=== PATIENT | female | born 1965 | race Caucasian/White ===

== ENCOUNTER 2017-12-06 13:07 | Emergency (ER) | payer MEDICAID, SELFPAY ==
[2017-12-06 13:18] VITALS: BP 146/106; PULSE 85; RESP 18; TEMP 36.7; O2SAT 97
[2017-12-06 13:21] LABS: Bilirubin Negative (Negative); Blood Small (Negative); Clarity Clear; Glucose Negative (Negative); Ketones Negative (Negative); Leukocyte Esterase Small (Negative); Nitrite Negative (Negative); Urobilinogen 0.2 EU/dL (Up TO 0.2)
[2017-12-06 13:35] LABS: Bacteria Moderate HPF (Negative); C & S Indicated? Yes; Casts Negative LPF (Negative); Crystals Negative HPF (Negative); Epithelial Cells Negative HPF (Negative); Mucus Negative (Negative); RBC 20-50 (0-2); WBC >50 HPF (0-5)
--- NOTE | 2017-12-06 13:52 | DI.CT_ITS ---
SYMPTOMS/DIAGNOSIS: RT RENAL PAIN RENAL COLIC CT: Routine examination. Comparison CT scan of the chest is 11/04/16. There are a few hypodensities seen within the liver. They are too small for further characterization but likely reflect cysts. The cyst in the lateral aspect of the right lobe of the liver appears stable. The gallbladder is negative. No biliary ductal dilatation is seen. The unenhanced visualized portions of the pancreas, spleen and adrenal glands are unremarkable. No evidence of nephrolithiasis or obstructive uropathy. The urinary bladder is intact. The uterus may be surgically absent. The bowel shows no evidence of obstruction or inflammation. There is a moderate amount of stool throughout the colon suggesting constipation. No evidence of an acute appendicitis is present. No significant abdominal or pelvic adenopathy, ascites or pneumoperitoneum is seen. The abdominal aorta is of normal caliber. Degenerative changes are seen in the spine. IMPRESSION: 1. No evidence of an obstructive uropathy or nephrolithiasis. 2. Constipation.
--- NOTE | 2017-12-06 14:05 | W.ED.GENAD ---
Discharge Plan Disposition Patient Disposition: HOME Condition: Fair Discharge Details Chief Complaint: Urinary Clinical Impression: Pyelonephritis Primary Care Provider: Elias Cruz ED Provider: Sadaf Tang Home Meds and New Rx's Prescriptions: New sulfamethoxazole-trimethoprim [Bactrim DS] 800-160 mg tablet 1 tab PO DAILY Qty: 28 RF: 0 Continue ibuprofen 800 mg tablet 800 mg PO QID PRNRF: 0 simvastatin 40 mg tablet 40 mg PO QPM RF: 0 dicyclomine 10 mg capsule 10 mg PO QID PRNRF: 0 varenicline [Chantix] 1 mg tablet 1 mg PO BID Qty: 30 RF: 4 varenicline [Chantix Starting Month Box] 0.5 mg (11)- 1 mg (42) tablets,dose pack 1 dose pk PO DIRECTED Qty: 53 RF: 0 aspirin [Aspir-81] 81 MG tablet,delayed release (DR/EC) 81 mg PO DAILY Qty: 90 RF: 4 clonazepam 1 mg tablet 1 mg PO TID PRN (Reason: anxiety) Qty: 90 RF: 1 No Action hydrocodone-acetaminophen 5-325 mg tablet 1 tab PO DAILY PRN MDD 1 tab PRN (Reason: pain) 30 Days Qty: 30 RF: 0 nitrofurantoin monohyd/m-cryst 100 mg capsule 100 mg PO BID Qty: 14 RF: 0 Discharge Instructions Instructions: Urinary Tract Infection in Women (ED) Additional Instructions: Encourage hydration. Please take antibiotics as prescribed. Even if symptoms improve, please take the entire course. Please follow-up with primary care in 1 week for reevaluation. If you develop fever/chills, inability to stay hydrated, increased pain or other new/worsening symptoms please seek care urgently once again Referrals: Elias Cruz MD [Primary Care Provider] - Discharge Data Discharge Date/Time-TO BE ENTERED AT DEPARTURE: 12/06/17 15:28 Medical Decision Making Patient is a 52-year-old female presenting today with chief complaint of dysuria, right-sided flank pain and increased urgency that began a few hours prior to arrival. She reports that she had urinary tract infections in the past. None recently. Denies any fevers or chills. Denies any nausea or vomiting. No change in bowel habits. Denies any vaginal discharge or dyspareunia. On exam, patient has right-sided CVA tenderness. She appears nontoxic. Vital signs significant for hypertension with BP of 146/106, otherwise within normal limits. Patient is afebrile. Patient has history of anxiety, hyperlipidemia, GERD, chronic pain, bipolar, COPD, PTSD, chronic low back pain. Will obtain urinalysis, laboratory evaluation. Given the acuity of her discomfort, I am concerned this may may be a kidney stone. However, the patient does not appear to be in that much discomfort. She is resting comfortably. Only minimal pain is elicited with CVA tenderness. However, I would like to evaluate the right kidney further and will obtain a renal CT. Discussed this plan with the patient who is in agreement. CT reviewed by radiologist who contacted the department with results. Advised that there is no nephrolithiasis or obstruction noted. No hydronephrosis. Does note that the patient is mildly constipated Laboratory evaluation significant for small amount of leukocytosis in the urinalysis as well as small amount of blood. Patient does have moderate bacteria with no epithelial contamination. No leukocytosis. Kidney function is appropriate Discussed these findings with the patient. Advised that her history is concerning for pyelonephritis. Patient will be treated with oral Bactrim Encouraged hydration. We discussed pain control options. She has been dealing with chronic pain in her lower back for quite some time and seems well adept at this. Advise follow-up with primary care in 1 week. She is given strict return precautions. All of her questions and concerns were addressed and she is in agreement with this plan. HPI General Mode of arrival: ambulatory. Date/Time Provider Initiated Documentation: 12/06/17 13:20. Limitations to Documentation: no limitations. Information obtained by: patient. History of Present Illness 52 year old F presents to the emergency department with the chief complaint of dysurea, described as moderate, with intensity rated at 8. Quality is described as aching, and is localized to the back (right flank). Patient reports no radiation. Patient started experiencing this hour(s) (began at 0900) and it has been constant. No relieving factors improve symptom(s), Other factors that worsen symptoms (urinating) . Patient notes no other symptoms.; denies chest pain, cough, fever/chills, headaches, loss of appetite, nausea/vomiting, rash, shortness of breath and weakness. Patient did receive the following treatments prior to arrival, none Related Data Home Medications Medication Instructions Recorded Confirmed aspirin [Aspir-81] 81 mg PO DAILY #90 tab-cap 03/09/13 12/16/17 dicyclomine 10 mg capsule 10 mg PO QID PRN 11/05/17 12/16/17 ibuprofen 800 mg tablet 800 mg PO QID PRN 11/05/17 12/16/17 simvastatin 40 mg tablet 40 mg PO QPM 11/05/17 12/16/17 varenicline 0.5 mg (11)-1 mg (42) 1 dose pk PO DIRECTED #53 dose 11/05/17 12/16/17 tablets in a dose pack pk varenicline 1 mg tablet 1 mg PO BID #30 tab 11/05/17 12/16/17 clonazepam 1 mg tablet 1 mg PO TID PRN #90 tab NS 11/23/17 12/16/17 sulfamethoxazole-trimethoprim 1 tab PO DAILY #28 tab 12/06/17 12/16/17 [Bactrim DS] hydrocodone 5 mg-acetaminophen 325 1 tab PO DAILY PRN PRN 30 Days #30 12/17/17 mg tablet tab NS MDD 1 tab nitrofurantoin 100 mg PO BID #14 cap 12/17/17 monohydrate/macrocrystals 100 mg capsule Previous Rx's Medication Instructions Recorded varenicline 0.5 mg (11)-1 mg (42) 1 dose pk PO DIRECTED #53 dose 11/05/17 tablets in a dose pack pk varenicline 1 mg tablet 1 mg PO BID #30 tab 11/05/17 clonazepam 1 mg tablet 1 mg PO TID PRN #90 tab NS 11/23/17 sulfamethoxazole-trimethoprim 1 tab PO DAILY #28 tab 12/06/17 [Bactrim DS] hydrocodone 5 mg-acetaminophen 325 1 tab PO DAILY PRN PRN 30 Days #30 12/17/17 mg tablet tab NS MDD 1 tab nitrofurantoin 100 mg PO BID #14 cap 12/17/17 monohydrate/macrocrystals 100 mg capsule Allergies Allergy/AdvReac Type Severity Reaction Status Date / Time morphine Allergy Severe stops my Unverified 12/16/17 14:26 heart fentanyl Allergy Intermediate Hives Unverified 12/16/17 14:26 lamotrigine Allergy Intermediate Facial Unverified 12/16/17 14:26 blistering carbamazepine AdvReac Intermediate Drowsiness Unverified 12/16/17 14:26 and ataxia cyclobenzaprine HCl AdvReac Intermediate vomits Unverified 12/16/17 14:26 [From Flexeril] hydromorphone HCl AdvReac Intermediate vomits Unverified 12/16/17 14:26 [From Dilaudid] Penicillins AdvReac Intermediate vomits Unverified 12/16/17 14:26 methocarbamol AdvReac Nausea, Unverified 12/16/17 14:26 headache oxycodone [Oxycodone] AdvReac Nausea Unverified 12/16/17 14:26 prednisone AdvReac Nausea Unverified 12/16/17 14:26 General Stated Complaint: Urinary VENKAT: 3 Review of Systems Constitutional Reports as per HPI Cardiovascular Reports as per HPI Respiratory Reports as per HPI Gastrointestinal Reports as per HPI Genitourinary Reports as per HPI, Denies dyspareunia, Reports dysuria, Reports flank pain, Denies urinary incontinence, Reports urinary urgency and Denies vaginal discharge Musculoskeletal Reports as per HPI and Reports back pain Integumentary/Breasts Denies rash PFSH Family History Mother Essential hypertension Alzheimer disease Heart disease Hyperlipidemia Father Myocardial infarction Sister Hyperlipidemia Cerebrovascular accident Brother Essential hypertension Heart disease Hyperlipidemia Cerebrovascular accident Son Diabetes Grandmother Diabetes Social History Smoking/Tobacco Use Status: Current every day tobacco type: cigarettes Surgical History Abdominal hysterectomy Appendectomy Arthroscopy, Shoulder Bilateral salpingectomy with oophorectomy Rotator Cuff Repair Exam Const General: cooperative, healthy appearing, comfortable, no acute distress, well developed and well groomed Nutritional Appearance: average body habitus and well nourished Orientation: alert and awake [facility] Mouth: oral mucosae normal and moist mucous membranes Eyes General: appearance normal, both eyes and all related structures Resp Effort & Inspection: normal respiratory effort, able to speak in complete sentences and no respiratory distress Auscultation: clear to auscultation bilaterally, no rales, no rhonchi and no wheezes Cardio Rate: regular rate Rhythm: regular rhythm Heart Sounds: S1 normal and S2 normal GI Inspection: normal to inspection, no abdominal wall ecchymosis, no edema and non-distended Palpation: soft, no hepatosplenomegaly, not firm, no guarding, no masses, not rigid and nontender Auscultation: normal bowel sounds Back/Spine/Pelvis Back: CVA tenderness (right) Skin General skin exam: no rashes or lesions noted Lesions: no lesions Rashes: no rashes Trauma: no lacerations or abrasions Neuro General: alert and awake Cognition: normal cognition Speech: speech normal Gait: normal gait Extrem General: no pedal edema, no calf tenderness and normal gait Psych Appearance: grossly normal and well kempt Mental Status: mental status grossly normal Speech and Movement: speech and movement normal Mood: congruent mood Course Vital Signs Temperature 36.7 C 12/06/17 13:18 Pulse 85 12/06/17 13:18 Respiratory Rate 18 12/06/17 13:18 Blood Pressure 146/106 H 12/06/17 13:18 Pulse Oximetry 97 12/06/17 13:18 Temperature 36.7 C 12/06/17 13:18 Temperature Source Tympanic 12/06/17 13:18 Pulse 85 12/06/17 13:18 Respiratory Rate 18 12/06/17 13:18 Respiratory Effort Non-Labored 12/06/17 13:20 Blood Pressure 146/106 H 12/06/17 13:18 Blood Pressure Position Sitting 12/06/17 13:18 Pulse Oximetry 97 12/06/17 13:18 Oxygen Delivery Method Room Air 12/06/17 13:18 Oxygen Flow Rate 0 12/06/17 13:18 Pain Level 8 12/06/17 13:18 Lab/Test Results Lab/Test Results: 12/06/17 13:13 Urine - Reflex from Ua Urine Culture - Pending Laboratory Tests Range/Units 12/06/17 13:13 Urine Color (Yellow) Yellow Urine Clarity Clear Urine pH (5-8) 7.0 Ur Specific [place] (1.005-1.025) 1.010 Urine Protein (Negative) mg/dL Negative Urine Ketones (Negative) mg/dL Negative Urine Blood (Negative) Small H Urine Nitrite (Negative) Negative Urine Bilirubin (Negative) Negative Urine Urobilinogen (Up TO 0.2) EU/dL 0.2 Ur Leukocyte Esterase (Negative) Small H Urine RBC (0-2) 20-50 H Urine WBC (0-5) HPF >50 Ur Epithelial Cells (Negative) HPF Negative Urine Crystals (Negative) HPF Negative Urine Bacteria (Negative) HPF Moderate Urine Casts (Negative) LPF Negative Urine Mucus (Negative) Negative Ur Culture Indicated? Yes Urine Glucose (Negative) mg/dL Negative
[2017-12-06 14:36] LABS: Abs Immature Grans 0.02 k/cumm (0.0-0.09); Absolute Basophil Count 0.04 k/cumm (0.0-0.2); Absolute Eosinophil Count 0.09 k/cumm (0.0-0.7); Absolute Monocyte Count 0.48 k/cumm (0.11-0.7); Absolute Neutrophil Count 5.66 k/cumm (1.2-6.7); Basophils % 0.4; HCT 43.4 % (36.0-46.0); HGB 14.7 g/dL (12.0-15.5); Immature Grans % 0.2; Mean Corp. HGB Concentration 33.9 g/dL (32.0-36.0); Mean Corpuscular Hemoglobin 31.1 pg (27.0-33.0); Mean Corpuscular Volume 91.8 fL (80-95); Mean Platelet Volume 10.2 fL (8.0-11.0); Monocytes % 5.3; Neutrophils % 63.1; Platelet Count 265 x1000/uL (130-400); RBC 4.73 m/cumm (4.00-5.20); RBC Distribution Width 13.9 % (11.7-14.6); White Blood Cell Count 8.99 k/cumm (4.4-10.8)
[2017-12-06 14:54] LABS: ALT 21 U/L (12-78); AST 17 U/L (15-37); Albumin 4.1 g/dL (3.4-5.0); Alkaline Phosphatase 81 U/L (46-116); Anion Gap 6.4 mmol/L (3-11); BUN 11 mg/dL (7-18); Bilirubin, Total 0.3 mg/dL (0.2-1.0); CO2 27.6 mmol/L (21.0-32.0); Calcium 8.9 mg/dL (8.5-10.1); Chloride 105 mmol/L (98-107); Glucose 92 mg/dL (70-100); Sodium 139 mmol/L (136-145); Total Protein 7.8 g/dL (6.4-8.2)
--- NOTE | 2017-12-20 14:29 | ED.GENADUL_ITS ---
Discharge Plan Disposition Patient Disposition: HOME Condition: Fair Discharge Details Chief Complaint: Urinary Clinical Impression: Pyelonephritis Primary Care Provider: Elias Cruz ED Provider: Sadaf Tang Home Meds and New Rx's Prescriptions: New sulfamethoxazole-trimethoprim [Bactrim DS] 800-160 mg tablet 1 tab PO DAILY Qty: 28 RF: 0 Continue ibuprofen 800 mg tablet 800 mg PO QID PRNRF: 0 simvastatin 40 mg tablet 40 mg PO QPM RF: 0 dicyclomine 10 mg capsule 10 mg PO QID PRNRF: 0 varenicline [Chantix] 1 mg tablet 1 mg PO BID Qty: 30 RF: 4 varenicline [Chantix Starting Month Box] 0.5 mg (11)- 1 mg (42) tablets,dose pack 1 dose pk PO DIRECTED Qty: 53 RF: 0 aspirin [Aspir-81] 81 MG tablet,delayed release (DR/EC) 81 mg PO DAILY Qty: 90 RF: 4 clonazepam 1 mg tablet 1 mg PO TID PRN (Reason: anxiety) Qty: 90 RF: 1 No Action hydrocodone-acetaminophen 5-325 mg tablet 1 tab PO DAILY PRN MDD 1 tab PRN (Reason: pain) 30 Days Qty: 30 RF: 0 nitrofurantoin monohyd/m-cryst 100 mg capsule 100 mg PO BID Qty: 14 RF: 0 Discharge Instructions Instructions: Urinary Tract Infection in Women (ED) Additional Instructions: Encourage hydration. Please take antibiotics as prescribed. Even if symptoms improve, please take the entire course. Please follow-up with primary care in 1 week for reevaluation. If you develop fever/chills, inability to stay hydrated, increased pain or other new/worsening symptoms please seek care urgently once again Referrals: Elias Cruz MD [Primary Care Provider] - Discharge Data Discharge Date/Time-TO BE ENTERED AT DEPARTURE: 12/06/17 15:28 Medical Decision Making Patient is a 52-year-old female presenting today with chief complaint of dysuria , right-sided flank pain and increased urgency that began a few hours prior to arrival. She reports that she had urinary tract infections in the past. None recently. Denies any fevers or chills. Denies any nausea or vomiting. No change in bowel habits. Denies any vaginal discharge or dyspareunia. On exam, patient has right-sided CVA tenderness. She appears nontoxic. Vital signs significant for hypertension with BP of 146/106, otherwise within normal limits. Patient is afebrile. Patient has history of anxiety, hyperlipidemia, GERD, chronic pain, bipolar, COPD, PTSD, chronic low back pain. Will obtain urinalysis, laboratory evaluation. Given the acuity of her discomfort, I am concerned this may may be a kidney stone. However, the patient does not appear to be in that much discomfort. She is resting comfortably. Only minimal pain is elicited with CVA tenderness. However, I would like to evaluate the right kidney further and will obtain a renal CT. Discussed this plan with the patient who is in agreement. CT reviewed by radiologist who contacted the department with results. Advised that there is no nephrolithiasis or obstruction noted. No hydronephrosis. Does note that the patient is mildly constipated Laboratory evaluation significant for small amount of leukocytosis in the urinalysis as well as small amount of blood. Patient does have moderate bacteria with no epithelial contamination. No leukocytosis. Kidney function is appropriate Discussed these findings with the patient. Advised that her history is concerning for pyelonephritis. Patient will be treated with oral Bactrim Encouraged hydration. We discussed pain control options. She has been dealing with chronic pain in her lower back for quite some time and seems well adept at this. Advise follow-up with primary care in 1 week. She is given strict return precautions. All of her questions and concerns were addressed and she is in agreement with this plan. HPI General Mode of arrival: ambulatory . Date/Time Provider Initiated Documentation: 12/06/17 13:20 . Limitations to Documentation: no limitations . Information obtained by: patient . History of Present Illness 52 year old F presents to the emergency department with the chief complaint of dysurea, described as moderate, with intensity rated at 8. Quality is described as aching, and is localized to the back (right flank). Patient reports no radiation. Patient started experiencing this hour(s) (began at 0900 ) and it has been constant. No relieving factors improve symptom(s), Other factors that worsen symptoms (urinating) . Patient notes no other symptoms.; denies chest pain, cough, fever/chills, headaches, loss of appetite, nausea/vomiting, rash, shortness of breath and weakness. Patient did receive the following treatments prior to arrival, none Related Data Home Medications Medication Instructions Recorded Confirmed aspirin [Aspir-81] 81 mg PO DAILY #90 tab-cap 03/09/13 12/16/17 dicyclomine 10 mg capsule 10 mg PO QID PRN 11/05/17 12/16/17 ibuprofen 800 mg tablet 800 mg PO QID PRN 11/05/17 12/16/17 simvastatin 40 mg tablet 40 mg PO QPM 11/05/17 12/16/17 varenicline 0.5 mg (11)-1 mg (42) 1 dose pk PO DIRECTED #53 dose 11/05/17 tablets in a dose pack pk varenicline 1 mg tablet 1 mg PO BID #30 tab 11/05/17 12/16/17 clonazepam 1 mg tablet 1 mg PO TID PRN #90 tab NS 11/23/17 12/16/17 sulfamethoxazole-trimethoprim 1 tab PO DAILY #28 tab 12/06/17 12/16/17 [Bactrim DS] hydrocodone 5 mg-acetaminophen 325 1 tab PO DAILY PRN PRN 30 Days #30 12/17/17 mg tablet tab NS MDD 1 tab nitrofurantoin 100 mg PO BID #14 cap 12/17/17 monohydrate/macrocrystals 100 mg capsule Previous Rx's Medication Instructions Recorded varenicline 0.5 mg (11)-1 mg (42) 1 dose pk PO DIRECTED #53 dose 11/05/17 tablets in a dose pack pk varenicline 1 mg tablet 1 mg PO BID #30 tab 11/05/17 clonazepam 1 mg tablet 1 mg PO TID PRN #90 tab NS 11/23/17 sulfamethoxazole-trimethoprim 1 tab PO DAILY #28 tab 12/06/17 [Bactrim DS] hydrocodone 5 mg-acetaminophen 325 1 tab PO DAILY PRN PRN 30 Days #30 12/17/17 mg tablet tab NS MDD 1 tab nitrofurantoin 100 mg PO BID #14 cap 12/17/17 monohydrate/macrocrystals 100 mg capsule Allergies Allergy/AdvReac Type Severity Reaction Status Date / Time morphine Allergy Severe stops my Unverified 12/16/17 14:26 heart fentanyl Allergy Intermediate Hives Unverified 12/16/17 14:26 lamotrigine Allergy Intermediate Facial Unverified 12/16/17 14:26 blistering carbamazepine AdvReac Intermediate Drowsiness Unverified 12/16/17 14:26 and ataxia cyclobenzaprine HCl AdvReac Intermediate vomits Unverified 12/16/17 14:26 [From Flexeril] hydromorphone HCl AdvReac Intermediate vomits Unverified 12/16/17 14:26 [From Dilaudid] Penicillins AdvReac Intermediate vomits Unverified 12/16/17 14:26 methocarbamol AdvReac Nausea, Unverified 12/16/17 14:26 headache oxycodone [Oxycodone] AdvReac Nausea Unverified 12/16/17 14:26 prednisone AdvReac Nausea Unverified 12/16/17 14:26 General Stated Complaint: Urinary VENKAT: 3 Review of Systems Constitutional Reports as per HPI Cardiovascular Reports as per HPI Respiratory Reports as per HPI Gastrointestinal Reports as per HPI Genitourinary Reports as per HPI, Denies dyspareunia, Reports dysuria, Reports flank pain, Denies urinary incontinence, Reports urinary urgency and Denies vaginal discharge Musculoskeletal Reports as per HPI and Reports back pain Integumentary/Breasts Denies rash PFSH Family History Mother Essential hypertension Alzheimer disease Heart disease Hyperlipidemia Father Myocardial infarction Sister Hyperlipidemia Cerebrovascular accident Brother Essential hypertension Heart disease Hyperlipidemia Cerebrovascular accident Son Diabetes Grandmother Diabetes Social History Smoking/Tobacco Use Status: Current every day tobacco type: cigarettes Surgical History Abdominal hysterectomy Appendectomy Arthroscopy, Shoulder Bilateral salpingectomy with oophorectomy Rotator Cuff Repair Exam Const General: cooperative, healthy appearing, comfortable, no acute distress, well developed and well groomed Nutritional Appearance: average body habitus and well nourished Orientation: alert and awake [facility] Mouth: oral mucosae normal and moist mucous membranes Eyes General: appearance normal, both eyes and all related structures Resp Effort & Inspection: normal respiratory effort, able to speak in complete sentences and no respiratory distress Auscultation: clear to auscultation bilaterally, no rales, no rhonchi and no wheezes Cardio Rate: regular rate Rhythm: regular rhythm Heart Sounds: S1 normal and S2 normal GI Inspection: normal to inspection, no abdominal wall ecchymosis, no edema and non -distended Palpation: soft, no hepatosplenomegaly, not firm, no guarding, no masses, not rigid and nontender Auscultation: normal bowel sounds Back/Spine/Pelvis Back: CVA tenderness (right) Skin General skin exam: no rashes or lesions noted Lesions: no lesions Rashes: no rashes Trauma: no lacerations or abrasions Neuro General: alert and awake Cognition: normal cognition Speech: speech normal Gait: normal gait Extrem General: no pedal edema, no calf tenderness and normal gait Psych Appearance: grossly normal and well kempt Mental Status: mental status grossly normal Speech and Movement: speech and movement normal Mood: congruent mood Course Vital Signs Temperature 36.7 C 12/06/17 13:18 Pulse 85 12/06/17 13:18 Respiratory Rate 18 12/06/17 13:18 Blood Pressure 146/106 H 12/06/17 13:18 Pulse Oximetry 97 12/06/17 13:18 Temperature 36.7 C 12/06/17 13:18 Temperature Source Tympanic 12/06/17 13:18 Pulse 85 12/06/17 13:18 Respiratory Rate 18 12/06/17 13:18 Respiratory Effort Non-Labored 12/06/17 13:20 Blood Pressure 146/106 H 12/06/17 13:18 Blood Pressure Position Sitting 12/06/17 13:18 Pulse Oximetry 97 12/06/17 13:18 Oxygen Delivery Method Room Air 12/06/17 13:18 Oxygen Flow Rate 0 12/06/17 13:18 Pain Level 8 12/06/17 13:18 Lab/Test Results Lab/Test Results: 12/06/17 13:13 Urine - Reflex from Ua Urine Culture - Pending Laboratory Tests Range/Units 12/06/17 13:13 Urine Color (Yellow) Yellow Urine Clarity Clear Urine pH (5-8) 7.0 Ur Specific [place] (1.005-1.025) 1.010 Urine Protein (Negative) mg/dL Negative Urine Ketones (Negative) mg/dL Negative Urine Blood (Negative) Small H Urine Nitrite (Negative) Negative Urine Bilirubin (Negative) Negative Urine Urobilinogen (Up TO 0.2) EU/dL 0.2 Ur Leukocyte Esterase (Negative) Small H Urine RBC (0-2) 20-50 H Urine WBC (0-5) HPF >50 Ur Epithelial Cells (Negative) HPF Negative Urine Crystals (Negative) HPF Negative Urine Bacteria (Negative) HPF Moderate Urine Casts (Negative) LPF Negative Urine Mucus (Negative) Negative Ur Culture Indicated? Yes Urine Glucose (Negative) mg/dL Negative
== END 2017-12-06 15:28 | disposition home or self-care (01) ==
PROVIDERS: Emergency Provider Physician Assistant; PCP Family Medicine
DX: N10 Acute pyelonephritis (principal); K59.00 Constipation, unspecified
CPT/HCPCS: 36415; 80053; 87077; 99284; 74176; 81003; 81015; 85025; 87086; 87186

== ENCOUNTER 2017-12-16 18:14 | Outpatient (REF) | payer MEDICAID, SELFPAY | END 2017-12-16 18:34 | LOC: LBN 18:14 | PROVIDERS: PCP Family Medicine; Visit Provider Family Medicine | DX: Z87.440 Personal history of urinary (tract) infections (principal) | CPT/HCPCS: 87077; 87086; 87186 ==

== ENCOUNTER 2018-01-03 11:35 | Emergency (ER) | payer MEDICAID, SELFPAY ==
[2018-01-03] VITALS (37 sets, daily range): BP systolic 111–150; BP diastolic 77–104; PULSE 46–84; RESP 10–23; TEMP 36.6; O2SAT 91–100
--- NOTE | 2018-01-03 12:11 | W.ED.GENAD ---
Discharge Plan Disposition Patient Disposition: HOME Condition: Stable Discharge Details Chief Complaint: Chest Pain Clinical Impression: Chest pain Primary Care Provider: Elias Cruz ED Provider: Krystyna Dixon Home Meds and New Rx's Prescriptions: Continue ibuprofen 800 mg tablet 800 mg PO QID PRNRF: 0 simvastatin 40 mg tablet 40 mg PO QPM RF: 0 aspirin [Aspir-81] 81 MG tablet,delayed release (DR/EC) 81 mg PO DAILY Qty: 90 RF: 4 clonazepam 1 mg tablet 1 mg PO TID PRN (Reason: anxiety) Qty: 90 RF: 1 hydrocodone-acetaminophen 5-325 mg tablet 1 tab PO DAILY PRN MDD 1 tab PRN (Reason: pain) 30 Days Qty: 30 RF: 0 Discharge Instructions Instructions: Chest Pain (ED) Additional Instructions: Please return to the emergency department if you develop any new or worsening symptoms or if you become otherwise concerned. It is extremely important that you make an appointment to be seen by your primary care doctor this week in follow-up for this visit. Referrals: Elias Cruz MD [Primary Care Provider] - Discharge Data Discharge Date/Time-TO BE ENTERED AT DEPARTURE: 01/03/18 17:04 Medical Decision Making Cara Carpenter is a 52 y/o woman with history of GERD, hyperlipidemia, COPD, bipolar who presented to the emergency department with chest pain that began at 8am this morning while at rest, accompanied by mild SOB. On exam Pt appears well and non-toxic, comfortable. No resp distress, LCTAB. Normal cardiac exam. Chest NTTP. Concern for MSK vs GERD vs PE vs other, low risk for ACS. Exam/hx not c/w acute aortic etiology. Plan for EKG, CXR, screening labs, ASA, SLNG, IV, telemetry. EKG okay. CXR okay. Labs non-diagnostic. Pt reports pain resolved after ASA and SLNG x1. Now asymptomatic. Pt has remained asymptomatic. Second trop negative. Pt is low risk, plan for outpt f/u and outpt stress, which I ordered. Lengthy discussion with Pt re: RTED precautions and importance of outpt f/u and stress. Pt is amenable to the plan. Medical Records Medical records reviewed: Yes I reviewed the patient's medical records. Imaging Data Radiologic Study: Attestation: I personally reviewed and interpreted this imaging study as follows: Radiologist's impression: CHEST X-RAY, PA, LATERAL: Comparison 08/23/17. Heart size and pulmonary vasculature are stable and within normal limits. The lungs are hyperinflated consistent with underlying COPD. No infiltrates, effusions or pneumothoraces are identified. The bones are intact. IMPRESSION: No acute pulmonary process. Lab Data Lab results reviewed: Yes I reviewed the patient's lab results. ECG Data Attestation: I personally reviewed and interpreted this ECG (s) as follows: Interpretation: EKG shows normal sinus rhythm at 70 with normal axis, no STEMI, nondiagnostic EKG HPI General Mode of arrival: ambulatory. Date/Time Provider Initiated Documentation: 01/03/18 12:11. Limitations to Documentation: no limitations. Information obtained by: RN notes reviewed and old records reviewed. HPI Narrative: Cara Carpenter is a 52 y/o woman with history of GERD, hyperlipidemia, COPD, bipolar presenting to the emergency department with chest pain. Patient reports that at approximately 8 AM this morning while at rest she noticed pinching chest pain just under her left breast. Pain radiates somewhat into the left shoulder, although she has chronic left shoulder pain and cannot quite distinguish. There is no radiation into the back or into the left arm. Patient reports that she has been feeling somewhat weak all over over the past few days. She has had mild shortness of breath since onset of pain this morning. She notes mild tingling in the fingers of her left hand. She smokes 1 pack of cigarettes per day and has a chronic cough. There is no worsening of her cough. She denies any other pain, fever, nausea/vomiting/diarrhea, swelling. She spent the weekend in [place], but otherwise no recent travel. Has been eating and drinking normally. She denies having similar pain in the past. Related Data Home Medications Medication Instructions Recorded Confirmed aspirin [Aspir-81] 81 mg PO DAILY #90 tab-cap 03/09/13 01/03/18 ibuprofen 800 mg tablet 800 mg PO QID PRN 11/05/17 01/03/18 simvastatin 40 mg tablet 40 mg PO QPM 11/05/17 01/03/18 clonazepam 1 mg tablet 1 mg PO TID PRN #90 tab NS 11/23/17 01/03/18 hydrocodone 5 mg-acetaminophen 325 1 tab PO DAILY PRN PRN 30 Days #30 12/17/17 01/03/18 mg tablet tab NS MDD 1 tab Previous Rx's Medication Instructions Recorded clonazepam 1 mg tablet 1 mg PO TID PRN #90 tab NS 11/23/17 hydrocodone 5 mg-acetaminophen 325 1 tab PO DAILY PRN PRN 30 Days #30 12/17/17 mg tablet tab NS MDD 1 tab Allergies Allergy/AdvReac Type Severity Reaction Status Date / Time morphine Allergy Severe stops my Unverified 01/03/18 11:55 heart fentanyl Allergy Intermediate Hives Unverified 01/03/18 11:55 lamotrigine Allergy Intermediate Facial Unverified 01/03/18 11:55 blistering carbamazepine AdvReac Intermediate Drowsiness Unverified 01/03/18 11:55 and ataxia cyclobenzaprine HCl AdvReac Intermediate vomits Unverified 01/03/18 11:55 [From Flexeril] hydromorphone HCl AdvReac Intermediate vomits Unverified 01/03/18 11:55 [From Dilaudid] Penicillins AdvReac Intermediate vomits Unverified 01/03/18 11:55 methocarbamol AdvReac Nausea, Unverified 01/03/18 11:55 headache oxycodone [Oxycodone] AdvReac Nausea Unverified 01/03/18 11:55 prednisone AdvReac Nausea Unverified 01/03/18 11:55 General Stated Complaint: Chest Pain VENKAT: 2 Review of Systems Review of Systems Constitutional: denies fevers Eyes: denies eye pain ENT: denies facial pain, dental pain, sore throat Cardiovascular: reports chest pain, denies edema Respiratory: reports SOB, denies cough GI: denies abdominal pain, vomiting, diarrhea : denies flank pain MSK: denies back pain, neck pain, arthralgias, myalgias Skin: denies rash Neuro: denies headaches, lightheadedness, weakness PFSH Family History Mother Essential hypertension Alzheimer disease Heart disease Hyperlipidemia Father Myocardial infarction Sister Hyperlipidemia Cerebrovascular accident Brother Essential hypertension Heart disease Hyperlipidemia Cerebrovascular accident Son Diabetes Grandmother Diabetes Social History Smoking/Tobacco Use Status: Current every day tobacco type: cigarettes Surgical History Abdominal hysterectomy Appendectomy Arthroscopy, Shoulder Bilateral salpingectomy with oophorectomy Rotator Cuff Repair Exam Narrative Exam Narrative: Constitutional: well and [id number], pleasant, conversing normally HENT: head atraumatic, normocephalic normal inspection, mucous membranes moist Eyes: conjunctiva normal, sclera normal, pupils 3mm b/l Neck: no stridor, normal ROM, trachea midline Chest: normal inspection, NTTP Resp: normal work of breathing, LCTAB Cardio: normal rate, normal rhythm, no murmur appreciated GI: abdomen soft, non-tender, non-distended Back: normal inspection, no rash Skin: warm, dry, normal color, no rash Neuro: alert, not altered, grossly non-focal, normal tone Ext: no edema, no posterior calf TTP Psych: normal mood, normal affect, normal behavior Course Vital Signs Temperature 36.6 C 01/03/18 11:40 Pulse 78 01/03/18 11:40 Respiratory Rate 16 01/03/18 11:40 Blood Pressure 150/104 H 01/03/18 11:40 Pulse Oximetry 98 01/03/18 11:40 Temperature 36.6 C 01/03/18 11:40 Temperature Source Temporal Artery Scan 01/03/18 11:40 Pulse 78 01/03/18 11:40 Respiratory Rate 16 01/03/18 11:40 Respiratory Effort 01/03/18 12:01 Respiratory Depth Normal 01/03/18 12:01 Respiratory Pattern Normal 01/03/18 12:01 Blood Pressure 150/104 H 01/03/18 11:40 Blood Pressure Position Sitting 01/03/18 11:40 Pulse Oximetry 98 01/03/18 11:40 Pain Level 6 01/03/18 11:40
--- NOTE | 2018-01-03 12:14 | ED.GENADUL_ITS ---
Discharge Plan Disposition Patient Disposition: HOME Condition: Stable Discharge Details Chief Complaint: Chest Pain Clinical Impression: Chest pain Primary Care Provider: Elias Cruz ED Provider: Krystyna Dixon Home Meds and New Rx's Prescriptions: Continue ibuprofen 800 mg tablet 800 mg PO QID PRNRF: 0 simvastatin 40 mg tablet 40 mg PO QPM RF: 0 aspirin [Aspir-81] 81 MG tablet,delayed release (DR/EC) 81 mg PO DAILY Qty: 90 RF: 4 clonazepam 1 mg tablet 1 mg PO TID PRN (Reason: anxiety) Qty: 90 RF: 1 hydrocodone-acetaminophen 5-325 mg tablet 1 tab PO DAILY PRN MDD 1 tab PRN (Reason: pain) 30 Days Qty: 30 RF: 0 Discharge Instructions Instructions: Chest Pain (ED) Additional Instructions: Please return to the emergency department if you develop any new or worsening symptoms or if you become otherwise concerned. It is extremely important that you make an appointment to be seen by your primary care doctor this week in follow-up for this visit. Referrals: Elias Cruz MD [Primary Care Provider] - Discharge Data Discharge Date/Time-TO BE ENTERED AT DEPARTURE: 01/03/18 17:04 Medical Decision Making Cara Carpenter is a 52 y/o woman with history of GERD, hyperlipidemia, COPD, bipolar who presented to the emergency department with chest pain that began at 8am this morning while at rest, accompanied by mild SOB. On exam Pt appears well and non-toxic, comfortable. No resp distress, LCTAB. Normal cardiac exam. Chest NTTP. Concern for MSK vs GERD vs PE vs other, low risk for ACS. Exam/hx not c/w acute aortic etiology. Plan for EKG, CXR, screening labs, ASA, SLNG, IV , telemetry. EKG okay. CXR okay. Labs non-diagnostic. Pt reports pain resolved after ASA and SLNG x1. Now asymptomatic. Pt has remained asymptomatic. Second trop negative. Pt is low risk, plan for outpt f/u and outpt stress, which I ordered. Lengthy discussion with Pt re: RTED precautions and importance of outpt f/u and stress. Pt is amenable to the plan. Medical Records Medical records reviewed: Yes I reviewed the patient's medical records. Imaging Data Radiologic Study: Attestation: I personally reviewed and interpreted this imaging study as follows: Radiologist's impression: CHEST X-RAY, PA, LATERAL: Comparison 08/23/17. Heart size and pulmonary vasculature are stable and within normal limits. The lungs are hyperinflated consistent with underlying COPD. No infiltrates, effusions or pneumothoraces are identified. The bones are intact. IMPRESSION: No acute pulmonary process. Lab Data Lab results reviewed: Yes I reviewed the patient's lab results. ECG Data Attestation: I personally reviewed and interpreted this ECG (s) as follows: Interpretation: EKG shows normal sinus rhythm at 70 with normal axis, no STEMI, nondiagnostic EKG HPI General Mode of arrival: ambulatory . Date/Time Provider Initiated Documentation: 01/03/18 12:11 . Limitations to Documentation: no limitations . Information obtained by: RN notes reviewed and old records reviewed . HPI Narrative: Cara Carpenter is a 52 y/o woman with history of GERD, hyperlipidemia, COPD, bipolar presenting to the emergency department with chest pain. Patient reports that at approximately 8 AM this morning while at rest she noticed pinching chest pain just under her left breast. Pain radiates somewhat into the left shoulder, although she has chronic left shoulder pain and cannot quite distinguish. There is no radiation into the back or into the left arm. Patient reports that she has been feeling somewhat weak all over over the past few days. She has had mild shortness of breath since onset of pain this morning. She notes mild tingling in the fingers of her left hand. She smokes 1 pack of cigarettes per day and has a chronic cough. There is no worsening of her cough. She denies any other pain, fever, nausea/vomiting/ diarrhea, swelling. She spent the weekend in [place], but otherwise no recent travel. Has been eating and drinking normally. She denies having similar pain in the past. Related Data Home Medications Medication Instructions Recorded Confirmed aspirin [Aspir-81] 81 mg PO DAILY #90 tab-cap 03/09/13 01/03/18 ibuprofen 800 mg tablet 800 mg PO QID PRN 11/05/17 01/03/18 simvastatin 40 mg tablet 40 mg PO QPM 11/05/17 01/03/18 clonazepam 1 mg tablet 1 mg PO TID PRN #90 tab NS 11/23/17 01/03/18 hydrocodone 5 mg-acetaminophen 325 1 tab PO DAILY PRN PRN 30 Days #30 12/17/17 01/03/18 mg tablet tab NS MDD 1 tab Previous Rx's Medication Instructions Recorded clonazepam 1 mg tablet 1 mg PO TID PRN #90 tab NS 11/23/17 hydrocodone 5 mg-acetaminophen 325 1 tab PO DAILY PRN PRN 30 Days #30 12/17/17 mg tablet tab NS MDD 1 tab Allergies Allergy/AdvReac Type Severity Reaction Status Date / Time morphine Allergy Severe stops my Unverified 01/03/18 11:55 heart fentanyl Allergy Intermediate Hives Unverified 01/03/18 11:55 lamotrigine Allergy Intermediate Facial Unverified 01/03/18 11:55 blistering carbamazepine AdvReac Intermediate Drowsiness Unverified 01/03/18 11:55 and ataxia cyclobenzaprine HCl AdvReac Intermediate vomits Unverified 01/03/18 11:55 [From Flexeril] hydromorphone HCl AdvReac Intermediate vomits Unverified 01/03/18 11:55 [From Dilaudid] Penicillins AdvReac Intermediate vomits Unverified 01/03/18 11:55 methocarbamol AdvReac Nausea, Unverified 01/03/18 11:55 headache oxycodone [Oxycodone] AdvReac Nausea Unverified 01/03/18 11:55 prednisone AdvReac Nausea Unverified 01/03/18 11:55 General Stated Complaint: Chest Pain VENKAT: 2 Review of Systems Review of Systems Constitutional: denies fevers Eyes: denies eye pain ENT: denies facial pain, dental pain, sore throat Cardiovascular: reports chest pain, denies edema Respiratory: reports SOB, denies cough GI: denies abdominal pain, vomiting, diarrhea : denies flank pain MSK: denies back pain, neck pain, arthralgias, myalgias Skin: denies rash Neuro: denies headaches, lightheadedness, weakness PFSH Family History Mother Essential hypertension Alzheimer disease Heart disease Hyperlipidemia Father Myocardial infarction Sister Hyperlipidemia Cerebrovascular accident Brother Essential hypertension Heart disease Hyperlipidemia Cerebrovascular accident Son Diabetes Grandmother Diabetes Social History Smoking/Tobacco Use Status: Current every day tobacco type: cigarettes Surgical History Abdominal hysterectomy Appendectomy Arthroscopy, Shoulder Bilateral salpingectomy with oophorectomy Rotator Cuff Repair Exam Narrative Exam Narrative: Constitutional: well and [id number], pleasant, conversing normally HENT: head atraumatic, normocephalic normal inspection, mucous membranes moist Eyes: conjunctiva normal, sclera normal, pupils 3mm b/l Neck: no stridor, normal ROM, trachea midline Chest: normal inspection, NTTP Resp: normal work of breathing, LCTAB Cardio: normal rate, normal rhythm, no murmur appreciated GI: abdomen soft, non-tender, non-distended Back: normal inspection, no rash Skin: warm, dry, normal color, no rash Neuro: alert, not altered, grossly non-focal, normal tone Ext: no edema, no posterior calf TTP Psych: normal mood, normal affect, normal behavior Course Vital Signs Temperature 36.6 C 01/03/18 11:40 Pulse 78 01/03/18 11:40 Respiratory Rate 16 01/03/18 11:40 Blood Pressure 150/104 H 01/03/18 11:40 Pulse Oximetry 98 01/03/18 11:40 Temperature 36.6 C 01/03/18 11:40 Temperature Source Temporal Artery Scan 01/03/18 11:40 Pulse 78 01/03/18 11:40 Respiratory Rate 16 01/03/18 11:40 Respiratory Effort 01/03/18 12:01 Respiratory Depth Normal 01/03/18 12:01 Respiratory Pattern Normal 01/03/18 12:01 Blood Pressure 150/104 H 01/03/18 11:40 Blood Pressure Position Sitting 01/03/18 11:40 Pulse Oximetry 98 01/03/18 11:40 Pain Level 6 01/03/18 11:40
[2018-01-03] MEDS: Aspirin 81 MG CHEW 324 MG CH (12:22)
[2018-01-03] MEDS: Normal Saline 500 ML IV (12:24)
[2018-01-03 12:36] LABS: Abs Immature Grans 0.01 k/cumm (0.0-0.09); Absolute Basophil Count 0.06 k/cumm (0.0-0.2); Absolute Eosinophil Count 0.08 k/cumm (0.0-0.7); Absolute Lymphocyte Count 1.77 k/cumm (1.2-3.4); Absolute Monocyte Count 0.46 k/cumm (0.11-0.7); Absolute Neutrophil Count 2.91 k/cumm (1.2-6.7); Basophils % 1.1; Eosinophils % 1.5; HCT 45.3 % (36.0-46.0); HGB 14.9 g/dL (12.0-15.5); Immature Grans % 0.2; Lymphocytes % 33.5; Mean Corp. HGB Concentration 32.9 g/dL (32.0-36.0); Mean Corpuscular Hemoglobin 30.3 pg (27.0-33.0); Mean Corpuscular Volume 92.1 fL (80-95); Mean Platelet Volume 10.7 fL (8.0-11.0); Monocytes % 8.7; Platelet Count 249 x1000/uL (130-400); RBC 4.92 m/cumm (4.00-5.20); RBC Distribution Width 14.3 % (11.7-14.6); White Blood Cell Count 5.29 k/cumm (4.4-10.8)
[2018-01-03 12:41] LABS: ALT 22 U/L (12-78); AST 13 U/L (15-37); Albumin 4.1 g/dL (3.4-5.0); Alkaline Phosphatase 73 U/L (46-116); Anion Gap 9.2 mmol/L (3-11); BUN 15 mg/dL (7-18); Bilirubin, Total 0.2 mg/dL (0.2-1.0); CO2 27.8 mmol/L (21.0-32.0); CREATININE 0.72 mg/dL (0.55-1.02); Calcium 9.2 mg/dL (8.5-10.1); Chloride 105 mmol/L (98-107); Glucose 97 mg/dL (70-100); Lipase 117 U/L (73-393); Potassium 3.8 mmol/L (3.5-5.1); Sodium 142 mmol/L (136-145)
[2018-01-03 12:58] LABS: Troponin I < 0.02 ng/mL (0.00-0.06)
--- NOTE | 2018-01-03 12:58 | NUR.NOTE ---
Returned from xray, continues to deny CP after nitro. ambulatory to restroom, steady gait, in NAD.
[2018-01-03 13:00] LABS: D-Dimer 246 ng/mlFEU (<500)
--- NOTE | 2018-01-03 13:37 | DI.RAD_ITS ---
SYMPTOM/DIAGNOSIS: CHEST PAIN CHEST X-RAY, PA, LATERAL: Comparison 08/23/17. Heart size and pulmonary vasculature are stable and within normal limits. The lungs are hyperinflated consistent with underlying COPD. No infiltrates, effusions or pneumothoraces are identified. The bones are intact. IMPRESSION: No acute pulmonary process.
--- NOTE | 2018-01-03 14:58 | NUR.NOTE ---
Pt. resting comfortable, VSS on the monitor, call arciniega in reach will monitor.
--- NOTE | 2018-01-03 15:59 | NUR.NOTE ---
Dinner ordered for patient.
[2018-01-03 16:20] LABS: Troponin I < 0.02 ng/mL (0.00-0.06)
--- NOTE | 2018-01-03 16:34 | NUR.NOTE ---
pt. eating dinner.
--- NOTE | 2018-01-05 10:08 | NUR.NOTE ---
Nursing Note: Patient has appointment with PCP at [facility] on 01/14 as recommended per ER visit.
== END 2018-01-03 17:04 | disposition home or self-care (01) ==
PROVIDERS: Emergency Provider Student in an Organized Health Care Education/Training Program; PCP Family Medicine
DX: R07.9 Chest pain, unspecified (principal); R53.1 Weakness; R06.02 Shortness of breath; R20.2 Paresthesia of skin; J44.9 Chronic obstructive pulmonary disease, unspecified; F17.210 Nicotine dependence, cigarettes, uncomplicated
CPT/HCPCS: 36415; 80053; 83690; 93005; 96360; 99285; 71046; 84484; 85025; 85379; 93010

== ENCOUNTER 2018-01-07 00:14 | Outpatient (CLI) | payer MEDICAID, SELFPAY ==
--- NOTE | 2018-01-07 08:30 | ETT_ITS ---
*[facility]* *[facility]* [address] [place] [address] Stress Electrocardiography Dioni protocol Date of study: 01/07/2018 *PATIENT PRESENTATION* Height: 166.4cm (65.5in) Blood Pressure: Weight: 54.1kg (119lb) BSA: 1.58m^2 Ordering physician: Krystyna Dixon Impressions: Normal study after maximal exercise. Summary: 1. Stress ECG conclusions: Hou treadmill score: 9. This score predicts a low risk of cardiac events. 2. Stress: The target heart rate was achieved. Indication: R07.9. History: REASON FOR VISIT: CHEST PAIN. PT WAS SEEN IN THE ED ON Wednesday01/03/18 FOR LEFT SIDED CHEST PAIN ASSOCIATED WITH SHORTNESS OF BREATH. THIS CHEST PAIN RADIATED INTO HER NECK AND JAW. SHE STATES IT OCCURED WHILE DRIVING SHE THOUGHT IT WAS RELATED TO STRESS SO SHE TOOK HER PRN CLONAZAPAM AND THE CHEST PAIN DID NOT GO AWAY SO SHE WENT TO THE ER. IN THE ER SHE WAS GIVEN 1 NITRO AND 4 BABY ASPIRINS AND THIS RELIEVED THE CHEST PAIN. PMH: Asthma. Risk factors: Family history of coronary artery disease. Current tobacco use. Dyslipidemia. ALLERGIES: MORPHINE. FENTANYL. LAMOTRIGINE. CARBAMAZEPINE. CYCLOBENZAPRINE. HYDROMORPHONE. PENICILLINS. METHOCARBAMOL. OXYCODONE. PREDNISONE. MEDICATIONS: SIMVASTATIN 40 MG Q PM. IBUPROFEN 800 MG QID PRN. HYRDROCODONE 5 MG-ACETAMINOPHEN 325 MG DAILY PRN. CLONAZEPAM 1 MG TID PRN. ASPIRIN 81 MG DAILY. Protocol: Dioni protocol. Baseline ECG: SINUS RHYTHM. HR 68 BPM. Stress protocol: + +---+ + !Stage !HR !BP (mmHg) ! + +---+ + !Baseline supine !68 !142/68 (93) ! + +---+ + !Baseline standing !77 !122/62 (82) ! + +---+ + !Stage I; 1.7mph, 10degrees; 3 min !119!152/92 (112) ! + +---+ + !Stage II; 2.5mph, 12degrees; 3 min !141!200/102 (135)! + +---+ + !Stage III; 3.4mph, 14degrees; 3 min!150!212/110 (144)! + +---+ + !Peak stress !150! ! + +---+ + !Immediate post stress !---!172/102 (125)! + +---+ + !Recovery; 3 min !94 !144/82 (103) ! + +---+ + !Recovery; 6 min !87 !140/82 (101) ! + +---+ + * Stress results: Maximal heart rate during stress was 150bpm (90% of maximal predicted heart rate). The maximal predicted heart rate was 167bpm. The target heart rate was achieved. The rate-pressure product for the peak heart rate and blood pressure was 30624yb Hg/min. Stress ECG: TREADMILLL PORTION OF STRESS TEST ENDED IN 9 MINUTES BECAUSE OF FATIGUE. NORMAL HEART RATE RESPONSE TO EXERCISE ELEVATED BLOOD PRESSURE RESPONSE TO EXERCISE. NORMAL BLOOD PRESSURE AT BASELINE. MAX HR = 150 % OF TARGET = 89 NO ECTOPY APPROXIMATE METS ACHIEVED = 10.16 NO ANGINA NO SIGNIFICANT ST SEGMENT CHANGES ABOVE AVERAGE FUNCTIONAL CAPACITY FOR EXERCISE. Hou treadmill score: 9. This score predicts a low risk of cardiac events. Study data: Kimani Bojorquez MD supervised and was readily available during the procedure. This study was interpreted by [facility]. Study status: Routine. Consent: The risks, benefits, and alternatives to the procedure were explained to the patient and informed consent was obtained. Procedure: Initial setup. A baseline ECG was recorded. Surface ECG leads and manual cuff blood pressure measurements were monitored. Heart sounds: Normal. Lung sounds: Normal. Treadmill exercise testing was performed using the Dioni protocol. Study completion: The patient tolerated the procedure well and was discharged from the lab. Discharge: The patient left the laboratory in stable condition. Birthdate: Patient birthdate: 1965. Sex: Gender: female. Study date: Study date: 01/07/2018. Study time: 08:30 AM. Signature Documentation: The Stress ECG portion of this study was interpreted by Kimani Bojorquez MD. Electronically signed by Kimani Bojorquez 01/07/2018 09:55
== END 2018-01-07 00:34 ==
PROVIDERS: PCP Family Medicine; Visit Provider Student in an Organized Health Care Education/Training Program
DX: R07.9 Chest pain, unspecified (principal); R06.02 Shortness of breath; E78.5 Hyperlipidemia, unspecified; Z82.49 Family history of ischemic heart disease and other diseases of the circulatory system
CPT/HCPCS: 93017

== ENCOUNTER 2018-06-16 11:20 | Emergency (ER) | payer MEDICAID, SELFPAY ==
[2018-06-16 11:23] VITALS: BP 148/98; PULSE 86; RESP 19; TEMP 36.8; O2SAT 98
--- NOTE | 2018-06-16 11:28 | ED.GENADUL_ITS ---
Discharge Plan Disposition Patient Disposition: HOME Condition: Stable Discharge Details Chief Complaint: Orthopedic Clinical Impression: Finger tendinitis Primary Care Provider: Elias Cruz ED Provider: Albino Vences Home Meds and New Rx's Prescriptions: No Action simvastatin 40 mg tablet 40 mg PO QPM RF: 0 ibuprofen 800 mg tablet 800 mg PO TID PRN (Reason: pain) Qty: 90 RF: 3 hydrocodone-acetaminophen 5-325 mg tablet 1 tab PO Q6H MDD 4 tabs PRN (Reason: pain) Qty: 20 RF: 0 aspirin [Aspir-81] 81 MG tablet,delayed release (DR/EC) 81 mg PO DAILY Qty: 90 RF: 4 benzonatate 100 mg capsule 100 mg PO TID PRN (Reason: cough) Qty: 30 RF: 2 promethazine-codeine 6.25-10 mg/5 mL syrup 5 ml PO Q6H PRN (Reason: cough) Qty: 118 RF: 0 clonazepam 1 mg tablet 1 mg PO TID PRN (Reason: anxiety) Qty: 90 RF: 1 Discharge Instructions Instructions: Tendinitis (ED) Medical Decision Making Patient comes in with posterior right thumb pain for over a month and denies any trauma. Denies fevers or swelling, states she has had tendonitis in the past of this finger and needed a splint so came here for this. She has full rom of the thumb with intact sensation, doubt fx given lack of trauma and full rom. She does have tenderness along posterior right thumb that could be due to tendonitis. No warmth, redness or swelling so doubt septic joint or infection. Will place in splint and advised f/u with pcp and return precautions given Differential Diagnosis tendonitis, strain, sprain HPI General Mode of arrival: ambulatory . Date/Time Provider Initiated Documentation: 06/16/18 11:21 . Limitations to Documentation: no limitations . Information obtained by: patient . History of Present Illness 52 year old F presents to the emergency department with the chief complaint of right thumb pain, described as moderate, Quality is described as aching, Related Data Home Medications Medication Instructions Recorded Confirmed aspirin [Aspir-81] 81 mg PO DAILY #90 tab-cap 03/09/13 06/16/18 simvastatin 40 mg tablet 40 mg PO QPM 11/05/17 06/16/18 benzonatate 100 mg capsule 100 mg PO TID PRN #30 cap 12/19/18 04/18/19 promethazine 6.25 mg-codeine 10 5 ml PO Q6H PRN #118 ml 02/16/18 06/16/18 mg/5 mL syrup hydrocodone 5 mg-acetaminophen 325 1 tab PO Q6H PRN #20 tab MDD 4 tabs 04/05/18 06/16/18 mg tablet ibuprofen 800 mg tablet 800 mg PO TID PRN #90 tab 04/05/18 06/16/18 clonazepam 1 mg tablet 1 mg PO TID PRN #90 tab NS 05/27/18 06/16/18 Previous Rx's Medication Instructions Recorded benzonatate 100 mg capsule 100 mg PO TID PRN #30 cap 02/16/18 promethazine 6.25 mg-codeine 10 5 ml PO Q6H PRN #118 ml 02/16/18 mg/5 mL syrup hydrocodone 5 mg-acetaminophen 325 1 tab PO Q6H PRN #20 tab MDD 4 tabs 04/05/18 mg tablet ibuprofen 800 mg tablet 800 mg PO TID PRN #90 tab 04/05/18 clonazepam 1 mg tablet 1 mg PO TID PRN #90 tab NS 05/27/18 Allergies Allergy/AdvReac Type Severity Reaction Status Date / Time morphine Allergy Severe stops my Unverified 06/16/18 11:25 heart fentanyl Allergy Intermediate Hives Unverified 06/16/18 11:25 lamotrigine Allergy Intermediate Facial Unverified 06/16/18 11:25 blistering carbamazepine AdvReac Intermediate Drowsiness Unverified 06/16/18 11:25 and ataxia cyclobenzaprine HCl AdvReac Intermediate vomits Unverified 06/16/18 11:25 [From Flexeril] hydromorphone HCl AdvReac Intermediate vomits Unverified 06/16/18 11:25 [From Dilaudid] Penicillins AdvReac Intermediate vomits Unverified 06/16/18 11:25 methocarbamol AdvReac Nausea, Unverified 06/16/18 11:25 headache oxycodone [Oxycodone] AdvReac Nausea Unverified 06/16/18 11:25 prednisone AdvReac Nausea Unverified 06/16/18 11:25 General Stated Complaint: Orthopedic VENKAT: 3 Review of Systems Review of Systems All systems reviewed & are unremarkable except as noted in HPI and below Constitutional Denies chills, Denies fever(s) and Denies weakness Cardiovascular Denies chest pain and Denies dyspnea Respiratory Denies cough and Denies dyspnea Gastrointestinal Denies abdominal pain, Denies nausea and Denies vomiting Musculoskeletal Denies joint swelling Integumentary/Breasts Denies rash Neurologic Denies weakness Psychiatric Denies depression PFSH Surgical History Abdominal hysterectomy Appendectomy Arthroscopy, Shoulder Bilateral salpingectomy with oophorectomy Rotator Cuff Repair Family History Mother Essential hypertension Alzheimer disease Heart disease Hyperlipidemia Father Myocardial infarction Sister Hyperlipidemia Stroke Brother Essential hypertension Heart disease Hyperlipidemia Stroke Son Diabetes Grandmother Diabetes Social History Smoking/Tobacco Use Status: Current every day Tobacco Type: cigarettes Alcohol Intake: former Drug use: Daily Do you feel safe in your relationship?: Yes Exam Const General: no acute distress Orientation: alert HENMT Head: normal to inspection Ears: external ears normal General nose exam: external nose normal Mouth: moist mucous membranes Eyes General: appearance normal, both eyes and all related structures Neck Neck: normal visual inspection Resp Effort & Inspection: normal respiratory effort and able to speak in complete sentences Cardio Rate: regular rate Skin General skin exam: no rashes or lesions noted Neuro General: alert and oriented x3 Extrem General: normal to inspection Psych Mental Status: mental status grossly normal Course Vital Signs Temperature 36.8 C 06/16/18 11:23 Pulse 86 06/16/18 11:23 Respiratory Rate 06/16/18 11:23 Blood Pressure 148/98 H 06/16/18 11:23 Pulse Oximetry 98 06/16/18 11:23 Temperature 36.8 C 06/16/18 11:23 Pulse 86 06/16/18 11:23 Respiratory Rate 06/16/18 11:23 Blood Pressure 148/98 H 06/16/18 11:23 Pulse Oximetry 98 06/16/18 11:23
[2018-06-16 11:30] VITALS: BP 148/98; PULSE 86; RESP 19; TEMP 36.8; O2SAT 98
== END 2018-06-16 11:30 | disposition home or self-care (01) ==
PROVIDERS: Emergency Provider Emergency Medicine; PCP Family Medicine
DX: M65.28 Calcific tendinitis, other site (principal)
CPT/HCPCS: 99283; 99282; L3807

== ENCOUNTER 2018-10-27 11:48 | Emergency (ER) | payer MEDICAID, SELFPAY ==
[2018-10-27 12:03] VITALS: BP 148/98; PULSE 76; RESP 16; TEMP 36.7; O2SAT 98
--- NOTE | 2018-10-27 12:51 | ED.GENADUL_ITS ---
Discharge Plan Disposition Patient Disposition: HOME Condition: Good Discharge Details Chief Complaint: FacialProb Clinical Impression: Preseptal cellulitis of left eye Primary Care Provider: Elias Cruz ED Provider: Cam Montenegro Home Meds and New Rx's Prescriptions: New clindamycin HCl 300 mg capsule 300 mg PO QID 10 Days Qty: 40 RF: 0 No Action simvastatin 40 mg tablet 40 mg PO QPM RF: 0 ibuprofen 800 mg tablet 800 mg PO TID PRN (Reason: pain) Qty: 90 RF: 3 hydrocodone-acetaminophen 5-325 mg tablet 1 tab PO Q6H MDD 4 tabs PRN (Reason: pain) Qty: 20 RF: 0 aspirin [Aspir-81] 81 MG tablet,delayed release (DR/EC) 81 mg PO DAILY Qty: 90 RF: 4 benzonatate 100 mg capsule 100 mg PO TID PRN (Reason: cough) Qty: 30 RF: 2 clonazepam 1 mg tablet 1 mg PO TID PRN (Reason: anxiety) Qty: 30 RF: 0 Discharge Instructions Instructions: Orbital Cellulitis (ED) Additional Instructions: Swelling around your eye was seen on your CAT scan which is often seen with an infection of the soft tissue surrounding her eye. Fortunately did not have any fever, or redness of the skin however given the severity of having an infection of this region, we will air on side of caution and treat this as an actual true infection with a course of antibiotics. Is importantly return promptly if your symptoms worsen or do not quickly improve over the next 24 hours. In addition to this he may also take Tylenol alternating with ibuprofen as needed every 4-6 hours for pain. In addition of this he should follow-up with your primary care provider in 2 to 3 days, return to the emergency department if you are unable to do this. Medical Decision Making CT consistent with preseptal cellulitis. Will treat with clindamycin. Return precautions reviewed. HPI Cara presents for evaluation of left eye pain as well as swelling of soft tissue around her eye. She states it feels like her eyes being pushed out. She also has left TMJ pain which is chronic but seems to have worsened with current symptoms. No vision change. No headache, no fever no chills no lethargy. No recent injury. General Date/Time Provider Initiated Documentation: 10/27/18 12:48 . Related Data Home Medications Medication Instructions Recorded Confirmed aspirin [Aspir-81] 81 mg PO DAILY #90 tab-cap 03/09/13 10/27/18 simvastatin 40 mg tablet 40 mg PO QPM 11/05/17 10/27/18 benzonatate 100 mg capsule 100 mg PO TID PRN #30 cap 02/16/18 10/27/18 ibuprofen 800 mg tablet 800 mg PO TID PRN #90 tab 04/05/18 10/27/18 hydrocodone 5 mg-acetaminophen 325 1 tab PO Q6H PRN #20 tab MDD 4 tabs 09/09/18 10/27/18 mg tablet clonazepam 1 mg tablet 1 mg PO TID PRN #30 tab NS 10/18/18 10/27/18 clindamycin HCl 300 mg PO QID 10 Days #40 cap 10/27/18 Previous Rx's Medication Instructions Recorded benzonatate 100 mg capsule 100 mg PO TID PRN #30 cap 02/16/18 ibuprofen 800 mg tablet 800 mg PO TID PRN #90 tab 04/05/18 hydrocodone 5 mg-acetaminophen 325 1 tab PO Q6H PRN #20 tab MDD 4 tabs 09/09/18 mg tablet clonazepam 1 mg tablet 1 mg PO TID PRN #30 tab NS 10/18/18 clindamycin HCl 300 mg PO QID 10 Days #40 cap 10/27/18 Allergies Allergy/AdvReac Type Severity Reaction Status Date / Time morphine Allergy Severe stops my Unverified 10/27/18 12:06 heart fentanyl Allergy Intermediate Hives Unverified 10/27/18 12:06 lamotrigine Allergy Intermediate Facial Unverified 10/27/18 12:06 blistering carbamazepine AdvReac Intermediate Drowsiness Unverified 10/27/18 12:06 and ataxia cyclobenzaprine HCl AdvReac Intermediate vomits Unverified 10/27/18 12:06 [From Flexeril] hydromorphone HCl AdvReac Intermediate vomits Unverified 10/27/18 12:06 [From Dilaudid] Penicillins AdvReac Intermediate vomits Unverified 10/27/18 12:06 methocarbamol AdvReac Nausea, Unverified 10/27/18 12:06 headache oxycodone [Oxycodone] AdvReac Nausea Unverified 10/27/18 12:06 prednisone AdvReac Nausea Unverified 10/27/18 12:06 General Stated Complaint: FacialProb VENKAT: 3 Review of Systems Constitutional Denies chills, Denies fatigue, Denies fever(s) and Denies lethargy Eyes Denies loss of vision ENT Denies nasal congestion and Denies sore throat Cardiovascular Denies chest pain and Denies dyspnea Respiratory Denies cough and Denies dyspnea Gastrointestinal Denies abdominal pain, Denies nausea and Denies vomiting Musculoskeletal Denies back pain, Denies muscle weakness and Denies numbness Integumentary/Breasts Denies rash Neurologic Denies focal weakness, Denies loss of vision and Denies numbness Endocrine Denies fatigue Hematologic/Lymphatic Denies easy bruising PFSH Social History Smoking/Tobacco Use Status: Current every day Tobacco Type: cigarettes Alcohol Intake: former Drug use: Daily Do you feel safe in your relationship?: Yes Exam Const General: cooperative, healthy appearing and no acute distress HENMT Head: normal to inspection Ears: hearing grossly normal bilaterally Eyes EOM: EOM intact bilaterally Other: Left periorbital swelling, pain with extraocular movements of left eye. No conjunctival injection. No discharge. No warmth or erythema. Left intraocular pressure is 5, right intraocular pressure is 4. Visual acuity intact. See nursing note. Neck Neck: normal visual inspection Resp Effort & Inspection: normal respiratory effort Auscultation: clear to auscultation bilaterally Cardio Rate: regular rate Rhythm: regular rhythm Heart Sounds: no murmurs Skin General skin exam: no rashes or lesions noted Neuro General: alert, awake and oriented x3 Speech: speech normal Gait: normal gait Extrem General: normal to inspection Course Vital Signs Temperature 36.7 C 10/27/18 12:03 Pulse 76 10/27/18 12:03 Respiratory Rate 16 10/27/18 12:03 Blood Pressure 148/98 H 10/27/18 12:03 Pulse Oximetry 98 10/27/18 12:03 Temperature 36.7 C 10/27/18 12:03 Temperature Source Skin 10/27/18 12:03 Pulse 76 10/27/18 12:03 Respiratory Rate 16 10/27/18 12:03 Respiratory Effort Non-Labored 10/27/18 12:03 Blood Pressure 148/98 H 10/27/18 12:03 Blood Pressure Position Sitting 10/27/18 12:03 Pulse Oximetry 98 10/27/18 12:03 Oxygen Delivery Method Room Air 10/27/18 12:03 Oxygen Flow Rate 0 10/27/18 12:03 Pain Level 10 10/27/18 12:03
[2018-10-27 14:10] LABS: HCT 42.7 % (36.0-46.0); HGB 14.4 g/dL (12.0-15.5); Mean Corp. HGB Concentration 33.7 g/dL (32.0-36.0); Mean Platelet Volume 9.9 fL (8.0-11.0); Platelet Count 299 x1000/uL (130-400); RBC 4.64 m/cumm (4.00-5.20); RBC Distribution Width 13.8 % (11.7-14.6)
[2018-10-27 15:00] LABS: Anion Gap 9.8 mmol/L (3-11); BUN 15 mg/dL (7-18); CO2 26.2 mmol/L (21.0-32.0); CREATININE 0.74 mg/dL (0.55-1.02); Calcium 8.5 mg/dL (8.5-10.1); Chloride 107 mmol/L (98-107); Glucose 100 mg/dL (70-100); Sodium 143 mmol/L (136-145)
--- NOTE | 2018-10-27 15:36 | DI.CT_ITS ---
SYMPTOMS/DIAGNOSIS: LT EYE PAIN WITH MOVEMENT, PERIORBITAL SWELLING, CONCERN FOR CELLULITIS CT OF THE ORBITS: There is soft tissue swelling seen in the left periorbital region. No focal fluid collection is seen to suggest an abscess. The orbits and retro-orbital soft tissues show no acute abnormality. No enhancing lesion is identified. The visualized paranasal sinuses are clear. No fluid levels are seen. The bones appear intact and unremarkable. IMPRESSION: Left periorbital cellulitis. No evidence of abscess or retro-orbital abnormality. The findings were discussed with the emergency department on the date of the examination.
[2018-10-27] MEDS: Normal Saline Flush 10 ML SYR IVP (15:37)
[2018-10-27] MEDS: Omnipaque 350 MG/ML 100 ML BTL IJ (15:37)
[2018-10-27 16:52] VITALS: BP 160/98; PULSE 58; RESP 18; TEMP 36.8; O2SAT 100
== END 2018-10-27 16:50 | disposition home or self-care (01) ==
PROVIDERS: Emergency Provider Physician Assistant Medical; PCP Family Medicine
DX: H05.012 Cellulitis of left orbit (principal)
CPT/HCPCS: 36415; 80048; 85027; 99285; 70481; 99284; J3490

== ENCOUNTER 2018-10-29 12:05 | Emergency (ER) | payer MEDICAID, SELFPAY ==
[2018-10-29 12:08] VITALS: BP 150/101; PULSE 88; RESP 16; TEMP 36.6; O2SAT 98
--- NOTE | 2018-10-29 12:27 | ED.GENADUL_ITS ---
Discharge Plan Disposition Patient Disposition: HOME Condition: Improving Discharge Details Chief Complaint: EyeProblem Clinical Impression: Ocular pain, left eye Primary Care Provider: Elias Cruz ED Provider: Lavon Schmidt Home Meds and New Rx's Prescriptions: New diclofenac potassium 50 mg tablet 50 mg PO TID PRN (Reason: pain) Qty: 20 RF: 0 ondansetron 4 mg tablet,disintegrating 4 mg PO Q8H PRN (Reason: nausea and vomiting) Qty: 10 RF: 0 Continued ibuprofen 800 mg tablet 800 mg PO TID PRN (Reason: pain) Qty: 90 RF: 3 aspirin [Aspir-81] 81 MG tablet,delayed release (DR/EC) 81 mg PO DAILY Qty: 90 RF: 4 clindamycin HCl 300 mg capsule 300 mg PO QID 10 Days Qty: 40 RF: 0 No Action hydrocodone-acetaminophen 5-325 mg tablet 1 tab PO Q6H MDD 4 tabs PRN (Reason: pain) Qty: 20 RF: 0 simvastatin 40 mg tablet 40 mg PO QPM Qty: 90 RF: 4 clonazepam 1 mg tablet 1 mg PO TID PRN (Reason: anxiety) Qty: 30 RF: 0 Discharge Instructions Instructions: Eye Pain (ED) Additional Instructions: Return to the emergency department immediately for any new or significant worsening of symptoms. These may include fever chills, vision loss, persistent symptoms that are not improved with your prescribed medications. Otherwise keep your appointment with Dr. Cruz as scheduled for later next week and finish your antibiotic as prescribed. Referrals: Elias Cruz MD [Primary Care Provider] - (Keep your appointment as scheduled) Discharge Data Discharge Date/Time-TO BE ENTERED AT DEPARTURE: 10/29/18 15:27 Medical Decision Making Patient presenting the emergency department for chief complaint of continued left eye pain. Patient was seen in the emergency department 2 days ago and diagnosed with preseptal cellulitis and was placed upon clindamycin. Patient states that yesterday she thought the symptoms, but better but today they returned to what they were before. Patient denies any fever or chills, does state headache. Physical exam does not show any further swelling or redness to the left eye, EOMs are intact but patient does have painful lateral gaze to the left eye only with vertical testing only, no nystagmus, does have tenderness to the mandible, periorbital area, and the samaritan, exam is otherwise unremarkable. Differential diagnosis to include continued discomfort from preseptal cellulitis which is improving, temporal arteritis, migraine headache. Plan to check labs including ESR and CRP. Given no obvious external symptoms at this time and symptoms are not worse than previously I do not feel that emergent CT imaging is needed due to just having imaging 2 days ago. Pending results patient given ketorolac. CBC, CMP, ESR and CRP are all within normal range and show no worrisome abnormalities. Patient was reassessed and states almost full resolution of her symptoms. Given this I do not feel that any further imaging or work-up is needed. Given normal CBC, ESR and CRP I think low likelihood of temporal arteritis and potentially more discomfort from what seems to be resolving cellulitis. Patient was placed on diclofenac for further pain control along with informing her to continue on her antibiotic regimen and follow-up with primary care. Very close return precautions were discussed with patient which she stated understanding of these. After discussion of diagnosis and plan of care patient has no further needs, questions, or concerns and states clear understanding to return to the emergency department for any worsening symptoms. Medical Records Medical records reviewed: Yes I reviewed the patient's medical records. HPI General Mode of arrival: ambulatory . Date/Time Provider Initiated Documentation: 10/29/18 12:07 . Limitations to Documentation: no limitations . Information obtained by: patient and RN notes reviewed . History of Present Illness 52 year old F presents to the emergency department with the chief complaint of Left eye pain, described as moderate and similar to prior episodes, with intensity rated at 8. Quality is described as sharp, and is localized to the eyes and left. Patient reports radiation to (Into jaw). Patient started experiencing this day(s) (2) and it has been constant. No relieving factors improve symptom(s), Patient notes nausea/vomiting. Patient did receive the following treatments prior to arrival, none Related Data Home Medications Medication Instructions Recorded Confirmed aspirin [Aspir-81] 81 mg PO DAILY #90 tab-cap 03/09/13 11/03/18 ibuprofen 800 mg tablet 800 mg PO TID PRN #90 tab 04/05/18 11/03/18 clindamycin HCl 300 mg PO QID 10 Days #40 cap 10/27/18 11/03/18 diclofenac potassium 50 mg PO TID PRN #20 tab 10/29/18 11/03/18 ondansetron 4 mg PO Q8H PRN #10 tab 10/29/18 11/03/18 clonazepam 1 mg tablet 1 mg PO TID PRN #30 tab NS 11/03/18 11/03/18 hydrocodone 5 mg-acetaminophen 325 1 tab PO Q6H PRN #20 tab MDD 4 tabs 11/03/18 11/03/18 mg tablet simvastatin 40 mg tablet 40 mg PO QPM #90 tab 11/03/18 11/03/18 Previous Rx's Medication Instructions Recorded ibuprofen 800 mg tablet 800 mg PO TID PRN #90 tab 04/05/18 clindamycin HCl 300 mg PO QID 10 Days #40 cap 10/27/18 diclofenac potassium 50 mg PO TID PRN #20 tab 10/29/18 ondansetron 4 mg PO Q8H PRN #10 tab 10/29/18 clonazepam 1 mg tablet 1 mg PO TID PRN #30 tab NS 11/03/18 hydrocodone 5 mg-acetaminophen 325 1 tab PO Q6H PRN #20 tab MDD 4 tabs 11/03/18 mg tablet simvastatin 40 mg tablet 40 mg PO QPM #90 tab 11/03/18 Allergies Allergy/AdvReac Type Severity Reaction Status Date / Time morphine Allergy Severe stops my Unverified 11/03/18 15:08 heart fentanyl Allergy Intermediate Hives Unverified 11/03/18 15:08 lamotrigine Allergy Intermediate Facial Unverified 11/03/18 15:08 blistering carbamazepine AdvReac Intermediate Drowsiness Unverified 11/03/18 15:08 and ataxia cyclobenzaprine HCl AdvReac Intermediate vomits Unverified 11/03/18 15:08 [From Flexeril] hydromorphone HCl AdvReac Intermediate vomits Unverified 11/03/18 15:08 [From Dilaudid] Penicillins AdvReac Intermediate vomits Unverified 11/03/18 15:08 methocarbamol AdvReac Nausea, Unverified 11/03/18 15:08 headache oxycodone [Oxycodone] AdvReac Nausea Unverified 11/03/18 15:08 prednisone AdvReac Nausea Unverified 11/03/18 15:08 General Stated Complaint: EyeProblem VENKAT: 3 Review of Systems Constitutional Denies chills, Denies fever(s) and Reports headache(s) Eyes Reports as per HPI, Reports blurry vision, Denies eye discharge, Reports irritation, Denies loss of peripheral vision, Denies loss of vision, Denies ot her visual disturbances, Reports eye pain and Reports photophobia ENT Reports headache(s), Reports mouth pain and Denies nasal congestion Cardiovascular Denies chest pain Respiratory Denies chest congestion Gastrointestinal Reports nausea Musculoskeletal Denies numbness and Denies tingling Neurologic Reports headache(s), Denies loss of vision, Denies numbness, Denies other visual disturbances and Denies tingling PFSH Surgical History Abdominal hysterectomy Appendectomy Arthroscopy, Shoulder LR-LEFT 06/03/15 Bilateral salpingectomy with oophorectomy Rotator Cuff Repair [facility]-LEFT 06/03/15 Family History Mother Essential hypertension Alzheimer disease Heart disease Hyperlipidemia Father Myocardial infarction Sister Hyperlipidemia Stroke Brother Essential hypertension Heart disease Hyperlipidemia Stroke Son Diabetes Grandmother Diabetes Social History Smoking/Tobacco Use Status: Current every day Tobacco Type: cigarettes Alcohol Intake: former Drug use: Daily Substance use type: marijuana Do you feel safe in your relationship?: Yes Exam Const General: cooperative Nutritional Appearance: average body habitus Orientation: alert, awake and oriented x3 HENMT Head: normal to inspection Ears: hearing grossly normal bilaterally and TM's normal bilaterally Face and sinus: tenderness on the left mandible (And samaritan) Mouth: oral mucosae normal and moist mucous membranes Throat: posterior oropharynx normal Eyes Visual Valdovinos: normal visual valdovinos by confrontation Alignment and Position: alignment normal and position normal Periorbital: periorbital findings normal Eyelids: eyelids normal Sclera: sclerae normal Cornea: corneas normal Pupils: PERRL, normal by confrontation and accommodation normal EOM: EOM intact bilaterally (With pain to left eye only on lateral vertical gaze) and No nystagmus Direct ophthalmoscopy: photophobia (left eye) Neck Neck: normal visual inspection, full ROM, no lymphadenopathy and no meningeal signs Resp Effort & Inspection: normal respiratory effort and able to speak in complete sentences Auscultation: clear to auscultation bilaterally Cardio Rate: regular rate Rhythm: regular rhythm Heart Sounds: S1 normal and S2 normal Neuro General: alert, awake, oriented x3, gait normal, tone normal, moves all extremities, CN's II-XI intact bilaterally and not confused Cranial Nerves: no nystagmus Cognition: normal cognition Speech: speech normal Motor: muscle tone normal throughout, strength 5/5 throughout, no pronator drift, no movement abnormalities noted and no fasciculations Sensory Exam: no sensory deficits noted Course Vital Signs Temperature 36.6 C 10/29/18 12:08 Pulse 88 10/29/18 12:08 Respiratory Rate 16 10/29/18 12:08 Blood Pressure 150/101 H 10/29/18 12:08 Pulse Oximetry 98 10/29/18 12:08 Temperature 36.6 C 10/29/18 12:08 Temperature Source Skin 10/29/18 12:08 Pulse 88 10/29/18 12:08 Respiratory Rate 16 10/29/18 12:08 Respiratory Effort Non-Labored 10/29/18 12:10 Blood Pressure 150/101 H 10/29/18 12:08 Blood Pressure Position Sitting 10/29/18 12:08 Pulse Oximetry 98 10/29/18 12:08 Oxygen Delivery Method Room Air 10/29/18 12:08 Oxygen Flow Rate 0 10/29/18 12:08
[2018-10-29 12:43] LABS: Abs Immature Grans 0.01 k/cumm (0.0-0.09); Absolute Basophil Count 0.04 k/cumm (0.0-0.2); Absolute Eosinophil Count 0.13 k/cumm (0.0-0.7); Absolute Lymphocyte Count 1.94 k/cumm (1.2-3.4); Absolute Monocyte Count 0.44 k/cumm (0.11-0.7); Absolute Neutrophil Count 3.39 k/cumm (1.2-6.7); Basophils % 0.7; Eosinophils % 2.2; HGB 14.9 g/dL (12.0-15.5); Immature Grans % 0.2; Lymphocytes % 32.6; Mean Corp. HGB Concentration 33.9 g/dL (32.0-36.0); Mean Corpuscular Hemoglobin 30.7 pg (27.0-33.0); Mean Corpuscular Volume 90.7 fL (80-95); Mean Platelet Volume 10.3 fL (8.0-11.0); Monocytes % 7.4; Neutrophils % 56.9; Platelet Count 279 x1000/uL (130-400); RBC 4.85 m/cumm (4.00-5.20); RBC Distribution Width 13.8 % (11.7-14.6); White Blood Cell Count 5.95 k/cumm (4.4-10.8)
[2018-10-29 12:57] LABS: ALT 24 U/L (14-59); AST 15 U/L (15-37); Albumin 4.2 g/dL (3.4-5.0); Alkaline Phosphatase 72 U/L (46-116); Anion Gap 10.7 mmol/L (3-11); BUN 13 mg/dL (7-18); Bilirubin, Total 0.3 mg/dL (0.2-1.0); C-Reactive Protein 0.09 mg/dL (0.0-0.3); CO2 25.3 mmol/L (21.0-32.0); CREATININE 0.73 mg/dL (0.55-1.02); Calcium 9.2 mg/dL (8.5-10.1); Chloride 107 mmol/L (98-107); Glucose 99 mg/dL (70-100); Potassium 4.2 mmol/L (3.5-5.1); Sodium 143 mmol/L (136-145); Total Protein 8.2 g/dL (6.4-8.2)
[2018-10-29 13:32] LABS: ESR 16 mm/hr (0-30)
[2018-10-29] MEDS: Ketorolac 15 MG/ML VIAL IVP (14:05)
[2018-10-29 14:08] VITALS: RESP 12
--- NOTE | 2018-10-29 14:52 | NUR.NOTE ---
Nursing Note: pt tolerated PO intake. reports moderate improvement after Ketorlac.
[2018-10-29 15:23] VITALS: BP 144/85; PULSE 85; RESP 16; TEMP 36.7; O2SAT 99
== END 2018-10-29 15:27 | disposition home or self-care (01) ==
PROVIDERS: Emergency Provider Nurse Practitioner Family; PCP Family Medicine
DX: H57.12 Ocular pain, left eye (principal); L03.213 Periorbital cellulitis; R51 Headache
CPT/HCPCS: 36415; 80053; 85652; 96374; 99284; 85025; 86140; J1885

== ENCOUNTER 2018-12-01 03:59 | Observation (INO) | payer MEDICAID, SELFPAY ==
[2018-12-01] VITALS (15 sets, daily range): BP systolic 123–170; BP diastolic 75–104; PULSE 51–74; RESP 16–26; TEMP 36–36.7; O2SAT 97–100
--- NOTE | 2018-12-01 03:30 | ED.GENADUL_ITS ---
Discharge Plan Disposition Patient Disposition: [facility] INPATIENT Condition: Good Discharge Details Chief Complaint: Chest Pain Clinical Impression: Chest pain Primary Care Provider: Elias Cruz ED Provider: Suman Bahena [facility] Meds and New Rx's Prescriptions: No Action hydrocodone-acetaminophen 5-325 mg tablet 1 tab PO Q6H MDD 4 tabs PRN (Reason: pain) Qty: 20 RF: 0 ibuprofen 800 mg tablet 800 mg PO TID PRN (Reason: pain) Qty: 90 RF: 3 simvastatin 40 mg tablet 40 mg PO QPM Qty: 90 RF: 4 aspirin [Aspir-81] 81 MG tablet,delayed release (DR/EC) 81 mg PO DAILY Qty: 90 RF: 4 clonazepam 1 mg tablet 1 mg PO TID PRN (Reason: anxiety) Qty: 90 RF: 1 diclofenac potassium 50 mg tablet 50 mg PO TID PRN (Reason: pain) Qty: 20 RF: 0 ondansetron 4 mg tablet,disintegrating 4 mg PO Q8H PRN (Reason: nausea and vomiting) Qty: 10 RF: 0 Medical Decision Making 53-year-old female presenting with complaint of chest pain and shortness of breath with associated diaphoresis, lightheadedness, nausea/vomiting. Received aspirin, Zofran, nitroglycerin in the field and arrives here essentially asymptomatic. Reporting that she has not had pain like this previously though she has had work-ups for chest pain and has chronic pain. EKG is unchanged from previous and normal. Presentation not consistent with dissection. Also not consistent with PE and her revised [place] score of 0 makes her low risk. Laboratory studies chest x-ray ordered. Patient's laboratory studies are unremarkable. Troponin negative. Chest x-ray with nothing acute. Patient scores a 4 on the HEART pathway with one point for history, one point for age and two-point for risk factors. I suspect this is likely related to anxiety given her previous history along with negative stress testing in the past. However, because of her HEART score will admit for cardiology consult and/or repeat stress testing. Case discussed with hospitalist who accepts her to telemetry for observation. Medical Records Medical records reviewed: Yes I reviewed the patient's medical records. Lab Data Lab results reviewed: Yes I reviewed the patient's lab results. ECG Data Attestation: I personally reviewed and interpreted this ECG (s) as follows: Prior ECG tracings: available for review Interpretation: Sinus rhythm at 60. Normal axis and intervals. Normal ST unchanged from previous. HPI General Mode of arrival: EMS . Date/Time Provider Initiated Documentation: 12/01/18 04:11 . Limitations to Documentation: no limitations . Information obtained by: patient, EMS, RN notes reviewed and old records reviewed . HPI Narrative: Patient presents to ED by ambulance with complaint of chest pain and shortness of breath. Patient reports waking up at 1 AM with a sensation of shortness of breath and being choked. She subsequently developed left-sided chest pain that began radiating into the left neck and left arm. She developed lightheadedness and diaphoresis. By the time EMS arrived she had vomited once, was having pain in the chest/neck/jaw/arm as well as continued shortness of breath. She was given aspirin, Zofran, nitroglycerin prehospital. She arrives here with no chest pain or shortness of breath. Patient has chronic pain including left back and chest pain as well as left TMJ. She states the pain that woke her up tonight is different from the pain that she has previously had. Patient has had evaluations for chest pain before. Last stress test was in December 2017 and was read as normal. She does smoke, has hyperlipidemia, has a strong family history. She has no leg pain or swelling. No previous history of DVT or PE. She has not been ill with fever or cough. Related Data Home Medications Medication Instructions Recorded Confirmed aspirin [Aspir-81] 81 mg PO DAILY #90 tab-cap 03/09/13 12/01/18 ibuprofen 800 mg tablet 800 mg PO TID PRN #90 tab 04/05/18 12/01/18 diclofenac potassium 50 mg PO TID PRN #20 tab 10/29/18 12/01/18 ondansetron 4 mg PO Q8H PRN #10 tab 10/29/18 12/01/18 simvastatin 40 mg tablet 40 mg PO QPM #90 tab 11/03/18 12/01/18 clonazepam 1 mg tablet 1 mg PO TID PRN #90 tab NS 11/14/18 12/01/18 hydrocodone 5 mg-acetaminophen 325 1 tab PO Q6H PRN #20 tab MDD 4 tabs 11/24/18 12/01/18 mg tablet Previous Rx's Medication Instructions Recorded ibuprofen 800 mg tablet 800 mg PO TID PRN #90 tab 04/05/18 diclofenac potassium 50 mg PO TID PRN #20 tab 10/29/18 ondansetron 4 mg PO Q8H PRN #10 tab 10/29/18 simvastatin 40 mg tablet 40 mg PO QPM #90 tab 11/03/18 clonazepam 1 mg tablet 1 mg PO TID PRN #90 tab NS 11/14/18 hydrocodone 5 mg-acetaminophen 325 1 tab PO Q6H PRN #20 tab MDD 4 tabs 11/24/18 mg tablet Allergies Allergy/AdvReac Type Severity Reaction Status Date / Time morphine Allergy Severe stops my Unverified 12/01/18 03:36 heart fentanyl Allergy Intermediate Hives Unverified 12/01/18 03:36 lamotrigine Allergy Intermediate Facial Unverified 12/01/18 03:36 blistering carbamazepine AdvReac Intermediate Drowsiness Unverified 12/01/18 03:36 and ataxia cyclobenzaprine HCl AdvReac Intermediate vomits Unverified 12/01/18 03:36 [From Flexeril] hydromorphone HCl AdvReac Intermediate vomits Unverified 12/01/18 03:36 [From Dilaudid] Penicillins AdvReac Intermediate vomits Unverified 12/01/18 03:36 methocarbamol AdvReac Nausea, Unverified 12/01/18 03:36 headache oxycodone [Oxycodone] AdvReac Nausea Unverified 12/01/18 03:36 prednisone AdvReac Nausea Unverified 12/01/18 03:36 General VENKAT: 3 Review of Systems Review of Systems Narrative: 12/12 Review of Systems completed and is negative except as stated above in HPI (Systems reviewed: Const, Eyes, ENT, Resp, CV, GI, , MSK, Skin, Neuro) PFSH Medical History Bipolar affective disorder (Chronic) Chronic anxiety (Chronic) Chronic pain syndrome (Chronic) 06/03/16 CONTROLLED SUBSTANCE AGREEMENT COPD, mild (Chronic) pULMONARY FUNCTION TESTS 12/11 SHOWING MILD OBSTRUCTIVE DISEASE AND SEVERE DIFFUSIONAL DEFECT GERD (gastroesophageal reflux disease) (Chronic 08/21/14) Hyperlipidemia (Chronic) Surgical History Abdominal hysterectomy Appendectomy Arthroscopy, Shoulder [facility]-LEFT 06/03/15 Bilateral salpingectomy with oophorectomy Rotator Cuff Repair [facility]-LEFT 06/03/15 Social History Smoking/Tobacco Use Status: Current every day Tobacco Type: cigarettes Drug use: Daily Substance use type: marijuana Do you feel safe at home: Yes Do you feel safe in your relationship?: Yes Exam Narrative Exam Narrative: Vitals: Afebrile. Initial BP elevated but came down on own. Normal heart rate and RA saturation. Const: WDWN female in NAD. HEENT: NC/AT. Normal facial exam. Eyes: Normal conjunctiva and sclera. Neck: Supple. Trachea midline. Lungs: Normal respiratory effort. Lungs are clear. Cor: RRR without murmur/gallop. Good radial pulses. GI: Soft. NT/ND. No guarding or rebound. Neuro: A+O x 3. CN grossly in tact. Normal strength, speech, mentation, s ensation. Ext: No C/C/E. No calf tenderness. Skin: Warm and dry without rash.
[2018-12-01 04:03] LABS: Abs Immature Grans 0.03 k/cumm (0.0-0.09); Absolute Basophil Count 0.04 k/cumm (0.0-0.2); Absolute Eosinophil Count 0.19 k/cumm (0.0-0.7); Absolute Lymphocyte Count 3.31 k/cumm (1.2-3.4); Absolute Monocyte Count 0.74 k/cumm (0.11-0.7); Absolute Neutrophil Count 5.94 k/cumm (1.2-6.7); Basophils % 0.4; Eosinophils % 1.9; HCT 41.5 % (36.0-46.0); HGB 14.1 g/dL (12.0-15.5); Immature Grans % 0.3; Lymphocytes % 32.3; Mean Corpuscular Hemoglobin 30.9 pg (27.0-33.0); Mean Platelet Volume 10.2 fL (8.0-11.0); Monocytes % 7.2; Neutrophils % 57.9; Platelet Count 286 x1000/uL (130-400); RBC 4.56 m/cumm (4.00-5.20); RBC Distribution Width 14.2 % (11.7-14.6); White Blood Cell Count 10.25 k/cumm (4.4-10.8)
--- NOTE | 2018-12-01 04:10 | DI.RAD_ITS ---
EXAM: XR CHEST 2V PA LATERAL INDICATION: chest pain. COMPARISON: XR CHEST 2V PA LATERAL from 01/03/2018 TECHNIQUE: 2D digital imaging was performed. FINDINGS: The heart is not enlarged. Lungs are clear with question mild changes of COPD. No pleural effusion seen. IMPRESSION: No evidence of acute process
[2018-12-01 04:19] LABS: ALT 37 U/L (14-59); AST 20 U/L (15-37); Albumin 4.1 g/dL (3.4-5.0); Alkaline Phosphatase 77 U/L (46-116); Anion Gap 10.3 mmol/L (3-11); BUN 19 mg/dL (7-18); Bilirubin, Total 0.3 mg/dL (0.2-1.0); CO2 27.7 mmol/L (21.0-32.0); CREATININE 0.71 mg/dL (0.55-1.02); Calcium 8.9 mg/dL (8.5-10.1); Chloride 106 mmol/L (98-107); Glucose 100 mg/dL (70-100); Magnesium 2.3 mg/dL (1.8-2.4); Potassium 3.8 mmol/L (3.5-5.1); Sodium 144 mmol/L (136-145); Total Protein 8.1 g/dL (6.4-8.2)
[2018-12-01 04:22] LABS: Troponin I < 0.05 ng/mL (0.00-0.06)
--- NOTE | 2018-12-01 04:23 | DI.VRAD_ITS ---
PROCEDURE INFORMATION: Exam: XR Chest, 2 Views Exam date and time: 12/01/2018 4:14 AM Clinical history: 53 years old, female; Chest pain; Type not specified TECHNIQUE: Imaging protocol: XR of the chest Views: 2 views. COMPARISON: CR XR CHEST 2V PA LATERAL 01/03/2018 12:49 PM FINDINGS: Lungs: Unremarkable. No consolidation. Pleural space: Unremarkable. No evidence of pneumothorax. Heart/Mediastinum: Unremarkable. Heart size within normal limits for technique. Bones/joints: Unremarkable. IMPRESSION: No acute findings. Dictated and Authenticated by: Prem Garcia MD. Ordering:CHARLES Will MD
--- NOTE | 2018-12-01 05:13 | NUR.NOTE ---
Pt states she is having acute onset of nausea, dizziness, stating she feels like she did at home when she called EMS. Dr Bahena notified. awaiting orders. Nursing Note:
[2018-12-01] MEDS: Normal Saline 100 ML 200 ML (05:25)
--- NOTE | 2018-12-01 05:51 | NUR.NOTE ---
0540-nitro sl admin for lt sided chest pain 6/10-sharp/pressure. 0546-pt states nausea is resolved and chest pain is 2/10 with pt stating she is comfortable and refuses further nitro at this time. no distress noted. Nursing Note:
--- NOTE | 2018-12-01 06:46 | W.PM.HP.N ---
Date of service: 12/01/18 Time of Service: 06:46 Assessment and Plan Assessment and plan (1) Chest pain at rest: Status: Acute Assessment and plan: Her CP is atypical in that she is able to perform normal ADL's including light housework, yard work without dyspnea nor CP. However, the sudden onset of chest tightness w/ nausea and diaphoresis along w/ her multiple risk factors (smoker, FH, HLD and age) and relief by use of NTG is somewhat worrisome. We will continue to cycle her troponin levels and if repeat levels are negative, then I will have her get treadmill stress MPI study this afternoon. History of Present Illness History of Present Illness Chief Complaint: chest pain Narrative: 53 yr old female smoker w/ mild COPD (not on oxygen nor using bronchodilators), who has chronic anxiety disorder and chronic pain syndrome from left shoulder surgery, GERD, HLD who presents w/ non-exertional chest pain. She awoke from sleep around 1 a.m. w/ left sided chest pressure that radiated into her upper left arm and left side of her neck. She described it as a squeezing senation, different from her left shoulder pains which are a burning and throbbing nature. Her CP was accompanied by nausea and dyspnea and diaphoresis and severe headache with vomiting. She called EMS who gave her ASA and one NTG SL which alleviated her CP. Normally she is rather physically active, doing her own housework, light yard work and grocery shopping. She does not get CP with any of these activities. She has had prior workups of CP in the past including 3 prior GXT beginning in 08/10/2012, again on 03/13/2016 and the last stress test on 01/07/2018. Each time she achieved around 90% of her maximal predicted HR and achieved 10 METS. Her last stress GXT she had a Hou treadmill score of 9 and exhibited no exertional chest pains and no ischemic EKG changes. She has multiple risks for CAD including her continued smoking (she was former 3 ppd smoker and began smoking at age 4 yrs, but has cut down to 17 cigarettes/day since July 2018. She has multiple family members w/ NE, CAD and CVA. She has HLD but not HTN nor DM. Workup in the ER included routine labs (CBC, CMP, troponin) all of which were normal. EKG demonstrated NSR w/ subtle ST-T abnormalities in V2, V3 which are new compared to prior EKG from Jan 03, 2018 which was normal. CXR showed no acute abnormalities. While in the ER she had a recurrent episode of left sided chest pressure w/ nausea but no vomiting, along with dizziness. EKG was repeated and showed no change from her first EKG. Her CP was relieved w/ single NTG. She is admitted now for workup of her chest pains. Review of Systems Review of Systems ROS Unobtainable: All systems reviewed & are unremarkable except as noted in HPI and below PFSH Medical History Bipolar affective disorder (Chronic) Chronic anxiety (Chronic) Chronic pain syndrome (Chronic) 06/03/16 CONTROLLED SUBSTANCE AGREEMENT COPD, mild (Chronic) pULMONARY FUNCTION TESTS 12/11 SHOWING MILD OBSTRUCTIVE DISEASE AND SEVERE DIFFUSIONAL DEFECT GERD (gastroesophageal reflux disease) (Chronic 08/21/14) Hyperlipidemia (Chronic) Surgical History Abdominal hysterectomy Appendectomy Arthroscopy, Shoulder [facility]-LEFT 06/03/15 Bilateral salpingectomy with oophorectomy Rotator Cuff Repair [facility]-LEFT 06/03/15 Family History Mother Essential hypertension Alzheimer disease Heart disease Hyperlipidemia Father Myocardial infarction Sister Hyperlipidemia Stroke Brother Essential hypertension Heart disease Hyperlipidemia Stroke Son , from complications of type 1 DM Diabetes Grandmother Diabetes Social History (Updated 12/01/18 @ 08:17 by Husam Mireles) Smoking/Tobacco Use Status: Current every day Tobacco Type: cigarettes Years smoked: 49 Drug use: Daily Substance use type: marijuana Do you feel safe at home: Yes Do you feel safe in your relationship?: Yes History History 8 Para 6 Hx # Term Pregnancies Multiple births Hx # Pregnancies Ectopic pregnancies AB induced Hx Number of Living Children 1 AB spontaneous Meds Home Medications and Allergies Home Medications Medication Instructions Recorded Confirmed Type aspirin [Aspir-81] 81 mg PO DAILY #90 tab-cap 03/09/13 12/01/18 History ibuprofen 800 mg tablet 800 mg PO TID PRN #90 tab 04/05/18 12/01/18 Rx diclofenac potassium 50 mg PO TID PRN #20 tab 08/31/19 10/03/19 Rx ondansetron 4 mg PO Q8H PRN #10 tab 10/29/18 12/01/18 Rx simvastatin 40 mg tablet 40 mg PO QPM #90 tab 11/03/18 12/01/18 Rx clonazepam 1 mg tablet 1 mg PO TID PRN #90 tab NS 11/14/18 12/01/18 Rx hydrocodone 5 mg-acetaminophen 325 1 tab PO Q6H PRN #20 tab MDD 4 tabs 11/24/18 12/01/18 Rx mg tablet Allergies Allergy/AdvReac Type Severity Reaction Status Date / Time morphine Allergy Severe stops my Unverified 12/01/18 03:36 heart fentanyl Allergy Intermediate Hives Unverified 12/01/18 03:36 lamotrigine Allergy Intermediate Facial Unverified 12/01/18 03:36 blistering carbamazepine AdvReac Intermediate Drowsiness Unverified 12/01/18 03:36 and ataxia cyclobenzaprine HCl AdvReac Intermediate vomits Unverified 12/01/18 03:36 [From Flexeril] hydromorphone HCl AdvReac Intermediate vomits Unverified 12/01/18 03:36 [From Dilaudid] Penicillins AdvReac Intermediate vomits Unverified 12/01/18 03:36 methocarbamol AdvReac Nausea, Unverified 12/01/18 03:36 headache oxycodone [Oxycodone] AdvReac Nausea Unverified 12/01/18 03:36 prednisone AdvReac Nausea Unverified 12/01/18 03:36 Exam Const General: cooperative, no acute distress and well groomed Nutritional Appearance: average body habitus and well nourished Orientation: alert, awake and oriented x3 [facility] Head: normal to inspection, no palpable skull fracture, normocephalic and atraumatic Ears: external ears normal and TM's normal bilaterally General nose exam: external nose normal, nares normal and no nasal discharge Face and sinus: normal facial exam, sinuses nontender and face symmetric Mouth: oral mucosae normal, lip normal, tongue normal, oropharynx normal and moist mucous membranes Throat: posterior oropharynx normal and uvula midline Eyes General: appearance normal, both eyes and all related structures Visual Valdovinos: normal visual valdovinos by confrontation Alignment and Position: alignment normal Periorbital: periorbital findings normal Eyelids: eyelids normal Conjunctivae: conjunctivae normal Sclera: sclerae normal Cornea: corneas normal Pupils: PERRL, normal by confrontation and accommodation normal EOM: EOM intact bilaterally Direct ophthalmoscopy: normal light reflex, no photophobia, no papilledema, fundi normal bilaterally and anterior chamber normal Neck Neck: normal visual inspection, full ROM, no lymphadenopathy, trachea midline and supple Thyroid: thyroid normal Carotids: normal carotid upstroke Lymphatic: no lymphadenopathy noted Chest Chest: normal inspection of the chest and normal palpation of entire chest wall Resp Effort & Inspection: normal respiratory effort and able to speak in complete sentences Auscultation: clear to auscultation bilaterally Percussion: percussion normal Cardio Jugular venous pressure: no JVD Palpation: normal PMI Rate: regular rate Rhythm: regular rhythm Heart Sounds: S1 normal, S2 normal and normal, physiologic split S2 Pulses: normal peripheral pulses GI Inspection: normal to inspection Palpation: soft, no hepatosplenomegaly and nontender Percussion: normal to percussion Auscultation: normal bowel sounds Skin General skin exam: no rashes or lesions noted, elasticity normal and turgor normal Lesions: no lesions Rashes: no rashes Neuro General: alert, awake, oriented x3, moves all extremities and no focal motor deficits Cognition: normal cognition Speech: speech normal Motor: muscle tone normal throughout, strength 5/5 throughout, no pronator drift, no movement abnormalities noted and no fasciculations Sensory Exam: no sensory deficits noted Extrem General: normal to inspection, full ROM, normal capillary refill, no joint enlargement, no clubbing, cyanosis or edema and no calf tenderness bilaterally Psych Appearance: grossly normal and well kempt Mental Status: mental status grossly normal Speech and Movement: speech and movement normal Mood: congruent mood Affect: normal affect Attitude: cooperative Thought Process: normal Thought Content: normal Insight: insight good Judgment: judgment good Results Imaging Chest x-ray: image reviewed EKG: image reviewed Labs Result diagrams: 12/01/18 03:40 12/01/18 03:40 Labs: Laboratory Results - last 24 hr 12/01/18 12/01/18 03:40 03:40 WBC 10.25 RBC 4.56 Hgb 14.1 Hct 41.5 MCV 91.0 MCH 30.9 MCHC 34.0 RDW 14.2 Plt Count 286 MPV 10.2 Immature Gran % 0.3 Neutrophils % 57.9 Lymphocytes % 32.3 Monocytes % 7.2 Eosinophils % 1.9 Basophils % 0.4 Absolute Neutrophils 5.94 Absolute Lymphocytes 3.31 Absolute Monocytes 0.74 H Absolute Eosinophils 0.19 Absolute Basophils 0.04 Sodium 144 Potassium 3.8 Chloride 106 Carbon Dioxide 27.7 Anion Gap 10.3 BUN 19 H Creatinine 0.71 Estimated GFR/1.73 m2 >= 60.00 Glucose 100 Calcium 8.9 Magnesium 2.3 Total Bilirubin 0.3 AST 20 ALT 37 Alkaline Phosphatase 77 Troponin I < 0.05 Total Protein 8.1 Albumin 4.1 Last Vital Signs Temp 36.5 C 12/01/18 06:31 Pulse 60 12/01/18 06:33 Resp 18 12/01/18 06:31 BP 160/98 H 12/01/18 06:31 Pulse Ox 97 12/01/18 06:31
[2018-12-01] MEDS: Enoxaparin 40 MG/0.4 ML SYR SC (06:47)
[2018-12-01 07:49] LABS: NT-proBNP 79 pg/mL
[2018-12-01 07:50] LABS: Troponin I < 0.05 ng/mL (0.00-0.06)
[2018-12-01 09:48] LABS: Hemoglobin A1C 5.8 % (4.5-6.2)
[2018-12-01] MEDS: Aspirin E.C. 81 MG TABEC PO (09:48)
[2018-12-01] MEDS: Potassium Chloride 20 MEQ TABCR PO (09:48)
[2018-12-01] MEDS: HYDROcodone 5/Acetaminophen 325 TAB PO (09:48)
[2018-12-01 09:52] LABS: Calculated LDL 215 mg/dL; Cholesterol 306 mg/dL (50-200); HDL Cholesterol 48 mg/dL (40-60); Triglyceride 216 mg/dL (30-150)
[2018-12-01 11:48] LABS: Troponin I < 0.05 ng/mL (0.00-0.06)
--- NOTE | 2018-12-01 13:00 | DI.NM_ITS ---
APPROVED REPORT Exam: Exercise Treadmill Patient Location: In-Patient Room/Bed: Stress Nurse: Eli Mock RN Rhythm: NSR Indications: Pt reports she awoke from a sound sleep yesterday at 0100 with severe squeezing chest pa in that radiated into her job it was associated with dyspnea and lightheadedness then she vomited. Pt reports she called an ambulance at this time. Pt was admitted to the hospital. She states she reciev ed a nitro and this gave her relief. She states she now has a manageable constant pressure in her c hest she rates as a 2 out of 10. Pt has smoked cigarettes since she was 4 years old she smokes 1/2 to 3/4 a pack a day. Medical History Medical History: Smoker:Unknown Prior Cath:Unknown Prior PCI:Unknown History of [place]:Unknown Heart Fail ure:Unknown Prior CABG:Unknown Prior Heart Valve Surgery:Unknown Diabetic:Unknown Angina:Unknown Fami ly History of CV Disease:Unknown History Notes: Medications: Simvastatin. Clonazepam. Aspirin. Allergies: Morphine. PCN. Dilaudid. Prednisone. Flexeril. Cardiac Risk Factors: Smoking, FHX of CAD Pretest Chest Pain Characteristics: Atypical angina Exercise History: Physically active Stress Test Details Test: Exercise stress testing was performed using a Dioni protocol. Nuclear Acquisition: Stress Tc-99m/Stress Tc-99m 1 day Rest Isotope: Tc-99m Sestamibi. Date: 12/01/2018 Injection Time: 1330 Stress Isotope: Tc-99m Sestamibi. Date: 12/01/2018 Injection Time: 1505 HR Resting HR: 47 bpm Max Heart Rate (APMHR): 166 bpm Max HR Achieved: 154 bpm Target HR (85% APMHR): 141 bpm % of APMHR: 92 Recovery HR: 75 bpm HR response to stress: Normal HR response to stress BP Resting BP: 156/94 mmHg Max BP: 174/92 mmHg Recovery BP: 140/100 mmHg BP response to stress: Normal blood pressure response to stress. ECG Resting ECG: Sinus Rhythm Stress ECG: Sinus Tachycardia Arrhythmia: None Recovery ECG: Sinus Rhythm Recovery Arrhythmia: None Clinical Reason for Termination: Dyspnea Exercise duration: 10 min Highest Stage Achieved: Stage 4: 4.2 mph at 16% grade. Exercise capacity: 11.82 METs Overall Exercise Capacity for Age: Excellent Scale: Active Stress ECG Conclusion 1. Patient demonstrated good exercise capacity. 2. EKG shows no inducible ischemia. 3. Imaging portion of stress test shows no inducible ischemia. 4. This represents a normal stress test.
--- NOTE | 2018-12-01 15:02 | INITIAL_ITS ---
- If Service Date Differs Date of service: 12/01/18 Time of Service: 15:02 Care Management Initial Assess REASON FOR HOSPITALIZATION:: Chest Pain PAST MEDICAL HISTORY/PAST SURGICAL HISTORY:: Medical History. Bipolar affective disorder (Chronic). Chronic anxiety (Chronic). Chronic pain syndrome (Chronic). 06/03/16 CONTROLLED SUBSTANCE AGREEMENT. COPD, mild (Chronic). pULMONARY FUNCTION TESTS 12/11 SHOWING MILD OBSTRUCTIVE DISEASE AND SEVERE. DIFFUSIONAL DEFECT. GERD (gastroesophageal reflux disease) (Chronic 08/21/14). Hyperlipidemia (Chronic). Surgical History. Abdominal hysterectomy. Appendectomy. Arthroscopy, Shoulder. LR-LEFT 06/03/15. Bilateral salpingectomy with oophorectomy. Rotator Cuff Repair. [facility]-LEFT 06/03/15 PREVIOUS FUNCTIONAL STATUS/SOCIAL/FAMILY SUPPORTS:: Cara lives in [place], [place] with her boyfriend. She is very close with her son, Zaire and grandson Amos, who live in [place]. Her other son, Deejay, last year from complications due to diabetes. 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 She is independent with ADL's at baseline, although she has some social limitations from her bipolar disorder and chronic anxiety. She is a strong advocate for herself and others. CURRENT FUNCTIONAL STATUS:: Cara was lying in bed with CM met with her. She was pleasant and engaged in conversation. She reported that she has a procedure at 1pm today and depending on the results she may go home today. She is NPO currently, and she states that she can't wait to eat once the procedure is done. She reports that she feels much better today than when she arrived with a lot of chest pain. She explained that her pain was 'not normal pain', but instead a 'squeezing' pain that she is not used to. CM agreed that it was a good choice to be seen right away. Cara also discussed her chronic anxiety, panic attacks and bipolar disorder with CM. CM asked if she had a therapist in the community. Cara stated that she used to see Yoly Castillo at [facility], but she hasn't in a while. She expressed that she would like to connect with her again. CM will provide information and assist Cara in receiving adult outpatient therapy with Yoly Castillo, if possible. CM will continue to follow. ADVANCE DIRECTIVES:: None on file. [employer] asked for a blank copy, which CM will provide. Has patient been provided with information about the portal?: Yes Did the patient sign up for the portal?: No (Not interested) CODE STATUS:: Full Code INSURANCE COVERAGE / FINANCIAL ISSUES:: [employer] CURRENT HOME/COMMUNITY SERVICES/EQUIPMENT:: Cara doesn't have any current services or equipment. She has expressed interest in adult outpatient therapy, which CM will assist with. PRIMARY CARE PHYSICIAN:: Elias Cruz POTENTIAL DISCHARGE NEEDS:: Cara has requested assistance with setting up adult outpatient therapy through [facility]. CM to provide Cara with the phone number to [facility] and assist her in making a phone call to see if she is still an active client at [facility], or if she needs to complete a new intake. PATIENT/FAMILY EDUCATION NEEDS:: Review of community based supports, discharge plan, discussion of self care needs including Ask Me Three ANTICIPATED BARRIERS TO DISCHARGE:: None identified at this time TRANSPORTATION:: Cara's boyfriend will transport her home via private vehicle PLAN:: Anticipate Cara will return home when medically cleared. CM to assist Cara in setting up new adult outpatient therapy at [facility]. Her boyfriend will tr ansport her home via private vehicle when ready. Follow up appointments, as recommended by provider. CM will continue to follow.
--- NOTE | 2018-12-01 15:07 | CHAPLAIN ---
Cara was resting in bed when I visited, waiting to go for a test which would determine if she stayed overnight or not, she said. She expects her boyfriend may visit later. She talked about he son roosevelt Merlos and another son in [facility]. Her son Deejay, a year ago in September. He was diabetic, diagnosed at 16 and when he was 27, she said. Deejay had been a patient here. Shortly before he , Deejay decided not to receive any more treatment or medical care, which Cara said was a difficult decision for Cara, she said, but she abided by his wishes. Cara said she decided to have a second children so Deejay wouldn't be alone, but then he left his brother. God needed him early, Cara said.
--- NOTE | 2018-12-01 16:59 | W.PM.DS.N ---
Date of service: 12/01/18 Time of Service: 17:00 DS: Diagnosis Discharge Diagnosis (1) Chest pain at rest: Status: Acute Discharge Plan Disposition Patient Disposition: HOME Condition: Stable Discharge Details Chief Complaint: Chest Pain Clinical Impression: Chest pain Reason For Visit: CHEST PAIN Admit Date/Time: 12/01/18 04:43 Admit Provider: Husam Mireles Attending Provider: Husam Mireles Primary Care Provider: Elias Cruz ED Provider: Suman [facility] Course Hospital Course: Chief Complaint: Chest Pain HPI: 53 year old woman with a prior history of tobacco use, COPD, and family history of CAD, admitted secondary to chest pain. For details on patient's history please see H&P from Dr. Husam Mireles from earlier today. Mrs. Carpenter underwent a nuclear stress test today, interpreted as negative for ischemia, and had negative troponins following admission. She has had multiple prior negative ETT as well, notably in 2013, 2017, and 2018. Of note however, she has a family history of premature CAD, and her LDL was markedly elevated at 216. Patient was advised to quit smoking, and initiated on a high potency statin with simvastatin discontinued, with recommendation for outpatient follow-up. May require additional therapy such as addition of a fibrate or Repatha in the future. Home Meds and New Rx's Prescriptions: New rosuvastatin [Crestor] 20 mg Tablet 40 mg PO QPM Qty: 30 RF: 0 Continued hydrocodone-acetaminophen 5-325 mg tablet 1 tab PO Q6H MDD 4 tabs PRN (Reason: pain) Qty: 20 RF: 0 ibuprofen 800 mg tablet 800 mg PO TID PRN (Reason: pain) Qty: 90 RF: 3 aspirin [Aspir-81] 81 MG tablet,delayed release (DR/EC) 81 mg PO DAILY Qty: 90 RF: 4 clonazepam 1 mg tablet 1 mg PO TID PRN (Reason: anxiety) Qty: 90 RF: 1 diclofenac potassium 50 mg tablet 50 mg PO TID PRN (Reason: pain) Qty: 20 RF: 0 ondansetron 4 mg tablet,disintegrating 4 mg PO Q8H PRN (Reason: nausea and vomiting) Qty: 10 RF: 0 Discontinued simvastatin 40 mg tablet 40 mg PO QPM Qty: 90 RF: 4 Discharge Instructions Activity:: Activity as Tolerated Equipment/Supplies:: No Equipment Needed Diet:: Low fat Discharge Orders Discharge Orders: Discharge Order (Routine); Ordered 12/01/18 Ordered By: Austin Sharpe DS: Summary Status at Discharge Functional status at discharge: independent ambulation Overall status at discharge: patient is back to baseline Mental Status: mental status grossly normal Speech and Movement: speech and movement normal Mood: congruent mood Affect: normal affect Exam Psych Mental Status: mental status grossly normal Speech and Movement: speech and movement normal Mood: congruent mood Affect: normal affect DS: Data Vitals/I&O Vitals and I&O: Vital Signs Temperature 36.0 C L 12/01/18 16:32 Temperature Source Tympanic 12/01/18 16:32 Pulse 58 L 12/01/18 16:32 Pulse Rhythm Regular 12/01/18 06:31 Respiratory Rate 18 12/01/18 16:32 Respiratory Effort Non-Labored 12/01/18 06:31 Respiratory Depth Normal 12/01/18 06:31 Respiratory Pattern Normal 12/01/18 06:31 Blood Pressure 126/85 12/01/18 16:32 Blood Pressure Position Supine 12/01/18 03:25 Pulse Oximetry 97 12/01/18 16:32 Oxygen Delivery Method Room Air 12/01/18 16:32 Oxygen Flow Rate 0 12/01/18 16:32 Pain Level 6 12/01/18 16:32 Comment 12/01/18 07:25 Intake & Output 11/30/18 12/01/18 12/01/18 23:59 11:59 23:59 Intake Total 112.5 / 112.5 Output Total 700 / 700 Balance -587.5 / -587.5 Weight 53.33 kg Intake: IV 112.5 / 112.5 Output: Urine 700 / 700 Other: Urine Color Yellow Urine Appearance Clear Urine Odor Normal Voiding Methods Toilet Data Completed and Pending Completed studies during hospitalization [Text1]: Exam(s) a NM:NM MPI rest & stress grp APPROVED REPORT Exam: Exercise Treadmill Patient Location: In-Patient Room/Bed: Stress Nurse: Eli Mock RN Rhythm: NSR Indications: Pt reports she awoke from a sound sleep yesterday at 0100 with severe squeezing chest pain that radiated into her job it was associated with dyspnea and lightheadedness then she vomited. Pt reports she called an ambulance at this time. Pt was admitted to the hospital. She states she recieved a nitro and this gave her relief. She states she now has a manageable constant pressure in her chest she rates as a 2 out of 10. Pt has smoked cigarettes since she was 4 years old she smokes 1/2 to 3/4 a pack a day. Medical History Medical History: Smoker:Unknown Prior Cath:Unknown Prior PCI:Unknown History of [place]:Unknown Heart Failure:Unknown Prior CABG:Unknown Prior Heart Valve Surgery:Unknown Diabetic:Unknown Angina:Unknown Family History of CV Disease:Unknown History Notes: Medications: Simvastatin. Clonazepam. Aspirin. Allergies: Morphine. PCN. Dilaudid. Prednisone. Flexeril. Cardiac Risk Factors: Smoking, FHX of CAD Pretest Chest Pain Characteristics: Atypical angina Exercise History: Physically active Stress Test Details Test: Exercise stress testing was performed using a Dioni protocol. Nuclear Acquisition: Stress Tc-99m/Stress Tc-99m 1 day Rest Isotope: Tc-99m Sestamibi. Date: 12/01/2018 Injection Time: 1330 Stress Isotope: Tc-99m Sestamibi. Date: 12/01/2018 Injection Time: 1505 HR Resting HR: 47 bpm Max Heart Rate (APMHR): 166 bpm Max HR Achieved: 154 bpm Target HR (85% APMHR): 141 bpm % of APMHR: 92 Recovery HR: 75 bpm HR response to stress: Normal HR response to stress BP Resting BP: 156/94 mmHg Max BP: 174/92 mmHg Recovery BP: 140/100 mmHg BP response to stress: Normal blood pressure response to stress. ECG Resting ECG: Sinus Rhythm Stress ECG: Sinus Tachycardia Arrhythmia: None Recovery ECG: Sinus Rhythm Recovery Arrhythmia: None Clinical Reason for Termination: Dyspnea Exercise duration: 10 min Highest Stage Achieved: Stage 4: 4.2 mph at 16% grade. Exercise capacity: 11.82 METs Overall Exercise Capacity for Age: Excellent Scale: Active Stress ECG Conclusion 1. Patient demonstrated good exercise capacity. 2. EKG shows no inducible ischemia. 3. Imaging portion of stress test shows no inducible ischemia. 4. This represents a normal stress test. --------- Exam(s) a RAD:XR chest 2V PA & lateral EXAM: XR CHEST 2V PA LATERAL INDICATION: chest pain. COMPARISON: XR CHEST 2V PA LATERAL from 01/03/2018 TECHNIQUE: 2D digital imaging was performed. FINDINGS: The heart is not enlarged. Lungs are clear with question mild changes of COPD. No pleural effusion seen. IMPRESSION: No evidence of acute process Labs on day of discharge: Labs from last 24 hours 12/01/18 12/01/18 12/01/18 11:15 07:05 03:40 WBC RBC Hgb Hct MCV MCH MCHC RDW Plt Count MPV Immature Gran % Neutrophils % Lymphocytes % Monocytes % Eosinophils % Basophils % Absolute Neutrophils Absolute Lymphocytes Absolute Monocytes Absolute Eosinophils Absolute Basophils Sodium Potassium Chloride Carbon Dioxide Anion Gap BUN Creatinine Estimated GFR/1.73 m2 Glucose Hemoglobin A1c 5.8 Calcium Magnesium Total Bilirubin AST ALT Alkaline Phosphatase Troponin I < 0.05 < 0.05 NT-Pro-B Natriuret Pep 79 Total Protein Albumin Triglycerides Total Cholesterol LDL Cholesterol, Calc HDL Cholesterol 12/01/18 12/01/18 12/01/18 03:40 03:40 03:40 WBC 10.25 RBC 4.56 Hgb 14.1 Hct 41.5 MCV 91.0 MCH 30.9 MCHC 34.0 RDW 14.2 Plt Count 286 MPV 10.2 Immature Gran % 0.3 Neutrophils % 57.9 Lymphocytes % 32.3 Monocytes % 7.2 Eosinophils % 1.9 Basophils % 0.4 Absolute Neutrophils 5.94 Absolute Lymphocytes 3.31 Absolute Monocytes 0.74 H Absolute Eosinophils 0.19 Absolute Basophils 0.04 Sodium Potassium Chloride Carbon Dioxide Anion Gap BUN Creatinine Estimated GFR/1.73 m2 Glucose Hemoglobin A1c Calcium Magnesium Total Bilirubin AST ALT Alkaline Phosphatase Troponin I Cancelled NT-Pro-B Natriuret Pep Total Protein Albumin Triglycerides 216 H Total Cholesterol 306 H LDL Cholesterol, Calc 215 HDL Cholesterol 48 12/01/18 03:40 WBC RBC Hgb Hct MCV MCH MCHC RDW Plt Count MPV Immature Gran % Neutrophils % Lymphocytes % Monocytes % Eosinophils % Basophils % Absolute Neutrophils Absolute Lymphocytes Absolute Monocytes Absolute Eosinophils Absolute Basophils Sodium 144 Potassium 3.8 Chloride 106 Carbon Dioxide 27.7 Anion Gap 10.3 BUN 19 H Creatinine 0.71 Estimated GFR/1.73 m2 >= 60.00 Glucose 100 Hemoglobin A1c Calcium 8.9 Magnesium 2.3 Total Bilirubin 0.3 AST 20 ALT 37 Alkaline Phosphatase 77 Troponin I < 0.05 NT-Pro-B Natriuret Pep Total Protein 8.1 Albumin 4.1 Triglycerides Total Cholesterol LDL Cholesterol, Calc HDL Cholesterol PFSH Medical History Bipolar affective disorder (Chronic) Chronic anxiety (Chronic) Chronic pain syndrome (Chronic) 06/03/16 CONTROLLED SUBSTANCE AGREEMENT COPD, mild (Chronic) pULMONARY FUNCTION TESTS 12/11 SHOWING MILD OBSTRUCTIVE DISEASE AND SEVERE DIFFUSIONAL DEFECT GERD (gastroesophageal reflux disease) (Chronic 08/21/14) History of hysterectomy (Inactive) Hyperlipidemia (Chronic) Incomplete rotator cuff tear or rupture of left shoulder, not specified as traumatic (Inactive 02/25/15) Surgical History Abdominal hysterectomy Appendectomy Arthroscopy, Shoulder [facility]-LEFT 06/03/15 Bilateral salpingectomy with oophorectomy Rotator Cuff Repair [facility]-LEFT 06/03/15 Status post appendectomy (Inactive) Status post arthroscopy of shoulder (Inactive 06/03/15) Family History Mother Essential hypertension Alzheimer disease Heart disease Hyperlipidemia Father Myocardial infarction Sister Hyperlipidemia Stroke Brother Essential hypertension Heart disease Hyperlipidemia Stroke Son , from complications of type 1 DM Diabetes Grandmother Diabetes Social History Smoking/Tobacco Use Status: Current every day Tobacco Type: cigarettes Years smoked: 49 Drug use: Daily Substance use type: marijuana Do you feel safe at home: Yes Do you feel safe in your relationship?: Yes History History 8 Para 6 Hx # Term Pregnancies Multiple births Hx # Pregnancies Ectopic pregnancies AB induced Hx Number of Living Children 1 AB spontaneous
== END 2018-12-01 18:32 | disposition home or self-care (01) ==
LOC: ER 05:02 → MS 05:59
PROVIDERS: Admitting Provider Internal Medicine; Emergency Provider Emergency Medicine; PCP Family Medicine; Visit Provider Internal Medicine
DX: R07.9 Chest pain, unspecified (principal); J44.0 Chronic obstructive pulmonary disease with (acute) lower respiratory infection; Z87.891 Personal history of nicotine dependence; Z82.49 Family history of ischemic heart disease and other diseases of the circulatory system; E78.5 Hyperlipidemia, unspecified; Z23 Encounter for immunization
CPT/HCPCS: 36415; 78452; 80053; 80061; 96365; 99217; 99220; 99285; J1650; 71046; 83036; 83735; 83880; 84484; 85025; 93017; 99236; 99284; G0378

== ENCOUNTER 2019-03-07 09:11 | Outpatient (CLI) | payer MEDICAID, SELFPAY ==
[2019-03-07 09:40] LABS: Bilirubin Negative (Negative); Blood Small (Negative); Clarity Cloudy (Clear); Glucose Negative (Negative); Ketones Negative (Negative); Leukocyte Esterase Moderate (Negative); Nitrite Negative (Negative); Specific Gravity 1.025 (1.005-1.025); Urobilinogen 0.2 EU/dL (Up TO 0.2)
[2019-03-07 09:49] LABS: C & S Indicated? Yes; WBC >50 HPF (0-5)
== END 2019-03-07 09:31 ==
PROVIDERS: PCP Family Medicine; Visit Provider Family Medicine
DX: R30.0 Dysuria (principal)
CPT/HCPCS: 81003; 81015; 87086; 87186

== ENCOUNTER 2019-03-17 16:03 | Outpatient (CLI) | payer MEDICAID, SELFPAY ==
--- NOTE | 2019-03-17 15:39 | DI.RAD_ITS ---
EXAM: XR KNEE LT 3V AP,LAT,DIPIKA INDICATION: Sudden onset pain left knee M25.562. COMPARISON: No exams were available for comparison TECHNIQUE: 2D digital imaging was performed. FINDINGS: The femoral tibial joint spaces are well maintained. There is mild spurring at the quadriceps insert ion on the patella. No joint effusion is seen. There is no evidence of fracture. IMPRESSION: No acute abnormality.
== END 2019-03-17 16:23 ==
PROVIDERS: PCP Family Medicine; Visit Provider Family Medicine
DX: M25.562 Pain in left knee (principal)
CPT/HCPCS: 73562

== ENCOUNTER 2019-05-03 13:15 | Emergency (ER) | payer MEDICAID, SELFPAY ==
[2019-05-03 13:26] VITALS: BP 175/131; PULSE 79; RESP 18; TEMP 36.6; O2SAT 96
[2019-05-03 13:39] VITALS: BP 156/98; PULSE 75; RESP 16; TEMP 36.5; O2SAT 96
--- NOTE | 2019-05-03 13:44 | ED.GENADUL_ITS ---
Discharge Plan Disposition Patient Disposition: HOME Condition: Stable Discharge Details Chief Complaint: Nk/Back Pain Clinical Impression: Acute neck pain Primary Care Provider: Elias Cruz ED Provider: Brandon Posadas Home Meds and New Rx's Prescriptions: New lidocaine [Lidoderm] 1 PATCH patch 1 patch Topical Q24H Qty: 4 RF: 0 No Action ibuprofen 800 mg tablet 800 mg PO TID PRN (Reason: pain) Qty: 90 RF: 3 clonazepam 1 mg tablet 1 mg PO TID PRN (Reason: anxiety) Qty: 90 RF: 1 hydrocodone-acetaminophen 5-325 mg tablet 1 tab PO Q6H MDD 4 tabs PRN (Reason: pain) Qty: 20 RF: 0 aspirin [Aspir-81] 81 MG tablet,delayed release (DR/EC) 81 mg PO DAILY Qty: 90 RF: 4 rosuvastatin 40 mg tablet 40 mg PO QPM Qty: 90 RF: 4 phenazopyridine [Pyridium] 200 mg tablet 200 mg PO TID PRN (Reason: pain) Qty: 14 RF: 0 sulfamethoxazole-trimethoprim 800-160 mg tablet 1 tab PO BID Qty: 10 RF: 0 diclofenac potassium 50 mg tablet 50 mg PO TID PRN (Reason: pain) Qty: 20 RF: 0 ondansetron 4 mg tablet,disintegrating 4 mg PO Q8H PRN (Reason: nausea and vomiting) Qty: 10 RF: 0 Discharge Instructions Instructions: Neck Pain (ED) Additional Instructions: It is not my recommendation that you leave at this time. I would recommend that you come back back as soon as you are able to for further evaluation. There is a notably high chance that this might just be from a muscle spasm. Please take 600 mg of ibuprofen every 6 hours, and use Lidoderm patches every 12 hours as directed. If you notice any worsening of your symptoms, or any new symptoms such as vomiting, diarrhea, fever, chills, shortness of breath, chest pain, numbness, weakness, or fainting , please return immediately to the emergency department for reevaluation. Please follow up with your primary care provider as soon as possible for reassessment and reevaluation. As always, it was a pleasure participating in your medical care today. Referrals: Elias Cruz MD [Primary Care Provider] - Medical Decision Making 53-year-old female with a past medical history of PTSD, high cholesterol, COPD, GERD, chronic pain syndrome, bipolar, chronic anxiety, who presents today for evaluation of neck pain. Patient states that last night she had some achiness in her neck, no associated headache fever chills, no associated chest pain or shortness of breath. Patient states that her symptoms are very benign when she woke up this morning, no real pain or stiffness, however when she was out driving she turned to the right and felt some mild stiffness turned to the left and then felt that her neck became notably stiff, and significantly suddenly achy. She continues to have no associated numbness tingling or weakness. No radiation to her jaw. No radiation down her shoulders, or anterior neck. She denies chest pain, chest heaviness, chest tightness, shortness of breath, pleuritic chest pain, tearing or ripping sensation. She denies any visual changes. She denies any trauma. She does have a distant third degree relative who did have aneurysms but no first or second-degree relatives with aneurysms. No history of dissection. No other complaints at this time. No other modifying factors. Of note she did take ibuprofen early this morning. Physical exam demonstrates no focal abnormalities aside from notable muscle spasm of the trapezius and splenius capitis. Primarily on the right side. No fever, no neurologic deficits, radial arteries pulses +2 bilaterally. Symptoms certainly do not seem to demonstrate evidence of atypical vascular abnormality. Symptoms appear inconsistent with ACS. She shows no evidence of carotid or vertebral artery bruits on my exam. However with her notable atypical symptoms, as well as the severity of the pain I do feel that further work-up is indicated at this time. Differential although notably less likely does include vertebral artery carotid or aortic dissection, however at this time this seems fairly in consistent. However with the concern I do feel that further work-up is indicated including labs and imaging. However the patient has made it very clear that she does not intend to have these done today. She states she needs to get home right away to care for her puppy. I made it very clear that I do feel that although unlikely that there could certainly be something very life- threatening. Patient is of a appropriate age to make decisions. The patient is of sound mind, appears clinically sober, and has capacity to make decisions by my clinical exam. We have provided options for treatment and discussed the risks and benefits of these options and refusing these options, including and disability specific to the patient's pathology. Patient is able to discuss the risks and benefits and alternatives of treatment and refusing treatment. We have tried to involve the patient's family or support group that was present here or by contacting them on the phone. The patient chooses to leave before evaluation and treatment is complete AGAINST MEDICAL ADVICE. I did offer Lidoderm patch and Toradol shot, she did refuse the Toradol shot. Will give oral ibuprofen. I also offered Valium versus Flexeril, however she states that she does not want either of these. After an extensive discussion multiple times about my recommendations for further testing, she is made very clear that she will be going home, against my advice. She states that if her symptoms continue, she will return later tonight for further evaluation and the testing that we discussed. I did recommend using a heating pad on the neck, and continuing ibuprofen in the HPI General Date/Time Provider Initiated Documentation: 05/03/19 13:21 . HPI Narrative: 53-year-old female with a past medical history of PTSD, high cholesterol, COPD, GERD, chronic pain syndrome, bipolar, chronic anxiety, who presents today for evaluation of neck pain. Patient states that last night she had some achiness in her neck, no associated headache fever chills, no associated chest pain or shortness of breath. Patient states that her symptoms are very benign when she woke up this morning, no real pain or stiffness, however when she was out driving she turned to the right and felt some mild stiffness turned to the left and then felt that her neck became notably stiff, and significantly suddenly achy. She continues to have no associated numbness tingling or weakness. No radiation to her jaw. No radiation down her shoulders, or anterior neck. She denies chest pain, chest heaviness, chest tightness, shortness of breath, pleuritic chest pain, tearing or ripping sensation. She denies any visual changes. She denies any trauma. She does have a distant third degree relative who did have aneurysms but no first or second-degree relatives with aneurysms. No history of dissection. No other complaints at this time. No other modifying factors. Of note she did take ibuprofen early this morning. Related Data Home Medications Medication Instructions Recorded Confirmed aspirin [Aspir-81] 81 mg PO DAILY #90 tab-cap 03/09/13 03/17/19 ibuprofen 800 mg tablet 800 mg PO TID PRN #90 tab 04/05/18 03/17/19 diclofenac potassium 50 mg PO TID PRN #20 tab 10/29/18 03/17/19 ondansetron 4 mg PO Q8H PRN #10 tab 10/29/18 03/17/19 rosuvastatin 40 mg tablet 40 mg PO QPM #90 tab 12/19/18 03/17/19 phenazopyridine 200 mg tablet 200 mg PO TID PRN #14 tab 03/07/19 03/17/19 sulfamethoxazole 800 1 tab PO BID #10 tab 03/07/19 03/17/19 mg-trimethoprim 160 mg tablet clonazepam 1 mg tablet 1 mg PO TID PRN #90 tab NS 03/17/19 03/17/19 hydrocodone 5 mg-acetaminophen 325 1 tab PO Q6H PRN #20 tab MDD 4 tabs 03/17/19 03/17/19 mg tablet lidocaine [Lidoderm] 1 patch TOPICAL Q24H #4 patch 05/03/19 Previous Rx's Medication Instructions Recorded ibuprofen 800 mg tablet 800 mg PO TID PRN #90 tab 04/05/18 diclofenac potassium 50 mg PO TID PRN #20 tab 10/29/18 ondansetron 4 mg PO Q8H PRN #10 tab 10/29/18 rosuvastatin 40 mg tablet 40 mg PO QPM #90 tab 12/19/18 phenazopyridine 200 mg tablet 200 mg PO TID PRN #14 tab 03/07/19 sulfamethoxazole 800 1 tab PO BID #10 tab 03/07/19 mg-trimethoprim 160 mg tablet clonazepam 1 mg tablet 1 mg PO TID PRN #90 tab NS 03/17/19 hydrocodone 5 mg-acetaminophen 325 1 tab PO Q6H PRN #20 tab MDD 4 tabs 03/17/19 mg tablet lidocaine [Lidoderm] 1 patch TOPICAL Q24H #4 patch 05/03/19 Allergies Allergy/AdvReac Type Severity Reaction Status Date / Time morphine Allergy Severe stops my Unverified 05/03/19 13:30 heart fentanyl Allergy Intermediate Hives Unverified 05/03/19 13:30 lamotrigine Allergy Intermediate Facial Unverified 05/03/19 13:30 blistering carbamazepine AdvReac Intermediate Drowsiness Unverified 05/03/19 13:30 and ataxia cyclobenzaprine HCl AdvReac Intermediate vomits Unverified 05/03/19 13:30 [From Flexeril] hydromorphone HCl AdvReac Intermediate vomits Unverified 05/03/19 13:30 [From Dilaudid] Penicillins AdvReac Intermediate vomits Unverified 05/03/19 13:30 methocarbamol AdvReac Nausea, Unverified 05/03/19 13:30 headache oxycodone [Oxycodone] AdvReac Nausea Unverified 05/03/19 13:30 prednisone AdvReac Nausea Unverified 05/03/19 13:30 General Stated Complaint: Nk/Back Pain VENKAT: 3 Review of Systems All systems reviewed & are unremarkable except as noted in HPI and below PFSH Medical History (Updated 05/03/19 @ 14:03 by Brandon Posadas DO) Bipolar affective disorder (Chronic) Chest pain at rest (Inactive) Chronic anxiety (Chronic) Chronic pain syndrome (Chronic) 06/03/16 CONTROLLED SUBSTANCE AGREEMENT COPD, mild (Chronic) pULMONARY FUNCTION TESTS 12/11 SHOWING MILD OBSTRUCTIVE DISEASE AND SEVERE DIFFUSIONAL DEFECT GERD (gastroesophageal reflux disease) (Chronic 08/21/14) Hyperlipidemia (Chronic) Incomplete rotator cuff tear or rupture of left shoulder, not specified as traumatic (Inactive 02/25/15) Surgical History Abdominal hysterectomy Appendectomy Arthroscopy, Shoulder [facility] 06/03/15 Bilateral salpingectomy with oophorectomy History of hysterectomy (Inactive) Rotator Cuff Repair [facility] 06/03/15 Status post appendectomy (Inactive) Status post arthroscopy of shoulder (Inactive 06/03/15) Social History Smoking/Tobacco Use Status: Current every day Tobacco Type: cigarettes Years smoked: 49 Drug use: Daily Substance use type: marijuana Do you feel safe at home: Yes Do you feel safe in your relationship?: Yes History History 8 Para 6 Hx # Term Pregnancies Multiple births Hx # Pregnancies Ectopic pregnancies AB induced Hx Number of Living Children 1 AB spontaneous Exam Narrative Exam Narrative: 1.Const: Well-nourished, Well-developed, appearing stated age 2.Eyes: PERRL, no conjunctival injection, and symmetrical lids. 3.ENT: Atraumatic external nose and ears. Moist MM. Neck: Symmetric, trachea midline, No thyromegaly. 4.CVS: +S1/S2, No murmurs or gallops. Peripheral pulses 2+ and equal in all extremities. Brisk capillary refill in all extremities. 5.RESP: Unlabored respiratory effort. Clear to auscultation bilaterally. No wheezes rales or rhonchi 6.GI: Soft, Nontender/Nondistended, No hepatosplenomegaly. No guarding or rebound. 7.MSK: Normocephalic/Atraumatic, Extremities w/o deformity. No cyanosis or clubbing, Normal movement of all extremities Examination of the neck demonstrates notable right-sided paraspinal muscle spasm, including of the trapezius and splenius capitis on the right. No significant tenderness over the sternocleidomastoid. Pain with palpation. Range of motion limited secondary to the pain. No nuchal rigidity. Patient does have worsening of pain with flexion of the legs, but she demonstrates no flexion of the neck during the Kernig's and Brudzinski's testing. Normal strength of the upper extremities bilaterally, radial pulses +2 bilaterally. 8.Skin: Warm, Dry. No rashes or lesions. 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 Sensation grossly intact, no focal neurologic deficits. All 6 cardinal planes of vision are fully intact. No evidence of rotatory or vertical nystagmus. The patient demonstrated a normal [id number], good dexterity. There was no evidence of dysdiadochokinesia. Patient was able to ambulate without difficulty. There was no wide-based gait. Romberg testing was normal. Scsx-yv-awmt testing was normal. Sensation was intact bilaterally as well as muscle strength bilaterally for all extremities. Patient was able to verbalize butter cup with no slurring, or miss pronunciation. 10.Psych: (AAO) x3. Appropriate mood and affect Course Vital Signs Vital signs: Vital Signs Temperature 36.6 C 05/03/19 13:26 Pulse 79 05/03/19 13:26 Respiratory Rate 18 05/03/19 13:26 Blood Pressure 175/131 H 05/03/19 13:26 Pulse Oximetry 96 03/04/20 13:26 Temperature 36.5 C 05/03/19 13:39 Temperature Source Temporal Artery Scan 05/03/19 13:39 Pulse 75 05/03/19 13:39 Respiratory Rate 16 05/03/19 13:39 Respiratory Effort Non-Labored 05/03/19 13:30 Blood Pressure 156/98 H 05/03/19 13:39 Blood Pressure Position Sitting 05/03/19 13:26 Pulse Oximetry 96 05/03/19 13:39 Oxygen Delivery Method Room Air 05/03/19 13:39 Oxygen Flow Rate 0 05/03/19 13:39 Pain Level 10 05/03/19 13:26
[2019-05-03] MEDS: Lidocaine 5% Patch 1 PATCH (14:00)
[2019-05-03] MEDS: Ibuprofen 800 MG TAB (14:00)
--- NOTE | 2019-05-03 14:35 | NUR.NOTE ---
orders are not clearing pharmacy. unable to document in apr that 800 mg of ibuprofen and a 5% lidocaine patch was administered to patient. meds given at 1400.
== END 2019-05-03 14:20 | disposition home or self-care (01) ==
PROVIDERS: Emergency Provider Student in an Organized Health Care Education/Training Program; PCP Family Medicine
DX: M54.2 Cervicalgia (principal); M62.838 Other muscle spasm; J44.9 Chronic obstructive pulmonary disease, unspecified; F17.210 Nicotine dependence, cigarettes, uncomplicated
CPT/HCPCS: 93005; 99283; 93010

== ENCOUNTER 2019-05-03 21:03 | Emergency (ER) | payer MEDICAID, SELFPAY ==
[2019-05-03 21:15] VITALS: BP 160/104; PULSE 78; RESP 16; TEMP 36.5
--- NOTE | 2019-05-03 21:20 | ED.GENADUL_ITS ---
Discharge Plan Disposition Patient Disposition: HOME Condition: Good Discharge Details Chief Complaint: Recheck Clinical Impression: Muscle spasms of neck Primary Care Provider: Elias Cruz ED Provider: Suman Bahena Home Meds and New Rx's Prescriptions: Continued ibuprofen 800 mg tablet 800 mg PO TID PRN (Reason: pain) Qty: 90 RF: 3 clonazepam 1 mg tablet 1 mg PO TID PRN (Reason: anxiety) Qty: 90 RF: 1 hydrocodone-acetaminophen 5-325 mg tablet 1 tab PO Q6H MDD 4 tabs PRN (Reason: pain) Qty: 20 RF: 0 aspirin [Aspir-81] 81 MG tablet,delayed release (DR/EC) 81 mg PO DAILY Qty: 90 RF: 4 rosuvastatin 40 mg tablet 40 mg PO QPM Qty: 90 RF: 4 phenazopyridine [Pyridium] 200 mg tablet 200 mg PO TID PRN (Reason: pain) Qty: 14 RF: 0 sulfamethoxazole-trimethoprim 800-160 mg tablet 1 tab PO BID Qty: 10 RF: 0 lidocaine [Lidoderm] 1 PATCH patch 1 patch Topical Q24H Qty: 4 RF: 0 diclofenac potassium 50 mg tablet 50 mg PO TID PRN (Reason: pain) Qty: 20 RF: 0 ondansetron 4 mg tablet,disintegrating 4 mg PO Q8H PRN (Reason: nausea and vomiting) Qty: 10 RF: 0 Discharge Instructions Additional Instructions: I have reviewed the notes from Dr. Posadas from your visit this afternoon. I am aware of what he was concerned about. I have evaluated you and feel that this is most likely acute muscle spasm of the neck specifically the right trapezius muscle. I am not concerned for dissection at this point. I recommend removing the Lidoderm patch this evening when you get home. Would like you to take a hot shower and let water hit that area for 5 to 10 minutes. Please take your hydrocodone tonight and use a heating pad on and off. Keep your appointment to see Dr. Cruz tomorrow. You should return to the emergency department if you develop dizziness, vision change, difficulty ambulating, severe headache, numbness or weakness on one side compared to the other, chest pain or shortness of breath. Referrals: Elias Cruz MD [Primary Care Provider] - Discharge Data Discharge Date/Time-TO BE ENTERED AT DEPARTURE: 05/03/19 21:45 Medical Decision Making Patient presents to ED for further evaluation of neck pain. She was seen earlier this afternoon by Dr. Posadas who had concerns for possible dissection. Patient has now had symptoms for over 24 hours. She has her neck in flexed position and can turn her torso but not her head. She is tender along the right trapezius and this is very likely muscle spasm of the right trapezius. She has no neurological signs or symptoms. She has no chest pain or shortness of breath. She has no neurologic findings. At this point I am not concerned for vertebral artery dissection. I would not pursue imaging at this point. Patient has follow-up with her primary care tomorrow. She also has hydrocodone to use at home but was afraid to take it because of the discussion she had this afternoon. I have offered her reassurance and recommendations as to what to wa [facility] for and come back for. She is discharged home. Medical Records Medical records reviewed: Yes I reviewed the patient's medical records. HPI General Mode of arrival: ambulatory . Date/Time Provider Initiated Documentation: 05/03/19 21:16 . Limitations to Documentation: no limitations . Information obtained by: patient, RN notes reviewed and old records reviewed . HPI Narrative: Patient returns to ED after leaving AGAINST MEDICAL ADVICE this afternoon for reevaluation of neck pain. Patient tells me that yesterday afternoon while driving she turned her head and felt a twinge. When she turned the other way she realized that she was not able to and had significant pain in the right side posterior neck. It was almost at the base of the skull down the right side of her neck. Since then her neck has become stiff and when she woke up this morning she has been unable to turn her head right or left or nod up and down because of pain and discomfort again mostly on the right side. There is now some pain on the left as well. The pain seems to be going down into her back and shoulder. She has not experienced headache, dizziness, gait disturbance, visual disturbance, numbness, weakness, shortness of breath, chest pain. She is sitting straight with her neck held in fixed position able to turn her torso but not her head. Related Data Home Medications Medication Instructions Recorded Confirmed aspirin [Aspir-81] 81 mg PO DAILY #90 tab-cap 03/09/13 03/17/19 ibuprofen 800 mg tablet 800 mg PO TID PRN #90 tab 04/05/18 03/17/19 diclofenac potassium 50 mg PO TID PRN #20 tab 10/29/18 03/17/19 ondansetron 4 mg PO Q8H PRN #10 tab 10/29/18 03/17/19 rosuvastatin 40 mg tablet 40 mg PO QPM #90 tab 12/19/18 03/17/19 phenazopyridine 200 mg tablet 200 mg PO TID PRN #14 tab 03/07/19 03/17/19 sulfamethoxazole 800 1 tab PO BID #10 tab 03/07/19 03/17/19 mg-trimethoprim 160 mg tablet clonazepam 1 mg tablet 1 mg PO TID PRN #90 tab NS 03/17/19 03/17/19 hydrocodone 5 mg-acetaminophen 325 1 tab PO Q6H PRN #20 tab MDD 4 tabs 03/17/19 03/17/19 mg tablet lidocaine [Lidoderm] 1 patch TOPICAL Q24H #4 patch 05/03/19 Previous Rx's Medication Instructions Recorded ibuprofen 800 mg tablet 800 mg PO TID PRN #90 tab 04/05/18 diclofenac potassium 50 mg PO TID PRN #20 tab 10/29/18 ondansetron 4 mg PO Q8H PRN #10 tab 10/29/18 rosuvastatin 40 mg tablet 40 mg PO QPM #90 tab 12/19/18 phenazopyridine 200 mg tablet 200 mg PO TID PRN #14 tab 03/07/19 sulfamethoxazole 800 1 tab PO BID #10 tab 03/07/19 mg-trimethoprim 160 mg tablet clonazepam 1 mg tablet 1 mg PO TID PRN #90 tab NS 03/17/19 hydrocodone 5 mg-acetaminophen 325 1 tab PO Q6H PRN #20 tab MDD 4 tabs 03/17/19 mg tablet lidocaine [Lidoderm] 1 patch TOPICAL Q24H #4 patch 05/03/19 Allergies Allergy/AdvReac Type Severity Reaction Status Date / Time morphine Allergy Severe stops my Unverified 05/03/19 13:30 heart fentanyl Allergy Intermediate Hives Unverified 05/03/19 13:30 lamotrigine Allergy Intermediate Facial Unverified 05/03/19 13:30 blistering carbamazepine AdvReac Intermediate Drowsiness Unverified 05/03/19 13:30 and ataxia cyclobenzaprine HCl AdvReac Intermediate vomits Unverified 05/03/19 13:30 [From Flexeril] hydromorphone HCl AdvReac Intermediate vomits Unverified 05/03/19 13:30 [From Dilaudid] Penicillins AdvReac Intermediate vomits Unverified 05/03/19 13:30 methocarbamol AdvReac Nausea, Unverified 05/03/19 13:30 headache oxycodone [Oxycodone] AdvReac Nausea Unverified 05/03/19 13:30 prednisone AdvReac Nausea Unverified 05/03/19 13:30 General Stated Complaint: Recheck VENKAT: 5 Review of Systems Narrative: As documented in HPI otherwise negative as below. Const: no fever, chills, weakness Resp: no cough, SOB, pleuritic pain CV: no CP, diaphoresis, edema, syncope GI: no abdominal pain, nausea, vomiting, diarrhea Neuro: no headache, numbness, focal weakness, confusion [facility] Medical History Bipolar affective disorder (Chronic) Chronic anxiety (Chronic) Chronic pain syndrome (Chronic) 06/03/16 CONTROLLED SUBSTANCE AGREEMENT COPD, mild (Chronic) pULMONARY FUNCTION TESTS 12/11 SHOWING MILD OBSTRUCTIVE DISEASE AND SEVERE DIFFUSIONAL DEFECT GERD (gastroesophageal reflux disease) (Chronic 08/21/14) Hyperlipidemia (Chronic) Incomplete rotator cuff tear or rupture of left shoulder, not specified as traumatic (Inactive 02/25/15) Surgical History History of hysterectomy (Inactive) Rotator Cuff Repair [facility]-LEFT 06/03/15 Status post appendectomy (Inactive) Status post arthroscopy of shoulder (Inactive 06/03/15) Social History Smoking/Tobacco Use Status: Current every day Tobacco Type: cigarettes Years smoked: 49 Drug use: Daily Substance use type: marijuana Do you feel safe at home: Yes Do you feel safe in your relationship?: Yes History History 8 Para 6 Hx # Term Pregnancies Multiple births Hx # Pregnancies Ectopic pregnancies AB induced Hx Number of Living Children 1 AB spontaneous Exam Narrative Exam Narrative: Vitals: Afebrile. Elevated blood pressure but anxious and worried. Normal heart rate and room air pulse oximetry. Const: WDWN male in NAD. HEENT: NC/AT. Normal facial exam. Eyes: Normal conjunctiva and sclera. Neck: Neck held in fixed position. Significant tenderness at the insertion of the trapezius base of the skull on right and moving down paraspinally. No midline tenderness. Lungs: Normal respiratory effort. Cor: Good radial pulses bilaterally. Back: No mid line spine tenderness. Some tenderness in the right mid-scapular area. Neuro: A+O x 3. Normal speech, mentation, gait. Cranial nerves II - XII grossly intact. No gross motor or sensory deficit. Ext: Difficulty bringing arms up overhead because of pain in the posterior neck. No issue moving upper extremities distally. She has great strength, sensation, pulses. Course Vital Signs Vital signs: Vital Signs Temperature 97.7 F 05/03/19 21:15 Pulse 78 05/03/19 21:15 Respiratory Rate 16 05/03/19 21:15 Blood Pressure 160/104 H 05/03/19 21:15 Temperature 97.7 F 05/03/19 21:15 Temperature Source Oral 05/03/19 21:15 Pulse 78 05/03/19 21:15 Respiratory Rate 16 05/03/19 21:15 Respiratory Effort 05/03/19 21:18 Blood Pressure 160/104 H 05/03/19 21:15 Oxygen Delivery Method Room Air 05/03/19 21:15 Oxygen Flow Rate 0 05/03/19 21:15 Pain Level 6 05/03/19 21:15
== END 2019-05-03 21:45 | disposition home or self-care (01) ==
LOC: ER 21:49
PROVIDERS: Emergency Provider Emergency Medicine; PCP Family Medicine
DX: M62.838 Other muscle spasm (principal); J44.9 Chronic obstructive pulmonary disease, unspecified; F17.210 Nicotine dependence, cigarettes, uncomplicated
CPT/HCPCS: 99281

== ENCOUNTER 2019-05-10 07:13 | Emergency (ER) | payer MEDICAID, SELFPAY ==
[2019-05-10] VITALS (48 sets, daily range): BP systolic 117–148; BP diastolic 74–101; PULSE 51–81; RESP 8–21; TEMP 36.2–36.7; O2SAT 95–100
--- NOTE | 2019-05-10 07:29 | ED.GENADUL_ITS ---
Discharge Plan Disposition Patient Disposition: STILL A PATIENT Condition: Stable Discharge Details Chief Complaint: Chest Pain Clinical Impression: Chest pain Primary Care Provider: Elias Cruz ED Provider: Albino Vences Home Meds and New Rx's Prescriptions: No Action ibuprofen 800 mg tablet 800 mg PO TID PRN (Reason: pain) Qty: 90 RF: 3 clonazepam 1 mg tablet 1 mg PO TID PRN (Reason: anxiety) Qty: 90 RF: 1 baclofen 10 mg tablet 10 mg PO TID Qty: 30 RF: 1 hydrocodone-acetaminophen 5-325 mg tablet 1 tab PO Q6H MDD 4 tabs PRN (Reason: pain) Qty: 20 RF: 0 aspirin [Aspir-81] 81 MG tablet,delayed release (DR/EC) 81 mg PO DAILY Qty: 90 RF: 4 rosuvastatin 40 mg tablet 40 mg PO QPM Qty: 90 RF: 4 phenazopyridine [Pyridium] 200 mg tablet 200 mg PO TID PRN (Reason: pain) Qty: 14 RF: 0 lidocaine [Lidoderm] 1 PATCH patch 1 patch Topical Q24H Qty: 4 RF: 0 diclofenac potassium 50 mg tablet 50 mg PO TID PRN (Reason: pain) Qty: 20 RF: 0 ondansetron 4 mg tablet,disintegrating 4 mg PO Q8H PRN (Reason: nausea and vomiting) Qty: 10 RF: 0 Medical Decision Making 53 yo female with hx of bipolar, copd, chronic pain syndrome, hld, smoker, panic disorder, who comes in with chest pain. She states she was thining of her son who and started to feel anxious and developed left sided chest pain. Denies n/v, diaphoresis, or radiation of pain. She took a klonopin and now feels better and has no pain now. Has no leg edema, no jvd, clear lung sounds. Suspect anxiety/panic attack but given her age and risk factors and heart score of 3 will obtain troponin. WElls score low but given age can't use PERC to exclude PE. Will obtain d dimer. NO tearing back pain and normal vascular exam so doubt dissection pt signed out to Dr. Cartagena pending labs and xray Differential Diagnosis Differential Diagnosis: anxiety, nstemi, PE Medical Records Medical records reviewed: Yes I reviewed the patient's medical records. ECG Data Attestation: I personally reviewed and interpreted this ECG (s) as follows: Prior ECG tracings: not available for review Interpretation: sinus rhythm, rate of 60, pr 200, qtc 420, no acute st t wave ischemic findings HPI General Mode of arrival: ambulatory . Date/Time Provider Initiated Documentation: 05/10/19 07:22 . Limitations to Documentation: no limitations . Information obtained by: patient . History of Present Illness 53 year old F presents to the emergency department with the chief complaint of chest pain, described as moderate, Patient reports no radiation. Patient started experiencing this hour(s) (1) and it has been now resolved. No relieving factors improve symptom(s), No exacerbating factors reported . Patient did receive the following treatments prior to arrival, none Related Data Home Medications Medication Instructions Recorded Confirmed aspirin [Aspir-81] 81 mg PO DAILY #90 tab-cap 03/09/13 05/10/19 ibuprofen 800 mg tablet 800 mg PO TID PRN #90 tab 04/05/18 05/10/19 diclofenac potassium 50 mg PO TID PRN #20 tab 10/29/18 05/04/19 ondansetron 4 mg PO Q8H PRN #10 tab 10/29/18 05/10/19 rosuvastatin 40 mg tablet 40 mg PO QPM #90 tab 12/19/18 05/10/19 phenazopyridine 200 mg tablet 200 mg PO TID PRN #14 tab 03/07/19 05/10/19 clonazepam 1 mg tablet 1 mg PO TID PRN #90 tab NS 03/17/19 05/10/19 lidocaine [Lidoderm] 1 patch TOPICAL Q24H #4 patch 05/03/19 05/10/19 baclofen 10 mg tablet 10 mg PO TID #30 tab 05/04/19 05/10/19 hydrocodone 5 mg-acetaminophen 325 1 tab PO Q6H PRN #20 tab MDD 4 tabs 05/04/19 05/10/19 mg tablet Previous Rx's Medication Instructions Recorded ibuprofen 800 mg tablet 800 mg PO TID PRN #90 tab 04/05/18 diclofenac potassium 50 mg PO TID PRN #20 tab 10/29/18 ondansetron 4 mg PO Q8H PRN #10 tab 10/29/18 rosuvastatin 40 mg tablet 40 mg PO QPM #90 tab 12/19/18 phenazopyridine 200 mg tablet 200 mg PO TID PRN #14 tab 03/07/19 clonazepam 1 mg tablet 1 mg PO TID PRN #90 tab NS 03/17/19 lidocaine [Lidoderm] 1 patch TOPICAL Q24H #4 patch 05/03/19 baclofen 10 mg tablet 10 mg PO TID #30 tab 05/04/19 hydrocodone 5 mg-acetaminophen 325 1 tab PO Q6H PRN #20 tab MDD 4 tabs 05/04/19 mg tablet Allergies Allergy/AdvReac Type Severity Reaction Status Date / Time morphine Allergy Severe stops my Unverified 05/10/19 07:22 heart fentanyl Allergy Intermediate Hives Unverified 05/10/19 07:22 lamotrigine Allergy Intermediate Facial Unverified 05/10/19 07:22 blistering carbamazepine AdvReac Intermediate Drowsiness Unverified 05/10/19 07:22 and ataxia cyclobenzaprine HCl AdvReac Intermediate vomits Unverified 05/10/19 07:22 [From Flexeril] hydromorphone HCl AdvReac Intermediate vomits Unverified 05/10/19 07:22 [From Dilaudid] Penicillins AdvReac Intermediate vomits Unverified 05/10/19 07:22 methocarbamol AdvReac Nausea, Unverified 05/10/19 07:22 headache oxycodone [Oxycodone] AdvReac Nausea Unverified 05/10/19 07:22 prednisone AdvReac Nausea Unverified 05/10/19 07:22 General Stated Complaint: Chest Pain VENKAT: 2 PFSH Medical History (Updated 05/10/19 @ 07:33 by Albino Vences MD) Bipolar affective disorder (Chronic) Chronic anxiety (Chronic) Chronic pain syndrome (Chronic) COPD, mild (Chronic) pULMONARY FUNCTION TESTS 12/11 SHOWING MILD OBSTRUCTIVE DISEASE AND SEVERE DIFFUSIONAL DEFECT GERD (gastroesophageal reflux disease) (Chronic 08/21/14) Hyperlipidemia (Chronic) Incomplete rotator cuff tear or rupture of left shoulder, not specified as traumatic (Inactive 02/25/15) Surgical History History of hysterectomy (Inactive) Rotator Cuff Repair [facility]-LEFT 06/03/15 Status post appendectomy (Inactive) Status post arthroscopy of shoulder (Inactive 06/03/15) Social History Smoking/Tobacco Use Status: Current every day Tobacco Type: cigarettes Years smoked: 49 Drug use: Daily Substance use type: marijuana Do you feel safe at home: Yes Do you feel safe in your relationship?: Yes History History 8 Para 6 Hx # Term Pregnancies Multiple births Hx # Pregnancies Ectopic pregnancies AB induced Hx Number of Living Children 1 AB spontaneous Exam Const General: no acute distress Orientation: alert HENMT Head: normal to inspection Ears: external ears normal General nose exam: external nose normal Mouth: moist mucous membranes Eyes General: appearance normal, both eyes and all related structures Neck Neck: normal visual inspection Resp Effort & Inspection: normal respiratory effort and able to speak in complete sentences Cardio Rate: regular rate Skin General skin exam: no rashes or lesions noted Neuro General: alert and oriented x3 Extrem General: normal to inspection Psych Mental Status: mental status grossly normal Course Vital Signs Vital signs: Vital Signs Temperature 36.2 C L 05/10/19 07:12 Pulse 72 05/10/19 07:12 Respiratory Rate 15 05/10/19 07:12 Blood Pressure 134/88 05/10/19 07:12 Temperature 36.2 C L 05/10/19 07:12 Temperature Source Skin 05/10/19 07:12 Pulse 72 05/10/19 07:12 Respiratory Rate 15 05/10/19 07:12 Respiratory Effort Non-Labored 05/10/19 07:12 Blood Pressure 134/88 05/10/19 07:12 Blood Pressure Position Supine 05/10/19 07:12 Pain Level 0 05/10/19 07:12
[2019-05-10 07:56] LABS: Abs Immature Grans 0.02 k/cumm (0.0-0.09); Absolute Basophil Count 0.05 k/cumm (0.0-0.2); Absolute Eosinophil Count 0.13 k/cumm (0.0-0.7); Absolute Lymphocyte Count 1.99 k/cumm (1.2-3.4); Absolute Monocyte Count 0.52 k/cumm (0.11-0.7); Basophils % 0.8; HCT 40.7 % (36.0-46.0); HGB 13.8 g/dL (12.0-15.5); Immature Grans % 0.3 %; Lymphocytes % 30.6; Mean Corp. HGB Concentration 33.9 g/dL (32.0-36.0); Mean Corpuscular Hemoglobin 30.9 pg (27.0-33.0); Mean Corpuscular Volume 91.1 fL (80-95); Mean Platelet Volume 9.9 fL (8.0-11.0); Neutrophils % 58.3; Platelet Count 256 x1000/uL (130-400); RBC 4.47 m/cumm (4.00-5.20); RBC Distribution Width 13.7 % (11.7-14.6); White Blood Cell Count 6.51 k/cumm (4.4-10.8)
--- NOTE | 2019-05-10 08:00 | ED.GENADUL_ITS ---
Discharge Plan Disposition Patient Disposition: HOME Condition: Stable Discharge Details Chief Complaint: Chest Pain Clinical Impression: Chest pain Primary Care Provider: Elias Cruz ED Provider: Catarino Cartagena Home Meds and New Rx's Prescriptions: Continued ibuprofen 800 mg tablet 800 mg PO TID PRN (Reason: pain) Qty: 90 RF: 3 clonazepam 1 mg tablet 1 mg PO TID PRN (Reason: anxiety) Qty: 90 RF: 1 baclofen 10 mg tablet 10 mg PO TID Qty: 30 RF: 1 hydrocodone-acetaminophen 5-325 mg tablet 1 tab PO Q6H MDD 4 tabs PRN (Reason: pain) Qty: 20 RF: 0 aspirin [Aspir-81] 81 MG tablet,delayed release (DR/EC) 81 mg PO DAILY Qty: 90 RF: 4 rosuvastatin 40 mg tablet 40 mg PO QPM Qty: 90 RF: 4 phenazopyridine [Pyridium] 200 mg tablet 200 mg PO TID PRN (Reason: pain) Qty: 14 RF: 0 lidocaine [Lidoderm] 1 PATCH patch 1 patch Topical Q24H Qty: 4 RF: 0 diclofenac potassium 50 mg tablet 50 mg PO TID PRN (Reason: pain) Qty: 20 RF: 0 ondansetron 4 mg tablet,disintegrating 4 mg PO Q8H PRN (Reason: nausea and vomiting) Qty: 10 RF: 0 Discharge Instructions Instructions: Chest Pain (ED) Additional Instructions: Home to rest today. Continue your regular medications. Return to the ER for any acute concern. Medical Decision Making Received signout from Dr. Vences. Please see his note regarding details of the history, presentation, exam, plan of care. Patient without chest pain following triage. She remained pain-free throughout her stay in the ER. D-dimer and troponin x2 was negative without recurrence of discomfort. She states she feels she had an anxiety attack. Consistent with same. She stable, improved and appropriate discharged home. Lab Data Lab results reviewed: Yes I reviewed the patient's lab results. Labs: Laboratory Results - last 24 hr 05/10/19 05/10/19 05/10/19 07:45 07:45 07:45 WBC 6.51 RBC 4.47 Hgb 13.8 Hct 40.7 MCV 91.1 MCH 30.9 MCHC 33.9 RDW 13.7 Plt Count 256 MPV 9.9 Immature Gran % 0.3 Neutrophils % 58.3 Lymphocytes % 30.6 Monocytes % 8.0 Eosinophils % 2.0 Basophils % 0.8 Absolute Neutrophils 3.80 Absolute Lymphocytes 1.99 Absolute Monocytes 0.52 Absolute Eosinophils 0.13 Absolute Basophils 0.05 PT 9.8 INR 1.0 APTT 27.6 D-Dimer 210 Sodium 143 Potassium 3.9 Chloride 109 H Carbon Dioxide 24.8 Anion Gap 9.2 BUN 17 Creatinine 0.79 Estimated GFR/1.73 m2 >= 60.00 Glucose 101 Calcium 8.0 L Magnesium 2.2 Total Bilirubin 0.2 AST 18 ALT 23 Alkaline Phosphatase 61 Troponin I < 0.05 NT-Pro-B Natriuret Pep 26 Total Protein 7.0 Albumin 3.6 HPI General Mode of arrival: ambulatory . Date/Time Provider Initiated Documentation: 05/10/19 07:22 . Limitations to Documentation: no limitations . Information obtained by: patient . History of Present Illness No relieving factors improve symptom(s), No exacerbating factors reported . Patient did receive the following treatments prior to arrival, none Related Data Home Medications Medication Instructions Recorded Confirmed aspirin [Aspir-81] 81 mg PO DAILY #90 tab-cap 03/09/13 05/10/19 ibuprofen 800 mg tablet 800 mg PO TID PRN #90 tab 04/05/18 05/10/19 diclofenac potassium 50 mg PO TID PRN #20 tab 10/29/18 05/04/19 ondansetron 4 mg PO Q8H PRN #10 tab 10/29/18 05/10/19 rosuvastatin 40 mg tablet 40 mg PO QPM #90 tab 12/19/18 05/10/19 phenazopyridine 200 mg tablet 200 mg PO TID PRN #14 tab 03/07/19 05/10/19 clonazepam 1 mg tablet 1 mg PO TID PRN #90 tab NS 03/17/19 05/10/19 lidocaine [Lidoderm] 1 patch TOPICAL Q24H #4 patch 05/03/19 05/10/19 baclofen 10 mg tablet 10 mg PO TID #30 tab 05/04/19 05/10/19 hydrocodone 5 mg-acetaminophen 325 1 tab PO Q6H PRN #20 tab MDD 4 tabs 05/04/19 05/10/19 mg tablet Previous Rx's Medication Instructions Recorded ibuprofen 800 mg tablet 800 mg PO TID PRN #90 tab 04/05/18 diclofenac potassium 50 mg PO TID PRN #20 tab 10/29/18 ondansetron 4 mg PO Q8H PRN #10 tab 10/29/18 rosuvastatin 40 mg tablet 40 mg PO QPM #90 tab 12/19/18 phenazopyridine 200 mg tablet 200 mg PO TID PRN #14 tab 03/07/19 clonazepam 1 mg tablet 1 mg PO TID PRN #90 tab NS 03/17/19 lidocaine [Lidoderm] 1 patch TOPICAL Q24H #4 patch 05/03/19 baclofen 10 mg tablet 10 mg PO TID #30 tab 05/04/19 hydrocodone 5 mg-acetaminophen 325 1 tab PO Q6H PRN #20 tab MDD 4 tabs 05/04/19 mg tablet Allergies Allergy/AdvReac Type Severity Reaction Status Date / Time morphine Allergy Severe stops my Unverified 05/10/19 07:22 heart fentanyl Allergy Intermediate Hives Unverified 05/10/19 07:22 lamotrigine Allergy Intermediate Facial Unverified 05/10/19 07:22 blistering carbamazepine AdvReac Intermediate Drowsiness Unverified 05/10/19 07:22 and ataxia cyclobenzaprine HCl AdvReac Intermediate vomits Unverified 05/10/19 07:22 [From Flexeril] hydromorphone HCl AdvReac Intermediate vomits Unverified 05/10/19 07:22 [From Dilaudid] Penicillins AdvReac Intermediate vomits Unverified 05/10/19 07:22 methocarbamol AdvReac Nausea, Unverified 05/10/19 07:22 headache oxycodone [Oxycodone] AdvReac Nausea Unverified 05/10/19 07:22 prednisone AdvReac Nausea Unverified 05/10/19 07:22 General Stated Complaint: Chest Pain VENKAT: 2 PFSH Medical History (Updated 05/10/19 @ 07:33 by Albino Vences MD) Bipolar affective disorder (Chronic) Chronic anxiety (Chronic) Chronic pain syndrome (Chronic) COPD, mild (Chronic) pULMONARY FUNCTION TESTS 12/11 SHOWING MILD OBSTRUCTIVE DISEASE AND SEVERE DIFFUSIONAL DEFECT GERD (gastroesophageal reflux disease) (Chronic 08/21/14) Hyperlipidemia (Chronic) Incomplete rotator cuff tear or rupture of left shoulder, not specified as traumatic (Inactive 02/25/15) Surgical History History of hysterectomy (Inactive) Rotator Cuff Repair [facility]-LEFT 06/03/15 Status post appendectomy (Inactive) Status post arthroscopy of shoulder (Inactive 06/03/15) Social History Smoking/Tobacco Use Status: Current every day Tobacco Type: cigarettes Years smoked: 49 Drug use: Daily Substance use type: marijuana Do you feel safe at home: Yes Do you feel safe in your relationship?: Yes History History 8 Para 6 Hx # Term Pregnancies Multiple births Hx # Pregnancies Ectopic pregnancies AB induced Hx Number of Living Children 1 AB spontaneous Course Vital Signs Vital signs: Vital Signs Temperature 36.2 C L 05/10/19 07:12 Pulse 72 05/10/19 07:12 Respiratory Rate 15 05/10/19 07:12 Blood Pressure 134/88 05/10/19 07:12 Pulse Oximetry 98 05/10/19 07:12 Temperature 36.2 C L 05/10/19 07:12 Temperature Source Skin 05/10/19 07:12 Pulse 64 05/10/19 07:30 Pulse 61 05/10/19 07:31 Respiratory Rate 14 05/10/19 07:31 Respiratory Effort Non-Labored 05/10/19 07:12 Blood Pressure 146/92 H 05/10/19 07:30 Blood Pressure Mean 106 05/10/19 07:30 Blood Pressure Position Supine 05/10/19 07:12 Pulse Oximetry 98 05/10/19 07:31 Oxygen Delivery Method Room Air 05/10/19 07:12 Oxygen Flow Rate 0 05/10/19 07:12 Pain Level 0 05/10/19 07:12 Lab/Test Results Lab/Test Results: Laboratory Tests Range/Units 05/10/19 07:45 WBC (4.4-10.8) k/cumm 6.51 RBC (4.00-5.20) m/cumm 4.47 Hgb (12.0-15.5) g/dL 13.8 Hct (36.0-46.0) % 40.7 MCV (80-95) fL 91.1 MCH (27.0-33.0) pg 30.9 MCHC (32.0-36.0) g/dL 33.9 RDW (11.7-14.6) % 13.7 Plt Count (130-400) x1000/uL 256 MPV (8.0-11.0) fL 9.9 Immature Gran % % 0.3 Neutrophils % 58.3 Lymphocytes % 30.6 Monocytes % 8.0 Eosinophils % 2.0 Basophils % 0.8 Absolute Neutrophils (1.2-6.7) k/cumm 3.80 Absolute Lymphocytes (1.2-3.4) k/cumm 1.99 Absolute Monocytes (0.11-0.7) k/cumm 0.52 Absolute Eosinophils (0.0-0.7) k/cumm 0.13 Absolute Basophils (0.0-0.2) k/cumm 0.05
--- NOTE | 2019-05-10 08:00 | DI.RAD_ITS ---
EXAM: XR CHEST 2V PA LATERAL CLINICAL HISTORY: chest pain TECHNIQUE: 2D digital imaging was performed. COMPARISON: No exams were available for comparison FINDINGS: MEDIASTINUM: Normal. HEART: Normal. PULMONARY VASCULATURE: Normal. LUNGS: Clear. There are mild emphysematous and fibrotic changes. PLEURAL SPACE: No pleural effusion or pneumothorax. BONE:Normal. OTHER FINDINGS:Normal. IMPRESSION: No acute pulmonary findings. DATA REPOSITORY: RADIATION DOSE DELIVERED:
[2019-05-10 08:17] LABS: ALT 23 U/L (14-59); AST 18 U/L (15-37); Albumin 3.6 g/dL (3.4-5.0); Alkaline Phosphatase 61 U/L (46-116); Anion Gap 9.2 mmol/L (3-11); BUN 17 mg/dL (7-18); Bilirubin, Total 0.2 mg/dL (0.2-1.0); CO2 24.8 mmol/L (21.0-32.0); CREATININE 0.79 mg/dL (0.55-1.02); Chloride 109 mmol/L (98-107); Glucose 101 mg/dL (74-106); Magnesium 2.2 mg/dL (1.8-2.4); NT-proBNP 26 pg/mL (<300); Potassium 3.9 mmol/L (3.5-5.1); Sodium 143 mmol/L (136-145)
[2019-05-10 08:18] LABS: Troponin I < 0.05 ng/Ml (<0.06)
[2019-05-10 08:25] LABS: PTT Activated 27.6 sec (21.0-31.4); Prothrombin Time 9.8 sec (9.3-11.0)
[2019-05-10 08:55] LABS: D-Dimer 210 ng/mlFEU (<500)
[2019-05-10 11:13] LABS: Troponin I < 0.05 ng/Ml (<0.06)
== END 2019-05-10 11:55 | disposition home or self-care (01) ==
PROVIDERS: Emergency Medicine; Emergency Provider Emergency Medicine; PCP Family Medicine
DX: R07.9 Chest pain, unspecified (principal); F31.9 Bipolar disorder, unspecified; J44.9 Chronic obstructive pulmonary disease, unspecified; F17.210 Nicotine dependence, cigarettes, uncomplicated
CPT/HCPCS: 36415; 80053; 93005; 99285; 71046; 83735; 83880; 84484; 85025; 85379; 85610; 85730; 93010; 99284

== ENCOUNTER 2019-06-30 10:24 | Emergency (ER) | payer MEDICAID, SELFPAY ==
[2019-06-30] VITALS (25 sets, daily range): BP systolic 107–132; BP diastolic 75–99; PULSE 60–97; RESP 10–20; TEMP 36.5; O2SAT 94–99
--- NOTE | 2019-06-30 10:20 | ED.GENADUL_ITS ---
Discharge Plan Disposition Patient Disposition: HOME Condition: Good Discharge Details Chief Complaint: Chest Pain Clinical Impression: Chest pain Primary Care Provider: Elias Cruz ED Provider: Sadaf Tang Home Meds and New Rx's Prescriptions: Continued ibuprofen 800 mg tablet 800 mg PO TID PRN (Reason: pain) Qty: 90 RF: 3 hydrocodone-acetaminophen 5-325 mg tablet 1 tab PO Q6H MDD 4 tabs PRN (Reason: pain) Qty: 20 RF: 0 aspirin [Aspir-81] 81 MG tablet,delayed release (DR/EC) 81 mg PO DAILY Qty: 90 RF: 4 rosuvastatin 40 mg tablet 40 mg PO QPM Qty: 90 RF: 4 clonazepam 1 mg tablet 1 mg PO TID PRN (Reason: anxiety) Qty: 90 RF: 1 baclofen 10 mg tablet 10 mg PO TID PRNRF: 0 Discharge Instructions Instructions: Chest Pain (ED) Additional Instructions: Your labs are reassuring today as are your imaging and your EKG. Your symptoms are most consistent with muscle strain. I would like for you to rest this. Please encourage water intake. You may use Tylenol and/or ibuprofen as needed for discomfort. You may try topical options to help with discomfort such as heat, ice or Lidoderm patches. Please call your primary care to schedule follow-up appointment next week. If you develop increased pain, fever/chills, difficulty breathing or other new/worsening symptoms to seek care urgently once again. Referrals: Elias Cruz MD [Primary Care Provider] - Discharge Data Discharge Date/Time-TO BE ENTERED AT DEPARTURE: 06/30/19 13:45 Medical Decision Making Patient is a 53-year-old female, well-known to the department, presenting today with chief complaint of chest pain. She is brought in via EMS. She states that chest pain began 2 days ago. States that the pain has been constant. It does find that it gets worse with movement. States that she did try taking her clonazepam with no improvement of her symptoms prior to calling EMS. Did not try any treatments prior to today. States that she had pain radiating into the left arm with hand tingling. States that she was feeling short of breath. Did not notice that the shortness of breath became worse with exertion. Pain does not radiate into the back. She has had chest pain and been here for this multiple times historically which is likely anxiety. However, the patient states that this is different than her previous discomfort. She states that previously the pain was more of a pressure. And today the pain is squeezing. EMS administered 4 mg of sublingual nitroglycerin and aspirin. Patient is currently asymptomatic. EKG was reviewed by Dr. Snyder. Patient's normal sinus rhythm with a rate of 73. Compared to previous with no acute changes. No acute ischemic abnormalities. On exam, patient is resting comfortably. She is speaking in full sentences and does not appear to be in any respiratory distress. Her lungs are clear bilaterally. Normal cardiac exam. No lower extremity swelling, no calf tenderness. She is exquisitely tender with palpation over the left side of the chest and has pain with strength testing of the left arm. She does state that the pain came on after feeding coyotes. On questioning if this may be musculoskeletal. She denies any recent trauma. However, given the patient's risk factors I do feel that evaluation for ACS is appropriate. She did improve with nitroglycerin. As she has been endorsing shortness of breath, plan for d- dimer to screen for potential PE although I do find this less likely as she has no history of this and states she has been active daily. Pain near the left upper quadrant although no peritoneal findings on exam. Will evaluate with lipase for potential pancreatitis. She denies ETOH. No pulsatile mass, radiation of pain or tearing, do not see evidence of dissection, pulses equal in all extremities. Patient currently pain free. Received ASA prior to arrival. CXR reviewed by radiologist: FINDINGS: The heart is not enlarged. The lungs are clear and well expanded. No pleural effusion seen. Mediastinal contours appear intact. IMPRESSION: Normal chest Labs reviewed. No acute abnormality noted. Lipase is normal level. Initial troponin is less than 0.05. Electrolyte abnormality. Lipase is within normal limits. D-dimer is 231. No leukocytosis. Repeat troponin is pending. Patient is eating and resting comfortably in the room. She continues to be pain-free. Repeat EKG was obtained and reviewed again by Dr. Snyder. Patient's normal sinus rhythm with a rate of 65 with no acute ischemic changes noted. Unchanged from previous. Repeat EKG remains less than 0.05. I discussed these findings with the patient. She is palpating the area of discomfort over the left pectoral muscle. She states that this is the area of discomfort is now reporting that she did do have some heavy lifting prior to the onset of her pain. The pain is maximal with palpation over this area as well as with heavy lifting and moving the left arm, I feel that her chest pain is most likely associated with muscle strain. I encouraged water intake. We did discuss pain management. We also discussed when she should seek care urgently once again if she develops any new or worsening symptoms. I have asked that she follow-up with her primary care next week for reevaluation. She all of her questions or concerns were addressed and she is in agreement this plan. HPI General Mode of arrival: EMS . Date/Time Provider Initiated Documentation: 06/30/19 11:18 . Limitations to Documentation: no limitations . Information obtained by: patient and RN notes reviewed . History of Present Illness 53 year old F presents to the emergency department with the chief complaint of chest pain, described as mild (denies any pain at this time), Quality is described as other (pain had been squeezing although currently resolved), and is localized to the chest. Patient extremity (LUE). Patient started experiencing this day(s) (2) and it has been now resolved. Immobilization improves symptom(s), Movement worsens symptoms . Patient notes chest pain and shortness of breath; denies cough, fever/chills, loss of appetite, malaise, nausea/vomiting, rash and weakness. Patient did receive the following treatments prior to arrival, other (Clonazepam while at home, nitro and aspirin with EMS) Related Data Home Medications Medication Instructions Recorded Confirmed aspirin [Aspir-81] 81 mg PO DAILY #90 tab-cap 03/09/13 06/30/19 ibuprofen 800 mg tablet 800 mg PO TID PRN #90 tab 04/05/18 06/30/19 rosuvastatin 40 mg tablet 40 mg PO QPM #90 tab 12/19/18 06/30/19 hydrocodone 5 mg-acetaminophen 325 1 tab PO Q6H PRN #20 tab MDD 4 tabs 05/04/19 06/30/19 mg tablet clonazepam 1 mg tablet 1 mg PO TID PRN #90 tab NS 05/11/19 06/30/19 baclofen 10 mg PO TID PRN 06/30/19 06/30/19 Previous Rx's Medication Instructions Recorded ibuprofen 800 mg tablet 800 mg PO TID PRN #90 tab 02/05/19 rosuvastatin 40 mg tablet 40 mg PO QPM #90 tab 12/19/18 hydrocodone 5 mg-acetaminophen 325 1 tab PO Q6H PRN #20 tab MDD 4 tabs 05/04/19 mg tablet clonazepam 1 mg tablet 1 mg PO TID PRN #90 tab NS 05/11/19 Allergies Allergy/AdvReac Type Severity Reaction Status Date / Time morphine Allergy Severe stops my Unverified 06/30/19 10:29 heart fentanyl Allergy Intermediate Hives Unverified 06/30/19 10:29 lamotrigine Allergy Intermediate Facial Unverified 06/30/19 10:29 blistering carbamazepine AdvReac Intermediate Drowsiness Unverified 06/30/19 10:29 and ataxia cyclobenzaprine HCl AdvReac Intermediate vomits Unverified 06/30/19 10:29 [From Flexeril] hydromorphone HCl AdvReac Intermediate vomits Unverified 06/30/19 10:29 [From Dilaudid] Penicillins AdvReac Intermediate vomits Unverified 06/30/19 10:29 methocarbamol AdvReac Nausea, Unverified 06/30/19 10:29 headache oxycodone [Oxycodone] AdvReac Nausea Unverified 06/30/19 10:29 prednisone AdvReac Nausea Unverified 06/30/19 10:29 General VENKAT: 2 Review of Systems Constitutional Constitutional: Reports as per HPI, Denies chills, Denies fever(s), Denies headache(s), Denies lethargy and Denies poor appetite Eyes Eyes: Denies change in vision ENT Ears, Nose, Mouth, and Throat: Denies dizziness and Denies headache(s) Cardiovascular Cardiovascular: Reports as per HPI, Reports chest pain, Reports chest pain at rest, Reports chest pain with activity (of her upper extremities), Denies leg edema, Denies lightheadedness, Reports radiating jaw, neck or arm pain, Reports dyspnea, Denies dyspnea on exertion and Denies orthopnea Respiratory Respiratory: Reports as per HPI, Denies chest congestion, Denies cough, Denies pain on inspiration, Denies pain with cough, Reports dyspnea, Denies dyspnea on exertion and Denies wheezing Gastrointestinal Gastrointestinal: Reports as per HPI, Denies abdominal pain, Denies diarrhea, Denies nausea and Denies vomiting Musculoskeletal Musculoskeletal: Reports as per HPI and Denies back pain Integumentary/Breasts Skin/Breast: Reports as per HPI and Denies rash Neurologic Neurologic: Reports as per HPI, Denies dizziness and Denies headache(s) Allergic/Immunologic Allergic/Immunologic: Denies wheezing [facility] Medical History (Updated 06/30/19 @ 13:34 by SARAH Marcelo) Bipolar affective disorder (Chronic) Chronic anxiety (Chronic) Chronic pain syndrome (Chronic) COPD, mild (Chronic) pULMONARY FUNCTION TESTS 12/11 SHOWING MILD OBSTRUCTIVE DISEASE AND SEVERE DIFFUSIONAL DEFECT GERD (gastroesophageal reflux disease) (Chronic 08/21/14) Hyperlipidemia (Chronic) Incomplete rotator cuff tear or rupture of left shoulder, not specified as traumatic (Inactive 02/25/15) Surgical History History of hysterectomy (Inactive) Rotator Cuff Repair [facility]-LEFT 06/03/15 Status post appendectomy (Inactive) Status post arthroscopy of shoulder (Inactive 06/03/15) Social History Smoking/Tobacco Use Status: Current every day Tobacco Type: cigarettes Years smoked: 49 Drug use: Daily Substance use type: marijuana Do you feel safe at home: Yes Do you feel safe in your relationship?: Yes History History 8 Para 6 Hx # Term Pregnancies Multiple births Hx # Pregnancies Ectopic pregnancies AB induced Hx Number of Living Children 1 AB spontaneous Exam Const General: cooperative, healthy appearing, comfortable, no acute distress and well developed Nutritional Appearance: well nourished and thin Orientation: alert, awake and oriented x3 HENMT Head: normal to inspection Ears: hearing grossly normal bilaterally Mouth: moist mucous membranes Chest Chest: normal inspection of the chest, normal palpation of entire chest wall, no crepitus, no masses, tenderness pectoral muscle on the left diffusely and No rash Breast inspection: normal inspection of the breasts and normal inspection of the axillae Resp Effort & Inspection: normal respiratory effort, able to speak in complete sentences and no respiratory distress Auscultation: clear to auscultation bilaterally, no rales, no rhonchi and no wheezes Cardio Rate: regular rate Rhythm: regular rhythm Heart Sounds: S1 normal and S2 normal GI Inspection: normal to inspection, no edema and non-distended Palpation: soft, no hepatosplenomegaly, not firm, no guarding, no masses, no pulsatile masses, not rigid and tender in the LUQ (mild, no guarding); with no rebound tenderness Auscultation: normal bowel sounds Back/Spine/Pelvis Back: no CVA tenderness Thoracic/Lumbar Spine: thoracic and lumbar spine normal to inspection Skin General skin exam: no rashes or lesions noted Trauma: no lacerations or abrasions Neuro General: patient alert, patient awake and patient oriented x3 Cognition: normal cognition Speech: speech normal Gait: normal gait Extrem General: normal to inspection (2+ distal pulses in all extremities), capillary refill normal, no pedal edema, no calf tenderness and normal gait Psych Appearance: grossly normal and well kempt Mental Status: mental status grossly normal Speech and Movement: speech and movement normal
[2019-06-30 10:41] LABS: Abs Immature Grans 0.03 k/cumm (0.0-0.09); Absolute Basophil Count 0.05 k/cumm (0.0-0.2); Absolute Eosinophil Count 0.13 k/cumm (0.0-0.7); Absolute Lymphocyte Count 2.79 k/cumm (1.2-3.4); Absolute Monocyte Count 0.57 k/cumm (0.11-0.7); Basophils % 0.5; Eosinophils % 1.4; HCT 42.1 % (36.0-46.0); HGB 14.3 g/dL (12.0-15.5); Immature Grans % 0.3 %; Lymphocytes % 29.8; Mean Corpuscular Volume 91.1 fL (80-95); Monocytes % 6.1; Neutrophils % 61.9; Platelet Count 308 x1000/uL (130-400); RBC 4.62 m/cumm (4.00-5.20); RBC Distribution Width 14.3 % (11.7-14.6); White Blood Cell Count 9.37 k/cumm (4.4-10.8)
[2019-06-30 10:53] LABS: ALT 28 U/L (14-59); AST 16 U/L (15-37); Albumin 3.8 g/dL (3.4-5.0); Alkaline Phosphatase 69 U/L (46-116); Anion Gap 9.5 mmol/L (3-11); BUN 16 mg/dL (7-18); Bilirubin, Total 0.4 mg/dL (0.2-1.0); CO2 24.5 mmol/L (21.0-32.0); CREATININE 0.83 mg/dL (0.55-1.02); Calcium 8.9 mg/dL (8.5-10.1); Chloride 106 mmol/L (98-107); Glucose 105 mg/dL (74-106); Magnesium 2.3 mg/dL (1.8-2.4); Potassium 3.9 mmol/L (3.5-5.1); Sodium 140 mmol/L (136-145); Total Protein 7.7 g/dL (6.4-8.2); Troponin I < 0.05 ng/Ml (<0.06)
[2019-06-30 10:54] LABS: PTT Activated 28.8 sec (21.0-31.4); Prothrombin Time 10.2 sec (9.3-11.0)
--- NOTE | 2019-06-30 10:59 | DI.RAD_ITS ---
EXAM: XR CHEST 2V PA LATERAL CLINICAL HISTORY: CP TECHNIQUE: 2D digital imaging was performed. COMPARISON: XR CHEST 2V PA LATERAL from 05/10/2019 FINDINGS: The heart is not enlarged. The lungs are clear and well expanded. No pleural effusion seen. Mediastin al contours appear intact. IMPRESSION: Normal chest
[2019-06-30 11:25] LABS: D-Dimer 231 ng/mlFEU (<500)
[2019-06-30 11:33] LABS: Lipase 113 U/L (73-393)
[2019-06-30 13:21] LABS: Troponin I < 0.05 ng/Ml (<0.06)
== END 2019-06-30 13:45 | disposition home or self-care (01) ==
PROVIDERS: Emergency Provider Physician Assistant; PCP Family Medicine
DX: R07.9 Chest pain, unspecified (principal); J44.9 Chronic obstructive pulmonary disease, unspecified; F17.210 Nicotine dependence, cigarettes, uncomplicated
CPT/HCPCS: 36415; 80053; 83690; 93005; 99285; 71046; 83735; 84484; 85025; 85379; 85610; 85730; 93010

== ENCOUNTER 2019-12-21 20:15 | Emergency (ER) | payer MEDICAID, SELFPAY ==
[2019-12-21 20:21] VITALS: BP 184/103; PULSE 86; RESP 16; TEMP 36.2; O2SAT 98
--- NOTE | 2019-12-21 20:34 | ED.GENADUL_ITS ---
Discharge Plan Disposition Patient Disposition: HOME Condition: Stable Discharge Details Clinical Impression: Lumbar back pain Primary Care Provider: Lorri Curry ED Provider: Albino Vences Home Meds and New Rx's Prescriptions: New diazepam [Valium] 5 mg tablet 5 mg PO TID PRN (Reason: muscle spasm) Qty: 20 RF: 0 No Action aspirin [Aspir-81] 81 MG tablet,delayed release (DR/EC) 81 mg PO DAILY Qty: 90 RF: 4 rosuvastatin 40 mg tablet 40 mg PO QPM Qty: 90 RF: 4 ibuprofen 800 mg tablet 800 mg PO TID PRN (Reason: pain) Qty: 90 RF: 3 clonazepam 1 mg tablet 1 mg PO TID PRN (Reason: anxiety) Qty: 90 RF: 1 Discharge Instructions Instructions: Low Back Strain (ED) Additional Instructions: Follow up with your primary care provider within 1-2 weeks if pain continues if you develop severe worsening pain, fevers, difficulty urinating return to the emergency department Medical Decision Making 54 yo female comes in with complaints of over a week of low back pain. 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 She denies fevers, ivdu, abdominal pain, weakness, difficulty urinating. She has normal gait, normal sensation, normal reflexes, normal peripheral pulses, and full rom of the hips. No erythema or warmth of the back, no abdominal tenderness and no saddle anesthesia. Has pain throughout lumbar region without visible or palpable deformity. Exam and hx consistent with musculoskeletal back pain and possible disc herniation. No findings on history or exam to suggest SEA or cauda equina and do not feel emergent MRI indicated. No findings to suggest fracture or osteo and do not feel ct or xray indicated. Will have her take nsaids, has multiple medication allergies. Will try valium as well. ADvised to f/u with pcp and return precautions given Differential Diagnosis Differential Diagnosis: muscle spasm, back strain, disc hernaition HPI General Mode of arrival: ambulatory . Date/Time Provider Initiated Documentation: 12/21/19 20:16 . Limitations to Documentation: no limitations . Information obtained by: patient . History of Present Illness 54 year old F presents to the emergency department with the chief complaint of low back pain, described as moderate, and it has been constant. No relieving factors improve symptom(s), Other factors that worsen symptoms (sitting) . Patient did receive the following treatments prior to arrival, none Related Data Home Medications Medication Instructions Recorded Confirmed aspirin [Aspir-81] 81 mg PO DAILY #90 tab-cap 03/09/13 12/21/19 rosuvastatin 40 mg tablet 40 mg PO QPM #90 tab 12/19/18 12/21/19 ibuprofen 800 mg tablet 800 mg PO TID PRN #90 tab 07/31/19 12/21/19 clonazepam 1 mg tablet 1 mg PO TID PRN #90 tab NS 11/09/19 12/21/19 diazepam [Valium] 5 mg PO TID PRN #20 tab 12/21/19 Previous Rx's Medication Instructions Recorded rosuvastatin 40 mg tablet 40 mg PO QPM #90 tab 12/19/18 ibuprofen 800 mg tablet 800 mg PO TID PRN #90 tab 07/31/19 clonazepam 1 mg tablet 1 mg PO TID PRN #90 tab NS 11/09/19 diazepam [Valium] 5 mg PO TID PRN #20 tab 12/21/19 Allergies Allergy/AdvReac Type Severity Reaction Status Date / Time morphine Allergy Severe stops my Verified 12/21/19 20:23 heart fentanyl Allergy Intermediate Hives Verified 12/21/19 20:24 lamotrigine Allergy Intermediate Facial Verified 12/21/19 20:23 blistering meloxicam AdvReac Severe Nausea and Verified 12/21/19 20:23 vomiting carbamazepine AdvReac Intermediate Drowsiness Verified 12/21/19 20:23 and ataxia cyclobenzaprine HCl AdvReac Intermediate vomits Verified 12/21/19 20:23 [From Flexeril] hydromorphone HCl AdvReac Intermediate vomits Verified 12/21/19 20:23 [From Dilaudid] Penicillins AdvReac Intermediate vomits Verified 12/21/19 20:23 melatonin AdvReac Headaches Verified 12/21/19 20:23 methocarbamol AdvReac Nausea, Verified 12/21/19 20:23 headache oxycodone [Oxycodone] AdvReac Nausea Verified 12/21/19 20:23 prednisone AdvReac Nausea Verified 12/21/19 20:23 General Stated Complaint: Orthopedic VENKAT: 4 Review of Systems All systems reviewed & are unremarkable except as noted in HPI and below Constitutional Constitutional: Denies chills, Denies fever(s) and Denies weakness Cardiovascular Cardiovascular: Denies chest pain and Denies dyspnea Respiratory Respiratory: Denies cough and Denies dyspnea Gastrointestinal Gastrointestinal: Denies abdominal pain, Denies nausea and Denies vomiting Musculoskeletal Musculoskeletal: Denies joint swelling Neurologic Neurologic: Denies weakness Psychiatric Psychiatric: Denies depression [facility] Medical History (Updated 12/21/19 @ 20:35 by Albino Vences MD) Bipolar affective disorder Chronic anxiety Chronic pain syndrome COPD, mild pULMONARY FUNCTION TESTS 12/11 SHOWING MILD OBSTRUCTIVE DISEASE AND SEVERE DIFFUSIONAL DEFECT GERD (gastroesophageal reflux disease) (08/21/14) Hyperlipidemia Incomplete rotator cuff tear or rupture of left shoulder, not specified as traumatic (02/25/15) Surgical History History of hysterectomy Rotator Cuff Repair [facility]-LEFT 06/03/15 Status post appendectomy Status post arthroscopy of shoulder (06/03/15) Family History Mother Essential hypertension Alzheimer disease Heart disease Hyperlipidemia Father Myocardial infarction Sister Hyperlipidemia Stroke Brother Essential hypertension Heart disease Hyperlipidemia Stroke Son , from complications of type 1 DM Diabetes Grandmother Diabetes Social History Smoking/Tobacco Use Status: Current every day Tobacco Type: cigarettes Years smoked: 49 Drug use: Daily Substance use type: marijuana Do you feel safe at home: Yes Do you feel safe in your relationship?: Yes History History 8 Para 6 Hx # Term Pregnancies Multiple births Hx # Pregnancies Ectopic pregnancies AB induced Hx Number of Living Children 1 AB spontaneous Exam Const General: no acute distress Orientation: alert HENMT Head: normal to inspection Ears: external ears normal General nose exam: external nose normal Mouth: moist mucous membranes Eyes General: appearance normal, both eyes and all related structures Neck Neck: normal visual inspection Resp Effort & Inspection: normal respiratory effort and able to speak in complete sentences Cardio Rate: regular rate Back/Spine/Pelvis Back: no CVA tenderness Skin General skin exam: no rashes or lesions noted Neuro General: patient alert and patient oriented x3 Extrem General: normal to inspection Psych Mental Status: mental status grossly normal Course Vital Signs Vital signs: Vital Signs Temperature 36.2 C L 12/21/19 20:21 Pulse 86 12/21/19 20:21 Respiratory Rate 16 12/21/19 20:21 Blood Pressure 184/103 H 12/21/19 20:21 Pulse Oximetry 98 12/21/19 20:21 Temperature 36.2 C L 12/21/19 20:21 Temperature Source Skin 12/21/19 20:21 Pulse 86 12/21/19 20:21 Respiratory Rate 16 12/21/19 20:21 Respiratory Effort Non-Labored 12/21/19 20:27 Blood Pressure 184/103 H 12/21/19 20:21 Blood Pressure Position Sitting 12/21/19 20:21 Pulse Oximetry 98 12/21/19 20:21 Oxygen Delivery Method Room Air 12/21/19 20:21 Oxygen Flow Rate 0 12/21/19 20:21 Pain Level 10 12/21/19 20:27
[2019-12-21] MEDS: diazePAM 5 MG TAB PO (20:42)
== END 2019-12-21 20:45 | disposition home or self-care (01) ==
LOC: ER 20:40
PROVIDERS: Emergency Provider Emergency Medicine; PCP Nurse Practitioner Family
DX: M54.5 Low back pain (principal); J44.9 Chronic obstructive pulmonary disease, unspecified; F17.210 Nicotine dependence, cigarettes, uncomplicated
CPT/HCPCS: 99283

== ENCOUNTER 2020-02-29 16:38 | Outpatient (REF) | payer MEDICAID, SELFPAY ==
[2020-02-29 16:25] LABS: Abs Immature Grans 0.03 10^3/uL (0.0-0.06); Absolute Basophil Count 0.06 10^3/uL (0.0-0.2); Absolute Eosinophil Count 0.23 10^3/uL (0.0-0.7); Absolute Lymphocyte Count 2.74 10^3/uL (1.2-3.4); Absolute Monocyte Count 0.54 10^3/uL (0.1-0.8); Absolute Neutrophil Count 4.54 10^3/uL (1.2-6.7); Basophils % 0.7; Eosinophils % 2.8; HCT 43.9 % (36.0-46.0); HGB 14.6 g/dL (11.2-15.7); Immature Grans % 0.4; Lymphocytes % 33.7; MCH 30.6 pg (27.0-33.0); MCHC 33.3 % (32.0-36.0); MPV 10.6 fL (8.0-11.0); Monocytes % 6.6; Neutrophils % 55.8; Nucleated RBC 0 %; Platelet Count 321 10^3/uL (130-400); RBC 4.77 10^6/uL (3.93-5.22); RDW 13.6 % (11.7-14.6); RDW-SD 46.5 fL; WBC 8.14 10^3/uL (4.4-10.8)
[2020-02-29 17:31] LABS: ALT 33 U/L (14-59); AST 20 U/L (15-37); Albumin 4.1 g/dL (3.4-5.0); Alkaline Phosphatase 78 U/L (46-116); Anion Gap 8.7 mmol/L (3-11); BUN 14 mg/dL (7-18); Bilirubin, Total 0.2 mg/dL (0.2-1.0); CO2 26.3 mmol/L (21.0-32.0); CREATININE 0.78 mg/dL (0.55-1.02); Calculated LDL 229 mg/dL (<100); Chloride 107 mmol/L (98-107); Cholesterol 321 mg/dL (<200); Glucose 103 mg/dL (74-106); HDL Cholesterol 47 mg/dL (40-60); Potassium 4.1 mmol/L (3.5-5.1); Sodium 142 mmol/L (136-145); Total Protein 7.6 g/dL (6.4-8.2); Triglyceride 229 mg/dL (<150)
[2020-02-29 18:00] LABS: Hemoglobin A1C 5.8 % (<5.7)
== END 2020-02-29 16:58 ==
LOC: LBN 16:38
PROVIDERS: PCP Nurse Practitioner Family; Visit Provider Nurse Practitioner Family
DX: R10.11 Right upper quadrant pain (principal); E78.5 Hyperlipidemia, unspecified
CPT/HCPCS: 80053; 80061; 83036; 85025

== ENCOUNTER 2020-03-14 01:52 | Outpatient (CLI) | payer MEDICAID, SELFPAY ==
--- NOTE | 2020-03-14 07:00 | DI.US_ITS ---
EXAM: US ABDOMEN INDICATION: RUQ pain x 3 wks,r10.11 COMPARISON: US ABDOMEN ULTRASOUND (P) from 12/10/2014 TECHNIQUE: Ultrasound abdomen performed using standard protocol FINDINGS: Abdominal ultrasound was performed according to the usual protocol. The liver is normal in size and shape. No focal hepatic lesion seen. There is no evidence of cholelithiasis or biliary dilatation. No gallbladder wall thickening or peric holecystic fluid collection. Pancreas appears intact as visualized. Spleen is unremarkable in appearance with no focal lesion. Kidneys are normal in size and shape. No renal mass, hydronephrosis, or nephrolithiasis. Abdominal aorta and IVC are of normal diameter. IMPRESSION: Negative abdominal ultrasound .
== END 2020-03-14 02:12 ==
PROVIDERS: PCP Nurse Practitioner Family; Visit Provider Nurse Practitioner Family
DX: R10.11 Right upper quadrant pain (principal)
CPT/HCPCS: 76700

== ENCOUNTER 2020-03-14 16:49 | Outpatient (REF) | payer MEDICAID, SELFPAY ==
[2020-03-14 21:58] LABS: Calculated LDL 90 mg/dL (<100); Cholesterol 169 mg/dL (<200); HDL Cholesterol 44 mg/dL (40-60); Triglyceride 179 mg/dL (<150)
== END 2020-03-14 17:09 ==
LOC: LBN 16:49
PROVIDERS: PCP Nurse Practitioner Family; Visit Provider Nurse Practitioner Family
DX: E78.5 Hyperlipidemia, unspecified (principal)
CPT/HCPCS: 80061

== ENCOUNTER 2020-03-26 02:40 | Outpatient (CLI) | payer MEDICAID, SELFPAY ==
--- NOTE | 2020-03-26 08:00 | DI.CT_ITS ---
EXAM: CT ABDOMEN W CLINICAL HISTORY: Egpiastric and RUQ abdominal pain,R10.13 TECHNIQUE: Imaging Protocol: Axial computed tomography images with coronal and sagittal reformatted images were created and reviewed CONTRAST MATERIAL: Intravenous: Omnipaque 350 Contrast volume:100 cc Oral: yes COMPARISON: CT CT renal colic wo from 12/06/[address] renal colic wo from 12/06/2017 US US ABDOMEN from 03/14/2020 US US ABDOMEN from 03/14/2020 FINDINGS: ABDOMEN: Lung Bases: Emphysematous changes. Mild scarring. Bowel: No abnormal distension or wall thickening. Liver: Normal density. No measurable mass. Gallbladder and biliary tract: No radiodense calculus or dilation. Pancreas: Normal density, no abnormal calcifications or inflammatory process. Spleen: Normal. Kidneys: Normal size, contour and axis. No radiodense stones. There is symmetric bilateral renal enh ancement. There is no perinephric collection. There is prominence of both renal pelves and proximal ureters. No stones are visible in the area included on the exam. No masses seen. Adrenal glands: No masses seen. Abdominal Aorta: Abdominal portion non-dilated. Atherosclerotic changes of the abdominal aorta and pr oximal iliac arteries. Lymph nodes: Within normal limits. IMPRESSION: Normal appearing gallbladder. Prominence of the renal collecting systems which appears symmetric mile aterally. Findings appear more prominent when compared with the previous exam. Findings could be se condary to a distended urinary bladder which is not included on the exam. RADIATION DOSE DELIVERED: 335.67mGy.cm Total DLP 335.67mGy.cm Total DLP DATA REPOSITORY: All CT scans at this facility are submitted to the National Radiology Data Registry (NRDR) Dose Index Registry (DIR) with the [employer] ([employer]). RADIATION OPTIMIZATION: All CT scans at this facility use at least one of these dose optimization te chniques: automated exposure control; mA and/or kV adjustment per patient size (includes targeted exa ms where dose is matched to clinical indication); or iterative reconstruction.
[2020-03-26] MEDS: Normal Saline - Diluent 50 ML VIAL IV (13:49)
[2020-03-26] MEDS: Omnipaque 350 MG/ML 100 ML BTL IJ (13:49)
[2020-03-26] MEDS: Normal Saline Flush 10 ML SYR IVP (13:50)
[2020-03-26] MEDS: Breeza Beverage 473 ML BTL PO (13:51)
[2020-03-26] MEDS: Omnipaque 350 MG/ML 50 ML BTL PO (13:51)
== END 2020-03-26 03:00 ==
PROVIDERS: PCP Nurse Practitioner Family; Visit Provider Nurse Practitioner Family
DX: R10.13 Epigastric pain (principal); R10.11 Right upper quadrant pain
CPT/HCPCS: 74160; J3490; Q9967

== ENCOUNTER 2020-04-26 06:12 | Observation (INO) | payer MEDICAID, SELFPAY ==
[2020-04-26] VITALS (50 sets, daily range): BP systolic 106–158; BP diastolic 74–104; PULSE 52–84; RESP 10–23; TEMP 36.3–36.5; O2SAT 93–99
--- NOTE | 2020-04-26 06:00 | RT.EKG_ITS ---
APPROVED REPORT Exam: Resting ECG Patient Location: E HR:62 bpm ECG Measurements Heart Rate 62 AXIS ND 188 P 56 QRSd 91 QRS 49 QT 419 T 38 QTc 427 Conclusion Sinus rhythm...normal P axis, V-rate 60- 99 Normal [place] Normal Electrocardiogram
--- NOTE | 2020-04-26 06:13 | ED.GENADUL_ITS ---
Discharge Plan Disposition Patient Disposition: [facility] INPATIENT Condition: Fair Discharge Details Clinical Impression: Chest pain Primary Care Provider: Lorri Curry ED Provider: Suman Bahena [place] Meds and New Rx's Prescriptions: No Action omeprazole 20 mg capsule,delayed release(DR/EC) 20 mg PO BID Qty: 90 RF: 4 cannabidiol 100 mg/mL solution PO BID PRNRF: 0 aspirin [Aspir-81] 81 MG tablet,delayed release (DR/EC) 81 mg PO DAILY Qty: 90 RF: 4 clonazepam 1 mg tablet 1 mg PO TID Qty: 90 RF: 0 ibuprofen 800 mg tablet 800 mg PO TID PRN (Reason: pain) Qty: 90 RF: 3 famotidine 20 mg tablet 20 mg PO DAILY RF: 0 rosuvastatin 40 mg tablet 40 mg PO QHS RF: 0 Medical Decision Making Patient's EKG on arrival is normal. Her story is quite concerning though. Still having some pressure in her left chest so nitroglycerin sublingual given. Laboratory studies and chest X-ray ordered. 07:20 - Patient's pressure completely resolved with 1 nitro here. She is now asymptomatic. Chest x-ray and laboratory studies unremarkable. D-dimer negative. First troponin negative. Presentation and risk factors very worrisome cardiac disease. Will discuss case with hospitalist for admission. Medical Records Medical records reviewed: Yes I reviewed the patient's medical records. Lab Data Lab results reviewed: Yes I reviewed the patient's lab results. ECG Data Attestation: I personally reviewed and interpreted this ECG (s) as follows: Prior ECG tracings: not available for review Interpretation: see EKG HPI General Mode of arrival: EMS . Date/Time Provider Initiated Documentation: 04/26/20 06:27 . Limitations to Documentation: no limitations . Information obtained by: patient, EMS, RN notes reviewed and old records reviewed . HPI Narrative: Patient presents to ED with complaint of chest pain/pressure that woke her up around 4 AM. Initially she thought it was her anxiety, but it felt different and got worse with radiation of pressure to her neck and left arm. She became short of breath, lightheaded, diaphoretic, nauseated. There was no radiation to the back. She did take one of her Klonopin. She went outside but continued to feel worse. EMS was called. On arrival she was given aspirin and nitroglycerin. Patient felt much better after this though still having some pressure on arrival here. However, she no longer has lightheadedness, diaphoresis, nausea, shortness of breath. She has never had this previously. She does smoke a significant amount. She has history of hyperlipidemia and prediabetes. She denies fever, cough, leg pain, leg swelling. Related Data Home Medications Medication Instructions Recorded Confirmed aspirin [Aspir-81] 81 mg PO DAILY #90 tab-cap 03/09/13 04/26/20 omeprazole 20 mg capsule,delayed 20 mg PO BID #90 cap 03/14/20 04/26/20 release clonazepam 1 mg tablet 1 mg PO TID #90 tab NS 04/01/20 04/26/20 cannabidiol 100 mg/mL oral solution PO BID PRN ml 04/11/20 04/15/20 ibuprofen 800 mg tablet 800 mg PO TID PRN #90 tab 04/19/20 04/26/20 famotidine 20 mg PO DAILY 04/26/20 04/26/20 rosuvastatin 40 mg PO QHS 04/26/20 04/26/20 Previous Rx's Medication Instructions Recorded omeprazole 20 mg capsule,delayed 20 mg PO BID #90 cap 03/14/20 release clonazepam 1 mg tablet 1 mg PO TID #90 tab NS 04/01/20 ibuprofen 800 mg tablet 800 mg PO TID PRN #90 tab 04/19/20 Allergies Allergy/AdvReac Type Severity Reaction Status Date / Time morphine Allergy Severe stops my Verified 04/26/20 06:35 heart fentanyl Allergy Intermediate Hives Verified 04/11/20 14:57 lamotrigine Allergy Intermediate Facial Verified 04/26/20 06:35 blistering meloxicam AdvReac Severe Nausea and Verified 04/26/20 06:35 vomiting carbamazepine AdvReac Intermediate Drowsiness Verified 04/26/20 06:35 and ataxia cyclobenzaprine HCl AdvReac Intermediate vomits Verified 04/26/20 06:35 [From Flexeril] hydromorphone HCl AdvReac Intermediate vomits Verified 04/26/20 06:35 [From Dilaudid] Penicillins AdvReac Intermediate vomits Verified 04/26/20 06:35 melatonin AdvReac Headaches Verified 04/26/20 06:35 methocarbamol AdvReac Nausea, Verified 04/26/20 06:35 headache oxycodone [Oxycodone] AdvReac Nausea Verified 04/26/20 06:35 prednisone AdvReac Nausea Verified 04/26/20 06:35 General VENKAT: 4 Review of Systems Narrative: 12/12 Review of Systems completed and is negative except as stated above in HPI (Systems reviewed: Const, Eyes, ENT, Resp, CV, GI, , MSK, Skin, Neuro) PFSH Medical History Bipolar affective disorder COPD (chronic obstructive pulmonary disease) Generalized anxiety disorder with panic attacks GERD (gastroesophageal reflux disease) Hyperlipidemia Prediabetes Surgical History S/P appendectomy S/P left rotator cuff repair (06/03/15) S/P PRO-BSO (total abdominal hysterectomy and bilateral salpingo-oophorectomy) Family History Mother , at 71 from dementia Alzheimer disease Heart disease Hyperlipidemia Hypertension Father Myocardial infarction Heart disease Alcohol abuse Alcoholic liver disease Sister Crohn disease Sister Hyperlipidemia Sister Type 2 diabetes mellitus Sister No problems noted. Brother , 60s Myocardial infarction Type 2 diabetes mellitus Heart disease Brother Myocardial infarction Heart disease Alcohol abuse Brother No problems noted. Brother Alcohol abuse Dementia Parkinson disease Brother Alzheimer disease Crohn disease Brother Heart disease Lymphoma Hyperlipidemia Son , at 28 from Type 1 diabetes Type 1 diabetes mellitus Son No problems noted. Maternal Grandfather No problems noted. Maternal Grandmother Alzheimer disease Paternal Grandfather No problems noted. Paternal Grandmother Type 2 diabetes mellitus Social History Smoking/Tobacco Use Status: Current every day Tobacco Type: cigarettes Years smoked: 49 Smoking risk assessment performed?: Yes Drug use: Daily Substance use type: marijuana Do you feel safe at home: Yes Do you feel safe in your relationship?: Yes Female Reproductive History Menstrual Menopause type: surgical History History 9 Para 2 Hx # Term Pregnancies 2 Multiple births Hx # Pregnancies Ectopic pregnancies AB induced Hx Number of Living Children 1 AB spontaneous 7 Exam Narrative Exam Narrative: Const: WDWN female in NAD. HEENT: NC/AT. Normal facial exam. Eyes: Normal conjunctiva and sclera. Neck: Supple. Trachea midline. Lungs: Normal respiratory effort. Lungs are clear. Cor: RRR without murmur/gallop. Good radial pulses. GI: Soft. NT/ND. No guarding or rebound. Neuro: A+O x 3. Normal speech, mentation, gait. Cranial nerves II - XII grossly intact. No gross motor or sensory deficit. Ext: No C/C/E. No calf tenderness. Skin: Warm and dry without rash.
[2020-04-26 06:37] LABS: Abs Immature Grans 0.02 10^3/uL (0.0-0.06); Absolute Basophil Count 0.08 10^3/uL (0.0-0.2); Absolute Eosinophil Count 0.31 10^3/uL (0.0-0.7); Absolute Lymphocyte Count 3.31 10^3/uL (1.2-3.4); Absolute Monocyte Count 0.61 10^3/uL (0.1-0.8); Absolute Neutrophil Count 4.03 10^3/uL (1.2-6.7); Eosinophils % 3.7; HCT 43.1 % (36.0-46.0); HGB 14.3 g/dL (11.2-15.7); Immature Grans % 0.2; Lymphocytes % 39.6; MCH 30.2 pg (27.0-33.0); MCHC 33.2 % (32.0-36.0); MCV 90.9 fL (80-95); Monocytes % 7.3; Neutrophils % 48.2; Nucleated RBC 0 %; Platelet Count 276 10^3/uL (130-400); RBC 4.74 10^6/uL (3.93-5.22); RDW 13.2 % (11.7-14.6); RDW-SD 44.6 fL; WBC 8.36 10^3/uL (4.4-10.8)
[2020-04-26] MEDS: nitroGLYcerin 0.4 MG TAB SL (06:39)
--- NOTE | 2020-04-26 06:51 | DI.RAD_ITS ---
EXAM: XR PORTABLE CHEST AP CLINICAL HISTORY: CP TECHNIQUE: 2D digital imaging was performed. COMPARISON: No exams were available for comparison FINDINGS: LUNGS: Hyperinflated but clear. No pleural abnormality seen. HEART: Normal. MEDIASTINUM: Normal. BONES: Unremarkable. IMPRESSION: No acute pulmonary findings. DATA REPOSITORY: RADIATION DOSE DELIVERED:
[2020-04-26 06:57] LABS: ALT 54 U/L (14-59); AST 25 U/L (15-37); Albumin 4.1 g/dL (3.4-5.0); Alkaline Phosphatase 79 U/L (46-116); Anion Gap 7.7 mmol/L (3-11); BUN 17 mg/dL (7-18); Bilirubin, Total 0.4 mg/dL (0.2-1.0); CO2 28.3 mmol/L (21.0-32.0); CREATININE 0.7 mg/dL (0.55-1.02); Calcium 8.9 mg/dL (8.5-10.1); Chloride 105 mmol/L (98-107); Glucose 110 mg/dL (74-106); Magnesium 2.3 mg/dL (1.8-2.4); Potassium 3.8 mmol/L (3.5-5.1); Sodium 141 mmol/L (136-145); Total Protein 8.1 g/dL (6.4-8.2); Troponin I < 0.05 ng/mL (<0.06)
[2020-04-26 07:14] LABS: D-Dimer 303 ng/mlFEU (<500)
--- NOTE | 2020-04-26 07:30 | DI.VRAD_ITS ---
PROCEDURE INFORMATION: Exam: XR Chest Exam date and time: 04/26/2020 6:52 AM Age: 54 years old Clinical indication: Chest pain; Type not specified TECHNIQUE: Imaging protocol: XR of the chest Views: 1 view. COMPARISON: CR XR CHEST 2V PA LATERAL 06/30/2019 10:51 AM FINDINGS: Tubes, catheters and devices: Monitoring leads project over the chest. Lungs: Lungs are hyperinflated suggesting obstructive physiology. No consolidative pneumonia. No pulmonary edema. Pleural spaces: No pleural effusion. No pneumothorax. Heart/Mediastinum: Cardiac size normal. Vasculature: Aortic atherosclerotic calcification. No aneurysm. Bones/joints: Mild degenerative changes noted throughout the spine. IMPRESSION: Hyperinflation. No acute process. Stable appearance. Dictated and Authenticated by: Fabien Thornton MD. Ordering:CHARLES Will MD
[2020-04-26 08:54] LABS: COVID-19 PCR Negative (Negative); Influenza A PCR Negative (Negative); Influenza B PCR Negative (Negative); RSV PCR Negative (Negative)
--- NOTE | 2020-04-26 09:15 | RT.EKG_ITS ---
APPROVED REPORT Exam: Resting ECG Patient Location: I HR:58 bpm ECG Measurements Heart Rate 58 AXIS MA 173 P 57 QRSd 93 QRS 0 QT 456 T [id number] QTc 449 Conclusion Sinus bradycardia...rate< 60 Indeterminate axis...QRS axis indeterminate Normal Electrocardiogram
--- NOTE | 2020-04-26 09:32 | W.PM.HP.N ---
Date of service: 04/26/20 Time of Service: 09:38 Assessment and Plan Assessment and plan (1) Chest pain: Status: Acute Assessment and plan: CP concerning for angina. Risk factors of HLD, prediabetes, tobacco abuse. Troponin negative x 1; repeat pending. EKG normal. Pressure in L chest currently; GI cocktail ordered; if not helpful, nitroglycerin ordered. No availability of NM stress testing today. If trop remains negative will d/c and schedule outpt NM stress test. Qualifiers: Chest pain type: unspecified Qualified Code(s): R07.9 - Chest pain, unspecified (2) Hyperlipidemia: Status: Chronic Assessment and plan: Cont Crestor 40mg QHS (3) COPD (chronic obstructive pulmonary disease): Status: Chronic Assessment and plan: No acute exacerbation. No medications on home med list. (4) Prediabetes: Status: Acute Assessment and plan: A1c of 5.8 on 02/29/20 (5) Generalized anxiety disorder with panic attacks: Status: Acute Assessment and plan: Cont clonazepam. History of Present Illness History of Present Illness Chief Complaint: Chest Pain Narrative: This is a 54 yo female with a history of HLD, COPD, tobacco abuse, Bipolar disorder, PTSD, GERD, prediabetes. She presented to the ED with c/o chest pain described as pressure. The pain woke her from sleep at 4 AM. She states she became short of breath, lightheaded, diaphoretic and nauseated. She took a Klonopin, thinking it was anxiety. EMS call and she was given an ASA and nitroglycerin. Her pain/pressure improved but it was still present upon arrival. Her other symptoms resolved. She states she previoiusly smoke 3 packs of cigarettes daily but has cut back to 10 daily. Her plan is to stop smoking when she cuts back to 5/day. In the ED her EKG was normal. Troponin negative x 1. CBC and lytes were normal. She states she does have GERD and is on an H2 rip and a PPI. She has an upper endoscopy scheduled in the near future; concerns of ulcers per pt. She states her GI pain has improved greatly with the mentioned medications. She described her previous GI sxs as stabbing in the epigastric region. Review of Systems All systems reviewed & are unremarkable except as noted in HPI and below [facility] Medical History Bipolar affective disorder COPD (chronic obstructive pulmonary disease) Generalized anxiety disorder with panic attacks GERD (gastroesophageal reflux disease) Hyperlipidemia Prediabetes Surgical History S/P appendectomy S/P left rotator cuff repair (06/03/15) S/P PRO-BSO (total abdominal hysterectomy and bilateral salpingo-oophorectomy) Family History Mother , at 71 from dementia Alzheimer disease Heart disease Hyperlipidemia Hypertension Father Myocardial infarction Heart disease Alcohol abuse Alcoholic liver disease Sister Crohn disease Sister Hyperlipidemia Sister Type 2 diabetes mellitus Sister No problems noted. Brother , 60s Myocardial infarction Type 2 diabetes mellitus Heart disease Brother Myocardial infarction Heart disease Alcohol abuse Brother No problems noted. Brother Alcohol abuse Dementia Parkinson disease Brother Alzheimer disease Crohn disease Brother Heart disease Lymphoma Hyperlipidemia Son , at 28 from Type 1 diabetes Type 1 diabetes mellitus Son No problems noted. Maternal Grandfather No problems noted. Maternal Grandmother Alzheimer disease Paternal Grandfather No problems noted. Paternal Grandmother Type 2 diabetes mellitus Social History Smoking/Tobacco Use Status: Current every day Tobacco Type: cigarettes Years smoked: 49 Smoking risk assessment performed?: Yes Drug use: Daily Substance use type: marijuana Do you feel safe at home: Yes Do you feel safe in your relationship?: Yes Female Reproductive History Menstrual Menopause type: surgical History History 9 Para 2 Hx # Term Pregnancies 2 Multiple births Hx # Pregnancies Ectopic pregnancies AB induced Hx Number of Living Children 1 AB spontaneous 7 Meds Home Medications and Allergies Allergies Allergy/AdvReac Type Severity Reaction Status Date / Time morphine Allergy Severe stops my Verified 04/26/20 06:35 heart fentanyl Allergy Intermediate Hives Verified 04/11/20 14:57 lamotrigine Allergy Intermediate Facial Verified 04/26/20 06:35 blistering meloxicam AdvReac Severe Nausea and Verified 04/26/20 06:35 vomiting carbamazepine AdvReac Intermediate Drowsiness Verified 04/26/20 06:35 and ataxia cyclobenzaprine HCl AdvReac Intermediate vomits Verified 04/26/20 06:35 [From Flexeril] hydromorphone HCl AdvReac Intermediate vomits Verified 04/26/20 06:35 [From Dilaudid] Penicillins AdvReac Intermediate vomits Verified 04/26/20 06:35 melatonin AdvReac Headaches Verified 04/26/20 06:35 methocarbamol AdvReac Nausea, Verified 04/26/20 06:35 headache oxycodone [Oxycodone] AdvReac Nausea Verified 04/26/20 06:35 prednisone AdvReac Nausea Verified 04/26/20 06:35 Home Medications Medication Instructions Recorded Confirmed Type aspirin [Aspir-81] 81 mg PO DAILY #90 tab-cap 03/09/13 04/26/20 History omeprazole 20 mg capsule,delayed 20 mg PO BID #90 cap 03/14/20 04/26/20 Rx release clonazepam 1 mg tablet 1 mg PO TID #90 tab NS 04/01/20 04/26/20 Rx cannabidiol 100 mg/mL oral solution PO BID PRN ml 04/11/20 04/15/20 History ibuprofen 800 mg tablet 800 mg PO TID PRN #90 tab 04/19/20 04/26/20 Rx famotidine 20 mg PO DAILY 04/26/20 04/26/20 History rosuvastatin 40 mg PO QHS 04/26/20 04/26/20 History Exam Const General: cooperative and other (currently experiencing pressure in the L lower chest/upper abd) Orientation: alert Chest Chest: normal inspection of the chest and no tenderness Resp Effort & Inspection: normal respiratory effort Auscultation: clear to auscultation bilaterally and diminished lung sounds Cardio Rate: regular rate Rhythm: regular rhythm Heart Sounds: S1 normal and S2 normal GI Palpation: soft and nontender Auscultation: normal bowel sounds Skin General skin exam: no rashes or lesions noted Extrem General: no pedal edema and no calf tenderness Psych Mental Status: mental status grossly normal Affect: normal affect Results Labs Result diagrams: 04/26/20 06:08 04/26/20 06:08 Labs: Laboratory Results - last 24 hr 04/26/20 04/26/20 04/26/20 06:08 06:08 06:08 WBC 8.36 RBC 4.74 Hgb 14.3 Hct 43.1 MCV 90.9 MCH 30.2 MCHC 33.2 RDW 13.2 Plt Count 276 MPV 10.0 Immature Gran % 0.2 Neutrophils % 48.2 Lymphocytes % 39.6 Monocytes % 7.3 Eosinophils % 3.7 Basophils % 1.0 Nucleated RBC % 0 Absolute Neutrophils 4.03 Absolute Lymphocytes 3.31 Absolute Monocytes 0.61 Absolute Eosinophils 0.31 Absolute Basophils 0.08 D-Dimer 303 Sodium 141 Potassium 3.8 Chloride 105 Carbon Dioxide 28.3 Anion Gap 7.7 BUN 17 Creatinine 0.7 Estimated GFR/1.73 m2 >= 60.00 Glucose 110 H Calcium 8.9 Magnesium 2.3 Total Bilirubin 0.4 AST 25 ALT 54 Alkaline Phosphatase 79 Troponin I < 0.05 Total Protein 8.1 Albumin 4.1 COVID-19 Source 04/26/20 08:08 WBC RBC Hgb Hct MCV MCH MCHC RDW Plt Count MPV Immature Gran % Neutrophils % Lymphocytes % Monocytes % Eosinophils % Basophils % Nucleated RBC % Absolute Neutrophils Absolute Lymphocytes Absolute Monocytes Absolute Eosinophils Absolute Basophils D-Dimer Sodium Potassium Chloride Carbon Dioxide Anion Gap BUN Creatinine Estimated GFR/1.73 m2 Glucose Calcium Magnesium Total Bilirubin AST ALT Alkaline Phosphatase Troponin I Total Protein Albumin COVID-19 Source Nasopharyx Last Vital Signs Temp 36.5 C 04/26/20 06:13 Pulse 61 04/26/20 08:39 Resp 13 04/26/20 08:36 BP 123/92 H 04/26/20 08:39 Pulse Ox 97 04/26/20 08:39 COVID-19 Screening Have you, or household traveled for leisure in last 14 days?: No Had IN PERSON contact w/suspected or confirmed C-19 person: No
[2020-04-26] MEDS: Famotidine 20 MG TAB PO (09:38)
[2020-04-26] MEDS: Normal Saline Flush 10 ML SYR IVP (09:38)
[2020-04-26] MEDS: clonazePAM 1 MG TAB PO (09:38)
[2020-04-26 11:22] LABS: Troponin I < 0.05 ng/mL (<0.06)
--- NOTE | 2020-04-26 11:49 | W.PM.DS.N ---
Date of service: 04/26/20 Time of Service: 11:49 DS: Diagnosis Discharge Diagnosis (1) Chest pain: Status: Acute (2) Hyperlipidemia: Status: Chronic (3) COPD (chronic obstructive pulmonary disease): Status: Chronic (4) Prediabetes: Status: Acute (5) Generalized anxiety disorder with panic attacks: Status: Acute Discharge Plan Disposition Patient Disposition: HOME Condition: Good Discharge Details Reason For Visit: CHEST PAIN Admit Date/Time: 04/26/20 07:41 Admit Provider: Norberto Kendall Attending Provider: Norberto Kendall [facility] Hospital Course: This is a 54 yo female with a history of HLD, COPD, tobacco abuse, Bipolar disorder, PTSD, GERD, prediabetes. She presented to the ED with c/o chest pain described as pressure. The pain woke her from sleep at 4 AM. She states she became short of breath, lightheaded, diaphoretic and nauseated. She took a Klonopin, thinking it was anxiety. EMS call and she was given an ASA and nitroglycerin. Her pain/pressure improved but it was still present upon arrival. Her other symptoms resolved. She states she previoiusly smoke 3 packs of cigarettes daily but has cut back to 10 daily. Her plan is to stop smoking when she cuts back to 5/day. In the ED her EKG was normal. Troponin negative x 1. CBC and lytes were normal. She stated she does have GERD and is on an H2 rip and a PPI. She has an upper endoscopy scheduled in the near future; concerns of ulcers per pt. She states her GI pain has improved greatly with the mentioned medications. She described her previous GI sxs as stabbing in the epigastric region. Her second troponin was negative and a repeat EKG was normal. She felt comfortable discharging to home. An outpt NM cardiac stress test to be scheduled. F/U with PCP in 1-2 weeks. Home Meds and New Rx's Prescriptions: Continued omeprazole 20 mg capsule,delayed release(DR/EC) 20 mg PO BID Qty: 90 RF: 4 cannabidiol 100 mg/mL solution PO BID PRNRF: 0 aspirin [Aspir-81] 81 MG tablet,delayed release (DR/EC) 81 mg PO DAILY Qty: 90 RF: 4 clonazepam 1 mg tablet 1 mg PO TID Qty: 90 RF: 0 ibuprofen 800 mg tablet 800 mg PO TID PRN (Reason: pain) Qty: 90 RF: 3 famotidine 20 mg tablet 20 mg PO DAILY RF: 0 rosuvastatin 40 mg tablet 40 mg PO QHS RF: 0 Discharge Instructions Instructions: Chest Pain (DC) Stand Alone Forms: Nursing Discharge Form Referrals: Lorri Curry NP [Primary Care Provider] - 05/02/20 2:40 pm Alirio Gilmore MD [ CONSULTING PHYSICIAN] - 05/07/20 10:00 am Activity:: Activity as Tolerated Equipment/Supplies:: No Equipment Needed Diet:: Heart Healthy Discharge Orders Discharge Orders: Discharge Order (Routine); Ordered 04/26/20 Ordered By: Norberto Kendall Other Ambulatory Orders: NM MPI rest & stress grp (Routine) Location: None Selected Ordered By: Norberto Kendall DS: Summary Time Spent with Patient providing and/or coordinating discharge services: Greater than 30 minutes Status at Discharge Functional status at discharge: independent ambulation Overall status at discharge: patient is back to baseline Mental Status: mental status grossly normal Speech and Movement: speech and movement normal Mood: anxious mood Affect: anxious affect Exam Const General: cooperative Nutritional Appearance: thin Orientation: alert and oriented x3 Resp Effort & Inspection: normal respiratory effort Auscultation: clear to auscultation bilaterally Cardio Rate: regular rate Rhythm: regular rhythm Heart Sounds: S1 normal and S2 normal GI Palpation: soft and nontender Neuro General: patient alert, patient oriented x3 and no focal motor deficits Extrem General: no pedal edema and no calf tenderness Psych Mental Status: mental status grossly normal Speech and Movement: speech and movement normal Mood: anxious mood Affect: anxious affect DS: Data Vitals/I&O Vitals and I&O: Vital Signs Temperature 36.3 C L 04/26/20 08:55 Temperature Source Tympanic 04/26/20 08:55 Pulse 65 04/26/20 09:36 Pulse Rhythm Regular 04/26/20 08:55 Pulse 63 04/26/20 08:36 Respiratory Rate 12 04/26/20 08:55 Respiratory Effort Non-Labored 04/26/20 08:55 Respiratory Depth Normal 04/26/20 08:55 Respiratory Pattern Normal 04/26/20 08:55 Blood Pressure 158/94 H 04/26/20 08:55 Blood Pressure Mean 100 04/26/20 08:39 Blood Pressure Position Sitting 04/26/20 06:13 Pulse Oximetry 99 04/26/20 08:55 Oxygen Delivery Method Room Air 04/26/20 08:55 Oxygen Flow Rate 0 04/26/20 08:55 Pain Level 3 04/26/20 10:01 Comment 04/26/20 08:55 Intake & Output 04/25/20 04/25/20 04/26/20 11:59 23:59 11:59 Weight 56.302 kg Other: Urine Appearance Clear Data Completed and Pending Labs on day of discharge: Labs from last 24 hours 04/26/20 04/26/20 04/26/20 10:50 08:08 06:08 WBC RBC Hgb Hct MCV MCH MCHC RDW Plt Count MPV Immature Gran % Neutrophils % Lymphocytes % Monocytes % Eosinophils % Basophils % Nucleated RBC % Absolute Neutrophils Absolute Lymphocytes Absolute Monocytes Absolute Eosinophils Absolute Basophils D-Dimer 303 Sodium Potassium Chloride Carbon Dioxide Anion Gap BUN Creatinine Estimated GFR/1.73 m2 Glucose Calcium Magnesium Total Bilirubin AST ALT Alkaline Phosphatase Troponin I < 0.05 Total Protein Albumin COVID-19 Source Nasopharyx SARS-CoV-2 (PCR) Negative Influenza Type A (PCR) Negative Influenza Type B (PCR) Negative RSV (PCR) Negative 04/26/20 04/26/20 06:08 06:08 WBC 8.36 RBC 4.74 Hgb 14.3 Hct 43.1 MCV 90.9 MCH 30.2 MCHC 33.2 RDW 13.2 Plt Count 276 MPV 10.0 Immature Gran % 0.2 Neutrophils % 48.2 Lymphocytes % 39.6 Monocytes % 7.3 Eosinophils % 3.7 Basophils % 1.0 Nucleated RBC % 0 Absolute Neutrophils 4.03 Absolute Lymphocytes 3.31 Absolute Monocytes 0.61 Absolute Eosinophils 0.31 Absolute Basophils 0.08 D-Dimer Sodium 141 Potassium 3.8 Chloride 105 Carbon Dioxide 28.3 Anion Gap 7.7 BUN 17 Creatinine 0.7 Estimated GFR/1.73 m2 >= 60.00 Glucose 110 H Calcium 8.9 Magnesium 2.3 Total Bilirubin 0.4 AST 25 ALT 54 Alkaline Phosphatase 79 Troponin I < 0.05 Total Protein 8.1 Albumin 4.1 COVID-19 Source SARS-CoV-2 (PCR) Influenza Type A (PCR) Influenza Type B (PCR) RSV (PCR) [facility] Medical History Bipolar affective disorder COPD (chronic obstructive pulmonary disease) Generalized anxiety disorder with panic attacks GERD (gastroesophageal reflux disease) Hyperlipidemia Prediabetes Surgical History S/P appendectomy S/P left rotator cuff repair (06/03/15) S/P PRO-BSO (total abdominal hysterectomy and bilateral salpingo-oophorectomy) Family History Mother , at 71 from dementia Alzheimer disease Heart disease Hyperlipidemia Hypertension Father Myocardial infarction Heart disease Alcohol abuse Alcoholic liver disease Sister Crohn disease Sister Hyperlipidemia Sister Type 2 diabetes mellitus Sister No problems noted. Brother , 60s Myocardial infarction Type 2 diabetes mellitus Heart disease Brother Myocardial infarction Heart disease Alcohol abuse Brother No problems noted. Brother Alcohol abuse Dementia Parkinson disease Brother Alzheimer disease Crohn disease Brother Heart disease Lymphoma Hyperlipidemia Son , at 28 from Type 1 diabetes Type 1 diabetes mellitus Son No problems noted. Maternal Grandfather No problems noted. Maternal Grandmother Alzheimer disease Paternal Grandfather No problems noted. Paternal Grandmother Type 2 diabetes mellitus Social History Smoking/Tobacco Use Status: Current every day Tobacco Type: cigarettes Years smoked: 49 Smoking risk assessment performed?: Yes Drug use: Daily Substance use type: marijuana Do you feel safe at home: Yes Do you feel safe in your relationship?: Yes Female Reproductive History Menstrual Menopause type: surgical History History 9 Para 2 Hx # Term Pregnancies 2 Multiple births Hx # Pregnancies Ectopic pregnancies AB induced Hx Number of Living Children 1 AB spontaneous 7
== END 2020-04-26 16:23 | disposition home or self-care (01) ==
LOC: ER 08:40 → MS 08:54
PROVIDERS: Admitting Provider Family Medicine; Emergency Provider Emergency Medicine; PCP Nurse Practitioner Family; Visit Provider Family Medicine
DX: R07.9 Chest pain, unspecified (principal); E78.5 Hyperlipidemia, unspecified; J44.9 Chronic obstructive pulmonary disease, unspecified; R73.03 Prediabetes; F41.0 Panic disorder [episodic paroxysmal anxiety]; F17.210 Nicotine dependence, cigarettes, uncomplicated; F43.10 Post-traumatic stress disorder, unspecified; K21.9 Gastro-esophageal reflux disease without esophagitis; F31.9 Bipolar disorder, unspecified
CPT/HCPCS: 36415; 80053; 93005; 99219; 99239; 99285; 71045; 83735; 84484; 85025; 85379; 93010; G0378

== ENCOUNTER 2020-05-21 08:58 | Emergency (ER) | payer MEDICAID, SELFPAY ==
[2020-05-21] VITALS (17 sets, daily range): BP systolic 114–163; BP diastolic 76–108; PULSE 49–94; RESP 11–18; TEMP 36.6; O2SAT 93–98
--- NOTE | 2020-05-21 08:45 | RT.EKG_ITS ---
APPROVED REPORT Exam: Resting ECG Patient Location: E HR:64 bpm ECG Measurements Heart Rate 64 AXIS [place] 197 P 82 QRSd 90 QRS 67 QT 407 T 55 QTc 419 Conclusion Sinus rhythm...normal P axis, V-rate 60- 99 Normal [place] There are no significant changes compared to prior EKG performed on 04/26/2020 at 09:40.
--- NOTE | 2020-05-21 08:59 | ED.GENADUL_ITS ---
Discharge Plan Disposition Patient Disposition: HOME Condition: Stable Discharge Details Clinical Impression: Chest pain Primary Care Provider: Lorri Curry ED Provider: Lisa Alanis Home Meds and New Rx's Prescriptions: Continued aspirin [Aspir-81] 81 MG tablet,delayed release (DR/EC) 81 mg PO DAILY Qty: 90 RF: 4 ibuprofen 800 mg tablet 800 mg PO TID PRN (Reason: pain) Qty: 90 RF: 3 clonazepam 1 mg tablet 1 mg PO TID Qty: 90 RF: 0 omeprazole 40 mg capsule,delayed release(DR/EC) 40 mg PO DAILY Qty: 90 RF: 4 famotidine 20 mg tablet 20 mg PO DAILY PRNRF: 0 rosuvastatin 40 mg tablet 40 mg PO QHS RF: 0 Discharge Instructions Instructions: Chest Pain (ED) Additional Instructions: Continue taking your normal medications including aspirin daily. The stress test today determined that you are at low risk for a future cardiac event. Follow up with primary care provider in 3-5 days. Return to ED sooner if any worsening or concerns. Increase oral fluids. Keep your scheduled appointment for the endoscopy on the as previously scheduled. Referrals: Lorri Curry, EDI [Primary Care Provider] - Medical Decision Making <Lisa Alanis - Last Filed: 05/21/20 15:06> 54-year-old female presents to the ED via EMS with chief complaint of left sided chest pressure and as she reports feels like someone stabbing through my left nipple which began at 5am this morning. States increased shortness of breath, dizziness, positive nausea no vomiting. She took her clonazepam this morning with little to no relief she did take an 81 mg aspirin prior to arrival. Blood pressure initially upon arrival is 123/108. She has had recent changes to her cholesterol medication and feels this may be related. She does have a past medical history of hyperlipidemia, GERD, generalized anxiety disorder, bipolar affective disorder, COPD, prediabetes. She was recently seen and admitted few weeks ago for similar type symptoms. EKG was reviewed by Dr. Nguyễn Bahena MD ER attending, please see his official report old EKG is available for review no acute changes noted in the previous EKG. Initial heart score without the troponin is a 4. 09 29: Patient states after 2 sublingual nitro that her chest pressure is approximately 2 out of 10 the stabbing pain is now gone. Blood pressure is 117/85, Patient was admitted for similar complaints on April 26 and as of today has not yet had a stress test completed since that time. She states that it is scheduled for 28 May and she has an endoscopy scheduled for 27 May. This time I am going to recommend admission for chest pain relieved by nitro pending the troponins versus transfer. 0932: Initial troponin is within normal limits, patient being transported to diagnostic imaging for chest x-ray. 0948: Patient is chest pain free after 3 SL NTG 0.4mg. 0956: Pending serial Troponin at 1157, Nuc med contacted to inquire if Stress test is available today. Otherwise will order a treadmill stress test if available. 1025: Treadmill stress test ordered. Scheduled for approximately 1300. 12:00: Patient reevaluated she is sleeping, breathing eupneic, no complaints at this time vital signs are stable. 1338: Patient has had no further episodes of chest pain while in department status post the sublingual nitro x3. She is currently getting a treadmill stress test at this time. Discussed home care and follow-up with patient who verbalizes understanding. Instructed to follow-up with PCP in 3 to 5 days. Instructed to continue taking aspirin daily. This text was generated using [email or web address] dictation system, please disregard any oddities of phrase or misspellings. Patient remained hemodynamically stable throughout stay. <Suman Bahena MD - Last Filed: 05/21/20 10:34> Patient discussed with me at length with JOSE Alanis. I have assessed patient independently. Patient had been seen by me in April for chest pain. Admitted but discharged without stress testing as no tracer available. Subsequently, followed up with PCP and outpatient stress test is scheduled for May 28. She had recurrent chest pain today. Did not respond to anxiolytics but did not respond to nitroglycerin. Currently pain-free. EKG without ischemic changes. First troponin negative. I spoke with cardiology, Dr. Gilmore, today. Agrees that patient requires more than just troponins given recurrent chest pain and no recent stress testing. Unable to obtain nuclear stress test today or tomorrow. We are able to obtain regular stress test this afternoon. Plan will be to get second troponin here and if negative stress test from the ED. Medical Records Medical records reviewed: Yes I reviewed the patient's medical records. Lab Data Lab results reviewed: Yes I reviewed the patient's lab results. ECG Data Attestation: I personally reviewed and interpreted this ECG (s) as follows: Interpretation: see EKG HPI <Lisa Alanis - Last Filed: 05/21/20 15:06> General Mode of arrival: EMS . Date/Time Provider Initiated Documentation: 05/21/20 09:15 . Limitations to Documentation: no limitations . Information obtained by: patient, EMS and old records reviewed . HPI Narrative: 54-year-old female presents to the ED via EMS with chief complaint of left sided chest pressure and as she reports feels like someone stabbing through my left nipple which began at 5am this morning. States increased shortness of breath, dizziness, positive nausea no vomiting. She took her clonazepam this morning with little to no relief she did take an 81 mg aspirin prior to arrival. Blood pressure initially upon arrival is 123/108. She has had recent changes to her cholesterol medication and feels this may be related. She does have a past medical history of hyperlipidemia, GERD, generalized anxiety disorder, bipolar affective disorder, COPD, prediabetes. She was recently seen and admitted few weeks ago for similar type symptoms. Related Data Home Medications Medication Instructions Recorded Confirmed aspirin [Aspir-81] 81 mg PO DAILY #90 tab-cap 03/09/13 05/21/20 ibuprofen 800 mg tablet 800 mg PO TID PRN #90 tab 04/19/20 05/21/20 famotidine 20 mg PO DAILY PRN 04/26/20 05/21/20 rosuvastatin 40 mg PO QHS 04/26/20 05/21/20 clonazepam 1 mg tablet 1 mg PO TID #90 tab NS 04/29/20 05/21/20 omeprazole 40 mg capsule,delayed 40 mg PO DAILY #90 cap 05/15/20 05/21/20 release Previous Rx's Medication Instructions Recorded ibuprofen 800 mg tablet 800 mg PO TID PRN #90 tab 04/19/20 clonazepam 1 mg tablet 1 mg PO TID #90 tab NS 04/29/20 omeprazole 40 mg capsule,delayed 40 mg PO DAILY #90 cap 05/15/20 release Allergies Allergy/AdvReac Type Severity Reaction Status Date / Time morphine Allergy Severe stops my Verified 05/02/20 14:54 heart fentanyl Allergy Intermediate Hives Verified 05/02/20 14:54 lamotrigine Allergy Intermediate Facial Verified 05/02/20 14:54 blistering meloxicam AdvReac Severe Nausea and Verified 05/02/20 14:54 vomiting carbamazepine AdvReac Intermediate Drowsiness Verified 05/02/20 14:54 and ataxia cyclobenzaprine HCl AdvReac Intermediate vomits Verified 05/02/20 14:54 [From Flexeril] hydromorphone HCl AdvReac Intermediate vomits Verified 05/02/20 14:54 [From Dilaudid] Penicillins AdvReac Intermediate vomits Verified 05/02/20 14:54 melatonin AdvReac Headaches Verified 05/02/20 14:54 methocarbamol AdvReac Nausea, Verified 05/02/20 14:54 headache oxycodone [Oxycodone] AdvReac Nausea Verified 05/02/20 14:54 prednisone AdvReac Nausea Verified 05/02/20 14:54 General VENKAT: 2 Review of Systems <Lisa Alanis - Last Filed: 05/21/20 15:06> Narrative: Constitutional: Negative for weight loss, alert and oriented, well groomed, thin body habitus, appears comfortable. HEENT: Denies trauma, headaches, blurry vision, nasal discharge, sore throat, trouble swallowing. Chest: Denies palpitations, irregular rhythm, positive chest pressure stabbing chest pain, history of hypertension. Respiratory: Denies cough, hemoptysis. Reports shortness of breath GI: Denies abdominal pain, diarrhea, constipation. Positive nausea no vomiting. : Denies dysuria, hematuria, flank pain, rectal bleeding. Neuro: Denies blurry vision, , syncope, headache or facial numbness. Positive for generalized weakness Hematologic: Denies easy bruising, intolerance to heat or cold, hair loss. PFSH <Lisa Alanis - Last Filed: 05/21/20 15:06> Medical History Bipolar affective disorder COPD (chronic obstructive pulmonary disease) Generalized anxiety disorder with panic attacks GERD (gastroesophageal reflux disease) Hyperlipidemia Prediabetes Surgical History S/P appendectomy S/P left rotator cuff repair (06/03/15) S/P PRO-BSO (total abdominal hysterectomy and bilateral salpingo-oophorectomy) Family History Mother , at 71 from dementia Alzheimer disease Heart disease Hyperlipidemia Hypertension Father Myocardial infarction Heart disease Alcohol abuse Alcoholic liver disease Sister Crohn disease Sister Hyperlipidemia Sister Type 2 diabetes mellitus Sister No problems noted. Brother , 60s Myocardial infarction Type 2 diabetes mellitus Heart disease Brother Myocardial infarction Heart disease Alcohol abuse Brother No problems noted. Brother Alcohol abuse Dementia Parkinson disease Brother Alzheimer disease Crohn disease Brother Heart disease Lymphoma Hyperlipidemia Son , at 28 from Type 1 diabetes Type 1 diabetes mellitus Son No problems noted. Maternal Grandfather No problems noted. Maternal Grandmother Alzheimer disease Paternal Grandfather No problems noted. Paternal Grandmother Type 2 diabetes mellitus Social History Smoking/Tobacco Use Status: Current every day Tobacco Type: cigarettes Years smoked: 49 Smoking risk assessment performed?: Yes Alcohol Intake: current Alcohol Intake frequency: a few times a week Drug use: Daily Substance use type: marijuana Do you feel safe at home: Yes Do you feel safe in your relationship?: Yes Female Reproductive History Menstrual Menopause type: surgical History History 9 Para 2 Hx # Term Pregnancies 2 Multiple births Hx # Pregnancies Ectopic pregnancies AB induced Hx Number of Living Children 1 AB spontaneous 7 Exam <Lisa Alanis - Last Filed: 05/21/20 15:06> Narrative Exam Narrative: Constitutional: Alert and oriented x3. Appears stated age. Normal body habitus. Head: Normocephalic, no trauma. Eyes: Pupils PERRLA, Red reflex noted, EOM's intact. Eyelids symmetrical without lesions, discharge, or swelling. ENT: Bilateral TM's WNL, External ear normal to inspection, no mastoid TTP, swelling, or erythema, Nasal turbinates WNL, no nasal discharge. Normal dentition, Posterior pharynx WNL, no exudate. Chest: RRR, Normal S1, S2, distal pulses intact. Hypertensive upon initial examination 163/108 Resp: Lungs clear to auscultation bilaterally, no wheezes, rales, or rhonchi. Musculoskeletal: Normal gait, 5/5 strength to all four extremities. Skin: No suspicious rashes or lesions. Capillary refill less than 2 sec. Neurologic: Cranial nerves II-XII intact. Alert and oriented x 3. DTR's intact. Hematologic/Lymphatic: No ecchymosis, no lymphadenopathy.
--- NOTE | 2020-05-21 09:00 | DI.RAD_ITS ---
EXAM: XR CHEST 2V PA LATERAL CLINICAL HISTORY: Chest pain TECHNIQUE: 2D digital imaging was performed. COMPARISON: CR XR CHEST 2V PA LATERAL from 06/30/2019 FINDINGS: MEDIASTINUM: Normal. HEART: Normal. PULMONARY VASCULATURE: Normal. LUNGS: Clear. The lungs are hyperinflated with flattened diaphragms suggesting underlying COPD. PLEURAL SPACE: No pleural effusion or pneumothorax. BONE:Within normal limits for the patient's age. OTHER FINDINGS:Normal. IMPRESSION: No acute pulmonary findings. DATA REPOSITORY: RADIATION DOSE DELIVERED:
[2020-05-21] MEDS: Aspirin 81 MG CHEW 243 MG CH (09:09)
[2020-05-21] MEDS: nitroGLYcerin 0.4 MG TAB SL ×2 (09:10→09:20)
[2020-05-21] MEDS: Normal Saline 1,000 ML 125 ML IV (09:10)
[2020-05-21 09:28] LABS: ALT 49 U/L (14-59); AST 24 U/L (15-37); Albumin 3.8 g/dL (3.4-5.0); Alkaline Phosphatase 79 U/L (46-116); Anion Gap 10.1 mmol/L (3-11); BUN 17 mg/dL (7-18); Bilirubin, Total 0.3 mg/dL (0.2-1.0); CO2 27.9 mmol/L (21.0-32.0); CREATININE 0.7 mg/dL (0.55-1.02); Calcium 8.9 mg/dL (8.5-10.1); Chloride 106 mmol/L (98-107); Glucose 105 mg/dL (74-106); Magnesium 2.4 mg/dL (1.8-2.4); Potassium 4.1 mmol/L (3.5-5.1); Sodium 144 mmol/L (136-145); Total Protein 7.6 g/dL (6.4-8.2); Troponin I < 0.05 ng/mL (<0.06)
[2020-05-21 09:33] LABS: Abs Immature Grans 0.03 10^3/uL (0.0-0.06); Absolute Basophil Count 0.09 10^3/uL (0.0-0.2); Absolute Eosinophil Count 0.27 10^3/uL (0.0-0.7); Absolute Monocyte Count 0.58 10^3/uL (0.1-0.8); Eosinophils % 2.9; HCT 41.5 % (36.0-46.0); HGB 13.7 g/dL (11.2-15.7); Immature Grans % 0.3; Lymphocytes % 21.3; MCH 30.1 pg (27.0-33.0); MCV 91.2 fL (80-95); MPV 9.9 fL (8.0-11.0); Monocytes % 6.2; Neutrophils % 68.3; Nucleated RBC 0 %; Platelet Count 260 10^3/uL (130-400); RBC 4.55 10^6/uL (3.93-5.22); RDW 13.3 % (11.7-14.6); RDW-SD 45.3 fL; WBC 9.37 10^3/uL (4.4-10.8)
--- NOTE | 2020-05-21 10:15 | ETT_ITS ---
APPROVED REPORT Exam: Exercise Treadmill Patient Location: ER Room/Bed: Stress Nurse: Nancy Xiao RN Ordering Provider:GREGORY RIVERO, Contact Number: [phone] BMI: 20.96 Baseline Rhythm: Sinus Rhythm Indications: Chest pain Medical History Medical History: Hyperlipidemia, COPD, tobacco use, prediabetes, anxiety, insomnia, bipolar, PTSD, ge rd, TMJ, osteopenia, mentally disabled, chronic low back pain Cardiac Medications: Rosuvastatin, omeprazole, ibuprofen, famotidine, clonazepam, aspirin Allergies: morphine, fentanyl, lamotrigine, meloxicam, carbamazepine, cyclobenzaprine, hydromorphone, penicillin, melatonin, methocarbamol, oxycodone, prednisone Cardiac Risk Factors: prediabetes, smoker (current), hyperlipidemia, COPD, family hx Previous Cardiac Procedures: None Pretest Chest Pain Characteristics: None Exercise History: Sedentary Physical Disabilities: None Lung Sounds: Clear to auscultation Heart Sounds: Regular Stress Test Details Test: Exercise stress testing was performed using a Dioni protocol. Rest Stress HR Resting HR Supine: 71 bpm Max Heart Rate (APMHR): 165 bpm Resting HR Standin bpm Target HR (85% APMHR): 140 bpm Max HR Achieved: 146 bpm % of APMHR: 88 Recovery HR: 82 bpm HR response to stress: Normal HR response to stress BP Resting BP Supine: 162/98 mmHg Resting BP Standin/98 mmHg Max BP: 196/100 mmHg Recovery BP: 140/92 mmHg BP response to stress: Normal blood pressure response to stress. ECG Resting ECG: Sinus Rhythm Ectopy: None Stress ECG: Sinus Tachycardia ST Change: No significant ST segment changes noted Arrhythmia: PAC, PVC Recovery ECG: Sinus Rhythm Recovery ST Change: No significant ST segment changes noted Recovery Arrhythmia: Frequent PACs Clinical Reason for Termination: Dyspnea, Fatigue Stress Symptoms: Dyspnea, General Fatigue Exercise duration: 9 min46 sec Highest Stage Reached: Stage 4: 4.2 mph at 16% grade. Exercise capacity: 11.43 METs Hou Treadmill Score: 9 Rate Pressure Product: 76451 Stress ECG Conclusion 1. The patient exercised for 10 minutes (11 METS). Exercise was stopped due to fatigue. 2. The patient's blood pressure and heart rate augmented appropriately. 3. There no symptoms suggestive of ischemia. 4. There was no evidence of ischemia on ECG portion exam. Hou Treadmill Score is 9 which is Low risk. Stress Test Summary STAGE Time (mins) Speed (mph) Grade (%) HR BP SYMPTOMS METS Supine 71 162/98 Standing 72 142/98 1 3 1.7 10 104 160/94 4.6 2 6 2.5 12 120 164/98 mild SOB, O2 91% 7 3 9 3.4 14 140 186/102 moderate SOB, O2 90% 10.2 1 min recovery 120 196/100 3 min recovery 92 194/96 symptoms resolved, O2 97% 6 min recovery 82 140/92
--- NOTE | 2020-05-21 10:43 | NUR.NOTE ---
Pt updated on plan for repeat trop/EKG at 1200, stress test at 1300. provided with ice chips, warm blankets. intermittently sleeping. Pain free at this time. Call arciniega in reach.
--- NOTE | 2020-05-21 11:45 | RT.EKG_ITS ---
APPROVED REPORT Exam: Resting ECG Patient Location: E HR:59 bpm ECG Measurements Heart Rate 59 AXIS AR 211 P 57 QRSd 91 QRS 61 QT 444 T 56 QTc 439 Conclusion Sinus bradycardia...rate< 60 Prolonged AR interval...AR >210, V-rate 50- 90 Normal [place] There are no significant changes compared to prior EKG performed on 05/21/2020 at 09:03.
[2020-05-21 12:21] LABS: Troponin I < 0.05 ng/mL (<0.06)
--- NOTE | 2020-05-21 14:11 | NUR.NOTE ---
Returns from stress test. Remains pain free. states had no pain during test, did feel SOB.
--- NOTE | 2020-05-21 18:33 | NUR.NOTE ---
Referral faxed to PCP Shad Melchoru for 1-2 wk f/u for dizzy/syncope.Nursing Note:
== END 2020-05-21 14:56 | disposition home or self-care (01) ==
PROVIDERS: Emergency Provider Registered Nurse Emergency; PCP Nurse Practitioner Family
DX: R07.89 Other chest pain (principal); R06.02 Shortness of breath
CPT/HCPCS: 36415; 80053; 93005; 96360; 96361; 99285; 71046; 83735; 84484; 85025; 93010; 93017

== ENCOUNTER 2020-05-28 01:44 | Outpatient (CLI) | payer MEDICAID, SELFPAY ==
--- NOTE | 2020-05-28 06:45 | DI.NM_ITS ---
APPROVED REPORT Exam: Exercise Treadmill Patient Location: Out-Patient Room/Bed: Stress Nurse: Nancy Xiao RN Ordering Provider:GÉNESISMIGUEL RANDOLPHSUSAN, Contact Number: [phone] BMI: 20.79 Baseline Rhythm: Sinus Rhythm Indications: Left sided chest pain Medical History Medical History: Hyperlipidemia, prediabetes, COPD, bipolar, anxiety, PTSD, gerd, osteopenia, smoker (current) Cardiac Medications: Rosuvastatin, omeprazole, nicotine patch, famotidine, aspirin Allergies: Morphine, fentanyl, lamotrigine, meloxicam, carbamazepine, cyclobenzaprine, hydromorhpne, penicillin, melatonin, methocarbamol, oxycodone, prednisone Cardiac Risk Factors: Hyperlipidemia, prediabetes, smoker (current), COPD, family hx Previous Cardiac Procedures: None Pretest Chest Pain Characteristics: tightness like a band bilateral substernal 4/10 Exercise History: None Physical Disabilities: None Lung Sounds: Clear to auscultation Heart Sounds: Regular Stress Test Details Test: Exercise stress testing was performed using a Dioni protocol. Nuclear Acquisition: Rest Tc-99m/Stress Tc-99m 1 day Rest Isotope: Tc-99m Sestamibi. Dose: 9.0 Date: 05/28/2020 Injection Time: 0910 Stress Isotope: Tc-99m Sestamibi. Dose: 31.8 Date: 05/28/2020 Injection Time: 1105 HR Resting HR Supine: 60 bpm Max Heart Rate (APMHR): 165.168203 bpm Resting HR Standin/96 bpm Target HR (85% APMHR): 140.806612 bpm Max HR Achieved: 152 bpm % of APMHR: 92.12 Recovery HR: 85 bpm HR response to stress: Normal HR response to stress BP Resting BP Supine: 170/96 mmHg Resting BP Standin/104 mmHg Max BP: 188/104 mmHg Recovery BP: 152/98 mmHg BP response to stress: Normal blood pressure response to stress. ECG Resting ECG: Sinus Rhythm Ectopy: None Stress ECG: Sinus Tachycardia ST Change: No significant ST segment changes noted Arrhythmia: Occasional APC's Recovery ECG: Sinus Rhythm Recovery ST Change: No significant ST segment changes noted Recovery Arrhythmia: Occasional APC's Clinical Reason for Termination: Fatigue Stress Symptoms: General Fatigue, Dyspnea Exercise duration: 8 min58 sec Highest Stage Reached: Stage 3: 3.4 mph at 14% grade. Exercise capacity: 10.16 METs Rate Pressure Product: 38622 Stress ECG Conclusion 1. The patient exercised for 9 minutes (10 METS). Exercise was stopped due to fatigue. 2. Patient no symptoms suggestive of ischemia. Heart rate and blood pressure augmented appropriately . 3. There was no evidence of ischemia on the ECG portion of the exam. Hou Treadmill Score is which is Low risk. Stress Test Summary STAGE Time (mins) Speed (mph) Grade (%) HR BP SYMPTOMS METS Supine 60 170/96 tightness like a band bilateral substernal 4/10 Standing 81 152/104 1 3 1.7 10 115 172/102 4.6 2 6 2.5 12 136 184/102 7 3 9 3.4 14 152 188/104 moderate SOB, SPO2 91% 10.2 1 min recovery 128 109/104 tightness resolved 3 min recovery 90 178/96 SOB resolved, SPO2 96% 6 min recovery 85 152/98 MPI Conclusion The ejection fraction was 61% with stress. There were no wall motion abnormalities. There is no evidence of ischemia on the imaging portion of the exam. This represents a normal SPECT stress test. Radiologist Interpretation Radiologist agrees with Ordnance Mechanic's Interpretation. Radiologist Interpretation by: Elly Wiggins MD Interpretation Date/Time: 05/28/2020 15:14:45
== END 2020-05-28 02:04 ==
PROVIDERS: PCP Nurse Practitioner Family; Visit Provider Nurse Practitioner Family
DX: R07.9 Chest pain, unspecified (principal); E78.5 Hyperlipidemia, unspecified; R73.03 Prediabetes; F17.210 Nicotine dependence, cigarettes, uncomplicated; J44.9 Chronic obstructive pulmonary disease, unspecified; Z82.49 Family history of ischemic heart disease and other diseases of the circulatory system
CPT/HCPCS: 78452; 93017

== ENCOUNTER 2020-06-10 02:37 | Outpatient (CLI) | payer MEDICAID, SELFPAY ==
--- NOTE | 2020-06-10 08:30 | DI.MAMMO_ITS ---
EXAM: MG MAMMO SCREENING CLINICAL HISTORY: screening,Z12.39. TECHNIQUE: Bilateral full field digital CC and MLO mammographic images were obtained with 3D tomosyn thesis and utilizing computer aided detection (CAD). COMPARISON: None FINDINGS: In the left breast on 3D MLO imaging there is a noncalcified asymmetric density-possible nodule measu ring 6 x 5 millimeters located approximately 5 cm in from the nipple. Appears to be slightly lateral of center. In the right breast on 3D imaging there is suggestion of noncalcified 6 x 6 millimeter nodule located 5 cm in from the nipple. All spot-compression views and ultrasound recommended. Possibly also 2nd nodule dislocation. There are no malignant-appearing microcalcification groups in either breast. There is no significant architectural distortion nor skin thickening-retraction. IMPRESSION: Bilateral nodules. Bilateral spot compression view and bilateral breast ultrasound recommended. BI-RADS Category 0 - Assessment Incomplete: Need additional imaging evaluation Breast Density - Category B - Scattered areas of fibroglandular density Breast density Category C or D implies that the patient has dense breast tissue. Dense breast tissue can make it harder to find cancer on a mammogram. Dense breast tissue is also associated with an incr eased risk of breast cancer. This information about the result of the mammogram report was provided to the patient to raise their awareness. Use this report when you speak with the patient about their risks for breast cancer, which includes their family history. At that time, you may recommend additional screening tests (Ultrasoun d or MRI) as these tests may add significant information. A negative radiographic report should not delay biopsy if a dominant or clinically suspicious mass is present. Up to ten percent of cancers are not identified on mammography. A negative report may reinforce clinical impression. Adenosis and dense breasts may obscure an underlying neoplasm. False positive reports average 6 to 10%. Patient will receive a letter notifying them of these results.
== END 2020-06-10 02:57 ==
PROVIDERS: PCP Nurse Practitioner Family; Visit Provider Nurse Practitioner Family
DX: Z12.31 Encounter for screening mammogram for malignant neoplasm of breast (principal); R92.8 Other abnormal and inconclusive findings on diagnostic imaging of breast
CPT/HCPCS: 77063; 77067

== ENCOUNTER 2020-06-12 02:23 | Outpatient (CLI) | payer MEDICAID, SELFPAY ==
--- NOTE | 2020-06-12 | DI.US_ITS ---
EXAM: US BREAST RT COMPLETE CLINICAL HISTORY: F/U MAMMO, LT ASYMMETRIC DENSITY, ? NODULE. TECHNIQUE: Complete ultrasound of the right breast was performed incluing all 4 quadrants, the retro areolar region, and the ipsilateral axilla. COMPARISON: Prior recent mammogram at this institution was reviewed FINDINGS: There is no evidence of solid or significant cystic lesions in all 4 quadrants. The retroareolar reg ion was also negative. Ipsilateral right axilla is negative for significant adenopathy. IMPRESSION: Negative right breast ultrasound. There are no ultrasound findings to correspond to the nodular dens ities seen on the mammogram. I discussed findings with the patient today and she informs me that she has actually had prior mammog jules at outside institutions. We will send for these. Addendum will follow after these are received and compared. If you have not received an addendum in 2 weeks time and please contact me in the Rad iology Department at [facility]. Appropriate follow-up otherwise is repeat mammogram in 6 months with earlier imaging if a self detect ed breast changes noted.. BI-RADS Category 0 - Assessment Incomplete: Need additional imaging evaluation. Specifically compari son to prior outside mammograms (see above) Breast Density - Category B - Scattered areas of fibroglandular density Breast density Category C or D implies that the patient has dense breast tissue. Dense breast tissue can make it harder to find cancer on a mammogram. Dense breast tissue is also associated with an incr eased risk of breast cancer. This information about the result of the mammogram report was provided to the patient to raise their awareness. Use this report when you speak with the patient about their risks for breast cancer, which includes their family history. At that time, you may recommend additional screening tests (Ultrasoun d or MRI) as these tests may add significant information. A negative radiographic report should not delay biopsy if a dominant or clinically suspicious mass is present. Up to ten percent of cancers are not identified on mammography. A negative report may reinforce clinical impression. Adenosis and dense breasts may obscure an underlying neoplasm. False positive reports average 6 to 10%. Patient will receive a letter notifying them of these results.
--- NOTE | 2020-06-12 | DI.US_ITS ---
EXAM: US BREAST LT COMPLETE CLINICAL HISTORY: F/U MAMMO, ? TWO NODULES. TECHNIQUE: Complete ultrasound of the left breast was performed incluing all 4 quadrants, the retroa reolar region, and the ipsilateral axilla. COMPARISON: Prior recent mammogram was reviewed FINDINGS: There is no evidence of solid or significant cystic lesions in all 4 quadrants of the left breast. A lso no focal findings in the retroareolar region. This implies that the nodular density seen on the recent mammogram is most probably benign intramamma ry lymph node Left axilla is negative for significant adenopathy. IMPRESSION: Negative left breast ultrasound. This implies that the small nodular density described in the left b reast on the recent mammogram is probably benign lymph node. However, when I spoke to the patient today she actually claims to have had prior mammograms elsewhere . I feel would be important to acquire these mammograms for comparison purposes. An addendum will f ollow if we receive these mammograms. If you have not received an addendum in 2 weeks time then please contact me in the radiology departme nt at [facility]. In the meantime I recommend repeat bilateral 3D mammography in 6 months, with earlier imaging if a se lf detected breast changes noted. \ BI-RADS Category 0 - Assessment Incomplete: Need additional imaging evaluation. Specifically compari son to prior outside mammograms. Breast Density - Category B - Scattered areas of fibroglandular density Breast density Category C or D implies that the patient has dense breast tissue. Dense breast tissue can make it harder to find cancer on a mammogram. Dense breast tissue is also associated with an incr eased risk of breast cancer. This information about the result of the mammogram report was provided to the patient to raise their awareness. Use this report when you speak with the patient about their risks for breast cancer, which includes their family history. At that time, you may recommend additional screening tests (Ultrasoun d or MRI) as these tests may add significant information. A negative radiographic report should not delay biopsy if a dominant or clinically suspicious mass is present. Up to ten percent of cancers are not identified on mammography. A negative report may reinforce clinical impression. Adenosis and dense breasts may obscure an underlying neoplasm. False positive reports average 6 to 10%. Patient will receive a letter notifying them of these results.
--- NOTE | 2020-06-12 14:20 | DI.MAMMO_ITS ---
EXAM: MG MAMMO SCREEN CALL BACK BI CLINICAL HISTORY: F/U MAMMO, LT BREAST ASYMMETRIC DENSITY, ? NODULE, ? 2 NODULES RT BREAST. TECHNIQUE: Bilateral spot compression 3D views were performed. We also performed bilateral complete breast ultrasound. COMPARISON: A recent mammogram performed at this institution was reviewed.. FINDINGS: These additional views do not dissipate the nodular densities described in both breasts. We therefore proceeded with bilateral complete breast ultrasound exam. Ultrasound performed today reveals no significant solid nor cystic lesions in either breast. IMPRESSION: As above. My discussion today with the patient reveals that she has actually had prior mammograms at outside institutions. We will send for these. An addendum will follow up once they are compared. If you have not received an addendum in 2 weeks on the please contact me in the Radiology Department at [facility]. In the meantime appropriate follow-up will be repeat bilateral mammogram in 6 months, with earlier im aging if a self detected breast changes noted. BI-RADS Category 0 - Assessment Incomplete: Need additional imaging evaluation, specifically comparis on to outside mammograms which are being sent for. See above discussion. Breast Density - Category B - Scattered areas of fibroglandular density Breast density Category C or D implies that the patient has dense breast tissue. Dense breast tissue can make it harder to find cancer on a mammogram. Dense breast tissue is also associated with an incr eased risk of breast cancer. This information about the result of the mammogram report was provided to the patient to raise their awareness. Use this report when you speak with the patient about their risks for breast cancer, which includes their family history. At that time, you may recommend additional screening tests (Ultrasoun d or MRI) as these tests may add significant information. A negative radiographic report should not delay biopsy if a dominant or clinically suspicious mass is present. Up to ten percent of cancers are not identified on mammography. A negative report may reinforce clinical impression. Adenosis and dense breasts may obscure an underlying neoplasm. False positive reports average 6 to 10%. Patient will receive a letter notifying them of these results.
== END 2020-06-12 02:43 ==
PROVIDERS: PCP Nurse Practitioner Family; Visit Provider Nurse Practitioner Family
DX: Z12.31 Encounter for screening mammogram for malignant neoplasm of breast (principal); R92.8 Other abnormal and inconclusive findings on diagnostic imaging of breast; N60.81 Other benign mammary dysplasias of right breast; N60.82 Other benign mammary dysplasias of left breast
CPT/HCPCS: 76642; 77063; 77067

== ENCOUNTER 2020-08-20 02:10 | Outpatient (CLI) | payer MEDICAID, SELFPAY ==
--- NOTE | 2020-08-20 15:16 | DI.CTLCSR_ITS ---
Exam(s) CT CHEST LUNG CANCER SCREEN EXAM: CT CHEST LUNG CANCER SCREEN CLINICAL HISTORY: Screening for lung cancer,CURRENT SMOKER, F17.210 TECHNIQUE: CT examination of the chest was performed utilizing low-dose lung cancer screening protoc ol. COMPARISON: CT CHEST FOR PULMONARY EMBOLUS from 11/04/[address] ABDOMEN W from 03/26/[address] ABDOMEN W from 03/26/2020 FINDINGS: Images obtained through the upper abdomen show unremarkable appearance of visualized portions of the liver, spleen, pancreas, adrenals, kidneys. There is no mediastinal or hilar adenopathy. Mediastinal vascular structures appear intact by noncon trast criteria. Tracheobronchial tree appears intact. No pleural effusion or pleural-based mass. There are severe pulmonary emphysematous changes. No focal pulmonary consolidation. Stable 6 millim eter mean diameter right lung base nodule seen, no change from October 2016. IMPRESSION: Negative LDCT of the chest.Lung RADS Cat 2 - Benign Appearance / Behavior: Nodules with a very low li kelihood of becoming a clinically active cancer due to size or lack of growth Continue annual screening with LDCTin 12 months. RADIATION DOSE DELIVERED: 86.63mGy.cm Total DLP 86.63mGy.cm Total DLP RADIATION OPTIMIZATION: All CT scans at this facility use at least one of these dose optimization te chniques: automated exposure control; mA and/or kV adjustment per patient size (includes targeted exa ms where dose is matched to clinical indication); or iterative reconstruction.
== END 2020-08-20 02:30 ==
PROVIDERS: PCP Nurse Practitioner Family; Visit Provider Nurse Practitioner Family
DX: Z12.2 Encounter for screening for malignant neoplasm of respiratory organs (principal); R91.8 Other nonspecific abnormal finding of lung field; F17.210 Nicotine dependence, cigarettes, uncomplicated
CPT/HCPCS: 71271

== ENCOUNTER 2021-02-18 14:03 | Outpatient (REF) | payer MEDICAID, SELFPAY ==
[2021-02-18 19:34] LABS: Bilirubin Negative (Negative); Blood Trace-intact (Negative); Clarity Sl Cloudy (Clear); Glucose Negative (Negative); Ketones Negative (Negative); Leukocyte Esterase Large (Negative); Nitrite Negative (Negative); Urobilinogen 0.2 EU/dL (Up TO 0.2)
[2021-02-18 19:44] LABS: Epithelial Cells Few HPF (Negative); Other Cells Mod Transitional (Negative); WBC >50 HPF (0-5)
[2021-02-18 19:45] LABS: Bacteria Rare HPF (Negative); C & S Indicated? Yes; Crystals Negative HPF (Negative); Mucus Negative (Negative)
== END 2021-02-18 14:04 | disposition home or self-care (01) ==
LOC: LBN 14:03
PROVIDERS: PCP Nurse Practitioner Family; Visit Provider Nurse Practitioner Family
DX: R39.89 Other symptoms and signs involving the genitourinary system (principal); N39.0 Urinary tract infection, site not specified
CPT/HCPCS: 81003; 81015; 87086

== ENCOUNTER 2021-02-19 08:29 | Emergency (ER) | payer MEDICAID, SELFPAY ==
[2021-02-19 09:06] VITALS: BP 146/110; PULSE 68; RESP 18; TEMP 36.8; O2SAT 98
[2021-02-19] MEDS: Normal Saline 500 ML 1000 ML IV (09:20)
[2021-02-19] MEDS: Prochlorperazine 10 MG/2 ML VIAL IVP (09:20)
[2021-02-19] MEDS: Ketorolac 15 MG/ML VIAL IVP (09:20)
--- NOTE | 2021-02-19 10:15 | W.ED.GENAD ---
Discharge Plan Disposition Patient Disposition: HOME Condition: Stable Discharge Details Clinical Impression: Headache, Cervicalgia Primary Care Provider: Lorri Curry ED Provider: Jazmine Moya Home Meds and New Rx's Prescriptions: New prochlorperazine maleate [Compazine] 10 mg tablet 10 mg PO Q6H PRNQty: 10 RF: 0 diclofenac sodium [Voltaren Arthritis Pain] 1 % gel 4 g topical QID Qty: 100 RF: 0 Continued nitrofurantoin monohyd/m-cryst [Macrobid] 100 mg capsule 100 mg PO Q12H 5 Days Qty: 10 RF: 0 phenazopyridine [Pyridium] 100 mg tablet 100 mg PO TID PRN (Reason: pain) Qty: 6 RF: 0 amitriptyline 25 mg tablet 25 mg PO QHS Qty: 90 RF: 4 nicotine 14 mg/24 hr patch 24 hour 1 patch transdermal DAILY Qty: 14 RF: 0 nicotine 21 mg/24 hr patch 24 hour 1 patch transdermal DAILY Qty: 42 RF: 0 nicotine 7 mg/24 hr patch 24 hour 1 patch transdermal DAILY 14 Days Qty: 14 RF: 6 albuterol sulfate 90 mcg/actuation HFA aerosol inhaler 2 inh inhalation Q6H PRN (Reason: shortness of breath or wheezing) Qty: 18 RF: 4 aspirin [Aspir-81] 81 MG tablet,delayed release (DR/EC) 81 mg PO DAILY Qty: 90 RF: 4 ibuprofen 800 mg tablet 800 mg PO TID PRN (Reason: pain) Qty: 90 RF: 3 omeprazole 40 mg capsule,delayed release(DR/EC) 40 mg PO DAILY Qty: 90 RF: 4 clonazepam 1 mg tablet 1 mg PO TID Qty: 90 RF: 0 rosuvastatin 40 mg tablet 40 mg PO QHS RF: 0 Discharge Instructions Instructions: General Headache (ED), Neck Pain (ED) Additional Instructions: Please continue taking ibuprofen 600 mg every 8 hours with food for your pain You may take Compazine as needed for headache Please follow-up with your primary care physician in 1 to 2 days for reassessment Please return earlier should you have strength or sensation change, persistent or worsening headache, strength or sensation change, or with any new or worsening complaints Refrain from repetitive motion greater than 5 pounds Use diclofenac gel to the affected area of your neck for pain control You may use warm or heat or compresses, what ever feels better several hours after applying Referrals: Lorri Curry NP [Primary Care Provider] - Discharge Data Discharge Date/Time-TO BE ENTERED AT DEPARTURE: 02/19/21 10:52 Medical Decision Making Patient initially quite uncomfortable, after migraine cocktail with significant improvement in symptoms, patient request discharge home, nonfocal neurological exam, I did consider vertebral or carotid dissection or more ominous pathology, however given her clinical presentation and physical exam findings, my suspicion for this more ominous pathology is low She has persistent right lateral neck pain, consistent with a SCM strain is some trapezius involvement She is back on diclofenac gel and Compazine for headache Her headache is almost completely resolved, declines risk for carbon monoxide exposure, alert and oriented with nonfocal neurological exam Recheck with primary care physician recommended in the outpatient setting Return discussed and patient expressed understanding, I did consider imaging, however given her benign presentation, this is deferred at this time Patient discharged with mild hypertension, instructed to have PCP recheck this week Given the threshold to return should she have new or worsening complaints, discharged home alert, oriented, nonfocal neurologic exam in stable condition with stable vitals Medical Records Medical records reviewed: Yes I reviewed the patient's medical records. Lab Data Lab results reviewed: Yes I reviewed the patient's lab results. HPI General Mode of arrival: EMS. Date/Time Provider Initiated Documentation: 02/19/21 08:42. Limitations to Documentation: no limitations. Information obtained by: patient. HPI Narrative: This 55-year-old female presents with report of injuring her right neck while hanging laundry 2 days prior to arrival. She is been using ibuprofen at home but coughed after smoking a marijuana joint and this caused onset of worsening pain and subsequent headache. Patient has a history of migraine she reports. She denies any dizziness. She denies right worst headache of life. She denies any vision change. She has been intermittently nauseous with 1 episode of vomiting. She denies any fever or chills. She denies any change in headache presentation. She denies any difficulty walking, speech, strength or sensation change. She denies any known risk of carbon monoxide exposure. She attempted to take ibuprofen prior to arrival but vomited it secondary to mild Related Data Home Medications Medication Instructions Recorded Confirmed aspirin [Aspir-81] 81 mg PO DAILY #90 tab-cap 03/09/13 02/19/21 ibuprofen 800 mg tablet 800 mg PO TID PRN #90 tab 04/19/20 02/19/21 rosuvastatin 40 mg PO QHS 04/26/20 02/19/21 omeprazole 40 mg capsule,delayed 40 mg PO DAILY #90 cap 05/15/20 02/19/21 release albuterol sulfate 90 mcg/actuation 2 inh INHALATION Q6H PRN #18 g 01/30/21 02/19/21 aerosol inhaler amitriptyline 25 mg tablet 25 mg PO QHS #90 tab 01/30/21 02/19/21 nicotine 14 mg/24 hr daily 1 patch TRANSDERMAL DAILY #14 ea 01/30/21 02/19/21 transdermal patch nicotine 21 mg/24 hr daily 1 patch TRANSDERMAL DAILY #42 ea 01/30/21 02/19/21 transdermal patch nicotine 7 mg/24 hr daily 1 patch TRANSDERMAL DAILY 14 Days 01/30/21 02/19/21 transdermal patch #14 ea clonazepam 1 mg tablet 1 mg PO TID #90 tab 02/12/21 02/19/21 nitrofurantoin 100 mg PO Q12H 5 Days #10 cap 02/18/21 02/19/21 monohydrate/macrocrystals 100 mg capsule phenazopyridine 100 mg tablet 100 mg PO TID PRN #6 tab 02/18/21 02/19/21 diclofenac sodium [Voltaren 4 g TOPICAL QID #100 g 02/19/21 Arthritis Pain] prochlorperazine maleate 10 mg PO Q6H PRN #10 tab 02/19/21 [Compazine] Previous Rx's Medication Instructions Recorded ibuprofen 800 mg tablet 800 mg PO TID PRN #90 tab 04/19/20 omeprazole 40 mg capsule,delayed 40 mg PO DAILY #90 cap 05/15/20 release albuterol sulfate 90 mcg/actuation 2 inh INHALATION Q6H PRN #18 g 01/30/21 aerosol inhaler amitriptyline 25 mg tablet 25 mg PO QHS #90 tab 01/30/21 nicotine 14 mg/24 hr daily 1 patch TRANSDERMAL DAILY #14 ea 01/30/21 transdermal patch nicotine 21 mg/24 hr daily 1 patch TRANSDERMAL DAILY #42 ea 01/30/21 transdermal patch nicotine 7 mg/24 hr daily 1 patch TRANSDERMAL DAILY 14 Days 01/30/21 transdermal patch #14 ea clonazepam 1 mg tablet 1 mg PO TID #90 tab 02/12/21 nitrofurantoin 100 mg PO Q12H 5 Days #10 cap 02/18/21 monohydrate/macrocrystals 100 mg capsule phenazopyridine 100 mg tablet 100 mg PO TID PRN #6 tab 02/18/21 diclofenac sodium [Voltaren 4 g TOPICAL QID #100 g 02/19/21 Arthritis Pain] prochlorperazine maleate 10 mg PO Q6H PRN #10 tab 02/19/21 [Compazine] Allergies Allergy/AdvReac Type Severity Reaction Status Date / Time morphine Allergy Severe stops my Verified 02/19/21 10:27 heart fentanyl Allergy Intermediate Hives Verified 02/19/21 10:27 lamotrigine Allergy Intermediate Facial Verified 02/19/21 10:27 blistering meloxicam AdvReac Severe Nausea and Verified 02/19/21 10:27 vomiting carbamazepine AdvReac Intermediate Drowsiness Verified 02/19/21 10:27 and ataxia cyclobenzaprine HCl AdvReac Intermediate vomits Verified 02/19/21 10:27 [From Flexeril] hydromorphone HCl AdvReac Intermediate vomits Verified 02/19/21 10:27 [From Dilaudid] Penicillins AdvReac Intermediate vomits Verified 02/19/21 10:27 acetaminophen [From Tylenol] AdvReac stomach Verified 02/19/21 10:27 cramps melatonin AdvReac Headaches Verified 02/19/21 10:27 methocarbamol AdvReac Nausea, Verified 02/19/21 10:27 headache oxycodone [Oxycodone] AdvReac Nausea Verified 02/19/21 10:27 prednisone AdvReac Nausea Verified 02/19/21 10:27 General Stated Complaint: Headache VENKAT: 3 Review of Systems All systems reviewed & are unremarkable except as noted in HPI and below PFSH All Active Problems Headache (Acute) Cervicalgia (Acute) Hyperlipidemia (Chronic) Prediabetes (Chronic) COPD (chronic obstructive pulmonary disease) (Chronic) LDCT annually, negative July 2020 Bipolar affective disorder (Chronic) Followed by [facility] Psych Generalized anxiety disorder with panic attacks (Chronic) Post traumatic stress disorder (PTSD) (Chronic) Insomnia (Chronic) GERD (gastroesophageal reflux disease) (Chronic) Cigarette smoker (Chronic) LDCT annually, negative July 2020 Chronic low back pain (Chronic) Surgical History S/P appendectomy S/P left rotator cuff repair (06/03/15) S/P PRO-BSO (total abdominal hysterectomy and bilateral salpingo-oophorectomy) Family History Mother , at 71 from dementia Alzheimer disease Heart disease Hyperlipidemia Hypertension Father Myocardial infarction Heart disease Alcohol abuse Alcoholic liver disease Sister Crohn disease Sister Hyperlipidemia Sister Type 2 diabetes mellitus Sister No problems noted. Brother , 60s Myocardial infarction Type 2 diabetes mellitus Heart disease Brother Myocardial infarction Heart disease Alcohol abuse Brother No problems noted. Brother Alcohol abuse Dementia Parkinson disease Brother Alzheimer disease Crohn disease Brother Heart disease Lymphoma Hyperlipidemia Son , at 28 from Type 1 diabetes Type 1 diabetes mellitus Son No problems noted. Maternal Grandfather No problems noted. Maternal Grandmother Alzheimer disease Paternal Grandfather No problems noted. Paternal Grandmother Type 2 diabetes mellitus Social History Smoking/Tobacco Use Status: Current every day Tobacco Type: cigarettes Years smoked: 49 Tobacco: How many years used: 50 Quit status: considering quitting Second Hand Exposure: Yes Smoking risk assessment performed?: Yes Alcohol Intake: current Alcohol Intake frequency: a few times a week Alcohol type: wine Drug use: Daily Substance use type: marijuana Housing: house Pets and animals: Yes Pets and animals: bird(s) Sexually active: Yes Do you think of yourself as: straight/heterosexual Current gender identity: female How often do you talk on the phone with friends or family?: three or more times per week Do you belong to any clubs or organized social groups?: no Panel score (0-1 are the most socially isolated patients): 1 Seatbelt use: always Helmet use: Yes Helmet use: always Drive intox or ride w/intox line haul driver: No Do you feel safe at home: Yes Do you feel safe in your relationship?: Yes Female Reproductive History Menstrual Menopause type: surgical History History 9 Para 2 Hx # Term Pregnancies 2 Multiple births Hx # Pregnancies Ectopic pregnancies AB induced Hx Number of Living Children 1 AB spontaneous 7 Exam Const General: cooperative, comfortable and no acute distress HENWY Head: normal to inspection and normocephalic Mouth: oral mucosae normal Eyes General: appearance normal, both eyes and all related structures Pupils: PERRL EOM: EOM intact bilaterally Neck Neck images: 1. Tenderness with palpation, no rashes, no carotid bruits Limited range of motion secondary to pain, lateral, no meningismus 2. Skin General skin exam: no rashes or lesions noted Neuro General: patient alert, patient oriented x3 and no focal motor deficits Cranial Nerves: CN's II-XI intact bilaterally and tongue midline Cognition: normal cognition Speech: speech normal Gait: normal gait Motor: strength 5/5 throughout Sensory Exam: no sensory deficits noted Other: Ambulatory with steady gait Extrem Other: Distal pulses intact, strength and sensation intact distally Course Vital Signs Vital signs: Vital Signs Temperature 36.8 C 02/19/21 09:06 Pulse 68 02/19/21 09:06 Respiratory Rate 18 02/19/21 09:06 Blood Pressure 146/110 H 02/19/21 09:06 Pulse Oximetry 98 02/19/21 09:06 Temperature 36.8 C 02/19/21 09:06 Temperature Source Temporal Artery Scan 02/19/21 09:06 Pulse 68 02/19/21 09:06 Respiratory Rate 18 02/19/21 09:06 Respiratory Effort Non-Labored 02/19/21 10:03 Blood Pressure 146/110 H 02/19/21 09:06 Blood Pressure Position Sitting 02/19/21 09:06 Pulse Oximetry 98 02/19/21 09:06 Oxygen Delivery Method Room Air 02/19/21 09:06 Oxygen Flow Rate 0 02/19/21 09:06 Pain Level 10 02/19/21 09:06 PAWSS Have you Been Recently Intoxicated or Drunk Within the Last 30 days?: No Have you Ever Experienced Previous Episodes of Alcohol Withdrawal?: No Have you ever Experienced Withdrawal Seizures?: No Have you ever Experienced Delirium Tremens(DT)s?: No Have you ever undergone Alcohol Rehabilitation Treatment (i.e, inpt ot outpatient treatment programs)?: No Have you ever Experienced Blackouts?: No Have you ever Combined Alcohol with other Downers within the last 90 days?: No Have you ever Combined Alcohol with any other Substance of Abuse during the last 90 days?: No Positive Blood Alcohol level on Presentation? [PCS.BAL]: No Evidence of Increased Autonomic Activity (i.e. HR>120, tremor, sweating, agitation, nausea)?: No Result: 0
[2021-02-19 10:51] VITALS: BP 147/99; PULSE 69; RESP 16; O2SAT 97
== END 2021-02-19 10:52 | disposition home or self-care (01) ==
PROVIDERS: Emergency Provider Physician Assistant; PCP Nurse Practitioner Family
DX: R51.9 Headache, unspecified (principal); M54.2 Cervicalgia
CPT/HCPCS: 96361; 96374; 96375; 96376; 99284; 99283; J0780; J1885; J3360

== ENCOUNTER 2021-04-11 21:37 | Emergency (ER) | payer MEDICAID, SELFPAY ==
[2021-04-11 22:00] VITALS: BP 136/98; PULSE 89; RESP 18; O2SAT 97
[2021-04-11 22:30] VITALS: BP 112/66; PULSE 81; RESP 18; O2SAT 97
--- NOTE | 2021-04-11 22:30 | DI.CT_ITS ---
Exam(s) CT ABDOMEN PELVIS W EXAM: CT ABDOMEN PELVIS W CLINICAL HISTORY: LUQ abd pain TECHNIQUE: Imaging Protocol: Axial computed tomography images with coronal and sagittal reformatted images were created and reviewed CONTRAST MATERIAL: Intravenous: Omnipaque 350 Contrast volume:83 mL Oral: No COMPARISON: CT CHEST FOR PULMONARY EMBOLUS from 11/04/[address] ABDOMEN W from 03/26/2020 FINDINGS: ABDOMEN: Lung Bases: Is images changes are seen in the lung bases. There is a stable 5 mm nodule in the right lower lobe. This is unchanged dating back to the oldest examination from 11/04/2016. Liver: Normal density. No measurable mass. There are few tiny hypodensities seen in the liver. They are too small for further characterization but likely reflect small cysts. Portal, Superior Mesenteric, and Splenic Veins: Unremarkable. Gallbladder and Biliary Tract: Gallbladder is contracted but grossly unremarkable. No biliary ductal dilatation. Pancreas: Normal density, no abnormal calcifications or inflammatory process. Spleen: Normal. Adrenals: No masses seen. Kidneys: Normal size, contour and axis. No radiodense stones or obstructive uropathy. No masses seen. Abdominal Aorta: Abdominal portion non-dilated. Atherosclerosis. Bowel: No obstruction or bowel wall thickening. No evidence of appendicitis. Peritoneal Cavity: No ascites, collection or mesenteric inflammatory response. No free air. Lymph Nodes: Within normal limits. Bones: Within normal limits for the patient's age. Soft Tissues: Unremarkable. PELVIS: Bladder: Symmetric distention, no gross wall thickening. Reproductive Organs: Status post hysterectomy. Lymph Nodes: Within normal limits. Bones: Within normal limits for the patient's age. IMPRESSION: No acute abdominal or pelvic process. RADIATION DOSE DELIVERED: 558.44mGy.cm Total DLP DATA REPOSITORY: All CT scans at this facility are submitted to the National Radiology Data Registry (NRDR) Dose Index Registry (DIR) with the [employer] (A[employer]). RADIATION OPTIMIZATION: All CT scans at this facility use at least one of these dose optimization te chniques: automated exposure control; mA and/or kV adjustment per patient size (includes targeted exa ms where dose is matched to clinical indication); or iterative reconstruction.
[2021-04-11 22:50] LABS: Lactate 1.2 mmol/L (0.6-1.4)
[2021-04-11 22:56] LABS: Abs Immature Grans 0.03 10^3/uL (0.0-0.06); Absolute Basophil Count 0.09 10^3/uL (0.0-0.2); Absolute Eosinophil Count 0.22 10^3/uL (0.0-0.7); Absolute Lymphocyte Count 3.55 10^3/uL (1.2-3.4); Absolute Monocyte Count 0.77 10^3/uL (0.1-0.8); Absolute Neutrophil Count 5.42 10^3/uL (1.2-6.7); Basophils % 0.9; Eosinophils % 2.2; HCT 41.8 % (36.0-46.0); HGB 13.8 g/dL (11.2-15.7); Immature Grans % 0.3; Lymphocytes % 35.2; MCH 29.9 pg (27.0-33.0); MCV 90.7 fL (80-95); MPV 10.1 fL (8.0-11.0); Monocytes % 7.6; Neutrophils % 53.8; Nucleated RBC 0 %; Platelet Count 299 10^3/uL (130-400); RBC 4.61 10^6/uL (3.93-5.22); RDW 13.9 % (11.7-14.6); RDW-SD 46.5 fL; WBC 10.08 10^3/uL (4.4-10.8)
[2021-04-11 23:11] LABS: ALT 40 U/L (14-59); AST 23 U/L (15-37); Albumin 4.1 g/dL (3.4-5.0); Alkaline Phosphatase 84 U/L (46-116); Anion Gap 8.8 mmol/L (3-11); BUN 13 mg/dL (7-18); Bilirubin, Total 0.2 mg/dL (0.2-1.0); CO2 26.2 mmol/L (21.0-32.0); CREATININE 0.7 mg/dL (0.55-1.02); Calcium 8.9 mg/dL (8.5-10.1); Chloride 104 mmol/L (98-107); Glucose 119 mg/dL (74-106); Lipase 94 U/L (73-393); Potassium 3.7 mmol/L (3.5-5.1); Sodium 139 mmol/L (136-145); Total Protein 7.9 g/dL (6.4-8.2)
--- NOTE | 2021-04-11 23:19 | W.ED.GENAD ---
Discharge Plan Disposition Patient Disposition: HOME Condition: Stable Discharge Details Clinical Impression: Abdominal pain Primary Care Provider: Lorri Curry ED Provider: Albino Vences Home Meds and New Rx's Prescriptions: Continued amitriptyline 25 mg tablet 25 mg PO QHS Qty: 90 4RF nicotine 7 mg/24 hr patch 24 hour 1 patch transdermal DAILY 14 Days Qty: 14 6RF Rx Instructions: Apply 1 patch daily for 2 wks after 14mg patch albuterol sulfate 90 mcg/actuation HFA aerosol inhaler 2 inh inhalation Q6H PRN (Reason: shortness of breath or wheezing) Qty: 18 4RF aspirin [Aspir-81] 81 MG tablet,delayed release (DR/EC) 81 mg PO DAILY Qty: 90 4RF No Action omeprazole 40 mg capsule,delayed release(DR/EC) 40 mg PO DAILY Qty: 90 4RF Rx Instructions: 1 capsule once a day rosuvastatin 40 mg tablet 40 mg PO QHS Qty: 90 4RF nicotine 21 mg/24 hr patch 24 hour 1 patch transdermal DAILY Qty: 42 0RF Rx Instructions: Apply 1 patch daily for 6 weeks ibuprofen 800 mg tablet 800 mg PO TID PRN (Reason: pain) Qty: 90 3RF clonazepam 1 mg tablet 1 mg PO TID Qty: 84 0RF Discharge Instructions Additional Instructions: Try to avoid ibuprofen you can take tums or mylanta as needed, follow dosing instructions on packaging you should be contacted with an appointment for a general surgery consult for possible endoscopy if you feel more ill, have persistent vomit or severe worsening pain return to the emergency department Discharge Data Discharge Date/Time-TO BE ENTERED AT DEPARTURE: 04/12/21 00:49 Medical Decision Making <Winston Dixon MD - Last Filed: 05/06/21 16:25> 55-year-old female presents with left upper quadrant abdominal pain, that started 2 days ago and has waxed and waned, worse today. Patient is tender left upper quadrant with some guarding. Concern for acute intra-abdominal surgical process. Plan to obtain CT of the abdomen pelvis. Labs reviewed and no leukocytosis noted. LFTs and lipase normal. Lactate normal. Patient was given Pepcid 20 mg IV. Care signed out to Dr. Vences with plan to follow-up on CT imaging and to reassess the patient for disposition. <Albino Vences MD - Last Filed: 04/12/21 00:20> 55-year-old female presents with left upper quadrant abdominal pain, that started 2 days ago and has waxed and waned, worse today. Patient is tender left upper quadrant with some guarding. Concern for acute intra-abdominal surgical process. Plan to obtain CT of the abdomen pelvis. Labs reviewed and no leukocytosis noted. LFTs and lipase normal. Lactate normal. Patient was given Pepcid 20 mg IV. Care signed out to Dr. Vences with plan to follow-up on CT imaging and to reassess the patient for disposition. Pt signed out to me pending CT which was negative for acute pathology and labs are benign. She is stable, endoreses mild discomfort now in luq, no guarding or rebound. She states she was supposed to have an endoscopy months ago but was delayed due to a covid exposure and she never rescheduled. Will place on f/u list to see general surgery sonya for possible endoscopy as an outpatient. She is stable for d/c, return precautions given Imaging Data Radiologic Study: Attestation: I personally reviewed and interpreted this imaging study as follows: Imaging: CT Scan Radiologist's impression: no acute findings Lab Data Lab results reviewed: Yes I reviewed the patient's lab results. HPI <Winston Dixon MD - Last Filed: 05/06/21 16:25> General Date/Time Provider Initiated Documentation: 04/11/21 22:00. HPI Narrative: 55-year-old female with history of GERD, presents with chief complaint of abdominal pain. Pain is localized to left upper quadrant. Pain started 2 days ago and has persisted. Worse tonight after eating. Pain is described as a pressure sensation sharp. Denies associated fever or vomiting. No bright red blood per rectum or melena. Normal bowel movements. Related Data Home Medications Medication Instructions Recorded Confirmed aspirin 81 mg tablet,delayed 81 mg PO DAILY #90 tab-cap 03/09/13 05/05/21 release (Aspir-) ibuprofen 800 mg tablet 800 mg PO TID PRN #90 tab 04/19/20 05/05/21 albuterol sulfate 90 mcg/actuation 2 inh INHALATION Q6H PRN #18 g 01/30/21 05/05/21 aerosol inhaler amitriptyline 25 mg tablet 25 mg PO QHS #90 tab 01/30/21 05/05/21 nicotine 7 mg/24 hr daily 1 patch TRANSDERMAL DAILY 14 Days 01/30/21 05/05/21 transdermal patch #14 ea clonazepam 1 mg tablet 1 mg PO TID #84 tab 04/14/21 05/05/21 nicotine 21 mg/24 hr daily 1 patch TRANSDERMAL DAILY #42 ea 04/21/21 05/05/21 transdermal patch omeprazole 40 mg capsule,delayed 40 mg PO DAILY #90 cap 04/21/21 05/05/21 release rosuvastatin 40 mg tablet 40 mg PO QHS #90 tab 04/21/21 05/05/21 Previous Rx's Medication Instructions Recorded ibuprofen 800 mg tablet 800 mg PO TID PRN #90 tab 04/19/20 albuterol sulfate 90 mcg/actuation 2 inh INHALATION Q6H PRN #18 g 01/30/21 aerosol inhaler amitriptyline 25 mg tablet 25 mg PO QHS #90 tab 01/30/21 nicotine 7 mg/24 hr daily 1 patch TRANSDERMAL DAILY 14 Days 01/30/21 transdermal patch #14 ea clonazepam 1 mg tablet 1 mg PO TID #84 tab 04/14/21 nicotine 21 mg/24 hr daily 1 patch TRANSDERMAL DAILY #42 ea 04/21/21 transdermal patch omeprazole 40 mg capsule,delayed 40 mg PO DAILY #90 cap 04/21/21 release rosuvastatin 40 mg tablet 40 mg PO QHS #90 tab 04/21/21 Allergies Allergy/AdvReac Type Severity Reaction Status Date / Time morphine Allergy Severe stops my Verified 04/21/21 14:51 heart fentanyl Allergy Intermediate Hives Verified 04/21/21 14:51 lamotrigine Allergy Intermediate Facial Verified 04/21/21 14:51 blistering meloxicam AdvReac Severe Nausea and Verified 04/21/21 14:51 vomiting carbamazepine AdvReac Intermediate Drowsiness Verified 04/21/21 14:51 and ataxia cyclobenzaprine HCl AdvReac Intermediate vomits Verified 04/21/21 14:51 [From Flexeril] hydromorphone HCl AdvReac Intermediate vomits Verified 04/21/21 14:51 [From Dilaudid] Penicillins AdvReac Intermediate vomits Verified 04/21/21 14:51 thiopental AdvReac Intermediate Verified 05/05/21 14:58 acetaminophen [From Tylenol] AdvReac stomach Verified 04/21/21 14:51 cramps melatonin AdvReac Headaches Verified 04/21/21 14:51 methocarbamol AdvReac Nausea, Verified 04/21/21 14:51 headache oxycodone [Oxycodone] AdvReac Nausea Verified 04/21/21 14:51 prednisone AdvReac Nausea Verified 04/21/21 14:51 General Stated Complaint: Abd Prob VENKAT: 3 Review of Systems <Winston Dixon MD - Last Filed: 05/06/21 16:25> All systems reviewed & are unremarkable except as noted in HPI and below Constitutional Constitutional: Denies fever(s) Gastrointestinal Gastrointestinal: Reports as per HPI PFSH <Winston Dixon MD - Last Filed: 05/06/21 16:25> All Active Problems Abdominal pain (Acute) Hyperlipidemia (Chronic) Prediabetes (Chronic) COPD (chronic obstructive pulmonary disease) (Chronic) LDCT annually, negative July 2020 Bipolar affective disorder (Chronic) Followed by [facility] Generalized anxiety disorder with panic attacks (Chronic) Post traumatic stress disorder (PTSD) (Chronic) Insomnia (Chronic) GERD (gastroesophageal reflux disease) (Chronic) Cigarette smoker (Chronic) LDCT annually, negative July 2020 Chronic low back pain (Chronic) Surgical History S/P appendectomy S/P left rotator cuff repair (06/03/15) S/P PRO-BSO (total abdominal hysterectomy and bilateral salpingo-oophorectomy) Family History Mother , at 71 from dementia Alzheimer disease Heart disease Hyperlipidemia Hypertension Father Myocardial infarction Heart disease Alcohol abuse Alcoholic liver disease Sister Crohn disease Sister Hyperlipidemia Sister Type 2 diabetes mellitus Sister No problems noted. Brother , 60s Myocardial infarction Type 2 diabetes mellitus Heart disease Brother Myocardial infarction Heart disease Alcohol abuse Brother No problems noted. Brother Alcohol abuse Dementia Parkinson disease Brother Alzheimer disease Crohn disease Brother Heart disease Lymphoma Hyperlipidemia Son , at 28 from Type 1 diabetes Type 1 diabetes mellitus Son No problems noted. Maternal Grandfather No problems noted. Maternal Grandmother Alzheimer disease Paternal Grandfather No problems noted. Paternal Grandmother Type 2 diabetes mellitus Social History Smoking/Tobacco Use Status: Current every day Tobacco Type: cigarettes Years smoked: 49 Tobacco: How many years used: 50 Quit status: considering quitting Second Hand Exposure: Yes Smoking risk assessment performed?: Yes Alcohol Intake: current Alcohol Intake frequency: a few times a week Alcohol type: wine Drug use: Daily Substance use type: marijuana Housing: house Pets and animals: Yes Pets and animals: bird(s) Sexually active: Yes Do you think of yourself as: straight/heterosexual Current gender identity: female How often do you talk on the phone with friends or family?: three or more times per week Do you belong to any clubs or organized social groups?: no Panel score (0-1 are the most socially isolated patients): 1 Seatbelt use: always Helmet use: Yes Helmet use: always 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 Do you feel safe at home: Yes Do you feel safe in your relationship?: Yes Female Reproductive History Menstrual Menopause type: surgical History History 9 Para 2 Hx # Term Pregnancies 2 Multiple births Hx # Pregnancies Ectopic pregnancies AB induced Hx Number of Living Children 1 AB spontaneous 7 Exam <Winston Dixon MD - Last Filed: 05/06/21 16:25> Const General: cooperative and no acute distress HENMT Mouth: moist mucous membranes Eyes Conjunctivae: normal conjunctivae Sclera: normal sclerae Resp Auscultation: clear to auscultation bilaterally, no rales, no rhonchi and no wheezes Cardio Rate: regular rate and not tachycardic Rhythm: regular rhythm GI Palpation: soft, not firm, no guarding, no masses, not rigid and tender in the LUQ; Negative for with no rebound tenderness Auscultation: normal bowel sounds Neuro General: patient alert, patient awake and tone normal Psych Appearance: grossly normal Mental Status: mental status grossly normal Course <Winston Dixon MD - Last Filed: 05/06/21 16:25> Vital Signs Vital signs: Vital Signs Pulse 89 04/11/21 22:00 Respiratory Rate 18 04/11/21 22:00 Blood Pressure 136/98 H 04/11/21 22:00 Pulse Oximetry 97 04/11/21 22:00 Pulse 89 04/11/21 22:00 Respiratory Rate 18 04/11/21 22:00 Blood Pressure 136/98 H 04/11/21 22:00 Blood Pressure Position Sitting 04/11/21 22:00 Pulse Oximetry 97 04/11/21 22:00 Oxygen Delivery Method Room Air 04/11/21 22:00 Oxygen Flow Rate 0 04/11/21 22:00 Pain Level 8 04/11/21 22:00 Lab/Test Results Lab/Test Results: Laboratory Tests Range/Units 04/11/21 04/11/21 04/11/21 22:25 22:25 22:25 WBC (4.4-10.8) 10^3/uL 10.08 RBC (3.93-5.22) 10^6/uL 4.61 Hgb (11.2-15.7) g/dL 13.8 Hct (36.0-46.0) % 41.8 MCV (80-95) fL 90.7 MCH (27.0-33.0) pg 29.9 MCHC (32.0-36.0) % 33.0 RDW (11.7-14.6) % 13.9 Plt Count (130-400) 10^3/uL 299 MPV (8.0-11.0) fL 10.1 Immature Gran % 0.3 Neutrophils % 53.8 Lymphocytes % 35.2 Monocytes % 7.6 Eosinophils % 2.2 Basophils % 0.9 Nucleated RBC % % 0 Absolute Neutrophils (1.2-6.7) 10^3/uL 5.42 Absolute Lymphocytes (1.2-3.4) 10^3/uL 3.55 H Absolute Monocytes (0.1-0.8) 10^3/uL 0.77 Absolute Eosinophils (0.0-0.7) 10^3/uL 0.22 Absolute Basophils (0.0-0.2) 10^3/uL 0.09 VBG Lactate (0.6-1.4) mmol/L 1.2 Sodium (136-145) mmol/L 139 Potassium (3.5-5.1) mmol/L 3.7 Chloride (98-107) mmol/L 104 Carbon Dioxide (21.0-32.0) mmol/L 26.2 Anion Gap (3-11) mmol/L 8.8 BUN (7-18) mg/dL 13 Creatinine (0.55-1.02) mg/dL 0.7 Estimated GFR/1.73 m2 (mL/min/1.73m2) >= 60.00 Glucose (74-106) mg/dL 119 H Calcium (8.5-10.1) mg/dL 8.9 Total Bilirubin (0.2-1.0) mg/dL 0.2 AST (15-37) U/L 23 ALT (14-59) U/L 40 Alkaline Phosphatase (46-116) U/L 84 Total Protein (6.4-8.2) g/dL 7.9 Albumin (3.4-5.0) g/dL 4.1 Lipase (73-393) U/L 94 POC- Test(urine) Negative Sign Out <Winston Dixon MD - Last Filed: 05/06/21 16:25> Sign Out Data: Sign Out Comment: followup labs and ct abd/pelv, reassess for dispo Last updated by Winston Dixon MD at 04/11/21 23:20
[2021-04-11] MEDS: FAMOTIDINE 20 MG/50 ML BAG 200 MG IVPB (23:20)
[2021-04-11] MEDS: Normal Saline Flush 10 ML SYR IVP (23:39)
[2021-04-11] MEDS: Omnipaque 350 MG/ML 100 ML BTL IJ (23:39)
[2021-04-11 23:45] VITALS: BP 118/89; PULSE 83; RESP 18; O2SAT 97
--- NOTE | 2021-04-12 00:03 | DI.VRAD_ITS ---
PROCEDURE INFORMATION: Exam: CT Abdomen And Pelvis With Contrast Exam date and time: 04/11/2021 22:44 Age: 55 years old Clinical indication: Other: Luq pain TECHNIQUE: Imaging protocol: Computed tomography of the abdomen and pelvis with contrast. Radiation optimization: All CT scans at this facility use at least one of these dose optimization techniques: automated exposure control; mA and/or kV adjustment per patient size (includes targeted exams where dose is matched to clinical indication); or iterative reconstruction. Contrast material: OMNIPAQUE 350; Contrast volume: 83 ml; Contrast route: INTRAVENOUS (IV); COMPARISON: CT ABDOMEN W 03/26/2020 13:34 FINDINGS: Lungs: Emphysema in the lung bases appears most likely mild. Liver: No mass. Gallbladder and bile ducts: No calcified stones. No ductal dilation. Pancreas: No ductal dilation. No masses. Spleen: No splenomegaly or focal lesions. Adrenal glands: No mass. Kidneys and ureters: No renal masses or hydronephrosis bilaterally. Stomach and bowel: No obstruction. No mucosal thickening. Appendix: No evidence of appendicitis. Intraperitoneal space: No free air. No significant fluid collection. Vasculature: Atherosclerosis. Stable configuration of the abdominal aorta. Lymph nodes: No significantly enlarged lymph nodes. Urinary bladder: Unremarkable as visualized. Reproductive: Hysterectomy. Bones/joints: No acute fracture. Soft tissues: No suspicious lesions. IMPRESSION: 1. No acute findings. 2. Incidental findings as described. Dictated and Authenticated by: Laura Candelario MD. Ordering:ABDIRAHMAN Montero MD
[2021-04-12 00:15] VITALS: BP 100/76; PULSE 85; RESP 6; O2SAT 96
[2021-04-12] MEDS: Mylanta Suspension 30 ML CUP PO (00:20)
[2021-04-12 00:45] VITALS: BP 108/75; PULSE 71; RESP 16; O2SAT 97
--- NOTE | 2021-04-12 03:20 | NUR.NOTE ---
Referral [facility] to [facility] f/u with in a week for upper abdominal pain, possible needs upper endoscopy.Nursing Note:
== END 2021-04-12 00:49 | disposition home or self-care (01) ==
PROVIDERS: Student in an Organized Health Care Education/Training Program; Emergency Provider Emergency Medicine; PCP Nurse Practitioner Family
DX: R10.12 Left upper quadrant pain (principal)
CPT/HCPCS: 36415; 80053; 81025; 83690; 96374; 99285; 74177; 83605; 85025; 99283; J3490

== ENCOUNTER 2021-05-07 02:14 | Outpatient (CLI) | payer MEDICAID, SELFPAY ==
[2021-05-07 09:35] LABS: Source Nasal/Nares
[2021-05-07 14:08] LABS: COVID-19 PCR Negative (Negative)
== END 2021-05-07 02:15 | disposition home or self-care (01) ==
LOC: LBO 02:14
PROVIDERS: PCP Nurse Practitioner Family; Visit Provider Surgery
DX: Z20.822 Contact with and (suspected) exposure to COVID-19 (principal)
CPT/HCPCS: 87635

== ENCOUNTER 2021-05-09 10:57 | Day surgery (SDC) | payer MEDICAID, SELFPAY ==
--- NOTE | 2021-05-08 20:37 | W.PM.ENDDOP ---
Date of service: 05/09/21 Endoscopy Report DATE OF PROCEDURE: 05/09/21 PRE-OP DIAGNOSIS: luq/epigsatric pain/hx of gerd POST-OP DIAGNOSIS: other (Hiatal hernia and esophagitis/duodenitis/mild gastritis) SURGEON: Avril Ambrocio ANESTHESIA TYPE: General:No Airway PATHOLOGY: other COMPLICATIONS: None DISPOSITION: same day PROCEDURE DESCRIPTION: After informed consent was obtained the patient was take to the procedure room and placed in a supine position. Monitors were applied and a time out was done. The patients name, date of , procedure type, allergies to medications and metal in their body was reviewed. A bite block was placed and the patient was sedated. Once sedated and comfortable the gastroscope was advanced through the oropharynx which was grossly normal into the esophagus. The proximal and mid-esophagus were nl. In the distal esophagus there was: Esophageal varices, diverticula or stricture apparent. The scope was advanced into the stomach and through the pylorus into the 3rd portion of the duodenum. The duodenum was noted to be nl. Biopsies were done all specimen is retrieved and no bleeding is noted.The scope was retracted back into the stomach and biopsies were done to rule out H. pylori. There were no ulcers.there is some mild gastritis in a punctate fashion, at the antrum. The scope was retroflexed. The cardia and fundus were noted to be normal. There small 2cm sliding hernia a hiatal hernia noted and some mild gastritis. The scope was retracted back into the esophagus and biopsies were done of the GE junction to rule out Flowers's. The Z line was slightly irregular. The scope was removed and the patient was woken up and taken back to [facility] in stable condition. Follow up: 2 wks start protonix
--- NOTE | 2021-05-08 20:40 | W.PM.DSUDISC ---
Discharge Plan Disposition Condition: Good Discharge Details Reason For Visit: stomach scope Attending Provider: Avril Ambrocio Primary Care Provider: Lorri Curry Home Meds and New Rx's Prescriptions: New pantoprazole [Protonix] 40 mg tablet,delayed release (DR/EC) 40 mg PO DAILY Qty: 30 12RF celecoxib [Celebrex] 100 mg capsule 100 mg PO BID PRN (Reason: pain) Qty: 60 0RF Continued amitriptyline 25 mg tablet 25 mg PO QHS Qty: 90 4RF nicotine 7 mg/24 hr patch 24 hour 1 patch transdermal DAILY 14 Days Qty: 14 6RF Rx Instructions: Apply 1 patch daily for 2 wks after 14mg patch albuterol sulfate 90 mcg/actuation HFA aerosol inhaler 2 inh inhalation Q6H PRN (Reason: shortness of breath or wheezing) Qty: 18 4RF rosuvastatin 40 mg tablet 40 mg PO QHS Qty: 90 4RF nicotine 21 mg/24 hr patch 24 hour 1 patch transdermal DAILY Qty: 42 0RF Rx Instructions: Apply 1 patch daily for 6 weeks clonazepam 1 mg tablet 1 mg PO TID Qty: 84 2RF Discontinued ibuprofen 800 mg tablet 800 mg PO TID PRN (Reason: pain) Qty: 90 3RF omeprazole 40 mg capsule,delayed release(DR/EC) 40 mg PO HS 0RF Rx Instructions: 1 capsule once a day Discharge Instructions Additional Instructions: Post EGD Instruction ? ?You had anesthesia for your EGD/stomach scope today.? For your safety, please do the following for the next twenty-four (24) hours: Do Not operate a motor vehicle (car, truck, motorcycle, etc.) Do Not drink alcoholic beverages or use any recreational drugs for the first 24 hours or while taking pain medications. The medications in your body may have a reaction that can be dangerous. Do Not make any important decisions or sign any important papers ? You have just had a gastroscopy (EGD) or upper GI tract examination. It is important for your smooth recovery that you carefully follow the recommendations below. Do not hesitate to call if any questions should arise about your anesthesia, condition, or care. -Symptoms you may experience during the next 24 hours: ?1. Mild abdominal pain or excessive gas or a bloated feeling which improves with rest, liquids, eating? slightly, and walking as tolerated. 2. Drowsiness and/or forgetfulness because of the medications you were given. ?3. Throat numbness for about 1 hour. 4. A sore throat which you can treat with throat lozenges or by gargling with salt water 4-5 times a day. 5. Redness at the site of your IV which you can treat with warm compresses. ? SPECIAL INSTRUCTIONS: 1. You may resume your previous diet in one hour. We recommend a light meal to start, then progress as tolerated. 2. Restart regular medications in one hour. 3. No aspirin or non-steroidal containing medication for three days. 4. No lifting over 20 pounds or strenuous activity for the first 24 hours after your procedure. After 24 hours there are no restrictions on your activity, but you may feel fatigued for a few days. ? Findings: hiatal hernia doudenitis esophagitis/reflux ? Treatment:stop ibuprofen. avoid caffeine/alcohol -Medications:stop omeprazole. changed to protonix/pantoprozole. -Continue to follow lifestyle modifications: No alcohol, tobacco products, Aspirin or NSAID's (ibuprofen, Motrin, Naprosyn, aleve, etc).? Try to limit/avoid:? soda pop/any carbonated beverages, caffeine (including tea & chocolate), and acidic foods, (tomatoes, citrus, onions, peppermints) spicy or fried/fatty foods. Do not lie down for 30 minutes after eating, and do not eat 2 hours prior to bedtime. Avoid wearing tight fitting clothing/ belts. Follow up: -My office will send a letter with the results of your biopsy?s in 2-3wks time. ?Call the office at [phone] (Office) or [phone] (Hospital), or go to the ER right away if you notice any of the followin. Vomiting blood and /or ?coffee ground? material. ?2. Worsening of abdominal pain or cramping. ?3. Trouble with breathing, cough, and/or fever (temperature above 101.5 F). 4. Increasing pain with swallowing. ?5. Chest pain. 6. Any new symptoms. 7. Worsening of the redness at the IV site ? Activity:: see above Activity:: see above
[2021-05-09 11:16] VITALS: BP 145/80; PULSE 60; RESP 20; TEMP 36.2; O2SAT 96
--- NOTE | 2021-05-09 11:32 | ANES.PREOP_ITS ---
General Info Date of Service Date Performed: 05/09/21 Height: 5 ft 5 in Weight: 57.3 kg Body Mass Index (BMI): 20.9 Surgical Procedure: Operation Date: 05/09/21 11:50 Proposed Procedure Side Surgeon p Gastroscopy Avril Ambrocio, DO Meds Allergies and Home Medications Allergies Allergy/AdvReac Type Severity Reaction Status Date / Time morphine Allergy Severe stops my Verified 05/09/21 11:07 heart fentanyl Allergy Intermediate Hives Verified 05/09/21 11:07 lamotrigine Allergy Intermediate Facial Verified 05/09/21 11:07 blistering meloxicam AdvReac Severe Nausea and Verified 05/09/21 11:07 vomiting carbamazepine AdvReac Intermediate Drowsiness Verified 05/09/21 11:07 and ataxia cyclobenzaprine HCl AdvReac Intermediate vomits Verified 05/09/21 11:07 [From Flexeril] hydromorphone HCl AdvReac Intermediate vomits Verified 05/09/21 11:07 [From Dilaudid] Penicillins AdvReac Intermediate vomits Verified 05/09/21 11:07 thiopental AdvReac Intermediate Verified 05/09/21 11:07 acetaminophen [From Tylenol] AdvReac stomach Verified 05/09/21 11:07 cramps melatonin AdvReac Headaches Verified 05/09/21 11:07 methocarbamol AdvReac Nausea, Verified 05/09/21 11:07 headache oxycodone [Oxycodone] AdvReac Nausea Verified 05/09/21 11:07 prednisone AdvReac Nausea Verified 05/09/21 11:07 Home Medication Medication Instructions Recorded ibuprofen 800 mg tablet 800 mg PO TID PRN #90 tab 04/19/20 albuterol sulfate 90 mcg/actuation 2 inh INHALATION Q6H PRN #18 g 01/30/21 aerosol inhaler amitriptyline 25 mg tablet 25 mg PO QHS #90 tab 01/30/21 nicotine 7 mg/24 hr daily 1 patch TRANSDERMAL DAILY 14 Days 01/30/21 transdermal patch #14 ea nicotine 21 mg/24 hr daily 1 patch TRANSDERMAL DAILY #42 ea 04/21/21 transdermal patch rosuvastatin 40 mg tablet 40 mg PO QHS #90 tab 04/21/21 clonazepam 1 mg tablet 1 mg PO TID #84 tab 05/08/21 omeprazole 40 mg capsule,delayed 40 mg PO HS 05/08/21 release Current Visit Medications: Current Medications Generic Name Dose Route Start Last Admin Trade Name Freq PRN Reason Stop Dose Admin Hyoscyamine Sulfate 0.125 mg 05/08/21 20:36 Hyoscyamine 0.125 Mg Sl/Oral/Chew SL DIRECTED PRN Ringer's Solution 1,000 mls @ 80 mls/hr 05/09/21 06:00 IV 05/29/21 23:59 INFUSION [facility] IV Miscellaneous Supplies 1 each 05/09/21 06:00 Iv Access IV 05/29/21 23:59 DIRECTED ANGELA Ondansetron HCl 4 mg 05/08/21 20:36 Ondansetron 4 Mg/2 Ml Vial IVP Q4H PRN PRN Nausea / Vomiting Sodium Chloride 0 ml 05/09/21 06:00 Normal Saline Flush 10 Ml Syr IV 05/29/21 23:59 PRN PRN Sodium Chloride 0 ml 05/09/21 06:00 Normal Saline 10 Ml Vial IJ 05/29/21 23:59 DIRECTED PRN Sterile Water 0 ml 05/09/21 06:00 Water,Injection,Sterile 10 Ml Vial IJ 05/29/21 23:59 DIRECTED PRN PFSH Active Problems Active Problems: Problem Status Onset Code Abdominal pain R10.9 Hyperlipidemia E78.5 Prediabetes R73.03 COPD (chronic obstructive pulmonary disease) J44.9 Bipolar affective disorder F31.9 Generalized anxiety disorder with panic attacks F41.1, F41.0 Post traumatic stress disorder (PTSD) F43.10 Insomnia G47.00 GERD (gastroesophageal reflux disease) K21.9 Cigarette smoker F17.210 Chronic low back pain M54.5, G89.29 Medical History Medical History Comments:: Pt last used cannabis on 05/08/21 in the PM. Surgical History Surgical History S/P appendectomy S/P left rotator cuff repair (06/03/15) S/P PRO-BSO (total abdominal hysterectomy and bilateral salpingo-oophorectomy) Tobacco Smoking/Tobacco Use Status: Current every day Tobacco Type: cigarettes Years smoked: 49 Second hand exposure: Yes Alcohol Alcohol Intake: current Alcohol intake frequency: a few times a week Alcohol type: wine Substance Use Substance use: Daily Substance use type: marijuana Prental History History 9 Para 2 Hx # Term Pregnancies 2 Multiple births Hx # Pregnancies Ectopic pregnancies AB induced Hx Number of Living Children 1 AB spontaneous 7 Vital Signs and Lab Results Vital Signs Most Recent Vital Signs in EMR: Most Recent Vital Signs Temp Pulse Resp BP Pulse Ox 36.2 C L 60 20 145/80 H 96 05/09/21 11:16 05/09/21 11:16 05/09/21 11:16 05/09/21 11:16 05/09/21 11:16 Lab Results Blood Type / Crossmatch: No Data to Display Complete Blood Count: White Blood Count 10.08 10^3/uL (4.4-10.8) 04/11/21 22:25 04/11/21 Red Blood Count 4.61 10^6/uL (3.93-5.22) 04/11/21 22:25 04/11/21 Hemoglobin 13.8 g/dL (11.2-15.7) 04/11/21 22:25 04/11/21 Hematocrit 41.8 % (36.0-46.0) 04/11/21 22:25 04/11/21 Platelet Count 299 10^3/uL (130-400) 04/11/21 22:25 04/11/21 Venous Blood Lactate 1.2 mmol/L (0.6-1.4) 04/11/21 22:25 04/11/21 Complete Metabolic Panel: Sodium Level 139 mmol/L (136-145) 04/11/21 22:25 04/11/21 Potassium Level 3.7 mmol/L (3.5-5.1) 04/11/21 22:25 04/11/21 Chloride Level 104 mmol/L (98-107) 04/11/21 22:25 04/11/21 Carbon Dioxide Level 26.2 mmol/L (21.0-32.0) 04/11/21 22:25 04/11/21 Blood Urea Nitrogen 13 mg/dL (7-18) 04/11/21 22:25 04/11/21 Creatinine 0.7 mg/dL (0.55-1.02) 04/11/21 22:25 04/11/21 Estimated GFR/1.73 m2 >= 60.00 (mL/min/1.73m2) 04/11/21 22:25 04/11/21 Calcium Level 8.9 mg/dL (8.5-10.1) 04/11/21 22:25 04/11/21 Albumin 4.1 g/dL (3.4-5.0) 04/11/21 22:25 04/11/21 Glucose Level 119 mg/dL (74-106) H 04/11/21 22:25 04/11/21 Liver Function Panel: Alanine Aminotransferase (ALT/SGPT) 40 U/L (14-59) 04/11/21 22:25 04/11/21 Aspartate Amino Transf (AST/SGOT) 23 U/L (15-37) 04/11/21 22:25 04/11/21 Coagulation Panel: No Data to Display Cardiac Panel: No Data to Display Arterial Blood Gas: No Data to Display Venous Blood Gas: No Data to Display Pancreas Panel: Lipase 94 U/L (73-393) 04/11/21 22:25 04/11/21 Thyroid Panel: No Data to Display Infectious Disease: Coronavirus (COVID-19)(PCR) Negative (Negative) 05/07/21 08:53 05/07/21 Coronavirus 2019 Source Nasal/Nares 05/07/21 08:53 05/07/21 Blood Cultures: No Data to Display Toxicology Panel: No Data to Display Imaging and Studies Imaging and Studies Study information below may be from another EMR and interpreted by another provider. Please see original notes in EMR for more complete details. EKG Summary: DATE/TIME OF SERVICE: 05/21/20 1204 : 1965PERFORMING LOCATION: ER APPROVED REPORT Exam: Resting ECG Patient Location: E HR:59 bpm ECG Measurements Heart Rate 59 AXIS ME 211 P 57 QRSd 91 QRS 61 QT 444 T56 QTc 439 Conclusion Sinus bradycardia...rate< 60 Prolonged ME interval...ME >210, V-rate 50- 90 Normal [place] There are no significant changes compared to prior EKG performed on 05/21/2020 at 09:03. Stress Test Summary: Date of Exam: 05/28/20Sex: F Admission Date: 05/28/20 : 1965 Age: 54 Exam: Exercise Treadmill BMI: 20.79 Baseline Rhythm: Sinus Rhythm Indications: Left sided chest pain Stress ECG Conclusion 1. The patient exercised for 9 minutes (10 METS). Exercise was stopped due to fatigue. 2. Patient no symptoms suggestive of ischemia. Heart rate and blood pressure augmented appropriately. 3. There was no evidence of ischemia on the ECG portion of the exam. Hou Treadmill Score is which is Low risk. MPI Conclusion The ejection fraction was 61% with stress. There were no wall motion abnormalities. There is no evidence of ischemia on the imaging portion of the exam. This represents a normal SPECT stress test. Pulmonary Function Summary: Date: 12/01/2012 Provider: Elias Cruz Tech: MIKE MR# [id number] V#: [id number] : 1965 Height: 65.50 in Weight: 112.00 lbs Age: 47 Sex Female Diagnosis: Worsening KLEIN. Smoking x 43 yrs 0.5 ppd (was up to 4 ppd and started chain smoking at age 4) Pulmonary Medications: None Post Test Comments: EFFORT: Good patient effort and cooperation. Pt. last smoked a cigarette 3 hours before testing. BRONCHODILATOR: Albuterol inhaler, 2 puffs, via spacer BREATH SOUNDS: Clear and equal with fair aeration bilaterally and did not change following the bronchodilator. Patient noticed no effect after the bronchodilator. INTERPRETATION SPIROMETRY: Spirometry shows mild obstructive airways disease with no significant bronchodilator response. LUNG VOLUMES: Lung volumes show no evidence of restriction. DIFFUSION CAPACITY: Severely reduced even when corrected to alveolar volume with good patient effort. AIRWAY RESISTANCE: Normal. IMPRESSION: Mild obstructive airways disease associated with severe diffusion defect. Anesthesia Assessment and Plan Anesthesia History Personal History: No History of Anesthesia Complications Family History: No Family History of Anesthesia Complications Exercise Tolerance Exercise Tolerance: Metabolic Equivalents>4 Pertinent Negatives Pertinent Negatives: No Symptoms of GERD Cardiac & Pulmonary Exam Cardiac Exam: Normal S1/S2 Heart Sounds Pulmonary Exam: Clear Bilateral Breath Sounds Implantable Cardiac Device Does patient have a Pacemaker or an ICD?: No Airway Exam Known Difficult Airway: No Mallampati Class: 1 Mouth Opening: Normal (> 3cm) Thyromental Distance: Greater than 3 cm Neck Range of Motion: Full ROM Neck Circumference: Normal Teeth Condition: Edentulous ASA Classification ASA Score: ASA 2 Emergency Case?: No NPO Status NPO Status: NPO Clears >2 hours, Solids >8 hours Anesthesia Plan Resuscitation Status: Full Code Anesthesia Technique: General Anesthesia Airway Planned: Natural Airway Monitors Used: Standard Monitors
[2021-05-09] MEDS: Lactated Ringers 1,000 ML 80 ML IV (11:34)
[2021-05-09 11:51] VITALS: BMI 20.9
--- NOTE | 2021-05-09 12:03 | BOWEL_PTH ---
PATIENT: Cara Carpenter LOC: [facility] U#:[id number] AGE/SX: 55/F ROOM: RE05/09/[address]: Avril Ambrocio : 1965 BED: DIS: 05/09/2021 SPEC #: [id number] RECD: 05/09/21 13:02 STATUS: DUNCAN Erica #: [id number] DEEDEE: 05/09/21 12:[address]: Avril Ambrocio DEPT: Surgical Specimen RECD BY: Jazmine Tim ENTERED: 05/09/21 13:03 SP TYPE: Bowel OTHR DR: Lorri Curry, LOCKST[employer]UP [employer]TER Tissues: 1 - BIOPSY BOWEL 2 - BIOPSY BOWEL 3 - STOMACH BIOPSY 4 - STOMACH BIOPSY 5 - ESOPHAGUS BIOPSY 6 - HERNIA SAC,OTHER 7 - ESOPHAGUS BIOPSY Procedures: GROSS AND MICRO LEVEL 4 Comments: [id number]
[2021-05-09 12:18] VITALS: BP 124/90; PULSE 82; RESP 18; TEMP 36.3; O2SAT 97
[2021-05-09 12:50] VITALS: BP 156/98; PULSE 70; RESP 20; TEMP 36.2; O2SAT 99
[2021-05-09] MEDS: Hyoscyamine 0.125 MG SL/ORAL/CHEW SL (12:58)
--- NOTE | 2021-05-09 13:16 | W.ANESPOSTOP ---
Postoperative Evaluation Date, Time and Location Date Performed: 05/09/21 Time Performed: 13:16 Patient Location: Day Surgery Unit Vital Signs Most Recent Imported Vital Signs: Most Recent Vital Signs Temp Pulse Resp BP Pulse Ox 36.3 C L 82 18 124/90 97 05/09/21 12:18 05/09/21 12:18 05/09/21 12:18 05/09/21 12:18 05/09/21 12:18 Pain Score Most Recent Pain Score: Most Recent Pain Score Pain Level 6 05/09/21 13:01 Assessment Mental Status: Awake (Alert & Oriented to Patient Baseline) Airway and Respiratory Function: Patent airway with normal (patient baseline) respiratory exam Cardiovascular Function: Hemodynamically Stable Hydration Status: Adequately Hydrated Nausea & Vomiting: No Nausea or Vomiting Pain: Pain is tolerable per patient Peripheral Nerve Block: Patient did not receive a nerve block
[2021-05-09] MEDS: Simethicone 80 MG CHEW PO (13:43)
[2021-05-09 14:55] VITALS: BP 138/99
== END 2021-05-09 14:49 | disposition home or self-care (01) ==
PROVIDERS: PCP Nurse Practitioner Family; Visit Provider Surgery
PROC: 0DJ68ZZ Inspection of Stomach, Via Natural or Artificial Opening Endoscopic (ICD-10-PCS; CPT 43235; principal; 2021-05-09 11:45)
DX: K21.9 Gastro-esophageal reflux disease without esophagitis (principal); K44.9 Diaphragmatic hernia without obstruction or gangrene; K20.90 Esophagitis, unspecified without bleeding; K29.70 Gastritis, unspecified, without bleeding; K29.80 Duodenitis without bleeding; J44.9 Chronic obstructive pulmonary disease, unspecified; F17.210 Nicotine dependence, cigarettes, uncomplicated; R73.03 Prediabetes; K22.89 Other specified disease of esophagus
CPT/HCPCS: 43239; 88305; 88302; J3490

== ENCOUNTER 2021-07-17 13:58 | Emergency (ER) | payer MEDICAID, SELFPAY ==
--- NOTE | 2021-07-17 13:59 | W.ED.GENAD ---
Discharge Plan Disposition Patient Disposition: HOME Condition: Stable Discharge Details Clinical Impression: Strain of thoracic back region, Chest wall muscle strain, Cervical muscle strain Primary Care Provider: Lorri Curry ED Provider: Amy Snyder Home Meds and New Rx's Prescriptions: Continued amitriptyline 25 mg tablet 25 mg PO QHS Qty: 90 4RF albuterol sulfate 90 mcg/actuation HFA aerosol inhaler 2 inh inhalation Q6H PRN (Reason: shortness of breath or wheezing) Qty: 18 4RF rosuvastatin 40 mg tablet 40 mg PO QHS Qty: 90 4RF nicotine 21 mg/24 hr patch 24 hour 1 patch transdermal DAILY Qty: 42 0RF Rx Instructions: Apply 1 patch daily for 6 weeks clonazepam 1 mg tablet 1 mg PO TID Qty: 84 2RF pantoprazole [Protonix] 40 mg tablet,delayed release (DR/EC) 40 mg PO DAILY Qty: 30 12RF Discharge Instructions Instructions: Cervical Strain (ED), Thoracic Back Strain (ED) Additional Instructions: Your presentation appears most likely consistent with a muscle strain of your neck, back and chest wall. Alternate ice and heat to the affected area(s) several times daily for 20 minutes at a time. Take 600mg of ibuprofen every 6 hours as needed and directed for pain. Take the Vicodin as needed and directed for pain not relieved with ibuprofen. Follow-up with your primary care doctor in 1 week. Return to the emergency department with any worsening or new concerning symptoms. Discharge Data Discharge Date/Time-TO BE ENTERED AT DEPARTURE: 07/17/21 15:02 Discharge Physician: Amy Snyder Medical Decision Making 55-year-old female with a history of GERD, COPD, hyperlipidemia, chronic tobacco smoker, bipolar disorder PTSD presents with left-sided upper back pain that she noted upon awakening yesterday morning now with radiation to her left lateral chest and extending to her left lateral neck. No fever, cough, anterior chest pain, shortness of breath, nausea, vomiting or dizziness. Her vitals are within normal limits. She appears uncomfortable and her pain is reproducible with movement of her head and left upper extremity. She has significant reproducible tenderness to palpation of her left lateral thoracic paraspinal region, left anterior and lateral inferior chest wall extending to the left lateral anterior superior chest wall and left lateral neck. She is otherwise neurovascularly intact without focal deficits. Patient presentation appears consistent with thoracic muscle strain and spasm with extension to the chest wall and left cervical paraspinal region. History and presentation does not appear consistent with ACS, PE, dissection, pneumonia. Considering her age and history, an EKG was obtained which noted a rate of 69, sinus, no STEMI and nondiagnostic. Review of patient's history notes that she has multiple medication allergies. She cannot take methocarbamol, prednisone or oxycodone. There is an interaction with Skelaxin with her amitriptyline. She states she has tolerated Vicodin in the past even though she has Tylenol on her allergy list she denies any adverse reaction with this. She is advised to alternate ice and heat and take 600 mg of ibuprofen every 6 hours for the next 2 days. She was given a 4 tab bottle of Vicodin to go for breakthrough pain. Advised to follow up with the primary care doctor for re-evaluation. Usual and customary return precautions given prior to discharge. Medical Records Medical records reviewed: Yes I reviewed the patient's medical records. HPI General Mode of arrival: ambulatory. Date/Time Provider Initiated Documentation: 07/17/21 13:59. Limitations to Documentation: no limitations. Information obtained by: patient. HPI Narrative: Patient is a 55-year-old female who presents the ED with complaint left-sided upper back pain with radiation to her left lateral chest and around to her left lateral neck since yesterday. Patient states she awoke with left upper back pain yesterday. She states since then the pain has progressed around the left side of her chest and up to the left side of her neck. She states pain is worse with movement of her arm and head. She denies any fever, cough, anterior chest pain, shortness of breath, nausea, vomiting or dizziness. Related Data Home Medications Medication Instructions Recorded Confirmed albuterol sulfate 90 mcg/actuation 2 inh inhalation Q6H PRN shortness 01/30/21 07/17/21 aerosol inhaler of breath or wheezing #18 grams amitriptyline 25 mg tablet 25 mg PO QHS #90 tabs 01/30/21 07/17/21 nicotine 21 mg/24 hr daily 1 patch transdermal DAILY #42 ea 04/21/21 07/17/21 transdermal patch rosuvastatin 40 mg tablet 40 mg PO QHS #90 tabs 04/21/21 07/17/21 clonazepam 1 mg tablet 1 mg PO TID #84 tabs 05/08/21 07/17/21 pantoprazole 40 mg tablet,delayed 40 mg PO DAILY #30 tabs 05/09/21 07/17/21 release (Protonix) Previous Rx's Medication Instructions Recorded albuterol sulfate 90 mcg/actuation 2 inh inhalation Q6H PRN shortness 01/30/21 aerosol inhaler of breath or wheezing #18 grams amitriptyline 25 mg tablet 25 mg PO QHS #90 tabs 01/30/21 nicotine 21 mg/24 hr daily 1 patch transdermal DAILY #42 ea 04/21/21 transdermal patch rosuvastatin 40 mg tablet 40 mg PO QHS #90 tabs 04/21/21 clonazepam 1 mg tablet 1 mg PO TID #84 tabs 05/08/21 pantoprazole 40 mg tablet,delayed 40 mg PO DAILY #30 tabs 05/09/21 release (Protonix) Allergies Allergy/AdvReac Type Severity Reaction Status Date / Time morphine Allergy Severe stops my Verified 07/17/21 14:08 heart fentanyl Allergy Intermediate Hives Verified 07/17/21 14:08 lamotrigine Allergy Intermediate Facial Verified 07/17/21 14:08 blistering meloxicam AdvReac Severe Nausea and Verified 07/17/21 14:08 vomiting carbamazepine AdvReac Intermediate Drowsiness Verified 07/17/21 14:08 and ataxia cyclobenzaprine HCl AdvReac Intermediate vomits Verified 07/17/21 14:08 [From Flexeril] hydromorphone HCl AdvReac Intermediate vomits Verified 07/17/21 14:08 [From Dilaudid] Penicillins AdvReac Intermediate vomits Verified 07/17/21 14:08 thiopental AdvReac Intermediate Verified 07/17/21 14:08 acetaminophen [From Tylenol] AdvReac stomach Verified 07/17/21 14:08 cramps melatonin AdvReac Headaches Verified 07/17/21 14:08 methocarbamol AdvReac Nausea, Verified 07/17/21 14:08 headache oxycodone [Oxycodone] AdvReac Nausea Verified 07/17/21 14:08 prednisone AdvReac Nausea Verified 07/17/21 14:08 General Stated Complaint: Nk/Back Pain VENKAT: 3 Review of Systems All systems reviewed & are unremarkable except as noted in HPI and below Constitutional Constitutional: Denies chills, Denies excessive sweating, Denies fatigue, Denies fever(s), Denies weakness and Denies weight loss Eyes Eyes: Reports system reviewed and no additional complaints, except as documented and Denies blurry vision ENT Ears, Nose, Mouth, and Throat: Denies vertigo, Denies dizziness, Denies otalgia, Denies nasal congestion, Denies sore throat and Denies throat swelling Cardiovascular Cardiovascular: Denies chest pain, Denies syncope, Denies rapid heart rate and Denies dyspnea Respiratory Respiratory: Denies chest congestion, Denies cough, Denies pain on inspiration and Denies dyspnea Gastrointestinal Gastrointestinal: Denies abdominal pain, Denies diarrhea and Denies vomiting Genitourinary Genitourinary: Denies hematuria, Denies dysuria and Denies flank pain Musculoskeletal Musculoskeletal: Reports back pain and Denies joint swelling Integumentary/Breasts Skin/Breast: Denies lesions and Denies rash Neurologic Neurologic: Denies behavioral changes, Denies confusion, Denies vertigo, Denies dizziness, Denies syncope, Denies localized weakness and Denies weakness Psychiatric Psychiatric: Denies behavioral changes, Denies confusion and Denies depression Endocrine Endocrine: Denies excessive sweating and Denies fatigue Hematologic/Lymphatic Hematologic/Lymphatic: Denies easy bruising and Denies lymphadenopathy Allergic/Immunologic Allergic/Immunologic: Denies throat swelling PFSH All Active Problems (Updated 07/17/21 @ 14:48 by Amy Snyder DO) Strain of thoracic back region (Acute) Chest wall muscle strain (Acute) Cervical muscle strain (Acute) Hyperlipidemia (Chronic) Prediabetes (Chronic) COPD (chronic obstructive pulmonary disease) (Chronic) LDCT annually, negative July 2020 Bipolar affective disorder (Chronic) Followed by [facility] Generalized anxiety disorder with panic attacks (Chronic) Post traumatic stress disorder (PTSD) (Chronic) Insomnia (Chronic) GERD (gastroesophageal reflux disease) (Chronic) Cigarette smoker (Chronic) LDCT annually, negative July 2020 Chronic low back pain (Chronic) Surgical History (Updated 06/12/21 @ 12:43 by Siena Summers RN) History of esophagogastroduodenoscopy (EGD) (~05/09/21) S/P appendectomy S/P left rotator cuff repair (06/03/15) S/P PRO-BSO (total abdominal hysterectomy and bilateral salpingo-oophorectomy) Family History Mother , at 71 from dementia Alzheimer disease Heart disease Hyperlipidemia Hypertension Father Myocardial infarction Heart disease Alcohol abuse Alcoholic liver disease Sister Crohn disease Sister Hyperlipidemia Sister Type 2 diabetes mellitus Sister No problems noted. Brother , 60s Myocardial infarction Type 2 diabetes mellitus Heart disease Brother Myocardial infarction Heart disease Alcohol abuse Brother No problems noted. Brother Alcohol abuse Dementia Parkinson disease Brother Alzheimer disease Crohn disease Brother Heart disease Lymphoma Hyperlipidemia Son , at 28 from Type 1 diabetes Type 1 diabetes mellitus Son No problems noted. Maternal Grandfather No problems noted. Maternal Grandmother Alzheimer disease Paternal Grandfather No problems noted. Paternal Grandmother Type 2 diabetes mellitus Social History Smoking/Tobacco Use Status: Current every day Tobacco Type: cigarettes Years smoked: 49 Tobacco: How many years used: 50 Quit status: considering quitting Second Hand Exposure: Yes Smoking risk assessment performed?: Yes Alcohol Intake: current Alcohol Intake frequency: a few times a week Alcohol type: wine Drug use: Daily Substance use type: marijuana Housing: house Pets and animals: Yes Pets and animals: bird(s) Sexually active: Yes Do you think of yourself as: straight/heterosexual Current gender identity: female How often do you talk on the phone with friends or family?: three or more times per week Do you belong to any clubs or organized social groups?: no Panel score (0-1 are the most socially isolated patients): 1 Seatbelt use: always Helmet use: Yes Helmet use: always Drive intox or ride w/intox automation driver: No Do you feel safe at home: Yes Do you feel safe in your relationship?: Yes Female Reproductive History Menstrual Menopause type: surgical History History 9 Para 2 Hx # Term Pregnancies 2 Multiple births Hx # Pregnancies Ectopic pregnancies AB induced Hx Number of Living Children 1 AB spontaneous 7 Exam Const General: cooperative and healthy appearing Orientation: alert and awake HENMT Head: normal to inspection Ears: hearing grossly normal bilaterally, external ears normal and TM's normal bilaterally General nose exam: external nose normal Face and sinus: normal facial exam Mouth: oral mucosae normal Teeth and gingiva: dentition normal Throat: posterior oropharynx normal Eyes General: appearance normal, both eyes and all related structures Eyelids: eyelids normal Pupils: PERRL EOM: EOM intact bilaterally Neck Neck: normal visual inspection Lymphatic: no lymphadenopathy noted Chest Chest: normal inspection of the chest Chest/axillae images: 1. Tenderness to palpation to left anterior and lateral inferior chest wall extending up to left lateral chest and left lateral cervical region. No evidence of erythema, edema, ecchymosis, rash or lesions. Resp Effort & Inspection: normal respiratory effort and able to speak in complete sentences Auscultation: clear to auscultation bilaterally Cardio Rate: regular rate Rhythm: regular rhythm GI Inspection: normal to inspection Palpation: soft, not firm, no guarding, no hepatosplenomegaly, no masses and nontender Auscultation: normal bowel sounds Back/Spine/Pelvis Cervical Spine: No cervical spinal tenderness Thoracic/Lumbar Spine: No thoracic spinal tenderness and No lumbar spinal tenderness Back/spine/pelvis image: 1. Tenderness to palpation to left lateral upper and mid thoracic region. No midline T-spine tenderness. No evidence of erythema, edema, ecchymosis, rash or lesions. Skin General skin exam: no rashes or lesions noted Neuro General: patient alert and patient awake Cognition: normal cognition Speech: speech normal Gait: normal gait Motor: muscle tone normal throughout and strength 5/5 throughout Sensory Exam: no sensory deficits noted Extrem General: normal to inspection, full ROM and capillary refill normal Other: B/L radial and ulnar pulses intact. Psych Appearance: grossly normal Mental Status: mental status grossly normal Speech and Movement: speech and movement normal Affect: normal affect Thought Process: normal
[2021-07-17 14:03] VITALS: BP 157/103; PULSE 76; RESP 16; TEMP 36; O2SAT 97
--- NOTE | 2021-07-17 14:30 | RT.EKG_ITS ---
APPROVED REPORT Exam: Resting ECG Reason for Exam: back/chest pain Patient Location: E HR:69 bpm ECG Measurements Heart Rate 69 AXIS UT 157 P 52 QRSd 95 QRS 42 QT 401 T 35 QTc 430 Conclusion Sinus rhythm...normal P axis, V-rate 60- 99. Sinus. Normal axis. No STEMI. I have reviewed and interpreted ECG and agree with software generated interpretation.
[2021-07-17] MEDS: Ketorolac 60 MG/2 ML VIAL IM (14:50)
== END 2021-07-17 15:02 | disposition home or self-care (01) ==
PROVIDERS: Emergency Provider Physician Assistant; PCP Nurse Practitioner Family
DX: S29.012A Strain of muscle and tendon of back wall of thorax, initial encounter (principal); S16.1XXA Strain of muscle, fascia and tendon at neck level, initial encounter; S29.011A Strain of muscle and tendon of front wall of thorax, initial encounter; X58.XXXA Exposure to other specified factors, initial encounter; R07.9 Chest pain, unspecified
CPT/HCPCS: 93005; 96372; 99284; 93010; J1885

== ENCOUNTER 2021-11-17 23:24 | Emergency (ER) | payer MEDICAID, SELFPAY ==
--- NOTE | 2021-11-17 23:15 | RT.EKG_ITS ---
APPROVED REPORT Exam: Resting ECG Reason for Exam: chest pain Patient Location: E HR:79 bpm ECG Measurements Heart Rate 79 AXIS AZ 158 P 68 QRSd 88 QRS 54 QT 389 T 52 QTc 445 Conclusion Sinus rhythm...normal P axis, V-rate 60- 99 sinus rhythm, normal axis, normal intervals, non ischemic
[2021-11-17 23:29] VITALS: BP 142/97; PULSE 81; PULSE 84; PULSE 85; RESP 18; RESP 22; TEMP 36.7; O2SAT 95; O2SAT 97
[2021-11-17 23:30] VITALS: PULSE 82; RESP 14; O2SAT 95
--- NOTE | 2021-11-17 23:30 | DI.RAD_ITS ---
Exam(s) XR PORTABLE CHEST AP EXAM: XR PORTABLE CHEST AP CLINICAL HISTORY: chest pain. TECHNIQUE: 2D digital imaging was performed. COMPARISON: CR XR CHEST 2V PA LATERAL from 05/21/2020 FINDINGS: Single AP portable view. Heart size is upper normal. The mediastinum is not widened. Lungs are clear. No infiltrates nor obvious pleural effusions. IMPRESSION: No acute pulmonary findings on this single AP portable view of the chest. DATA REPOSITORY: RADIATION DOSE DELIVERED: All CT scans at this facility use at least one of these dose optimization techniques: automated exposure control; mA and/or kV adjustment per patient size (includes targeted e xams where dose is matched to clinical indication); or iterative reconstruction.
[2021-11-17 23:31] VITALS: BP 137/99; PULSE 79; PULSE 83; RESP 16; O2SAT 96
[2021-11-17 23:33] VITALS: RESP 18
[2021-11-17 23:40] VITALS: PULSE 84; RESP 18; O2SAT 96
[2021-11-17 23:50] VITALS: PULSE 69; RESP 19; O2SAT 96
--- NOTE | 2021-11-17 23:52 | W.ED.GENAD ---
Discharge Plan Disposition Patient Disposition: HOME Condition: Improving Discharge Details Chief Complaint: Chest Pain Clinical Impression: Chest pain Primary Care Provider: Lorri Curry ED Provider: Norberto Jimenes Home Meds and New Rx's Prescriptions: No Action amitriptyline 25 mg tablet 25 mg PO QHS Qty: 90 4RF albuterol sulfate 90 mcg/actuation HFA aerosol inhaler 2 inh inhalation Q6H PRN (Reason: shortness of breath or wheezing) Qty: 18 4RF rosuvastatin 40 mg tablet 40 mg PO QHS Qty: 90 4RF nicotine 21 mg/24 hr patch 24 hour 1 patch transdermal DAILY Qty: 42 0RF Rx Instructions: Apply 1 patch daily for 6 weeks clonazepam 1 mg tablet 1 mg PO TID Qty: 84 2RF ibuprofen 800 mg tablet 800 mg PO TID PRN (Reason: pain) Qty: 90 3RF pantoprazole [Protonix] 40 mg tablet,delayed release (DR/EC) 40 mg PO DAILY Qty: 30 12RF Discharge Instructions Instructions: Chest Pain (ED) Additional Instructions: Please follow-up with your primary care physician. Please return to the emergency department for any worsening symptoms. Medical Decision Making 56-year-old female history of GERD and anxiety presents with left anterior chest pain that began around 3 PM this evening anterior nature radiating to collarbone shoulder and left upper back, worse with palpation and movement of left upper extremity, no shortness of breath no diaphoresis no nausea no vomiting. EKG nonischemic. Hemodynamically stable not hypoxic. No PE risk factors. Extensive family history of coronary disease however no past cardiac diagnosis and the patient herself. Currently resting comfortably. Likely muscle strain versus muscle spasm versus pleurisy versus costochondritis however given age and family risk factors must consider ACS, lower suspicion for PE or aortic pathology. Will obtain basic labs, will provide analgesia and antianxiety as well as topical Lidoderm. Close reassessment of symptoms. If negative labs and imaging and improvement of symptomatology will likely have patient follow-up with her primary care physician and will be given return instructions 00 45 patient resting comfortably no acute distress chest pain-free currently sleeping. Hemodynamically stable. Labs and imaging unremarkable. Likely resolving muscle strain. Patient to follow with primary care physician will return to the emergency department for any worsening symptoms HPI General Date/Time Provider Initiated Documentation: 11/17/21 23:27. HPI Narrative: 56-year-old female history of GERD, anxiety, presents with left anterior chest discomfort radiating from chest to left shoulder and back that began around 3 PM this evening, worse with movement of upper extremity, worse with palpation of chest and with deep breaths, patient does not have a history of heart disease or PE however does have extensive family history of coronary artery disease. Believes that her anxiety is also exacerbating her current symptoms. Denies nausea vomiting fevers chills sweats or other abnormal symptoms. No shortness of breath. Related Data Home Medications Medication Instructions Recorded Confirmed albuterol sulfate 90 mcg/actuation 2 inh inhalation Q6H PRN shortness 01/30/21 11/17/21 aerosol inhaler of breath or wheezing #18 grams amitriptyline 25 mg tablet 25 mg PO QHS #90 tabs 01/30/21 11/17/21 nicotine 21 mg/24 hr daily 1 patch transdermal DAILY #42 ea 04/21/21 11/17/21 transdermal patch rosuvastatin 40 mg tablet 40 mg PO QHS #90 tabs 04/21/21 11/17/21 pantoprazole 40 mg tablet,delayed 40 mg PO DAILY #30 tabs 05/09/21 11/17/21 release (Protonix) clonazepam 1 mg tablet 1 mg PO TID #84 tabs 08/08/21 11/17/21 ibuprofen 800 mg tablet 800 mg PO TID PRN pain #90 tabs 10/16/21 11/17/21 Previous Rx's Medication Instructions Recorded albuterol sulfate 90 mcg/actuation 2 inh inhalation Q6H PRN shortness 01/30/21 aerosol inhaler of breath or wheezing #18 grams amitriptyline 25 mg tablet 25 mg PO QHS #90 tabs 01/30/21 nicotine 21 mg/24 hr daily 1 patch transdermal DAILY #42 ea 04/21/21 transdermal patch rosuvastatin 40 mg tablet 40 mg PO QHS #90 tabs 04/21/21 pantoprazole 40 mg tablet,delayed 40 mg PO DAILY #30 tabs 05/09/21 release (Protonix) clonazepam 1 mg tablet 1 mg PO TID #84 tabs 08/08/21 ibuprofen 800 mg tablet 800 mg PO TID PRN pain #90 tabs 10/16/21 Allergies Allergy/AdvReac Type Severity Reaction Status Date / Time morphine Allergy Severe stops my Verified 11/17/21 23:32 heart fentanyl Allergy Intermediate Hives Verified 11/17/21 23:32 lamotrigine Allergy Intermediate Facial Verified 11/17/21 23:32 blistering meloxicam AdvReac Severe Nausea and Verified 11/17/21 23:32 vomiting carbamazepine AdvReac Intermediate Drowsiness Verified 11/17/21 23:32 and ataxia cyclobenzaprine HCl AdvReac Intermediate vomits Verified 11/17/21 23:32 [From Flexeril] hydromorphone HCl AdvReac Intermediate vomits Verified 11/17/21 23:32 [From Dilaudid] Penicillins AdvReac Intermediate vomits Verified 11/17/21 23:32 thiopental AdvReac Intermediate Verified 11/17/21 23:32 acetaminophen [From Tylenol] AdvReac stomach Verified 11/17/21 23:32 cramps melatonin AdvReac Headaches Verified 11/17/21 23:32 methocarbamol AdvReac Nausea, Verified 11/17/21 23:32 headache oxycodone [Oxycodone] AdvReac Nausea Verified 11/17/21 23:32 prednisone AdvReac Nausea Verified 11/17/21 23:32 General Stated Complaint: Chest Pain VENKAT: 3 Review of Systems Narrative: Review of Systems Constitutional: negative Eyes: negative ENT: negative Cardiovascular: Chest pain Respiratory: negative Gastrointestinal: negative : negative Musculoskeletal: negative Skin: negative Neurologic: negative Psych: negative PFSH All Active Problems (Updated 11/18/21 @ 00:47 by Norberto Jimenes MD) Chest pain (Acute) Hyperlipidemia (Chronic) Prediabetes (Chronic) COPD (chronic obstructive pulmonary disease) (Chronic) LDCT annually, negative July 2020 Bipolar affective disorder (Chronic) Followed by [facility] Psych Generalized anxiety disorder with panic attacks (Chronic) Post traumatic stress disorder (PTSD) (Chronic) Insomnia (Chronic) GERD (gastroesophageal reflux disease) (Chronic) Cigarette smoker (Chronic) LDCT annually, negative July 2020 Chronic low back pain (Chronic) Surgical History (Updated 06/12/21 @ 12:43 by Siena Summers RN) History of esophagogastroduodenoscopy (EGD) (~05/09/21) S/P appendectomy S/P left rotator cuff repair (06/03/15) S/P PRO-BSO (total abdominal hysterectomy and bilateral salpingo-oophorectomy) Family History Mother , at 71 from dementia Alzheimer disease Heart disease Hyperlipidemia Hypertension Father Myocardial infarction Heart disease Alcohol abuse Alcoholic liver disease Sister Crohn disease Sister Hyperlipidemia Sister Type 2 diabetes mellitus Sister No problems noted. Brother , 60s Myocardial infarction Type 2 diabetes mellitus Heart disease Brother Myocardial infarction Heart disease Alcohol abuse Brother No problems noted. Brother Alcohol abuse Dementia Parkinson disease Brother Alzheimer disease Crohn disease Brother Heart disease Lymphoma Hyperlipidemia Son , at 28 from Type 1 diabetes Type 1 diabetes mellitus Son No problems noted. Maternal Grandfather No problems noted. Maternal Grandmother Alzheimer disease Paternal Grandfather No problems noted. Paternal Grandmother Type 2 diabetes mellitus Social History Smoking/Tobacco Use Status: Current every day Tobacco Type: cigarettes Years smoked: 49 Tobacco: How many years used: 50 Quit status: considering quitting Second Hand Exposure: Yes Smoking risk assessment performed?: Yes Alcohol Intake: current Alcohol Intake frequency: a few times a week Alcohol type: wine Drug use: Daily Substance use type: marijuana Housing: house Pets and animals: Yes Pets and animals: bird(s) Sexually active: Yes Do you think of yourself as: straight/heterosexual Current gender identity: female How often do you talk on the phone with friends or family?: three or more times per week Do you belong to any clubs or organized social groups?: no Panel score (0-1 are the most socially isolated patients): 1 Seatbelt use: always Helmet use: Yes Helmet use: always Drive intox or ride w/intox route driver salesperson: No Do you feel safe at home: Yes Do you feel safe in your relationship?: Yes Female Reproductive History Menstrual Menopause type: surgical History History 9 Para 2 Hx # Term Pregnancies 2 Multiple births Hx # Pregnancies Ectopic pregnancies AB induced Hx Number of Living Children 1 AB spontaneous 7 Exam Narrative Exam Narrative: Physical Examination General: alert, awake, cooperative, resting comfortably, no acute distress HEENT: normocephalic, atraumatic; PERRL, EOM intact, conjunctiva normal; no nasal discharge; moist mucous membranes, oral and pharyngeal mucosa normal, tolerating secretions Neck: supple, trachea midline; full ROM Chest: normal to inspection; reproduction of symptomatology with palpation over left anterior chest wall as well as with movement of left upper extremity Respiratory: normal respiratory effort, speaking in full sentences, clear to auscultation, no wheezing, rales or rhonchi Cardiac: regular rate, regular rhythm, S1S2 intact, no murmurs rubs or gallops GI: abdomen soft, non-tender, non-distended; no palpable mass or hepatosplenomegaly Skin: no lesions, rashes or trauma appreciated Neuro: AAOx3, normal speech, moving all extremities Extremities: No peripheral edema Psych: Appropriate mood and affect, slight anxiety Course Vital Signs Vital signs: Vital Signs Temperature 36.7 C 11/17/21 23:29 Pulse 84 11/17/21 23:29 Respiratory Rate 18 11/17/21 23:29 Blood Pressure 142/97 H 11/17/21 23:29 Pulse Oximetry 95 11/17/21 23:29 Temperature 36.7 C 11/17/21 23:29 Temperature Source Skin 11/17/21 23:29 Pulse 84 11/17/21 23:29 Respiratory Rate 18 11/17/21 23:33 Respiratory Effort Non-Labored 11/17/21 23:33 Respiratory Depth Normal 11/17/21 23:33 Respiratory Pattern Bradypnea 11/17/21 23:33 Blood Pressure 142/97 H 11/17/21 23:29 Pulse Oximetry 95 11/17/21 23:29 Pain Level 8 11/17/21 23:29 PAWSS Have you Been Recently Intoxicated or Drunk Within the Last 30 days?: No Have you Ever Experienced Previous Episodes of Alcohol Withdrawal?: No Have you ever Experienced Withdrawal Seizures?: No Have you ever Experienced Delirium Tremens(DT)s?: No Have you ever undergone Alcohol Rehabilitation Treatment (i.e, inpt ot outpatient treatment programs)?: No Have you ever Experienced Blackouts?: No Have you ever Combined Alcohol with other Downers within the last 90 days?: No Have you ever Combined Alcohol with any other Substance of Abuse during the last 90 days?: No Positive Blood Alcohol level on Presentation? [PCS.BAL]: No Evidence of Increased Autonomic Activity (i.e. HR>120, tremor, sweating, agitation, nausea)?: No Result: 0
[2021-11-17 23:55] LABS: Abs Immature Grans 0.01 10^3/uL (0.0-0.06); Absolute Basophil Count 0.07 10^3/uL (0.0-0.2); Absolute Eosinophil Count 0.17 10^3/uL (0.0-0.7); Absolute Lymphocyte Count 3.64 10^3/uL (1.2-3.4); Absolute Monocyte Count 0.71 10^3/uL (0.1-0.8); Absolute Neutrophil Count 3.92 10^3/uL (1.2-6.7); Basophils % 0.8; HCT 38.8 % (36.0-46.0); HGB 13.1 g/dL (11.2-15.7); Immature Grans % 0.1; Lymphocytes % 42.7; MCH 30.4 pg (27.0-33.0); MCHC 33.8 % (32.0-36.0); MCV 90 fL (80-95); MPV 9.8 fL (8.0-11.0); Monocytes % 8.3; Neutrophils % 46.1; Platelet Count 269 10^3/uL (130-400); RBC 4.31 10^6/uL (3.93-5.22); RDW 13.5 % (11.7-14.6); RDW-SD 44.8 fL; WBC 8.52 10^3/uL (4.4-10.8)
[2021-11-18] VITALS (11 sets, daily range): BP systolic 108–131; BP diastolic 76–83; PULSE 61–85; RESP 14–23; O2SAT 94–97
[2021-11-18] MEDS: Ketorolac 15 MG/ML VIAL IVP (00:03)
[2021-11-18] MEDS: LORazepam 20 MG/10 ML VIAL IVP (00:04)
[2021-11-18 00:13] LABS: ALT 25 U/L (14-59); AST 13 U/L (15-37); Albumin 3.6 g/dL (3.4-5.0); Alkaline Phosphatase 69 U/L (46-116); Anion Gap 9.2 mmol/L (3-11); BUN 21 mg/dL (7-18); Bilirubin, Total 0.3 mg/dL (0.2-1.0); CO2 26.8 mmol/L (21.0-32.0); CREATININE 0.8 mg/dL (0.55-1.02); Calcium 8.9 mg/dL (8.5-10.1); Chloride 104 mmol/L (98-107); Estimated GFR 85.89 (mL/min/1.73m2); Glucose 105 mg/dL (74-106); Potassium 3.6 mmol/L (3.5-5.1); Sodium 140 mmol/L (136-145); Total Protein 7.3 g/dL (6.4-8.2); Troponin I < 50 ng/L (<or=60)
--- NOTE | 2021-11-18 00:42 | DI.VRAD_ITS ---
PROCEDURE INFORMATION: Exam: XR Chest Exam date and time: 11/17/2021 11:38 PM Age: 56 years old Clinical indication: Other: Chest pain TECHNIQUE: Imaging protocol: Radiologic exam of the chest. Views: 1 view. COMPARISON: CR XR CHEST 2V PA LATERAL 05/21/2020 9:41 AM FINDINGS: Lungs: The lungs are clear and well aerated bilaterally. No consolidation or pulmonary edema. Pulmonary vasculature is normal in caliber. Pleural spaces: Unremarkable. No pleural effusion or pneumothorax. Heart/Mediastinum: Heart size is normal. Cardiomediastinal contours are stable and satisfactory. Bones/joints: No acute or suspicious abnormality. IMPRESSION: No acute cardiopulmonary abnormality. Dictated and Authenticated by: Sena Abreu MD. Ordering:RAYMON Thornton MD
== END 2021-11-18 00:59 | disposition home or self-care (01) ==
PROVIDERS: Emergency Provider Emergency Medicine; PCP Nurse Practitioner Family
DX: R07.89 Other chest pain (principal); F17.210 Nicotine dependence, cigarettes, uncomplicated
CPT/HCPCS: 80053; 93005; 96374; 96375; 99284; 71045; 84484; 85025; 93010; J1885; J3490

== ENCOUNTER 2021-11-20 13:27 | Emergency (ER) | payer MEDICAID, SELFPAY ==
[2021-11-20 13:29] VITALS: BP 143/107; PULSE 79; RESP 18; TEMP 36.9; O2SAT 99
--- NOTE | 2021-11-20 13:45 | DI.CT_ITS ---
Exam(s) CT CHEST PE CTA EXAM: CT CHEST PE CTA CLINICAL HISTORY: Chest /back pain. TECHNIQUE: Imaging Protocol: Axial CT angiography was performed with multi-slice acquisition and mu lti-planar reconstructions as well as axial, coronal and sagittal MIP reconstructions. CONTRAST MATERIAL: Intravenous: Omnipaque 350 Contrast volume:58 ml COMPARISON: CT CT ABDOMEN PELVIS W from 04/11/2021 CR,XR XR PORTABLE CHEST AP from 11/17/2021 FINDINGS: Pulmonary Arteries: The pulmonary arteries are well opacified with IV contrast. No evidence of filli ng defect to suggest pulmonary emboli. Tracheobronchial tree: Patent where visualized. Mediastinum and Jordana: No dominant adenopathy or fluid collection. Pulmonary parenchyma: Dependent changes. Emphysematous changes are noted greater at the upper lobes. Fibrotic changes are also present in the upper lobes. No consolidation or dominant measurable mass . Pleura: No effusion or pneumothorax. Heart: The heart is not dilated. No coronary artery calcifications are seen. Aorta: Thoracic aorta non-dilated. No aneurysm. No dissection. No significant atherosclerotic east ges Upper abdomen: Unremarkable. Bones: Unremarkable for age. IMPRESSION: No evidence of pulmonary embolism or other acute abnormality. Underlying emphysematous changes. Results of this exam have been verbally communicated with the emergency department provider. RADIATION DOSE DELIVERED: 305.25mGy.cm Total DLP DATA REPOSITORY: All CT scans at this facility are submitted to the National Radiology Data Registry (NRDR) Dose Index Registry (DIR) with the [employer] (ACR). RADIATION OPTIMIZATION: All CT scans at this facility use at least one of these dose optimization te chniques: automated exposure control; mA and/or kV adjustment per patient size (includes targeted exa ms where dose is matched to clinical indication); or iterative reconstruction.
--- NOTE | 2021-11-20 13:45 | RT.EKG_ITS ---
APPROVED REPORT Exam: Resting ECG Reason for Exam: chest pain Patient Location: E HR:65 bpm ECG Measurements Heart Rate 65 AXIS [place] 185 P 67 QRSd 88 QRS 38 QT 442 T 57 QTc 459 Conclusion Sinus rhythm...normal P axis, V-rate 60- 99
[2021-11-20 14:14] LABS: Abs Immature Grans 0.01 10^3/uL (0.0-0.06); Absolute Basophil Count 0.08 10^3/uL (0.0-0.2); Absolute Eosinophil Count 0.09 10^3/uL (0.0-0.7); Absolute Lymphocyte Count 2.25 10^3/uL (1.2-3.4); Absolute Monocyte Count 0.57 10^3/uL (0.1-0.8); Absolute Neutrophil Count 4.22 10^3/uL (1.2-6.7); Basophils % 1.1; Eosinophils % 1.2; HCT 43.6 % (36.0-46.0); HGB 14.3 g/dL (11.2-15.7); Immature Grans % 0.1; Lymphocytes % 31.2; MCH 29.7 pg (27.0-33.0); MCHC 32.8 % (32.0-36.0); MCV 91 fL (80-95); MPV 9.8 fL (8.0-11.0); Monocytes % 7.9; Neutrophils % 58.5; Platelet Count 277 10^3/uL (130-400); RBC 4.81 10^6/uL (3.93-5.22); RDW 13.4 % (11.7-14.6); RDW-SD 44.8 fL; WBC 7.22 10^3/uL (4.4-10.8)
[2021-11-20 14:33] LABS: ALT 26 U/L (14-59); AST 18 U/L (15-37); Albumin 4.1 g/dL (3.4-5.0); Alkaline Phosphatase 69 U/L (46-116); Anion Gap 7.7 mmol/L (3-11); BUN 13 mg/dL (7-18); Bilirubin, Total 0.4 mg/dL (0.2-1.0); CO2 28.3 mmol/L (21.0-32.0); CREATININE 0.7 mg/dL (0.55-1.02); Calcium 9.2 mg/dL (8.5-10.1); Chloride 106 mmol/L (98-107); Estimated GFR 100.81 (mL/min/1.73m2); Glucose 91 mg/dL (74-106); Magnesium 2.3 mg/dL (1.8-2.4); Sodium 142 mmol/L (136-145); Troponin I < 50 ng/L (<or=60)
[2021-11-20] MEDS: Omnipaque 350 MG/ML 500 ML BTL-Imaging package IJ (14:37)
[2021-11-20] MEDS: Ketorolac 15 MG/ML VIAL IVP (14:54)
--- NOTE | 2021-11-20 15:15 | ED.GENADUL_ITS ---
Discharge Plan Disposition Patient Disposition: HOME Condition: Stable Discharge Details Clinical Impression: Acute left-sided thoracic back pain Primary Care Provider: Lorri Curry ED Provider: Lavon Schmidt Home Meds and New Rx's Prescriptions: Continued amitriptyline 25 mg tablet 25 mg PO QHS Qty: 90 4RF albuterol sulfate 90 mcg/actuation HFA aerosol inhaler 2 inh inhalation Q6H PRN (Reason: shortness of breath or wheezing) Qty: 18 4RF rosuvastatin 40 mg tablet 40 mg PO QHS Qty: 90 4RF nicotine 21 mg/24 hr patch 24 hour 1 patch transdermal DAILY Qty: 42 0RF Rx Instructions: Apply 1 patch daily for 6 weeks ibuprofen 800 mg tablet 800 mg PO TID PRN (Reason: pain) Qty: 90 3RF clonazepam 1 mg tablet 1 mg PO TID Qty: 84 0RF pantoprazole [Protonix] 40 mg tablet,delayed release (DR/EC) 40 mg PO DAILY Qty: 30 12RF Discharge Instructions Instructions: Back Pain (ED) Additional Instructions: Continue to take ibuprofen as needed for further discomfort and you may use topical capsaicin or lidocaine cream. Please follow-up with your primary care provider for reassessment otherwise today's exam has not shown any emergent findings. Referrals: Lorri Curry, [employer] [Primary Care Provider] - 1 week Discharge Data Discharge Date/Time-TO BE ENTERED AT DEPARTURE: 11/20/21 15:34 Medical Decision Making Patient presenting to the emergency department for chief complaint of upper back pain primarily behind the left shoulder blade. Patient denies any other injury or trauma. Patient was seen and evaluated a couple days ago in the emergency department for chief complaint of chest pain which she now states has resolved but unsure why she now has shoulder pain. Physical exam is unremarkable and no reproducible pain is able to be appreciated. Due to patient just being seen for chest pain we will perform complete work-up including CT imaging. Reviewed labs and CBC is unremarkable, CMP also unremarkable, negative troponin. CT imaging of the chest shows no pulmonary embolism, no abnormality noted with the aorta and is otherwise unremarkable. Feel this may be a musculoskeletal pain so will encourage [id number] meds and follow-up with primary care. Close monitoring and return precautions discussed with patient. After discussion of diagnosis and plan of care patient has no further needs, questions, or concerns and states clear understanding to return to the emergency department for any worsening symptoms. This documentation was generated using [employer] dictation system, please disregard any oddities of phrase or misspellings. Imaging Data Radiologic Study: Attestation: I personally reviewed and interpreted this imaging study as follows: Imaging: CT Scan Radiologist's impression: FINDINGS: Pulmonary Arteries: The pulmonary arteries are well opacified with IV contrast. No evidence of filling defect to suggest pulmonary emboli. Tracheobronchial tree: Patent where visualized. Mediastinum and Jordana: No dominant adenopathy or fluid collection. Pulmonary parenchyma: Dependent changes. Emphysematous changes are noted greater at the upper lobes. Fibrotic changes are also present in the upper lobes. No consolidation or dominant measurable mass. Pleura: No effusion or pneumothorax. Heart: The heart is not dilated. No coronary artery calcifications are seen. Aorta: Thoracic aorta non-dilated. No aneurysm. No dissection. No significant atherosclerotic changes Upper abdomen: Unremarkable. Bones: Unremarkable for age. IMPRESSION: No evidence of pulmonary embolism or other acute abnormality. Underlying emphysematous changes. Results of this exam have been verbally communicated with the emergency department provider. Lab Data Lab results reviewed: Yes I reviewed the patient's lab results. HPI General Mode of arrival: ambulatory . Date/Time Provider Initiated Documentation: 11/20/21 13:31 . Limitations to Documentation: no limitations . Information obtained by: patient and RN notes reviewed . History of Present Illness 56 year old F presents to the emergency department with the chief complaint of upper back pain , described as moderate and severe, with intensity rated at 8. Quality is described as sharp, and is localized to the back. Patient reports no radiation. Patient started experiencing this hour(s) (5) and it has been constant. No relieving factors improve symptom(s), No exacerbating factors reported . Patient notes no other symptoms.. Patient did receive the following treatments prior to arrival, none Related Data Home Medications Medication Instructions Recorded Confirmed albuterol sulfate 90 mcg/actuation 2 inh inhalation Q6H PRN shortness 01/30/21 11/20/21 aerosol inhaler of breath or wheezing #18 grams amitriptyline 25 mg tablet 25 mg PO QHS #90 tabs 01/30/21 11/20/21 nicotine 21 mg/24 hr daily 1 patch transdermal DAILY #42 ea 04/21/21 11/20/21 transdermal patch rosuvastatin 40 mg tablet 40 mg PO QHS #90 tabs 04/21/21 11/20/21 pantoprazole 40 mg tablet,delayed 40 mg PO DAILY #30 tabs 05/09/21 11/20/21 release (Protonix) ibuprofen 800 mg tablet 800 mg PO TID PRN pain #90 tabs 10/16/21 11/20/21 clonazepam 1 mg tablet 1 mg PO TID #84 tabs 11/18/21 11/20/21 Previous Rx's Medication Instructions Recorded albuterol sulfate 90 mcg/actuation 2 inh inhalation Q6H PRN shortness 01/30/21 aerosol inhaler of breath or wheezing #18 grams amitriptyline 25 mg tablet 25 mg PO QHS #90 tabs 01/30/21 nicotine 21 mg/24 hr daily 1 patch transdermal DAILY #42 ea 04/21/21 transdermal patch rosuvastatin 40 mg tablet 40 mg PO QHS #90 tabs 04/21/21 pantoprazole 40 mg tablet,delayed 40 mg PO DAILY #30 tabs 05/09/21 release (Protonix) ibuprofen 800 mg tablet 800 mg PO TID PRN pain #90 tabs 10/16/21 clonazepam 1 mg tablet 1 mg PO TID #84 tabs 11/18/21 Allergies Allergy/AdvReac Type Severity Reaction Status Date / Time morphine Allergy Severe stops my Verified 11/19/21 18:21 heart fentanyl Allergy Intermediate Hives Verified 11/19/21 18:21 lamotrigine Allergy Intermediate Facial Verified 11/19/21 18:21 blistering meloxicam AdvReac Severe Nausea and Verified 11/19/21 18:21 vomiting carbamazepine AdvReac Intermediate Drowsiness Verified 11/19/21 18:21 and ataxia cyclobenzaprine HCl AdvReac Intermediate vomits Verified 11/19/21 18:21 [From Flexeril] hydromorphone HCl AdvReac Intermediate vomits Verified 11/19/21 18:21 [From Dilaudid] Penicillins AdvReac Intermediate vomits Verified 11/19/21 18:21 thiopental AdvReac Intermediate Verified 11/19/21 18:21 acetaminophen [From Tylenol] AdvReac stomach Verified 11/19/21 18:21 cramps melatonin AdvReac Headaches Verified 11/19/21 18:21 methocarbamol AdvReac Nausea, Verified 11/19/21 18:21 headache oxycodone [Oxycodone] AdvReac Nausea Verified 11/19/21 18:21 prednisone AdvReac Nausea Verified 11/19/21 18:21 General Stated Complaint: Nk/Back Pain VENKAT: 4 Review of Systems Constitutional Constitutional: Denies chills, Denies fever(s), Denies headache(s) and Denies weakness ENT Ears, Nose, Mouth, and Throat: Denies headache(s) Cardiovascular Cardiovascular: Denies chest pain, Denies dyspnea and Denies dyspnea on exertion Respiratory Respiratory: Denies cough, Denies dyspnea and Denies dyspnea on exertion Gastrointestinal Gastrointestinal: Denies abdominal pain, Denies nausea and Denies vomiting Genitourinary Genitourinary: Reports system reviewed and no additional complaints, except as documented Musculoskeletal Musculoskeletal: Reports as per HPI, Denies muscle weakness, Denies numbness, Denies radiating pain into limb and Denies tingling Integumentary/Breasts Skin/Breast: Denies rash Neurologic Neurologic: Denies headache(s), Denies numbness, Denies tingling and Denies weakness PFSH All Active Problems Acute left-sided thoracic back pain (Acute) Chest pain (Acute) Hyperlipidemia (Chronic) Prediabetes (Chronic) COPD (chronic obstructive pulmonary disease) (Chronic) LDCT annually, negative July 2020 Bipolar affective disorder (Chronic) Followed by [facility] Psych Generalized anxiety disorder with panic attacks (Chronic) Post traumatic stress disorder (PTSD) (Chronic) Insomnia (Chronic) GERD (gastroesophageal reflux disease) (Chronic) Cigarette smoker (Chronic) LDCT annually, negative July 2020 Chronic low back pain (Chronic) Surgical History History of esophagogastroduodenoscopy (EGD) (~05/09/21) S/P appendectomy S/P left rotator cuff repair (06/03/15) S/P PRO-BSO (total abdominal hysterectomy and bilateral salpingo-oophorectomy) Family History Mother , at 71 from dementia Alzheimer disease Heart disease Hyperlipidemia Hypertension Father Myocardial infarction Heart disease Alcohol abuse Alcoholic liver disease Sister Crohn disease Sister Hyperlipidemia Sister Type 2 diabetes mellitus Sister No problems noted. Brother , 60s Myocardial infarction Type 2 diabetes mellitus Heart disease Brother Myocardial infarction Heart disease Alcohol abuse Brother No problems noted. Brother Alcohol abuse Dementia Parkinson disease Brother Alzheimer disease Crohn disease Brother Heart disease Lymphoma Hyperlipidemia Son , at 28 from Type 1 diabetes Type 1 diabetes mellitus Son No problems noted. Maternal Grandfather No problems noted. Maternal Grandmother Alzheimer disease Paternal Grandfather No problems noted. Paternal Grandmother Type 2 diabetes mellitus Social History Smoking/Tobacco Use Status: Current every day Tobacco Type: cigarettes Years smoked: 49 Tobacco: How many years used: 50 Quit status: considering quitting Second Hand Exposure: Yes Smoking risk assessment performed?: Yes Alcohol Intake: current Alcohol Intake frequency: a few times a week Alcohol type: wine Drug use: Daily Substance use type: marijuana Housing: house Pets and animals: Yes Pets and animals: bird(s) Sexually active: Yes Do you think of yourself as: straight/heterosexual Current gender identity: female How often do you talk on the phone with friends or family?: three or more times per week Do you belong to any clubs or organized social groups?: no Panel score (0-1 are the most socially isolated patients): 1 Seatbelt use: always Helmet use: Yes Helmet use: always Drive intox or ride w/intox driver operator: No Do you feel safe at home: Yes Do you feel safe in your relationship?: Yes Female Reproductive History Menstrual Menopause type: surgical History History 9 Para 2 Hx # Term Pregnancies 2 Multiple births Hx # Pregnancies Ectopic pregnancies AB induced Hx Number of Living Children 1 AB spontaneous 7 Exam Const General: cooperative, healthy appearing, comfortable, no acute distress, not diaphoretic and not ill appearing Nutritional Appearance: average body habitus Orientation: alert, awake and oriented x3 Limitations: mental status not altered Neck Neck: normal visual inspection, full ROM, trachea midline, supple and no anterior neck swelling Resp Effort & Inspection: normal respiratory effort and able to speak in complete sentences Auscultation: clear to auscultation bilaterally Cardio Jugular venous pressure: no JVD Palpation: normal PMI Rate: regular rate Rhythm: regular rhythm Heart Sounds: S1 normal, S2 normal, no click, no gallops, no murmurs and no rubs Pulses: radial pulses present bilaterally 2+ Back/Spine/Pelvis Cervical Spine: normal cervical lordosis Thoracic/Lumbar Spine: thoracic and lumbar spine normal to inspection, No paraspinal tenderness, No thoraco-lumbar spasm, No thoracic spinal tenderness and No lumbar spinal tenderness Skin General skin exam: no rashes or lesions noted Neuro General: patient alert, patient awake, patient oriented x3, tone normal and moves all extremities Course Vital Signs Vital signs: Vital Signs Temperature 36.9 C 11/20/21 13:29 Pulse 79 11/20/21 13:29 Respiratory Rate 18 11/20/21 13:29 Blood Pressure 143/107 H 11/20/21 13:29 Pulse Oximetry 99 11/20/21 13:29 Temperature 36.9 C 11/20/21 13:29 Temperature Source Temporal Artery Scan 11/20/21 13:29 Pulse 79 11/20/21 13:29 Respiratory Rate 18 11/20/21 13:29 Respiratory Effort Non-Labored 11/20/21 13:34 Blood Pressure 143/107 H 11/20/21 13:29 Blood Pressure Position Sitting 11/20/21 13:29 Pulse Oximetry 99 11/20/21 13:29 Oxygen Delivery Method Room Air 11/20/21 13:29 Oxygen Flow Rate 0 11/20/21 13:29 Pain Level 7 11/20/21 13:29 Lab/Test Results Lab/Test Results: Laboratory Tests Range/Units 11/20/21 11/20/21 14:06 14:06 WBC (4.4-10.8) 10^3/uL 7.22 RBC (3.93-5.22) 10^6/uL 4.81 Hgb (11.2-15.7) g/dL 14.3 Hct (36.0-46.0) % 43.6 MCV (80-95) fL 91 MCH (27.0-33.0) pg 29.7 MCHC (32.0-36.0) % 32.8 RDW (11.7-14.6) % 13.4 Plt Count (130-400) 10^3/uL 277 MPV (8.0-11.0) fL 9.8 Immature Gran % 0.1 Neutrophils % 58.5 Lymphocytes % 31.2 Monocytes % 7.9 Eosinophils % 1.2 Basophils % 1.1 Nucleated RBC % (0.0-0.3) % 0.0 Absolute Neutrophils (1.2-6.7) 10^3/uL 4.22 Absolute Lymphocytes (1.2-3.4) 10^3/uL 2.25 Absolute Monocytes (0.1-0.8) 10^3/uL 0.57 Absolute Eosinophils (0.0-0.7) 10^3/uL 0.09 Absolute Basophils (0.0-0.2) 10^3/uL 0.08 Sodium (136-145) mmol/L 142 Potassium (3.5-5.1) mmol/L 4.0 Chloride (98-107) mmol/L 106 Carbon Dioxide (21.0-32.0) mmol/L 28.3 Anion Gap (3-11) mmol/L 7.7 BUN (7-18) mg/dL 13 Creatinine (0.55-1.02) mg/dL 0.7 Est GFR (CKD-EPI 2020) (mL/min/1.73m2) 100.81 Glucose (74-106) mg/dL 91 Calcium (8.5-10.1) mg/dL 9.2 Magnesium (1.8-2.4) mg/dL 2.3 Total Bilirubin (0.2-1.0) mg/dL 0.4 AST (15-37) U/L 18 ALT (14-59) U/L 26 Alkaline Phosphatase (46-116) U/L 69 Troponin I (<or=60) ng/L < 50 Total Protein (6.4-8.2) g/dL 8.0 Albumin (3.4-5.0) g/dL 4.1
[2021-11-20 15:31] VITALS: BP 168/93; PULSE 75; TEMP 36.3; O2SAT 93
== END 2021-11-20 15:34 | disposition home or self-care (01) ==
PROVIDERS: Emergency Provider Nurse Practitioner Family; PCP Nurse Practitioner Family
DX: M54.6 Pain in thoracic spine (principal); J44.9 Chronic obstructive pulmonary disease, unspecified; F17.210 Nicotine dependence, cigarettes, uncomplicated
CPT/HCPCS: 71275; 80053; 93005; 96374; 99285; 83735; 84484; 85025; 93010; 99284; J1885

== ENCOUNTER 2021-12-04 06:54 | Emergency (ER) | payer MEDICAID, SELFPAY ==
[2021-12-04] VITALS (8 sets, daily range): BP systolic 140–157; BP diastolic 89–99; PULSE 57–90; RESP 12–18; TEMP 36.6; O2SAT 98–100
[2021-12-04 07:37] LABS: Abs Immature Grans 0.03 10^3/uL (0.0-0.06); Absolute Basophil Count 0.07 10^3/uL (0.0-0.2); Absolute Eosinophil Count 0.21 10^3/uL (0.0-0.7); Absolute Lymphocyte Count 3.85 10^3/uL (1.2-3.4); Absolute Monocyte Count 0.69 10^3/uL (0.1-0.8); Absolute Neutrophil Count 4.45 10^3/uL (1.2-6.7); Basophils % 0.8; Eosinophils % 2.3; HGB 14.5 g/dL (11.2-15.7); Immature Grans % 0.3; Lymphocytes % 41.4; MCH 30.3 pg (27.0-33.0); MCHC 33.7 % (32.0-36.0); MCV 90 fL (80-95); Monocytes % 7.4; Neutrophils % 47.8; Platelet Count 281 10^3/uL (130-400); RBC 4.78 10^6/uL (3.93-5.22); RDW 13.2 % (11.7-14.6); RDW-SD 44.1 fL
[2021-12-04] MEDS: FAMOTIDINE 20 MG in Normal Saline 100 ML 400 MG IVPB (07:42)
[2021-12-04] MEDS: Ondansetron 4 MG/2 ML VIAL IVP (07:43)
--- NOTE | 2021-12-04 07:43 | ED.GENADUL_ITS ---
Discharge Plan Disposition Patient Disposition: STILL A PATIENT Discharge Details Chief Complaint: Abd Prob Primary Care Provider: Lorri Curry ED Provider: Winston Dixon Home Meds and New Rx's Prescriptions: No Action amitriptyline 25 mg tablet 25 mg PO QHS Qty: 90 4RF albuterol sulfate 90 mcg/actuation HFA aerosol inhaler 2 inh inhalation Q6H PRN (Reason: shortness of breath or wheezing) Qty: 18 4RF rosuvastatin 40 mg tablet 40 mg PO QHS Qty: 90 4RF nicotine 21 mg/24 hr patch 24 hour 1 patch transdermal DAILY Qty: 42 0RF Rx Instructions: Apply 1 patch daily for 6 weeks ibuprofen 800 mg tablet 800 mg PO TID PRN (Reason: pain) Qty: 90 3RF clonazepam 1 mg tablet 1 mg PO TID Qty: 84 0RF pantoprazole [Protonix] 40 mg tablet,delayed release (DR/EC) 40 mg PO DAILY Qty: 30 12RF Medical Decision Making 745? 56-year-old female here with left upper quadrant abdominal pain that started this morning. Patient is focally tender left upper quadrant. No peritoneal findings. I suspect she has gastritis versus less likely gastric ulcer. Will give Pepcid 20 mg IV as well as Zofran 4 mg IV for nausea. I will obtain abdominal series x-ray. HPI General Mode of arrival: ambulatory . Date/Time Provider Initiated Documentation: 12/04/21 07:25 . Limitations to Documentation: no limitations . Information obtained by: patient . HPI Narrative: 56-year-old female presents with chief complaint of abdominal pain. Patient reports sharp right upper quadrant abdominal pain started this morning, woke her up from sleep. Pain is severe. Pain is localized to left upper quadrant does not radiate. She has associated nausea and vomited up a small amount. Vomit nonbloody. Patient denies bright red blood per rectum and melena. Related Data Home Medications Medication Instructions Recorded Confirmed albuterol sulfate 90 mcg/actuation 2 inh inhalation Q6H PRN shortness 01/30/21 12/04/21 aerosol inhaler of breath or wheezing #18 grams amitriptyline 25 mg tablet 25 mg PO QHS #90 tabs 01/30/21 12/04/21 nicotine 21 mg/24 hr daily 1 patch transdermal DAILY #42 ea 04/21/21 12/04/21 transdermal patch rosuvastatin 40 mg tablet 40 mg PO QHS #90 tabs 04/21/21 12/04/21 pantoprazole 40 mg tablet,delayed 40 mg PO DAILY #30 tabs 05/09/21 12/04/21 release (Protonix) ibuprofen 800 mg tablet 800 mg PO TID PRN pain #90 tabs 10/16/21 12/04/21 clonazepam 1 mg tablet 1 mg PO TID #84 tabs 11/18/21 12/04/21 Previous Rx's Medication Instructions Recorded albuterol sulfate 90 mcg/actuation 2 inh inhalation Q6H PRN shortness 01/30/21 aerosol inhaler of breath or wheezing #18 grams amitriptyline 25 mg tablet 25 mg PO QHS #90 tabs 01/30/21 nicotine 21 mg/24 hr daily 1 patch transdermal DAILY #42 ea 04/21/21 transdermal patch rosuvastatin 40 mg tablet 40 mg PO QHS #90 tabs 04/21/21 pantoprazole 40 mg tablet,delayed 40 mg PO DAILY #30 tabs 05/09/21 release (Protonix) ibuprofen 800 mg tablet 800 mg PO TID PRN pain #90 tabs 10/16/21 clonazepam 1 mg tablet 1 mg PO TID #84 tabs 11/18/21 Allergies Allergy/AdvReac Type Severity Reaction Status Date / Time morphine Allergy Severe stops my Verified 12/04/21 07:11 heart fentanyl Allergy Intermediate Hives Verified 12/04/21 07:11 lamotrigine Allergy Intermediate Facial Verified 12/04/21 07:11 blistering meloxicam AdvReac Severe Nausea and Verified 12/04/21 07:11 vomiting carbamazepine AdvReac Intermediate Drowsiness Verified 12/04/21 07:11 and ataxia cyclobenzaprine HCl AdvReac Intermediate vomits Verified 12/04/21 07:11 [From Flexeril] hydromorphone HCl AdvReac Intermediate vomits Verified 12/04/21 07:11 [From Dilaudid] Penicillins AdvReac Intermediate vomits Verified 12/04/21 07:11 thiopental AdvReac Intermediate Verified 12/04/21 07:11 acetaminophen [From Tylenol] AdvReac stomach Verified 12/04/21 07:11 cramps melatonin AdvReac Headaches Verified 12/04/21 07:11 methocarbamol AdvReac Nausea, Verified 12/04/21 07:11 headache oxycodone [Oxycodone] AdvReac Nausea Verified 12/04/21 07:11 prednisone AdvReac Nausea Verified 12/04/21 07:11 General Stated Complaint: Abd Prob VENKAT: 3 Review of Systems All systems reviewed & are unremarkable except as noted in HPI and below Constitutional Constitutional: Denies fever(s) Gastrointestinal Gastrointestinal: Reports as per HPI PFSH All Active Problems Acute left-sided thoracic back pain (Acute) Chest pain (Acute) Hyperlipidemia (Chronic) Prediabetes (Chronic) COPD (chronic obstructive pulmonary disease) (Chronic) LDCT annually, negative July 2020 Bipolar affective disorder (Chronic) Followed by [facility] Psych Generalized anxiety disorder with panic attacks (Chronic) Post traumatic stress disorder (PTSD) (Chronic) Insomnia (Chronic) GERD (gastroesophageal reflux disease) (Chronic) Cigarette smoker (Chronic) LDCT annually, negative July 2020 Chronic low back pain (Chronic) Surgical History History of esophagogastroduodenoscopy (EGD) (~05/09/21) S/P appendectomy S/P left rotator cuff repair (06/03/15) S/P PRO-BSO (total abdominal hysterectomy and bilateral salpingo-oophorectomy) Family History Mother , at 71 from dementia Alzheimer disease Heart disease Hyperlipidemia Hypertension Father Myocardial infarction Heart disease Alcohol abuse Alcoholic liver disease Sister Crohn disease Sister Hyperlipidemia Sister Type 2 diabetes mellitus Sister No problems noted. Brother , 60s Myocardial infarction Type 2 diabetes mellitus Heart disease Brother Myocardial infarction Heart disease Alcohol abuse Brother No problems noted. Brother Alcohol abuse Dementia Parkinson disease Brother Alzheimer disease Crohn disease Brother Heart disease Lymphoma Hyperlipidemia Son , at 28 from Type 1 diabetes Type 1 diabetes mellitus Son No problems noted. Maternal Grandfather No problems noted. Maternal Grandmother Alzheimer disease Paternal Grandfather No problems noted. Paternal Grandmother Type 2 diabetes mellitus Social History Smoking/Tobacco Use Status: Current every day Tobacco Type: cigarettes Years smoked: 49 Tobacco: How many years used: 50 Quit status: considering quitting Second Hand Exposure: Yes Smoking risk assessment performed?: Yes Alcohol Intake: current Alcohol Intake frequency: a few times a week Alcohol type: wine Drug use: Daily Substance use type: marijuana Housing: house Pets and animals: Yes Pets and animals: bird(s) Sexually active: Yes Do you think of yourself as: straight/heterosexual Current gender identity: female How often do you talk on the phone with friends or family?: three or more times per week Do you belong to any clubs or organized social groups?: no Panel score (0-1 are the most socially isolated patients): 1 Seatbelt use: always Helmet use: Yes Helmet use: always Drive intox or ride w/intox sweeper driver: No Do you feel safe at home: Yes Do you feel safe in your relationship?: Yes Female Reproductive History Menstrual Menopause type: surgical History History 9 Para 2 Hx # Term Pregnancies 2 Multiple births Hx # Pregnancies Ectopic pregnancies AB induced Hx Number of Living Children 1 AB spontaneous 7 Exam Const General: cooperative and no acute distress HENMT Mouth: moist mucous membranes Eyes Conjunctivae: normal conjunctivae Sclera: normal sclerae Neck Neck: trachea midline and supple Resp Auscultation: clear to auscultation bilaterally, no rales, no rhonchi and no wheezes Cardio Rate: regular rate and not tachycardic Rhythm: regular rhythm GI Palpation: soft, not firm, no guarding, no masses, not rigid and tender in the LUQ; not in the LLQ, not in the RLQ, not in the RUQ and with no rebound tenderness Skin General skin exam: no rashes or lesions noted Neuro General: patient alert, patient awake and tone normal Extrem General: no edema Psych Appearance: grossly normal Mental Status: mental status grossly normal Speech and Movement: speech and movement normal Course Vital Signs Vital signs: Vital Signs Temperature 36.6 C 12/04/21 07:08 Pulse 90 12/04/21 07:08 Respiratory Rate 18 12/04/21 07:08 Blood Pressure 150/96 H 12/04/21 07:08 Pulse Oximetry 98 12/04/21 07:08 Temperature 36.6 C 12/04/21 07:08 Temperature Source Temporal Artery Scan 12/04/21 07:08 Pulse 90 12/04/21 07:08 Respiratory Rate 18 12/04/21 07:08 Respiratory Effort Non-Labored 12/04/21 07:25 Blood Pressure 150/96 H 12/04/21 07:08 Blood Pressure Position Sitting 12/04/21 07:08 Pulse Oximetry 98 12/04/21 07:08 Oxygen Delivery Method Room Air 12/04/21 07:08 Oxygen Flow Rate 0 12/04/21 07:08 Pain Level 9 12/04/21 07:25 Lab/Test Results Lab/Test Results: Laboratory Tests Range/Units 12/04/21 12/04/21 07:25 07:25 WBC (4.4-10.8) 10^3/uL 9.30 RBC (3.93-5.22) 10^6/uL 4.78 Hgb (11.2-15.7) g/dL 14.5 Hct (36.0-46.0) % 43.0 MCV (80-95) fL 90 MCH (27.0-33.0) pg 30.3 MCHC (32.0-36.0) % 33.7 RDW (11.7-14.6) % 13.2 Plt Count (130-400) 10^3/uL 281 MPV (8.0-11.0) fL 10.0 Immature Gran % 0.3 Neutrophils % 47.8 Lymphocytes % 41.4 Monocytes % 7.4 Eosinophils % 2.3 Basophils % 0.8 Nucleated RBC % (0.0-0.3) % 0.0 Absolute Neutrophils (1.2-6.7) 10^3/uL 4.45 Absolute Lymphocytes (1.2-3.4) 10^3/uL 3.85 H Absolute Monocytes (0.1-0.8) 10^3/uL 0.69 Absolute Eosinophils (0.0-0.7) 10^3/uL 0.21 Absolute Basophils (0.0-0.2) 10^3/uL 0.07 Lipase Cancelled PAWSS Have you Been Recently Intoxicated or Drunk Within the Last 30 days?: No Have you Ever Experienced Previous Episodes of Alcohol Withdrawal?: No Have you ever Experienced Withdrawal Seizures?: No Have you ever Experienced Delirium Tremens(DT)s?: No Have you ever undergone Alcohol Rehabilitation Treatment (i.e, inpt ot outpatient treatment programs)?: No Have you ever Experienced Blackouts?: No Have you ever Combined Alcohol with other Downers within the last 90 days?: No Have you ever Combined Alcohol with any other Substance of Abuse during the last 90 days?: No Result: 0
[2021-12-04 08:25] LABS: ALT 27 U/L (14-59); AST 16 U/L (15-37); Albumin 4.2 g/dL (3.4-5.0); Alkaline Phosphatase 74 U/L (46-116); Anion Gap 8.7 mmol/L (3-11); BUN 15 mg/dL (7-18); Bilirubin, Total 0.3 mg/dL (0.2-1.0); CO2 27.3 mmol/L (21.0-32.0); CREATININE 0.7 mg/dL (0.55-1.02); Calcium 9.2 mg/dL (8.5-10.1); Chloride 106 mmol/L (98-107); Estimated GFR 100.81 (mL/min/1.73m2); Glucose 102 mg/dL (74-106); Lipase 95 U/L (73-393); Potassium 4.1 mmol/L (3.5-5.1); Sodium 142 mmol/L (136-145)
[2021-12-04] MEDS: Lactated Ringers 500 ML IV (08:28)
--- NOTE | 2021-12-04 09:00 | DI.RAD_ITS ---
Exam(s) XR ABD FLAT UPRIGHT PA CHEST EXAM: XR ABD FLAT UPRIGHT PA CHEST CLINICAL HISTORY: luq abd pain TECHNIQUE: COMPARISON: CR,XR XR PORTABLE CHEST AP from 11/17/2021 FINDINGS: Portable view of the chest shows no focal consolidation. No free air identified in the peritoneal ca vity. Unremarkable appearance of the bowel gas pattern. No gross organomegaly. Surgical sutures no dominic in the pelvis bilaterally. IMPRESSION: No evidence of acute process. RADIATION DOSE DELIVERED: Total DLP
--- NOTE | 2021-12-04 09:30 | W.EDPROG ---
Date of service: 12/04/21 Time of Service: 09:30 Medical Decision Making pt's labs and imaging unremarkable, she states she feels significantly better and has no pain now. Discussed with her and given she has no tenderness on exam now do not feel ct indicated, she will f/u with pcp and return precautions given, suspect gerd vs gastritis Imaging Data Radiologic Study: Attestation: I personally reviewed and interpreted this imaging study as follows: Imaging: X-Ray Radiologist's impression: no acute findings Lab Data Lab results reviewed: Yes I reviewed the patient's lab results. Sign Out Sign Out Data: Sign Out Comment: Follow-up on labs and abdominal series x-ray. Reassess patient for disposition. Patient is receiving 500 mL IV fluid bolus, Pepcid IV and Zofran IV. Last updated by Winston Dixon MD at 12/04/21 07:48 Discharge Plan Disposition Patient Disposition: HOME Condition: Stable Discharge Details Clinical Impression: Gastritis Primary Care Provider: Lorri Curry ED Provider: Albino Vences Home Meds and New Rx's Prescriptions: Continued amitriptyline 25 mg tablet 25 mg PO QHS Qty: 90 4RF albuterol sulfate 90 mcg/actuation HFA aerosol inhaler 2 inh inhalation Q6H PRN (Reason: shortness of breath or wheezing) Qty: 18 4RF rosuvastatin 40 mg tablet 40 mg PO QHS Qty: 90 4RF nicotine 21 mg/24 hr patch 24 hour 1 patch transdermal DAILY Qty: 42 0RF Rx Instructions: Apply 1 patch daily for 6 weeks ibuprofen 800 mg tablet 800 mg PO TID PRN (Reason: pain) Qty: 90 3RF clonazepam 1 mg tablet 1 mg PO TID Qty: 84 0RF pantoprazole [Protonix] 40 mg tablet,delayed release (DR/EC) 40 mg PO DAILY Qty: 30 12RF Discharge Instructions Instructions: Gastritis (ED) Additional Instructions: your blood work and xray did not show concerning findings at this time follow up with your primary care provider as soon as possible if you feel more ill, have severe worsening pain or persistent vomiting return to the emergency department
== END 2021-12-04 09:49 | disposition home or self-care (01) ==
PROVIDERS: Student in an Organized Health Care Education/Training Program; Emergency Provider Emergency Medicine; PCP Nurse Practitioner Family
DX: K29.70 Gastritis, unspecified, without bleeding (principal); F17.210 Nicotine dependence, cigarettes, uncomplicated
CPT/HCPCS: 36415; 80053; 83690; 96361; 96365; 96375; 99284; 74022; 85025; J2405

== ENCOUNTER → 2021-12-09 02:29 | Outpatient (CLI) | payer MEDICAID, SELFPAY ==
--- NOTE | 2021-12-09 07:15 | DI.MAMMO_ITS ---
Exam(s) US BREAST LT COMPLETE MAMMO DIAGNOSTIC BI EXAM: MAMMO DIAGNOSTIC BI and U/S breast LT complete CLINICAL HISTORY: pain/lump of left breast,n63.20,n64.4. TECHNIQUE: Craniocaudal and mediolateral oblique Full Field Digital Mammography views with Computer Aided Diagnosis followed by Tomosynthesis and left breast ultrasound. COMPARISON: Comparison is made with prior examinations. FINDINGS: Mammography/Tomosynthesis: Masses/Architectural Distortion: There is a round area of nodularity in the outer left breast on the CC view. A spot compression view fails to show persistent discrete mass in this area. Microcalcifictions: No suspicious pleomorphic-type are seen. Skin Thickening/Nipple Retraction: None. Complete left breast US: Echotexture: Normal appearance of the glandular tissue. Shadowing: No suspicious foci. Cyst: None. Solid lesions: None seen. Ductal dilation: None. IMPRESSION: 1. No evidence of malignancy is noted. 2. Unless there is more urgent need, follow-up screening mammography is recommended, as per [employer] guidelines. 3. The findings were discussed with the patient on the date of the examination. BI-RADS Category 1 - Negative Breast Density - Category B - Scattered areas of fibroglandular density Breast density Category C or D implies that the patient has dense breast tissue. Dense breast tissue can make it harder to find cancer on a mammogram. Dense breast tissue is also associated with an incr eased risk of breast cancer. This information about the result of the mammogram report was provided to the patient to raise their awareness. Use this report when you speak with the patient about their risks for breast cancer, which includes their family history. At that time, you may recommend additional screening tests (Ultrasoun d or MRI) as these tests may add significant information. A negative radiographic report should not delay biopsy if a dominant or clinically suspicious mass is present. Up to ten percent of cancers are not identified on mammography. A negative report may reinforce clinical impression. Adenosis and dense breasts may obscure an underlying neoplasm. False positive reports average 6 to 10%. Patient will receive a letter notifying them of these results.
== END ==
PROVIDERS: PCP Nurse Practitioner Family; Visit Provider Nurse Practitioner Family
DX: N64.4 Mastodynia; R92.8 Other abnormal and inconclusive findings on diagnostic imaging of breast
CPT/HCPCS: 76642; 77062; 77066; G0279

== ENCOUNTER 2022-03-16 09:51 | Outpatient (CLI) | payer MEDICAID, SELFPAY ==
--- NOTE | 2022-03-16 08:30 | DI.RAD_ITS ---
Exam(s) XR SHOULDER LT COMPLETE 2+V EXAM: XR SHOULDER LT COMPLETE 2+V CLINICAL HISTORY: OA, M19.90. TECHNIQUE: 2D digital imaging was performed of the left shoulder. Five images were obtained. AP, G rashey, Y-view and axillary views were obtained. COMPARISON: CR LEFT SHOULDER COMPLETE from 10/03/2016 FINDINGS: BONES: No acute fracture is present. No bony destructive lesion is seen. There is stable posttraumati c and postsurgical changes in the shoulder. JOINTS: No dislocation present. SOFT TISSUE: Normal. IMPRESSION: No acute abnormality. DATA REPOSITORY: RADIATION DOSE DELIVERED:
--- NOTE | 2022-03-16 08:30 | DI.RAD_ITS ---
Exam(s) XR KNEE LT 3V AP,LAT,DIPIKA EXAM: XR KNEE LT 3V AP,LAT,DIPIKA CLINICAL HISTORY: knee pain; OA, M19.90. TECHNIQUE: 2D digital imaging was performed of the left knee. Three images were obtained. AP, late ral and PA tunnel views were obtained. COMPARISON: CR XR KNEE LT 3V AP,LAT,DIPIKA from 03/17/2019 FINDINGS: BONES: No acute fracture is present. No bony destructive lesion is seen. JOINTS: The knee is normally aligned. No joint effusion is seen. SOFT TISSUE: Normal. IMPRESSION: Normal radiographs of the left knee. DATA REPOSITORY: RADIATION DOSE DELIVERED:
--- NOTE | 2022-03-16 08:30 | DI.RAD_ITS ---
Exam(s) XR KNEE RT 3V AP,LAT,DIPIKA EXAM: XR KNEE RT 3V AP,LAT,DIPIKA CLINICAL HISTORY: knee pain; OA, M19.90. TECHNIQUE: 2D digital imaging was performed of the right knee. Three views obtained. AP, lateral an d PA tunnel views were obtained. COMPARISON: CR XR KNEE LT 3V AP,LAT,DIPIKA from 03/16/2022 FINDINGS: BONES: No acute fracture is present. No bony destructive lesion is seen. There is a small enthesophyt e at the superior patella. JOINTS: The knee is normally aligned. No joint effusion is seen. SOFT TISSUE: Normal. IMPRESSION: Unremarkable radiographs of the right knee. DATA REPOSITORY: RADIATION DOSE DELIVERED:
== END 2022-03-16 10:11 ==
LOC: DI 09:53
PROVIDERS: PCP Nurse Practitioner Family; Visit Provider Nurse Practitioner Family
DX: M25.562 Pain in left knee (principal); M25.561 Pain in right knee
CPT/HCPCS: 73562; 73030

== ENCOUNTER 2022-04-27 18:31 | Emergency (ER) | payer MEDICAID, SELFPAY ==
--- NOTE | 2022-04-27 18:30 | RT.EKG_ITS ---
APPROVED REPORT Exam: Resting ECG Reason for Exam: chest pain, sob Patient Location: E HR:70 bpm ECG Measurements Heart Rate 70 AXIS DC 173 P 59 QRSd 95 QRS 34 QT 391 T 54 QTc 422 Conclusion Sinus rhythm...normal P axis, V-rate 60- 99 sinus rhythm, normal axis, non ischemic
[2022-04-27 18:34] VITALS: BP 153/108; PULSE 70; RESP 13; TEMP 36.6; O2SAT 97
[2022-04-27 18:43] VITALS: RESP 14
--- NOTE | 2022-04-27 18:45 | DI.RAD_ITS ---
Exam(s) XR PORTABLE CHEST AP EXAM: XR PORTABLE CHEST AP CLINICAL HISTORY: chest pain. TECHNIQUE: 2D digital imaging was performed. COMPARISON: CR XR ABD FLAT UPRIGHT PA CHEST from 12/04/2021 FINDINGS: Single AP portable view. Heart size is upper normal. The mediastinum is not widened. Left lung is clear. On the right side there is a subtle noncalcified nodular density measuring appro ximately 1.6 x 1.7 cm. Medial to this is another possible similar size nodule. These findings were not evident on the prior November 2021 study. There are no pleural effusions. IMPRESSION: Subtle noncalcified nodular densities in the right lung base as described above. Follow-up chest CT scan recommended to further assess these significant right lung findings. First read by [facility] DATA REPOSITORY: RADIATION DOSE DELIVERED:
--- NOTE | 2022-04-27 19:01 | W.ED.GENAD ---
Discharge Plan Disposition Patient Disposition: Home Discharge Details Chief Complaint: Chest Pain Clinical Impression: Chest pain Primary Care Provider: Lorri Curry ED Provider: Norberto Jimenes Home Meds and New Rx's Prescriptions: No Action albuterol sulfate 90 mcg/actuation HFA aerosol inhaler 2 inh inhalation Q6H PRN (Reason: shortness of breath or wheezing) Qty: 18 4RF amitriptyline 25 mg tablet 25 mg PO QHS Qty: 90 3RF rosuvastatin 40 mg tablet 40 mg PO QHS Qty: 90 3RF ibuprofen 800 mg tablet 800 mg PO TID PRN (Reason: pain) Qty: 90 3RF sucralfate 1 gram tablet 1 g PO QACHS PRN (Reason: reflux, epigastric pain) Qty: 336 0RF clonazepam 1 mg tablet 1 mg PO TID Qty: 84 2RF pantoprazole [Protonix] 40 mg tablet,delayed release (DR/EC) 40 mg PO DAILY Qty: 30 12RF Discharge Instructions Instructions: Chest Pain (ED) Additional Instructions: Please follow with your primary care physician. Please return to the emergency department for any worsening symptoms. Medical Decision Making 56-year-old female history of COPD, anxiety, presents with anterior chest pain sharp in nature left-sided since this morning intermittent in nature, patient is hemodynamically stable no hypoxia no tachypnea, lungs clear bilaterally no peripheral edema, no personal history of coronary disease or thromboembolic disease. Patient endorses that she has been dealing with some anxiety regarding the anniversary of her her adult son's . EKG nonischemic normal sinus rhythm, given age and comorbidities will obtain basic labs troponin EKG chest x-ray will load with aspirin, trial of nebs and anxiolysis close reassessment. Consider anxiety versus musculoskeletal versus COPD exacerbation versus ACS lower suspicion for PE or aortic pathology 21: 19 patient resting early no acute distress troponin negative labs unremarkable, x-ray concerning for possible pulmonary nodules however CT scan unremarkable for pulmonary nodules, evidence of extensive emphysema. Lungs clear speaking full sentences no distress at this time. Consider musculoskeletal versus anxiety. HPI General Date/Time Provider Initiated Documentation: 04/27/22 18:32. HPI Narrative: 56-year-old female history of tobacco use, COPD, anxiety, presents with intermittent chest pain since this morning around 11 AM sharp left-sided in nature, denies personal history of coronary artery disease open heart surgery stenting or PE/thromboembolic disease, has been dealing with a lot of stress regarding the anniversary of the of her adult son recently. Took last clonazepam earlier today around lunchtime. Related Data Home Medications Medication Instructions Recorded Confirmed pantoprazole 40 mg tablet,delayed 40 mg PO DAILY #30 tabs 05/09/21 04/27/22 release (Protonix) ibuprofen 800 mg tablet 800 mg PO TID PRN pain #90 tabs 10/16/21 04/27/22 sucralfate 1 gram tablet 1 g PO QACHS PRN reflux, 12/05/21 04/27/22 epigastric pain #336 tabs albuterol sulfate 90 mcg/actuation 2 inh inhalation Q6H PRN shortness 03/11/22 04/27/22 aerosol inhaler of breath or wheezing #18 grams amitriptyline 25 mg tablet 25 mg PO QHS #90 tabs 03/11/22 04/27/22 rosuvastatin 40 mg tablet 40 mg PO QHS #90 tabs 03/11/22 04/27/22 clonazepam 1 mg tablet 1 mg PO TID #84 tabs 03/12/22 04/27/22 Previous Rx's Medication Instructions Recorded pantoprazole 40 mg tablet,delayed 40 mg PO DAILY #30 tabs 05/09/21 release (Protonix) ibuprofen 800 mg tablet 800 mg PO TID PRN pain #90 tabs 10/16/21 sucralfate 1 gram tablet 1 g PO QACHS PRN reflux, 12/05/21 epigastric pain #336 tabs albuterol sulfate 90 mcg/actuation 2 inh inhalation Q6H PRN shortness 03/11/22 aerosol inhaler of breath or wheezing #18 grams amitriptyline 25 mg tablet 25 mg PO QHS #90 tabs 03/11/22 rosuvastatin 40 mg tablet 40 mg PO QHS #90 tabs 03/11/22 clonazepam 1 mg tablet 1 mg PO TID #84 tabs 03/12/22 Allergies Allergy/AdvReac Type Severity Reaction Status Date / Time morphine Allergy Severe stops my Verified 04/27/22 18:37 heart fentanyl Allergy Intermediate Hives Verified 04/27/22 18:37 lamotrigine Allergy Intermediate Facial Verified 04/27/22 18:37 blistering meloxicam AdvReac Severe Nausea and Verified 04/27/22 18:37 vomiting carbamazepine AdvReac Intermediate Drowsiness Verified 04/27/22 18:37 and ataxia cyclobenzaprine HCl AdvReac Intermediate vomits Verified 04/27/22 18:37 [From Flexeril] hydromorphone HCl AdvReac Intermediate vomits Verified 04/27/22 18:37 [From Dilaudid] Penicillins AdvReac Intermediate vomits Verified 04/27/22 18:37 thiopental AdvReac Intermediate Verified 04/27/22 18:37 acetaminophen [From Tylenol] AdvReac stomach Verified 04/27/22 18:37 cramps melatonin AdvReac Headaches Verified 04/27/22 18:37 methocarbamol AdvReac Nausea, Verified 04/27/22 18:37 headache oxycodone [Oxycodone] AdvReac Nausea Verified 04/27/22 18:37 prednisone AdvReac Nausea Verified 04/27/22 18:37 General Stated Complaint: Chest Pain VENKAT: 3 Review of Systems Narrative: Review of Systems Constitutional: negative Eyes: negative ENT: negative Cardiovascular: Chest pain Respiratory: negative Gastrointestinal: negative : negative Musculoskeletal: negative Skin: negative Neurologic: negative Psych: negative PFSH All Active Problems (Updated 04/27/22 @ 21:21 by Norberto Jimenes MD) Chest pain (Acute) Osteoarthritis (Chronic) Hyperlipidemia (Chronic) Prediabetes (Chronic) COPD (chronic obstructive pulmonary disease) (Chronic) LDCT annually, negative July 2020 Bipolar affective disorder (Chronic) Followed by [facility] Psych Generalized anxiety disorder with panic attacks (Chronic) Post traumatic stress disorder (PTSD) (Chronic) Insomnia (Chronic) GERD (gastroesophageal reflux disease) (Chronic) Cigarette smoker (Chronic) LDCT annually, negative July 2020 Chronic low back pain (Chronic) Surgical History History of esophagogastroduodenoscopy (EGD) (~05/09/21) S/P appendectomy S/P left rotator cuff repair (06/03/15) S/P PRO-BSO (total abdominal hysterectomy and bilateral salpingo-oophorectomy) Family History Mother , at 71 from dementia Alzheimer disease Heart disease Hyperlipidemia Hypertension Father Myocardial infarction Heart disease Alcohol abuse Alcoholic liver disease Sister Crohn disease Sister Hyperlipidemia Sister Type 2 diabetes mellitus Sister No problems noted. Brother , 60s Myocardial infarction Type 2 diabetes mellitus Heart disease Brother Myocardial infarction Heart disease Alcohol abuse Brother No problems noted. Brother Alcohol abuse Dementia Parkinson disease Brother Alzheimer disease Crohn disease Brother Heart disease Lymphoma Hyperlipidemia Son , at 28 from Type 1 diabetes Type 1 diabetes mellitus Son No problems noted. Maternal Grandfather No problems noted. Maternal Grandmother Alzheimer disease Paternal Grandfather No problems noted. Paternal Grandmother Type 2 diabetes mellitus Social History Smoking/Tobacco Use Status: Current every day Tobacco Type: cigarettes Years smoked: 49 Tobacco: How many years used: 50 Quit status: considering quitting Second Hand Exposure: Yes Smoking risk assessment performed?: Yes Alcohol Intake: current Alcohol Intake frequency: a few times a week Alcohol type: wine Drug use: Daily Substance use type: marijuana Housing: house Pets and animals: Yes Pets and animals: bird(s) Sexually active: Yes Do you think of yourself as: straight/heterosexual Current gender identity: female How often do you talk on the phone with friends or family?: three or more times per week Do you belong to any clubs or organized social groups?: no Panel score (0-1 are the most socially isolated patients): 1 Seatbelt use: always Helmet use: Yes Helmet use: always Drive intox or ride w/intox seasonal delivery driver: No Do you feel safe at home: Yes Do you feel safe in your relationship?: Yes Female Reproductive History Menstrual Menopause type: surgical History History 9 Para 2 Hx # Term Pregnancies 2 Multiple births Hx # Pregnancies Ectopic pregnancies AB induced Hx Number of Living Children 1 AB spontaneous 7 Exam Narrative Exam Narrative: Physical Examination General: alert, awake, cooperative, resting comfortably, no acute distress HEENT: normocephalic, atraumatic; PERRL, EOM intact, conjunctiva normal; no nasal discharge; moist mucous membranes, oral and pharyngeal mucosa normal, tolerating secretions Neck: supple, trachea midline; full ROM Chest: normal to inspection Respiratory: normal respiratory effort, speaking in full sentences, clear to auscultation, no wheezing, rales or rhonchi Cardiac: regular rate, regular rhythm, S1S2 intact, no murmurs rubs or gallops GI: abdomen soft, non-tender, non-distended; no palpable mass or hepatosplenomegaly Skin: no lesions, rashes or trauma appreciated Neuro: AAOx3, normal speech, moving all extremities Extremities: No peripheral edema Psych: Appropriate mood and affect Course Vital Signs Vital signs: Vital Signs Temperature 36.6 C 04/27/22 18:34 Pulse 70 04/27/22 18:34 Respiratory Rate 13 04/27/22 18:34 Blood Pressure 153/108 H 04/27/22 18:34 Pulse Oximetry 97 04/27/22 18:34 Temperature 36.6 C 04/27/22 18:34 Temperature Source Oral 04/27/22 18:34 Pulse 70 04/27/22 18:34 Respiratory Rate 14 04/27/22 18:43 Respiratory Effort Non-Labored, Short of Breath 04/27/22 18:43 Respiratory Depth Normal 04/27/22 18:43 Respiratory Pattern Normal 04/27/22 18:43 Blood Pressure 153/108 H 04/27/22 18:34 Blood Pressure Position Sitting 04/27/22 18:34 Pulse Oximetry 97 04/27/22 18:34 Oxygen Delivery Method Room Air 04/27/22 18:34 Oxygen Flow Rate 0 04/27/22 18:34 Pain Level 8 04/27/22 18:43 PAWSS Have you Been Recently Intoxicated or Drunk Within the Last 30 days?: No Have you Ever Experienced Previous Episodes of Alcohol Withdrawal?: No Have you ever Experienced Withdrawal Seizures?: No Have you ever Experienced Delirium Tremens(DT)s?: No Have you ever undergone Alcohol Rehabilitation Treatment (i.e, inpt ot outpatient treatment programs)?: No Have you ever Experienced Blackouts?: No Have you ever Combined Alcohol with other Downers within the last 90 days?: No Have you ever Combined Alcohol with any other Substance of Abuse during the last 90 days?: No Positive Blood Alcohol level on Presentation? [PCS.BAL]: No Evidence of Increased Autonomic Activity (i.e. HR>120, tremor, sweating, agitation, nausea)?: No Result: 0
[2022-04-27 19:10] LABS: Abs Immature Grans 0.02 10^3/uL (0.0-0.06); Absolute Basophil Count 0.07 10^3/uL (0.0-0.2); Absolute Eosinophil Count 0.08 10^3/uL (0.0-0.7); Absolute Lymphocyte Count 2.63 10^3/uL (1.2-3.4); Absolute Monocyte Count 0.54 10^3/uL (0.1-0.8); Absolute Neutrophil Count 4.72 10^3/uL (1.2-6.7); Basophils % 0.9; HCT 42.8 % (36.0-46.0); HGB 14.4 g/dL (11.2-15.7); Immature Grans % 0.2; Lymphocytes % 32.6; MCH 30.1 pg (27.0-33.0); MCHC 33.6 % (32.0-36.0); MCV 89 fL (80-95); MPV 10.1 fL (8.0-11.0); Monocytes % 6.7; Neutrophils % 58.6; Platelet Count 266 10^3/uL (130-400); RBC 4.79 10^6/uL (3.93-5.22); RDW 13.3 % (11.7-14.6); RDW-SD 43.8 fL; WBC 8.06 10^3/uL (4.4-10.8)
[2022-04-27] MEDS: LORazepam 2 MG/ML VIAL 1 MG IVP (19:13)
[2022-04-27 19:14] VITALS: O2SAT 97
[2022-04-27] MEDS: Aspirin 81 MG CHEW 324 MG CH (19:14)
[2022-04-27] MEDS: Albuterol/Ipratropium 3 ML UPD VIAL UPD (19:14)
[2022-04-27] MEDS: Normal Saline 500 ML 1000 ML IV (19:17)
[2022-04-27 19:34] LABS: ALT 26 U/L (14-59); AST 21 U/L (15-37); Albumin 4.1 g/dL (3.4-5.0); Alkaline Phosphatase 69 U/L (46-116); Anion Gap 8.5 mmol/L (3-11); BUN 12 mg/dL (7-18); Bilirubin, Total 0.2 mg/dL (0.2-1.0); CO2 26.5 mmol/L (21.0-32.0); CREATININE 0.7 mg/dL (0.55-1.02); Chloride 107 mmol/L (98-107); Estimated GFR 100.81 (mL/min/1.73m2); Glucose 102 mg/dL (74-106); Potassium 4.1 mmol/L (3.5-5.1); Sodium 142 mmol/L (136-145); Total Protein 7.3 g/dL (6.4-8.2); Troponin I < 50 ng/L (<or=60)
[2022-04-27 19:35] LABS: INR 0.9 (0.9-1.1); PTT Activated 27.4 sec (21.5-31.9); Prothrombin Time 9.5 sec (9.3-11.0)
--- NOTE | 2022-04-27 19:58 | DI.VRAD_ITS ---
PROCEDURE INFORMATION: Exam: XR Chest Exam date and time: 04/27/2022 6:48 PM Age: 56 years old Clinical indication: Left-sided; Patient HX: Left sided chest pain and pressure TECHNIQUE: Imaging protocol: Radiologic exam of the chest. Views: 1 view. COMPARISON: CR XR ABD FLAT UPRIGHT PA CHEST 12/04/2021 8:48 AM FINDINGS: Lungs: There are 2 new nodular densities projecting at the right lung base, the larger measuring 1.7 x 1.9 cm. Lungs otherwise clear. There is no pulmonary vascular congestion. Pleural spaces: There are no pleural effusions present. There is no evidence of pneumothorax. Heart/Mediastinum: The cardiomediastinal silhouette is within normal limits. Bones/joints: Unremarkable. IMPRESSION: Two new nodular densities projecting at the right lung base, the larger measuring 1.7 x 1.9 cm, suggesting pulmonary nodules. These may be infectious in etiology, but cannot exclude primary or metastatic pulmonary neoplasm on this exam. Recommend further evaluation with chest CT. Dictated and Authenticated by: Elias Vazquez MD. Ordering:RAYMON Thornton MD
--- NOTE | 2022-04-27 20:00 | DI.CT_ITS ---
Exam(s) CT CHEST W EXAM: CT CHEST W CLINICAL HISTORY: smoker, chest pain, new lung nodules on xr chest. TECHNIQUE: Multi planar reconstructions were performed. CONTRAST MATERIAL: Omnipaque 350; 75 cc COMPARISON: CT CT CHEST PE CTA from 11/20/2021 CR,XR XR PORTABLE CHEST AP from 04/27/2022 FINDINGS: CHEST: LUNGS: There are COPD emphysematous changes again evident. With respect of the inferior right lung, there benign-appearing increased markings in the lateral segment of the right middle lobe which appea r unchanged from CT scan of 11/20/2021 and may or may not correspond to the finding on the chest x-ra y. There is some mild focal pleural thickening posteriorly in the right lower lobe without an associ ated pleural effusion. No other significant right lung findings. In the opposite-left lung there ar e some benign-appearing creased markings in the lingular segment, similar to previous CT scan of [facility] 2021. No new significant focal findings in the left no are no. Benign-appearing increased mar kings noted in the posterior basal segment. No pleural effusion. No new focal findings in the trachea and mainstem bronchi. MEDIASTINUM: There is no hilar nor mediastinal adenopathy. Visualized thyroid unremarkable. CARDIAC: Heart size is normal. There is no pericardial effusion.Caliber of the thoracic aorta is wit hin upper normal limits. No evidence of dissection. VISUALIZED UPPER ABDOMEN:There are no significant adrenal masses. OSSEOUS: No significant osseous lesions.No fractures.. IMPRESSION: 1. Benign-appearing findings as described above in both lungs including lateral segment of the right middle lobe and lingular segment of the left lung. Also few small focal benign-appearing pleural bas ed densities in the right lower lobe. There is, however, no new lung mass to correspond to the findi ng described on the chest x-ray earlier same date. 2. There are no pleural effusions and no intrathoracic adenopathy. RADIATION DOSE DELIVERED: 435.92mGy.cm Total DLP DATA REPOSITORY: All CT scans at this facility are submitted to the National Radiology Data Registry (NRDR) Dose Index Registry (DIR) with the [employer] (A[employer]). RADIATION OPTIMIZATION: All CT scans at this facility use at least one of these dose optimization te chniques: automated exposure control; mA and/or kV adjustment per patient size (includes targeted exa ms where dose is matched to clinical indication); or iterative reconstruction.
[2022-04-27] MEDS: Normal Saline Flush 10 ML SYR IVP (20:12)
[2022-04-27] MEDS: Omnipaque 350 MG/ML 100 ML BTL IJ (20:13)
[2022-04-27] MEDS: Normal Saline - Diluent 50 ML VIAL IJ (20:13)
--- NOTE | 2022-04-27 20:43 | DI.VRAD_ITS ---
PROCEDURE INFORMATION: Exam: CT Chest With Contrast; Diagnostic Exam date and time: 04/27/2022 8:15 PM Age: 56 years old Clinical indication: Chest pressure; Patient HX: Smoker, chest pain, new lung nodules on XR chest; Additional info: HX of copd TECHNIQUE: Imaging protocol: Diagnostic computed tomography of the chest with contrast. 3D rendering (Not supervised by radiologist): MIP and/or 3D reconstructed images were created by the technologist. Radiation optimization: All CT scans at this facility use at least one of these dose optimization techniques: automated exposure control; mA and/or kV adjustment per patient size (includes targeted exams where dose is matched to clinical indication); or iterative reconstruction. Contrast material: [id number]; Contrast volume: 70 ml; Contrast route: INTRAVENOUS (IV); COMPARISON: CT CHEST PE CTA 11/20/2021 2:37 PM FINDINGS: Lungs: Again noted is moderate centrilobular emphysema, involving predominantly the upper lobes. Again noted are multifocal regions of scarring/subsegmental atelectasis within the lung bases which are increased from prior study. No suspicious pulmonary nodules are identified. The central airways are patent. Pleural spaces: There are no pleural effusions present. There is no evidence of pneumothorax. Heart: Heart size is normal. There is no pericardial effusion. Lymph nodes: There is no evidence of lymphadenopathy. Vasculature: Unremarkable. No aortic aneurysm. Bones/joints: Unremarkable. No acute fracture. Soft tissues: Unremarkable. IMPRESSION: 1. No suspicious pulmonary nodules identified. 2. Moderate centrilobular emphysema, as on prior study. 3. Increased regions of scarring/atelectasis within the lung bases. Dictated and Authenticated by: Elias Vazquez MD. Ordering:RAYMON Thornton MD
[2022-04-27 21:35] VITALS: BP 120/93; PULSE 84; RESP 22; TEMP 36.4; O2SAT 95
== END 2022-04-27 21:57 | disposition home or self-care (01) ==
PROVIDERS: Emergency Provider Emergency Medicine; PCP Nurse Practitioner Family
DX: R07.9 Chest pain, unspecified (principal); J44.9 Chronic obstructive pulmonary disease, unspecified; F41.9 Anxiety disorder, unspecified; F17.210 Nicotine dependence, cigarettes, uncomplicated
CPT/HCPCS: 36415; 80053; 93005; 94640; 96361; 96374; 99284; 71045; 71260; 84484; 85025; 85610; 85730; 93010; J2060; J3490; J7620

== ENCOUNTER 2022-07-10 17:04 | Emergency (ER) | payer MEDICAID, SELFPAY ==
[2022-07-10 17:13] VITALS: BP 120/95; PULSE 88; RESP 18; TEMP 36.8; O2SAT 99
--- NOTE | 2022-07-10 17:15 | DI.RAD_ITS ---
Exam(s) XR HAND RT COMPLETE EXAM: XR HAND RT COMPLETE CLINICAL HISTORY: hand pain, dorsum. TECHNIQUE: 2D digital imaging was performed. Three views. COMPARISON: CR,XR XR PORTABLE CHEST AP from 04/27/2022 FINDINGS: BONES: No acute fracture is present. No bony destructive lesion is seen. JOINTS: No dislocation present. SOFT TISSUE: Normal. IMPRESSION: Unremarkable radiographs of the right hand. DATA REPOSITORY: RADIATION DOSE DELIVERED:
--- NOTE | 2022-07-10 18:37 | DI.VRAD_ITS ---
PROCEDURE INFORMATION: Exam: XR Right Hand Exam date and time: 07/10/2022 6:18 PM Age: 56 years old Clinical indication: Injury or trauma; Fall; Blunt trauma (contusions or hematomas); Right; Injury details: Hand pain, dorsum TECHNIQUE: Imaging protocol: Radiologic exam of the right hand. Views: 3 or more views. COMPARISON: No relevant prior studies available. FINDINGS: Bones/joints: Normal. Soft tissues: Normal. IMPRESSION: No acute findings. Dictated and Authenticated by: Rodolfo Hawk MD. Ordering:FLORIDALMA Lucero MD
--- NOTE | 2022-07-13 17:30 | W.ED.GENAD ---
Discharge Plan Disposition Patient Disposition: Home Discharge Details Clinical Impression: Contusion of hand Primary Care Provider: Lorri Curry ED Provider: Jazmine Moya Home Meds and New Rx's Prescriptions: Continued albuterol sulfate 90 mcg/actuation HFA aerosol inhaler 2 inh inhalation Q6H PRN (Reason: shortness of breath or wheezing) Qty: 18 4RF amitriptyline 25 mg tablet 25 mg PO QHS Qty: 90 3RF rosuvastatin 40 mg tablet 40 mg PO QHS Qty: 90 3RF ibuprofen 800 mg tablet 800 mg PO TID PRN (Reason: pain) Qty: 90 3RF clonazepam 1 mg tablet 1 mg PO TID Qty: 84 2RF pantoprazole [Protonix] 40 mg tablet,delayed release (DR/EC) 40 mg PO DAILY Qty: 30 12RF Discharge Instructions Instructions: Contusion in Adults (ED) Additional Instructions: Please follow-up with primary care physician as needed Ice, ibuprofen, rest, elevate Return earlier should you have new or worsening complaints repeat xray in one week with persistent pain Referrals: Lorri Curry NP [Primary Care Provider] - Discharge Data Discharge Date/Time-TO BE ENTERED AT DEPARTURE: 07/10/22 18:51 Medical Decision Making Patient has swelling and tenderness on the dorsal aspect of her hands, x-ray was ordered which does not show evidence of acute abnormality per radiology interpretation and my review Return precautions discussed and patient expressed understanding HPI General Date/Time Provider Initiated Documentation: 07/10/22 17:23. HPI Narrative: This 56-year-old female presents with right hand injury. She accidentally hit her hand on the top of a car this morning and she is having pain and swelling. She is requesting an x-ray for further evaluation. Denies any additional complaints or injuries. Denies history of coagulopathy. Related Data Home Medications Medication Instructions Recorded Confirmed pantoprazole 40 mg tablet,delayed 40 mg PO DAILY #30 tabs 05/09/21 07/10/22 release (Protonix) ibuprofen 800 mg tablet 800 mg PO TID PRN pain #90 tabs 10/16/21 07/10/22 albuterol sulfate 90 mcg/actuation 2 inh inhalation Q6H PRN shortness 03/11/22 07/10/22 aerosol inhaler of breath or wheezing #18 grams amitriptyline 25 mg tablet 25 mg PO QHS #90 tabs 03/11/22 07/10/22 rosuvastatin 40 mg tablet 40 mg PO QHS #90 tabs 03/11/22 07/10/22 clonazepam 1 mg tablet 1 mg PO TID #84 tabs 06/18/22 07/10/22 Previous Rx's Medication Instructions Recorded pantoprazole 40 mg tablet,delayed 40 mg PO DAILY #30 tabs 05/09/21 release (Protonix) ibuprofen 800 mg tablet 800 mg PO TID PRN pain #90 tabs 10/16/21 albuterol sulfate 90 mcg/actuation 2 inh inhalation Q6H PRN shortness 03/11/22 aerosol inhaler of breath or wheezing #18 grams amitriptyline 25 mg tablet 25 mg PO QHS #90 tabs 03/11/22 rosuvastatin 40 mg tablet 40 mg PO QHS #90 tabs 03/11/22 clonazepam 1 mg tablet 1 mg PO TID #84 tabs 06/18/22 Allergies Allergy/AdvReac Type Severity Reaction Status Date / Time morphine Allergy Severe stops my Verified 04/29/22 07:46 heart fentanyl Allergy Intermediate Hives Verified 04/29/22 07:46 lamotrigine Allergy Intermediate Facial Verified 04/29/22 07:46 blistering meloxicam AdvReac Severe Nausea and Verified 04/29/22 07:46 vomiting carbamazepine AdvReac Intermediate Drowsiness Verified 04/29/22 07:46 and ataxia cyclobenzaprine HCl AdvReac Intermediate vomits Verified 04/29/22 07:46 [From Flexeril] hydromorphone HCl AdvReac Intermediate vomits Verified 04/29/22 07:46 [From Dilaudid] Penicillins AdvReac Intermediate vomits Verified 04/29/22 07:46 thiopental AdvReac Intermediate Verified 04/29/22 07:46 acetaminophen [From Tylenol] AdvReac stomach Verified 04/29/22 07:46 cramps melatonin AdvReac Headaches Verified 04/29/22 07:46 methocarbamol AdvReac Nausea, Verified 04/29/22 07:46 headache oxycodone [Oxycodone] AdvReac Nausea Verified 04/29/22 07:46 prednisone AdvReac Nausea Verified 04/29/22 07:46 General Stated Complaint: Orthopedic VENKAT: 4 PFSH All Active Problems (Updated 07/10/22 @ 18:45 by SARAH Alexander) Contusion of hand (Acute) Osteoarthritis (Chronic) Hyperlipidemia (Chronic) Prediabetes (Chronic) COPD (chronic obstructive pulmonary disease) (Chronic) LDCT annually, negative July 2020 Bipolar affective disorder (Chronic) Generalized anxiety disorder with panic attacks (Chronic) Post traumatic stress disorder (PTSD) (Chronic) Insomnia (Chronic) GERD (gastroesophageal reflux disease) (Chronic) Cigarette smoker (Chronic) LDCT annually, negative July 2020 Chronic low back pain (Chronic) Surgical History History of esophagogastroduodenoscopy (EGD) (~05/09/21) S/P appendectomy S/P left rotator cuff repair (06/03/15) S/P PRO-BSO (total abdominal hysterectomy and bilateral salpingo-oophorectomy) Family History Mother , at 71 from dementia Alzheimer disease Heart disease Hyperlipidemia Hypertension Father Myocardial infarction Heart disease Alcohol abuse Alcoholic liver disease Sister Crohn disease Sister Hyperlipidemia Sister Type 2 diabetes mellitus Sister No problems noted. Brother , 60s Myocardial infarction Type 2 diabetes mellitus Heart disease Brother Myocardial infarction Heart disease Alcohol abuse Brother No problems noted. Brother Alcohol abuse Dementia Parkinson disease Brother Alzheimer disease Crohn disease Brother Heart disease Lymphoma Hyperlipidemia Son , at 28 from Type 1 diabetes Type 1 diabetes mellitus Son No problems noted. Maternal Grandfather No problems noted. Maternal Grandmother Alzheimer disease Paternal Grandfather No problems noted. Paternal Grandmother Type 2 diabetes mellitus Social History Smoking/Tobacco Use Status: Current every day Tobacco Type: cigarettes Years smoked: 49 Tobacco: How many years used: 50 Quit status: considering quitting Second Hand Exposure: Yes Smoking risk assessment performed?: Yes Alcohol Intake: current Alcohol Intake frequency: a few times a month Alcohol type: wine Drug use: Daily Substance use type: marijuana Housing: house Pets and animals: Yes Pets and animals: bird(s) Sexually active: Yes Do you think of yourself as: straight/heterosexual Current gender identity: female How often do you talk on the phone with friends or family?: three or more times per week Do you belong to any clubs or organized social groups?: no Panel score (0-1 are the most socially isolated patients): 1 Seatbelt use: always Helmet use: Yes Helmet use: always 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 Do you feel safe at home: Yes Do you feel safe in your relationship?: Yes Female Reproductive History Menstrual Menopause type: surgical History History 9 Para 2 Hx # Term Pregnancies 2 Multiple births Hx # Pregnancies Ectopic pregnancies AB induced Hx Number of Living Children 1 AB spontaneous 7 Exam Extrem Other: Right hand with tenderness, bruising along dorsal aspect, neurovascularly intact Course Vital Signs Vital signs: Vital Signs Temperature 36.8 C 07/10/22 17:13 Pulse 88 07/10/22 17:13 Respiratory Rate 18 07/10/22 17:13 Blood Pressure 120/95 H 07/10/22 17:13 Pulse Oximetry 99 07/10/22 17:13 Temperature 36.8 C 07/10/22 17:13 Temperature Source Oral 07/10/22 17:13 Pulse 88 07/10/22 17:13 Respiratory Rate 18 07/10/22 17:13 Respiratory Effort Normal, Non-Labored 07/10/22 17:17 Blood Pressure 120/95 H 07/10/22 17:13 Blood Pressure Position Supine 07/10/22 17:13 Pulse Oximetry 99 07/10/22 17:13 Oxygen Delivery Method Room Air 07/10/22 17:13 Oxygen Flow Rate 0 07/10/22 17:13
== END 2022-07-10 18:51 | disposition home or self-care (01) ==
PROVIDERS: Emergency Provider Physician Assistant; PCP Nurse Practitioner Family
DX: S60.221A Contusion of right hand, initial encounter (principal); W22.09XA Striking against other stationary object, initial encounter
CPT/HCPCS: 99283; 73130

== ENCOUNTER 2022-07-25 15:57 | Emergency (ER) | payer MEDICAID, SELFPAY ==
--- NOTE | 2022-07-25 16:00 | DI.CT_ITS ---
Exam(s) CT HEAD WO EXAM: CT HEAD WO CLINICAL HISTORY: headache. TECHNIQUE: Imaging Protocol: Axial computed tomography images with coronal and sagittal reformatted images were created and reviewed COMPARISON: CT CT orbits w from 10/27/2018 FINDINGS: There are no skull fractures. There is no fluid in the visualized paranasal sinuses. There is no evidence of intracranial hemorrhage, mass effect, or shift of midline structures. There are no extra-axial fluid collections. The ventricles are not enlarged or shifted and there is no blo od within the ventricular system nor within the basal cisterns. IMPRESSION: No acute intracranial findings on this noninfused CT scan of the brain. Called by myself to ER provider RADIATION DOSE DELIVERED: 617.2mGy.cm Total DLP DATA REPOSITORY: All CT scans at this facility are submitted to the National Radiology Data Registry (NRDR) Dose Index Registry (DIR) with the [employer] (ACR). RADIATION OPTIMIZATION: All CT scans at this facility use at least one of these dose optimization te chniques: automated exposure control; mA and/or kV adjustment per patient size (includes targeted exa ms where dose is matched to clinical indication); or iterative reconstruction.
[2022-07-25 16:01] VITALS: BP 146/101; PULSE 64; RESP 18; TEMP 36.7; O2SAT 99
--- NOTE | 2022-07-25 16:16 | ED.GENADUL_ITS ---
Discharge Plan Disposition Patient Disposition: Home Condition: Stable Discharge Details Clinical Impression: Headache Primary Care Provider: Lorri Curry ED Provider: Albino Vences Home Meds and New Rx's Prescriptions: Continued albuterol sulfate 90 mcg/actuation HFA aerosol inhaler 2 inh inhalation Q6H PRN (Reason: shortness of breath or wheezing) Qty: 18 4RF amitriptyline 25 mg tablet 25 mg PO QHS Qty: 90 3RF rosuvastatin 40 mg tablet 40 mg PO QHS Qty: 90 3RF ibuprofen 800 mg tablet 800 mg PO TID PRN (Reason: pain) Qty: 90 3RF clonazepam 1 mg tablet 1 mg PO TID Qty: 84 2RF pantoprazole [Protonix] 40 mg tablet,delayed release (DR/EC) 40 mg PO DAILY Qty: 30 12RF Discharge Instructions Instructions: General Headache (ED) Additional Instructions: your cat scan did not show any concerning findings follow up with your primary care provider as scheduled this week if you feel more ill, have fevers or severe worsening of pain return to the emergency department Medical Decision Making 56 yo female with hx of anxiety, copd, hld, migraines who comes in with right sided head pain. She states she has been under a lot of stress recently due to stressors with her family. Since yesterday has had slowly worsening right sided head pain that is not the worst of her life. She denies fevers, chills, vision changes, slurred speech or weakness. She localizes the pain to the right parietal area of her head. No visible or palpable deformities, no temporal artery tenderness, eomi, no periorbital swelling. No meningismus on exam, full rom of her neck, no focal motor or sensation deficits. Suspect migraine, she only wants to have toradol so will order this. No findings to suggest subarachnoid or air conditioning engineer infection based on history and exam, no recent imaging of her head, will obtain ct to exclude mass. imaging unremarakble, she feels much better and requests d/c. Given resolution of pain with one dose of toradol and reassuring history and exam do not feel further testing indicated, she has f/u this week with pcp, return precautions given Differential Diagnosis Differential Diagnosis: migraine, tension headache, mass Imaging Data Radiologic Study: Attestation: I personally reviewed and interpreted this imaging study as follows: Imaging: CT Scan Radiologist's impression: Exam(s) a CT:CT head wo Exam(s) CT HEAD WO EXAM: ? CT HEAD WO CLINICAL HISTORY: ? headache. ? TECHNIQUE:? Imaging Protocol: Axial computed tomography images with coronal and sagittal reformatted images were created and reviewed COMPARISON:? CT CT orbits w from 10/27/2018 FINDINGS: There are no skull fractures. There is no fluid in the visualized paranasal sinuses. There is no evidence of intracranial hemorrhage, mass effect, or shift of midline structures.? There are no extra-axial fluid collections.? The ventricles are not enlarged or shifted and there is no blood within the ventricular system nor within the basal cisterns. IMPRESSION: No acute intracranial findings on this noninfused CT scan of the brain. HPI General Mode of arrival: EMS . Date/Time Provider Initiated Documentation: 07/25/22 16:07 . Limitations to Documentation: no limitations . Information obtained by: patient . History of Present Illness 56 year old F presents to the emergency department with the chief complaint of right sided head pain, described as moderate, with intensity rated at 7. Quality is described as sharp, and is localized to the head. Patient reports no radiation. Patient started experiencing this day(s) (1) and it has been constant. No relieving factors improve symptom(s), No exacerbating factors reported . Patient notes no other symptoms.; denies chest pain, fever/chills and shortness of breath. Patient did receive the following treatments prior to arrival, none Related Data Home Medications Medication Instructions Recorded Confirmed pantoprazole 40 mg tablet,delayed 40 mg PO DAILY #30 tabs 05/09/21 07/25/22 release (Protonix) ibuprofen 800 mg tablet 800 mg PO TID PRN pain #90 tabs 10/16/21 07/25/22 albuterol sulfate 90 mcg/actuation 2 inh inhalation Q6H PRN shortness 03/11/22 07/25/22 aerosol inhaler of breath or wheezing #18 grams amitriptyline 25 mg tablet 25 mg PO QHS #90 tabs 03/11/22 07/25/22 rosuvastatin 40 mg tablet 40 mg PO QHS #90 tabs 03/11/22 07/25/22 clonazepam 1 mg tablet 1 mg PO TID #84 tabs 06/18/22 07/25/22 Previous Rx's Medication Instructions Recorded pantoprazole 40 mg tablet,delayed 40 mg PO DAILY #30 tabs 05/09/21 release (Protonix) ibuprofen 800 mg tablet 800 mg PO TID PRN pain #90 tabs 10/16/21 albuterol sulfate 90 mcg/actuation 2 inh inhalation Q6H PRN shortness 03/11/22 aerosol inhaler of breath or wheezing #18 grams amitriptyline 25 mg tablet 25 mg PO QHS #90 tabs 03/11/22 rosuvastatin 40 mg tablet 40 mg PO QHS #90 tabs 03/11/22 clonazepam 1 mg tablet 1 mg PO TID #84 tabs 06/18/22 Allergies Allergy/AdvReac Type Severity Reaction Status Date / Time morphine Allergy Severe stops my Verified 04/29/22 07:46 heart fentanyl Allergy Intermediate Hives Verified 04/29/22 07:46 lamotrigine Allergy Intermediate Facial Verified 04/29/22 07:46 blistering meloxicam AdvReac Severe Nausea and Verified 04/29/22 07:46 vomiting carbamazepine AdvReac Intermediate Drowsiness Verified 04/29/22 07:46 and ataxia cyclobenzaprine HCl AdvReac Intermediate vomits Verified 04/29/22 07:46 [From Flexeril] hydromorphone HCl AdvReac Intermediate vomits Verified 04/29/22 07:46 [From Dilaudid] Penicillins AdvReac Intermediate vomits Verified 04/29/22 07:46 thiopental AdvReac Intermediate Verified 04/29/22 07:46 acetaminophen [From Tylenol] AdvReac stomach Verified 04/29/22 07:46 cramps melatonin AdvReac Headaches Verified 04/29/22 07:46 methocarbamol AdvReac Nausea, Verified 04/29/22 07:46 headache oxycodone [Oxycodone] AdvReac Nausea Verified 04/29/22 07:46 prednisone AdvReac Nausea Verified 04/29/22 07:46 General Stated Complaint: EyeProblem VENKAT: 3 Review of Systems All systems reviewed & are unremarkable except as noted in HPI and below Constitutional Constitutional: Denies chills, Denies fever(s) and Denies weakness Cardiovascular Cardiovascular: Denies chest pain and Denies dyspnea Respiratory Respiratory: Denies cough and Denies dyspnea Gastrointestinal Gastrointestinal: Denies abdominal pain, Denies nausea and Denies vomiting Integumentary/Breasts Skin/Breast: Denies rash Neurologic Neurologic: Denies weakness PFSH All Active Problems (Updated 07/25/22 @ 18:32 by Albino Vences MD) Contusion of hand (Acute) Headache (Acute) Osteoarthritis (Chronic) Hyperlipidemia (Chronic) Prediabetes (Chronic) COPD (chronic obstructive pulmonary disease) (Chronic) LDCT annually, negative July 2020 Bipolar affective disorder (Chronic) Generalized anxiety disorder with panic attacks (Chronic) Post traumatic stress disorder (PTSD) (Chronic) Insomnia (Chronic) GERD (gastroesophageal reflux disease) (Chronic) Cigarette smoker (Chronic) LDCT annually, negative July 2020 Chronic low back pain (Chronic) Surgical History History of esophagogastroduodenoscopy (EGD) (~05/09/21) S/P appendectomy S/P left rotator cuff repair (06/03/15) S/P PRO-BSO (total abdominal hysterectomy and bilateral salpingo-oophorectomy) Family History Mother , at 71 from dementia Alzheimer disease Heart disease Hyperlipidemia Hypertension Father Myocardial infarction Heart disease Alcohol abuse Alcoholic liver disease Sister Crohn disease Sister Hyperlipidemia Sister Type 2 diabetes mellitus Sister No problems noted. Brother , 60s Myocardial infarction Type 2 diabetes mellitus Heart disease Brother Myocardial infarction Heart disease Alcohol abuse Brother No problems noted. Brother Alcohol abuse Dementia Parkinson disease Brother Alzheimer disease Crohn disease Brother Heart disease Lymphoma Hyperlipidemia Son , at 28 from Type 1 diabetes Type 1 diabetes mellitus Son No problems noted. Maternal Grandfather No problems noted. Maternal Grandmother Alzheimer disease Paternal Grandfather No problems noted. Paternal Grandmother Type 2 diabetes mellitus Social History Smoking/Tobacco Use Status: Current every day Tobacco Type: cigarettes Years smoked: 49 Tobacco: How many years used: 50 Quit status: considering quitting Second Hand Exposure: Yes Smoking risk assessment performed?: Yes Alcohol Intake: current Alcohol Intake frequency: a few times a month Alcohol type: wine Drug use: Daily Substance use type: marijuana Housing: house Pets and animals: Yes Pets and animals: bird(s) Sexually active: Yes Do you think of yourself as: straight/heterosexual Current gender identity: female How often do you talk on the phone with friends or family?: three or more times per week Do you belong to any clubs or organized social groups?: no Panel score (0-1 are the most socially isolated patients): 1 Seatbelt use: always Helmet use: Yes Helmet use: always 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 Do you feel safe at home: Yes Do you feel safe in your relationship?: Yes Female Reproductive History Menstrual Menopause type: surgical History History 9 Para 2 Hx # Term Pregnancies 2 Multiple births Hx # Pregnancies Ectopic pregnancies AB induced Hx Number of Living Children 1 AB spontaneous 7 Exam Const General: no acute distress Orientation: alert HENMT Head: normal to inspection Ears: external ears normal General nose exam: external nose normal Mouth: moist mucous membranes Eyes General: appearance normal, both eyes and all related structures Neck Neck: normal visual inspection, full ROM and no meningeal signs Resp Effort & Inspection: normal respiratory effort and able to speak in complete sentences Cardio Rate: regular rate Skin General skin exam: no rashes or lesions noted Neuro General: patient alert and patient oriented x3 Extrem General: normal to inspection Psych Mental Status: mental status grossly normal Course Vital Signs Vital signs: Vital Signs Temperature 36.7 C 07/25/22 16:01 Pulse 64 07/25/22 16:01 Respiratory Rate 18 07/25/22 16:01 Blood Pressure 146/101 H 07/25/22 16:01 Pulse Oximetry 99 07/25/22 16:01 Temperature 36.7 C 07/25/22 16:01 Temperature Source Skin 07/25/22 16:01 Pulse 64 07/25/22 16:01 Respiratory Rate 18 07/25/22 16:01 Respiratory Effort Normal 07/25/22 16:07 Blood Pressure 146/101 H 07/25/22 16:01 Blood Pressure Position Sitting 07/25/22 16:01 Pulse Oximetry 99 07/25/22 16:01 Oxygen Delivery Method Room Air 07/25/22 16:01 Oxygen Flow Rate 0 07/25/22 16:01 Pain Level 9 07/25/22 16:01 PAWSS Have you Been Recently Intoxicated or Drunk Within the Last 30 days?: No Have you Ever Experienced Previous Episodes of Alcohol Withdrawal?: No Have you ever Experienced Withdrawal Seizures?: No Have you ever Experienced Delirium Tremens(DT)s?: No Have you ever undergone Alcohol Rehabilitation Treatment (i.e, inpt ot outpatient treatment programs)?: No Have you ever Experienced Blackouts?: No Have you ever Combined Alcohol with other Downers within the last 90 days?: No Have you ever Combined Alcohol with any other Substance of Abuse during the last 90 days?: No Positive Blood Alcohol level on Presentation? [PCS.BAL]: No Evidence of Increased Autonomic Activity (i.e. HR>120, tremor, sweating, agitation, nausea)?: No Result: 0
[2022-07-25] MEDS: Ketorolac 15 MG/ML VIAL IVP (16:40)
[2022-07-25] MEDS: Normal Saline 1,000 ML 1000 ML IV (16:41)
--- NOTE | 2022-07-25 17:52 | NUR.NOTE ---
Nursing Note: patient reported to this RN that her pain is now 2/10 the pain is only at my orthodoxy and not my whole side of my face patient laying on stretcher in dark room, has call light with in reach at this time.
[2022-07-25 18:59] VITALS: BP 147/95; PULSE 67; RESP 18; O2SAT 97
== END 2022-07-25 19:00 | disposition home or self-care (01) ==
PROVIDERS: Emergency Provider Emergency Medicine; PCP Nurse Practitioner Family
DX: R51.9 Headache, unspecified (principal); F41.9 Anxiety disorder, unspecified; Z73.3 Stress, not elsewhere classified
CPT/HCPCS: 96361; 96374; 99284; 70450; J1885

== ENCOUNTER 2022-09-08 21:24 | Emergency (ER) | payer MEDICAID, SELFPAY ==
[2022-09-08 21:35] VITALS: BP 141/109; PULSE 90; RESP 16; TEMP 36.8; O2SAT 96
--- NOTE | 2022-09-08 21:43 | ED.GENADUL_ITS ---
Discharge Plan Disposition Patient Disposition: Home Condition: Improving Discharge Details Clinical Impression: Sprain of left shoulder Primary Care Provider: Lorri Curry ED Provider: Alonzo Hu Meds and New Rx's Prescriptions: Continued albuterol sulfate 90 mcg/actuation HFA aerosol inhaler 2 inh inhalation Q6H PRN (Reason: shortness of breath or wheezing) Qty: 18 4RF rosuvastatin 40 mg tablet 40 mg PO QHS Qty: 90 3RF pantoprazole [Protonix] 40 mg tablet,delayed release (DR/EC) 40 mg PO DAILY Qty: 90 3RF nicotine 21 mg/24 hr patch 24 hour 1 patch transdermal DAILY Qty: 42 0RF Rx Instructions: Apply 1 patch daily for 6 weeks nicotine 7 mg/24 hr patch 24 hour 1 patch transdermal DAILY 14 Days Qty: 14 6RF Rx Instructions: Apply 1 patch daily for 2 wks after 14mg patch ziprasidone HCl 20 mg capsule 20 mg PO BID Qty: 60 2RF Rx Instructions: give with food (meal/snack) ibuprofen 800 mg tablet 800 mg PO TID PRN (Reason: pain) Qty: 90 3RF clonazepam 1 mg tablet 1 mg PO TID Qty: 84 2RF Discharge Instructions Instructions: Shoulder Sprain (ED) Discharge Data Discharge Physician: Alonzo Hu Medical Decision Making Patient was due to fall landing on her left shoulder complaining of pain but she is has a normal physical exam no deformity x-rays of the clavicle on the left shoulder do not show any fracture. She might have a sprain or she could have a rotator cuff injury. At this time she will be placed on a shoulder immobilizer and will be given an nonsteroidal anti-inflammatory agents and will follow with her primary care physician. Differential Diagnosis Differential Diagnosis: 1. Shoulder sprain 2. Rotator cuff rupture 3. Humeral fracture Medical Records Medical records reviewed: Yes I reviewed the patient's medical records. Imaging Data Radiologic Study: Imaging: X-Ray My impression: No humerus fracture no clavicular fracture HPI General Date/Time Provider Initiated Documentation: 09/08/22 21:41 . HPI Narrative: Patient presents emergency department what he was picking raspberries tripped and fell on her left arm and is complaining of left shoulder pain that radiates to the front of her chest. Reports full range of motion and just pain when she abducts abducts the shoulder which she reports is about a 06/08 Related Data Home Medications Medication Instructions Recorded Confirmed ibuprofen 800 mg tablet 800 mg PO TID PRN pain #90 tabs 10/16/21 07/29/22 albuterol sulfate 90 mcg/actuation 2 inh inhalation Q6H PRN shortness 03/11/22 07/29/22 aerosol inhaler of breath or wheezing #18 grams rosuvastatin 40 mg tablet 40 mg PO QHS #90 tabs 03/11/22 07/29/22 clonazepam 1 mg tablet 1 mg PO TID #84 tabs 06/18/22 07/30/22 nicotine 21 mg/24 hr daily 1 patch transdermal DAILY #42 ea 07/29/22 07/29/22 transdermal patch nicotine 7 mg/24 hr daily 1 patch transdermal DAILY 2 weeks 07/29/22 07/29/22 transdermal patch #14 ea pantoprazole 40 mg tablet,delayed 40 mg PO DAILY #90 tabs 07/29/22 07/29/22 release (Protonix) ziprasidone HCl 20 mg capsule 20 mg PO BID #60 caps 07/30/22 07/30/22 Previous Rx's Medication Instructions Recorded ibuprofen 800 mg tablet 800 mg PO TID PRN pain #90 tabs 10/16/21 albuterol sulfate 90 mcg/actuation 2 inh inhalation Q6H PRN shortness 03/11/22 aerosol inhaler of breath or wheezing #18 grams rosuvastatin 40 mg tablet 40 mg PO QHS #90 tabs 03/11/22 clonazepam 1 mg tablet 1 mg PO TID #84 tabs 06/18/22 nicotine 21 mg/24 hr daily 1 patch transdermal DAILY #42 ea 07/29/22 transdermal patch nicotine 7 mg/24 hr daily 1 patch transdermal DAILY 2 weeks 07/29/22 transdermal patch #14 ea pantoprazole 40 mg tablet,delayed 40 mg PO DAILY #90 tabs 07/29/22 release (Protonix) ziprasidone HCl 20 mg capsule 20 mg PO BID #60 caps 07/30/22 Allergies Allergy/AdvReac Type Severity Reaction Status Date / Time morphine Allergy Severe stops my Verified 07/29/22 12:38 heart fentanyl Allergy Intermediate Hives Verified 07/29/22 12:38 lamotrigine Allergy Intermediate Facial Verified 07/29/22 12:38 blistering meloxicam AdvReac Severe Nausea and Verified 07/29/22 12:38 vomiting carbamazepine AdvReac Intermediate Drowsiness Verified 07/29/22 12:38 and ataxia cyclobenzaprine HCl AdvReac Intermediate vomits Verified 07/29/22 12:38 [From Flexeril] hydromorphone HCl AdvReac Intermediate vomits Verified 07/29/22 12:38 [From Dilaudid] Penicillins AdvReac Intermediate vomits Verified 07/29/22 12:38 thiopental AdvReac Intermediate Verified 07/29/22 12:38 acetaminophen [From Tylenol] AdvReac stomach Verified 07/29/22 12:38 cramps melatonin AdvReac Headaches Verified 07/29/22 12:38 methocarbamol AdvReac Nausea, Verified 07/29/22 12:38 headache oxycodone [Oxycodone] AdvReac Nausea Verified 07/29/22 12:38 prednisone AdvReac Nausea Verified 07/29/22 12:38 General Stated Complaint: Orthopedic VENKAT: 4 Review of Systems Narrative: Review of Systems: Constitutional: No fevers, chills, sweats Eye: No recent visual problems ENT: No ear pain, nasal congestion, sore throat Respiratory: No shortness of breath, cough Cardiovascular: No Chest pain, palpitations, syncope Gastrointestinal: No nausea, vomiting, diarrhea Genitourinary: No hematuria Christiano/Lymph: Negative for bruising tendency, swollen lymph glands Endocrine: Negative for excessive thirst, excessive hunger Musculoskeletal: No back pain, neck pain, Integumentary: No rash, pruritus, abrasions Neurologic: Alert & oriented X 4 Psychiatric: No anxiety, depression PFSH All Active Problems (Updated 09/08/22 @ 22:36 by Alonzo Hu MD) Sprain of left shoulder (Acute) Bipolar affective disorder (Chronic) Generalized anxiety disorder with panic attacks (Chronic) Post traumatic stress disorder (PTSD) (Chronic) COPD (chronic obstructive pulmonary disease) (Chronic) LDCT annually, negative July 2020 GERD (gastroesophageal reflux disease) (Chronic) Osteoarthritis (Chronic) Hyperlipidemia (Chronic) Insomnia (Chronic) Cigarette smoker (Chronic) LDCT annually Chronic low back pain (Chronic) Medical History Prediabetes Surgical History History of esophagogastroduodenoscopy (EGD) (05/09/21) S/P appendectomy S/P left rotator cuff repair (06/03/15) S/P PRO-BSO (total abdominal hysterectomy and bilateral salpingo-oophorectomy) Family History Mother , at 71 from dementia Alzheimer disease Heart disease Hyperlipidemia Hypertension Father Myocardial infarction Heart disease Alcohol abuse Alcoholic liver disease Sister Crohn disease Sister Hyperlipidemia Sister Type 2 diabetes mellitus Sister No problems noted. Brother , 60s Myocardial infarction Type 2 diabetes mellitus Heart disease Brother Myocardial infarction Heart disease Alcohol abuse Brother No problems noted. Brother Alcohol abuse Dementia Parkinson disease Brother Alzheimer disease Crohn disease Brother Heart disease Lymphoma Hyperlipidemia Son , at 28 from Type 1 diabetes Type 1 diabetes mellitus Son No problems noted. Maternal Grandfather No problems noted. Maternal Grandmother Alzheimer disease Paternal Grandfather No problems noted. Paternal Grandmother Type 2 diabetes mellitus Social History Smoking/Tobacco Use Status: Current every day Tobacco Type: cigarettes Years smoked: 49 Tobacco: How many years used: 50 Quit status: considering quitting Second Hand Exposure: Yes Smoking risk assessment performed?: Yes Alcohol Intake: current Alcohol Intake frequency: a few times a week Alcohol type: hard liquor Drug use: Daily Substance use type: marijuana Household members: none Housing: house Communication Needs: None Do you need help understanding health information?: Never Pets and animals: Yes Pets and animals: bird(s) Sexually active: Yes Do you think of yourself as: straight/heterosexual Current gender identity: female How often do you talk on the phone with friends or family?: three or more times per week How often do you get together with friends or relatives?: twice per week How often do you attend sabianist or oriental orthodox services?: decline to answer Do you belong to any clubs or organized social groups?: no Panel score (0-1 are the most socially isolated patients): 1 Seatbelt use: always Helmet use: Yes Helmet use: always Drive intox or ride w/intox drivers license examiner: No Do you feel safe at home: Yes Do you feel safe in your relationship?: Yes Female Reproductive History Menstrual Menopause type: surgical History History 9 Para 2 Hx # Term Pregnancies 2 Multiple births Hx # Pregnancies Ectopic pregnancies AB induced Hx Number of Living Children 1 AB spontaneous 7 Exam Narrative Exam Narrative: Exam; vitals signs as reported above normal Constitutional; In no acute distress, afebrile General: cooperative, healthy appearing, comfortable and no acute distress HEENT: Head: normal to inspection, no palpable skull fracture and normocephalic atraumatic Eyes: l: appearance normal, both eyes and all related structures Pupils: PERRL : EOM intact bilaterally Direct ophthalmoscopy: normal light reflex, normal conjunctiva, normal visual acuity Neck no JVD, supple non tender Neck: normal visual inspection, full ROM and no lymphadenopathy Chest: normal inspection of the chest Respiratory : normal respiratory effort and able to speak in complete sentences no wheezing no rales Cardio Rate: regular rate Rhythm: regular rhythm normal heart sounds S1 and S2 no murmurs, gallops, or rubs GI : normal to inspection, normal bowel sounds, soft, non tender, non distended, no organomegaly Back/Spine/ no CVA tenderness Thoracic/Lumbar Spine: no tenderness or deformities Skin no rashes or lesions Neuro: patient alert and no meningeal signs, Cranial Nerves: CN's II-XI intact bilaterally, Cognition: normal cognition, Speech: speech normal, Gait: normal gait, Depp tendon reflexes normal 2+ Extremities, no edema, full range of motion, normal strength mild tenderness to palpation at the level of the acromion and the lateral aspect of the left shoulder Course Vital Signs Vital signs: Vital Signs Temperature 36.8 C 09/08/22 21:35 Pulse 90 09/08/22 21:35 Respiratory Rate 16 09/08/22 21:35 Blood Pressure 141/109 H 09/08/22 21:35 Pulse Oximetry 96 09/08/22 21:35 Temperature 36.8 C 09/08/22 21:35 Pulse 90 09/08/22 21:35 Respiratory Rate 16 09/08/22 21:35 Respiratory Effort Normal 09/08/22 21:38 Blood Pressure 141/109 H 09/08/22 21:35 Blood Pressure Position Sitting 09/08/22 21:35 Pulse Oximetry 96 09/08/22 21:35 Oxygen Delivery Method Room Air 09/08/22 21:35 Oxygen Flow Rate 0 09/08/22 21:35 Pain Level 9 09/08/22 21:35
--- NOTE | 2022-09-08 21:45 | DI.RAD_ITS ---
Exam(s) XR CLAVICLE LT EXAM: XR CLAVICLE LT CLINICAL HISTORY: fall. TECHNIQUE: 2D digital imaging was performed. COMPARISON: No exams were available for comparison FINDINGS: Two views. No evidence of fracture of the clavicle. AC joint slightly widened which is possibly postsurgical Incidentally noted is a biceps tenodesis site in the upper left humerus. IMPRESSION: No acute clavicle fracture evident. DATA REPOSITORY: RADIATION DOSE DELIVERED:
--- NOTE | 2022-09-08 21:45 | DI.RAD_ITS ---
Exam(s) XR SHOULDER LT COMPLETE 2+V EXAM: XR SHOULDER LT COMPLETE 2+V CLINICAL HISTORY: fall. TECHNIQUE: 2D digital imaging was performed. COMPARISON: CR XR SHOULDER LT COMPLETE 2+V from 03/16/2022 FINDINGS: 3 views Chronic deformity again noted at the femoral head-neck junction from healed fracture site. No eviden ce of acute fracture or dislocation. There is a biceps tenodesis site again noted in the proximal hu meral diaphysis. There is no significant narrowing the glenohumeral joint space but there is some na rrowing of the lateral aspect of the acromial space. No abnormal soft tissue calcifications. AC haydee nt appears unremarkable. Clavicle intact. IMPRESSION: Stable multilevel osseous findings as described above. No acute fracture evident. DATA REPOSITORY: RADIATION DOSE DELIVERED:
--- NOTE | 2022-09-08 22:46 | DI.VRAD_ITS ---
PROCEDURE INFORMATION: Exam: XR Left Clavicle, Complete Exam date and time: 09/08/2022 9:59 PM Age: 56 years old Clinical indication: Injury or trauma; Fall; Blunt trauma (contusions or hematomas); Shoulder; Left; Injury date: 09/08/22; Prior surgery; Surgery date: 6+ months TECHNIQUE: Imaging protocol: Radiologic exam of the left clavicle. Complete exam. Views: Any number of views. COMPARISON: CR XR SHOULDER LT COMPLETE 2+V 03/16/2022 2:19 PM FINDINGS: Bones/joints: No acute fracture or dislocation Soft tissues: Normal. IMPRESSION: No acute findings. Dictated and Authenticated by: David Gonzalez MD. Ordering:OSMEL Rosado MD
--- NOTE | 2022-09-08 22:46 | DI.VRAD_ITS ---
PROCEDURE INFORMATION: Exam: XR Left Shoulder Exam date and time: 09/08/2022 10:01 PM Age: 56 years old Clinical indication: Injury or trauma; Fall; Blunt trauma (contusions or hematomas); Shoulder; Left; Injury date: 09/08/22; Prior surgery; Surgery date: 6+ months TECHNIQUE: Imaging protocol: Radiologic exam of the left shoulder. Views: 2 or more views. COMPARISON: CR XR SHOULDER LT COMPLETE 2+V 03/16/2022 2:19 PM FINDINGS: Bones/joints: Chronic deformity of the left humeral head neck junction. Grossly stable appearance of lucency with surrounding sclerosis in the proximal humeral neck. Degenerative changes are grossly stable. No acute fracture or dislocation Soft tissues: Normal. IMPRESSION: No acute findings. Grossly stable chronic findings Dictated and Authenticated by: David Gonzalez MD. Ordering:OSMEL Rosado MD
== END 2022-09-08 22:43 | disposition home or self-care (01) ==
PROVIDERS: Emergency Provider Emergency Medicine Emergency Medical Services; PCP Nurse Practitioner Family
DX: S43.402A Unspecified sprain of left shoulder joint, initial encounter (principal); W19.XXXA Unspecified fall, initial encounter
CPT/HCPCS: 99284; 73000; 73030; 99283

== ENCOUNTER 2022-10-12 13:02 | Emergency (ER) | payer MEDICAID, SELFPAY ==
--- NOTE | 2022-10-12 13:15 | DI.RAD_ITS ---
Exam(s) XR SOFT TISSUE NECK EXAM: XR SOFT TISSUE NECK CLINICAL HISTORY: throat pain, worse when turns to right. TECHNIQUE: 2D digital imaging was performed. COMPARISON: No exams were available for comparison FINDINGS: Two views with soft tissue technique-AP and lateral: There is no swelling of the epiglottis and there is no prevertebral soft tissue swelling evident. No hypertrophy of the adenoid region tissue. There is no radiopaque foreign body No significant osseous findings the cervical spine. IMPRESSION: No significant soft tissue swelling. No radiopaque foreign bodies. DATA REPOSITORY: RADIATION DOSE DELIVERED:
[2022-10-12 13:26] VITALS: BP 148/97; PULSE 86; RESP 18; TEMP 36.9; O2SAT 98
--- NOTE | 2022-10-12 13:56 | ED.GENADUL_ITS ---
Discharge Plan Disposition Patient Disposition: Eloped Condition: Stable Discharge Details Chief Complaint: Sorethroat Clinical Impression: Acute neck pain Primary Care Provider: Lorri Curry ED Provider: Nida Forbes Home Meds and New Rx's Prescriptions: No Action albuterol sulfate 90 mcg/actuation HFA aerosol inhaler 2 inh inhalation Q6H PRN (Reason: shortness of breath or wheezing) Qty: 18 4RF rosuvastatin 40 mg tablet 40 mg PO QHS Qty: 90 3RF pantoprazole [Protonix] 40 mg tablet,delayed release (DR/EC) 40 mg PO DAILY Qty: 90 3RF nicotine 21 mg/24 hr patch 24 hour 1 patch transdermal DAILY Qty: 42 0RF Rx Instructions: Apply 1 patch daily for 6 weeks nicotine 7 mg/24 hr patch 24 hour 1 patch transdermal DAILY 14 Days Qty: 14 6RF Rx Instructions: Apply 1 patch daily for 2 wks after 14mg patch ibuprofen 800 mg tablet 800 mg PO TID PRN (Reason: pain) Qty: 90 3RF clonazepam 1 mg tablet 1 mg PO TID Qty: 84 2RF Medical Decision Making 56yo F presenting with severe right sided neck pain, onset upon waking this morning. Vital signs reassuring; on exam she has marked right lateral neck tenderness to palpation and some fullness without clear mass or nodule. No difficulty with secretions, no concerned for airway. Not concerned for meningitis. No history of trauma or injury. XR reviewed, no evident foreign body, agree with radiology read below. Rapid strep negative. Labs ordered and reviewed, CBC & CMP unremarkable, no leukocytosis. Tylenol/toradol for pain. On reassessment she continues to have severe tenderness to palpation. I discussed with Ms. Carpenter my concern for serious pathology including deep space neck infection and plan for CT scan to evaluate for this. Subsequently eloped from department prior to CT. Imaging Data Radiologic Study: Imaging: X-Ray Radiologist's impression: IMPRESSION: No significant soft tissue swelling.? No radiopaque foreign bodies. Lab Data Lab results reviewed: Yes I reviewed the patient's lab results. Labs: 10/12/22 13:35 Tonsil - Not Specified Group A Streptococcus Culture - Pending Laboratory Tests Range/Units 10/12/22 10/12/22 10/12/22 14:37 14:52 14:52 WBC (4.4-10.8) 10^3/uL 8.44 RBC (3.93-5.22) 10^6/uL 4.87 Hgb (11.2-15.7) g/dL 14.9 Hct (36.0-46.0) % 43.9 MCV (80-95) fL 90 MCH (27.0-33.0) pg 30.6 MCHC (32.0-36.0) % 33.9 RDW (11.7-14.6) % 13.5 Plt Count (130-400) 10^3/uL 270 MPV (8.0-11.0) fL 9.6 Immature Gran % 0.4 Neutrophils % 58.3 Lymphocytes % 32.3 Monocytes % 6.9 Eosinophils % 1.3 Basophils % 0.8 Nucleated RBC % (0.0-0.3) % 0.0 Absolute Neutrophils (1.2-6.7) 10^3/uL 4.92 Absolute Lymphocytes (1.2-3.4) 10^3/uL 2.73 Absolute Monocytes (0.1-0.8) 10^3/uL 0.58 Absolute Eosinophils (0.0-0.7) 10^3/uL 0.11 Absolute Basophils (0.0-0.2) 10^3/uL 0.07 VBG pH Cancelled VBG pCO2 Cancelled VBG pO2 Cancelled VBG HCO3 Cancelled VBG Total CO2 Cancelled VBG O2 Saturation Cancelled VBG Base Excess Cancelled Sodium (136-145) mmol/L 140 Potassium (3.5-5.1) mmol/L 3.7 Chloride (98-107) mmol/L 103 Carbon Dioxide (21.0-32.0) mmol/L 28.1 Anion Gap (3-11) mmol/L 8.9 BUN (7-18) mg/dL 13 Creatinine (0.55-1.02) mg/dL 0.8 Est GFR (CKD-EPI 2020) (mL/min/1.73m2) 85.89 Glucose (74-106) mg/dL 109 H Calcium (8.5-10.1) mg/dL 8.8 Total Bilirubin (0.2-1.0) mg/dL 0.3 AST (15-37) U/L 16 ALT (14-59) U/L 20 Alkaline Phosphatase (46-116) U/L 77 Total Protein (6.4-8.2) g/dL 7.5 Albumin (3.4-5.0) g/dL 4.0 HPI General Mode of arrival: ambulatory . Date/Time Provider Initiated Documentation: 10/12/22 13:16 . Limitations to Documentation: no limitations . Information obtained by: patient . HPI Narrative: 56yo F presenting with severe right sided neck pain, onset upon waking this morning. Pain worse with rotation at neck, especially to the right. No difficulty with secretions, no difficulty swallowing. Ate fish last week, none recently. No recent illness. No fevers, chills, rash, nausea, vomiting, abdominal pain, vocal changes, trismus, or other concerns. Related Data Home Medications Medication Instructions Recorded Confirmed ibuprofen 800 mg tablet 800 mg PO TID PRN pain #90 tabs 10/16/21 09/24/22 albuterol sulfate 90 mcg/actuation 2 inh inhalation Q6H PRN shortness 03/11/22 09/24/22 aerosol inhaler of breath or wheezing #18 grams rosuvastatin 40 mg tablet 40 mg PO QHS #90 tabs 03/11/22 09/24/22 nicotine 21 mg/24 hr daily 1 patch transdermal DAILY #42 ea 07/29/22 09/24/22 transdermal patch nicotine 7 mg/24 hr daily 1 patch transdermal DAILY 2 weeks 07/29/22 09/24/22 transdermal patch #14 ea pantoprazole 40 mg tablet,delayed 40 mg PO DAILY #90 tabs 07/29/22 09/24/22 release (Protonix) clonazepam 1 mg tablet 1 mg PO TID #84 tabs 09/09/22 09/24/22 Previous Rx's Medication Instructions Recorded ibuprofen 800 mg tablet 800 mg PO TID PRN pain #90 tabs 10/16/21 albuterol sulfate 90 mcg/actuation 2 inh inhalation Q6H PRN shortness 03/11/22 aerosol inhaler of breath or wheezing #18 grams rosuvastatin 40 mg tablet 40 mg PO QHS #90 tabs 03/11/22 nicotine 21 mg/24 hr daily 1 patch transdermal DAILY #42 ea 07/29/22 transdermal patch nicotine 7 mg/24 hr daily 1 patch transdermal DAILY 2 weeks 07/29/22 transdermal patch #14 ea pantoprazole 40 mg tablet,delayed 40 mg PO DAILY #90 tabs 07/29/22 release (Protonix) clonazepam 1 mg tablet 1 mg PO TID #84 tabs 09/09/22 Allergies Allergy/AdvReac Type Severity Reaction Status Date / Time morphine Allergy Severe stops my Verified 09/24/22 10:24 heart fentanyl Allergy Intermediate Hives Verified 09/24/22 10:24 lamotrigine Allergy Intermediate Facial Verified 09/24/22 10:24 blistering meloxicam AdvReac Severe Nausea and Verified 09/24/22 10:24 vomiting carbamazepine AdvReac Intermediate Drowsiness Verified 09/24/22 10:24 and ataxia cyclobenzaprine HCl AdvReac Intermediate vomits Verified 09/24/22 10:24 [From Flexeril] hydromorphone HCl AdvReac Intermediate vomits Verified 09/24/22 10:24 [From Dilaudid] Penicillins AdvReac Intermediate vomits Verified 09/24/22 10:24 thiopental AdvReac Intermediate Verified 09/24/22 10:24 acetaminophen [From Tylenol] AdvReac stomach Verified 09/24/22 10:24 cramps melatonin AdvReac Headaches Verified 09/24/22 10:24 methocarbamol AdvReac Nausea, Verified 09/24/22 10:24 headache oxycodone [Oxycodone] AdvReac Nausea Verified 09/24/22 10:24 prednisone AdvReac Nausea Verified 09/24/22 10:24 General Stated Complaint: Sorethroat VENKAT: 4 Review of Systems Narrative: see HPI PFSH All Active Problems (Updated 10/12/22 @ 15:47 by Nida Forbes MD) Acute neck pain (Acute) Bipolar affective disorder (Chronic) Generalized anxiety disorder with panic attacks (Chronic) Post traumatic stress disorder (PTSD) (Chronic) COPD (chronic obstructive pulmonary disease) (Chronic) LDCT annually, negative July 2020 GERD (gastroesophageal reflux disease) (Chronic) Osteoarthritis (Chronic) Hyperlipidemia (Chronic) Insomnia (Chronic) Cigarette smoker (Chronic) LDCT annually Chronic low back pain (Chronic) Medical History Prediabetes Surgical History History of esophagogastroduodenoscopy (EGD) (05/09/21) S/P appendectomy S/P left rotator cuff repair (06/03/15) S/P PRO-BSO (total abdominal hysterectomy and bilateral salpingo-oophorectomy) Family History Mother , at 71 from dementia Alzheimer disease Heart disease Hyperlipidemia Hypertension Father Myocardial infarction Heart disease Alcohol abuse Alcoholic liver disease Sister Crohn disease Sister Hyperlipidemia Sister Type 2 diabetes mellitus Sister No problems noted. Brother , 60s Myocardial infarction Type 2 diabetes mellitus Heart disease Brother Myocardial infarction Heart disease Alcohol abuse Brother No problems noted. Brother Alcohol abuse Dementia Parkinson disease Brother Alzheimer disease Crohn disease Brother Heart disease Lymphoma Hyperlipidemia Son , at 28 from Type 1 diabetes Type 1 diabetes mellitus Son No problems noted. Maternal Grandfather No problems noted. Maternal Grandmother Alzheimer disease Paternal Grandfather No problems noted. Paternal Grandmother Type 2 diabetes mellitus Social History Smoking/Tobacco Use Status: Current every day Tobacco Type: cigarettes Years smoked: 49 Tobacco: How many years used: 50 Quit status: considering quitting Second Hand Exposure: Yes Smoking risk assessment performed?: Yes Alcohol Intake: current Alcohol Intake frequency: a few times a week Alcohol type: hard liquor Drug use: Daily Substance use type: marijuana Household members: none Housing: house Communication Needs: None Do you need help understanding health information?: Never Pets and animals: Yes Pets and animals: bird(s) Sexually active: Yes Do you think of yourself as: straight/heterosexual Current gender identity: female How often do you talk on the phone with friends or family?: three or more times per week How often do you get together with friends or relatives?: twice per week How often do you attend yazidi or confucianism services?: decline to answer Do you belong to any clubs or organized social groups?: no Panel score (0-1 are the most socially isolated patients): 1 Seatbelt use: always Helmet use: Yes Helmet use: always Drive intox or ride w/intox steam train driver: No Do you feel safe at home: Yes Do you feel safe in your relationship?: Yes Female Reproductive History Menstrual Menopause type: surgical History History 9 Para 2 Hx # Term Pregnancies 2 Multiple births Hx # Pregnancies Ectopic pregnancies AB induced Hx Number of Living Children 1 AB spontaneous 7 Exam Narrative Exam Narrative: General: Alert, well appearing, well nourished, in no acute distress. Head: Normocephalic, atraumatic Neck: Trachea midline, Neck supple. ENT: MMM. No oropharygeal lesions or exudate. Cardiac: RRR, no murmurs appreciated Resp: No respiratory distress. CTAB. Abd: Soft, non-distended, nontender : No suprapubic tenderness. No CVA tenderness. Extremities: No deformities. No peripheral edema. Neurologic: GCS 15. Moves all extremities freely against gravity Course Vital Signs Vital signs: Vital Signs Temperature 36.9 C 10/12/22 13:26 Pulse 86 10/12/22 13:26 Respiratory Rate 18 10/12/22 13:26 Blood Pressure 148/97 H 10/12/22 13:26 Pulse Oximetry 98 10/12/22 13:26 Temperature 36.9 C 10/12/22 13:26 Temperature Source Skin 10/12/22 13:26 Pulse 86 10/12/22 13:26 Respiratory Rate 18 10/12/22 13:26 Blood Pressure 148/97 H 10/12/22 13:26 Blood Pressure Position Sitting 10/12/22 13:26 Pulse Oximetry 98 10/12/22 13:26 Oxygen Delivery Method Room Air 10/12/22 13:26 Oxygen Flow Rate 0 10/12/22 13:26 Pain Level 7 10/12/22 13:26 Lab/Test Results Lab/Test Results: 10/12/22 13:35 Tonsil - Not Specified Group A Streptococcus Culture - Pending POC Strep Test-AKIRA(Rapid) Start: 10/12/22 13:17 Freq: .Rapid Strep Test Status: Active Protocol: Document 10/12/22 13:31 (Rec: 10/12/22 13:32 [id number]) Strep test-AKIRA(Rapid)-POC POC-Strep test-AKIRA (Rapid) Negative POC-Strep test-AKIRA (Rapid) Negative
[2022-10-12 14:50] VITALS: BP 138/88; PULSE 88; RESP 17; TEMP 36.9; O2SAT 98
[2022-10-12 14:56] LABS: Abs Immature Grans 0.03 10^3/uL (0.0-0.06); Absolute Basophil Count 0.07 10^3/uL (0.0-0.2); Absolute Eosinophil Count 0.11 10^3/uL (0.0-0.7); Absolute Lymphocyte Count 2.73 10^3/uL (1.2-3.4); Absolute Monocyte Count 0.58 10^3/uL (0.1-0.8); Absolute Neutrophil Count 4.92 10^3/uL (1.2-6.7); Basophils % 0.8; Eosinophils % 1.3; HCT 43.9 % (36.0-46.0); HGB 14.9 g/dL (11.2-15.7); Immature Grans % 0.4; Lymphocytes % 32.3; MCH 30.6 pg (27.0-33.0); MCHC 33.9 % (32.0-36.0); MCV 90 fL (80-95); MPV 9.6 fL (8.0-11.0); Monocytes % 6.9; Neutrophils % 58.3; Platelet Count 270 10^3/uL (130-400); RBC 4.87 10^6/uL (3.93-5.22); RDW 13.5 % (11.7-14.6); WBC 8.44 10^3/uL (4.4-10.8)
[2022-10-12] MEDS: Ketorolac 15 MG/ML VIAL IM (15:02)
--- NOTE | 2022-10-12 15:03 | NUR.NOTE ---
Nursing Note: Pt medicated per [facility]AR, refused PO Tylenol, states took too much as a child so I don't take it anymore. Provider aware, labs drawn & sent to lab, awaiting CT.
[2022-10-12 15:18] LABS: ALT 20 U/L (14-59); AST 16 U/L (15-37); Alkaline Phosphatase 77 U/L (46-116); Anion Gap 8.9 mmol/L (3-11); BUN 13 mg/dL (7-18); Bilirubin, Total 0.3 mg/dL (0.2-1.0); CO2 28.1 mmol/L (21.0-32.0); CREATININE 0.8 mg/dL (0.55-1.02); Calcium 8.8 mg/dL (8.5-10.1); Chloride 103 mmol/L (98-107); Estimated GFR 85.89 (mL/min/1.73m2); Glucose 109 mg/dL (74-106); Potassium 3.7 mmol/L (3.5-5.1); Sodium 140 mmol/L (136-145); Total Protein 7.5 g/dL (6.4-8.2)
--- NOTE | 2022-10-12 15:47 | NUR.NOTE ---
Nursing Note:Pt attempting to leave ED, allowed staff to remove IV, states I havent eaten all day and the people in her4e are sicker than I am so Im leaving. Provider aware pt eloped.
--- NOTE | 2022-10-12 17:14 | NUR.NOTE ---
Nursing Note: [facility] ED RN called looking for information on testing that was done on patient while in our ED. Patient eloped from our dept
== END 2022-10-12 16:02 | disposition left against medical advice (07) ==
PROVIDERS: Emergency Provider Student in an Organized Health Care Education/Training Program; PCP Nurse Practitioner Family
DX: M54.2 Cervicalgia (principal)
CPT/HCPCS: 80053; 82805; 87880; 96372; 99284; 70360; 85025; 87081; J1885

== ENCOUNTER 2022-10-22 16:31 | Outpatient (REF) | payer MEDICAID, SELFPAY | END 2022-10-22 16:32 | disposition home or self-care (01) | LOC: LBN 16:31 | PROVIDERS: PCP Nurse Practitioner Family; Visit Provider Nurse Practitioner Family | DX: N39.0 Urinary tract infection, site not specified (principal) | CPT/HCPCS: 87086 ==

== ENCOUNTER 2022-10-25 16:05 | Emergency (ER) | payer MEDICAID, SELFPAY ==
[2022-10-25 16:07] VITALS: BP 118/84; PULSE 81; RESP 20; TEMP 37; O2SAT 96
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
--- NOTE | 2022-10-25 17:08 | DI.VRAD_ITS ---
PROCEDURE INFORMATION: Exam: XR Right Foot Exam date and time: 10/25/2022 4:34 PM Age: 56 years old Clinical indication: Right; Patient HX: Foot pain TECHNIQUE: Imaging protocol: Radiologic exam of the right foot. Views: 3 or more views. COMPARISON: CR RIGHT FOOT COMPLETE 09/04/2017 11:17 PM FINDINGS: Bones/joints: Hallux valgus. No fracture or dislocation. Joint spaces are unremarkable. Enthesophyte at the insertion of the Achilles tendon is unchanged. Soft tissues: Unremarkable IMPRESSION: 1. No acute findings. 2. Hallux valgus Dictated and Authenticated by: Yon Tao MD. Ordering:CHEYANNE Barnes MD
--- NOTE | 2022-10-25 17:23 | ED.GENADUL_ITS ---
Discharge Plan Disposition Patient Disposition: Home Condition: Stable Discharge Details Clinical Impression: Muscle strain of right foot Primary Care Provider: Lorri Curry ED Provider: Molly Jones Home Meds and New Rx's Prescriptions: Continued albuterol sulfate 90 mcg/actuation HFA aerosol inhaler 2 inh inhalation Q6H PRN (Reason: shortness of breath or wheezing) Qty: 18 4RF rosuvastatin 40 mg tablet 40 mg PO QHS Qty: 90 3RF pantoprazole [Protonix] 40 mg tablet,delayed release (DR/EC) 40 mg PO DAILY Qty: 90 3RF nicotine 21 mg/24 hr patch 24 hour 1 patch transdermal DAILY Qty: 42 0RF Rx Instructions: Apply 1 patch daily for 6 weeks nicotine 7 mg/24 hr patch 24 hour 1 patch transdermal DAILY 14 Days Qty: 14 6RF Rx Instructions: Apply 1 patch daily for 2 wks after 14mg patch sulfamethoxazole-trimethoprim 800-160 mg tablet 1 tab PO BID Qty: 6 0RF Patient Comments: states finishing tonight 10/25/22 Rx Instructions: Take 1 tab twice a day for 3 days ibuprofen 800 mg tablet 800 mg PO TID PRN (Reason: pain) Qty: 90 3RF clonazepam 1 mg tablet 1 mg PO TID Qty: 84 2RF Discharge Instructions Instructions: Muscle Strain (ED) Additional Instructions: Continue ice to affected area can try heat now if helpful Continue ibuprofen 600 mg 4 times daily with food to help reduce inflammation for 5 days then can use if needed only can add acetaminophen 650 mg for pain breakthrough Referrals: Lorri Curry NP [Primary Care Provider] - Medical Decision Making Patient complaining of pain to her right foot after stepping in a hole. Had just been icing elevating taking NSAIDs. Will check x-ray to see if she has a fracture. She has not taken ibuprofen since 7:00 this morning did discuss regular dosing. X-rays reviewed and shows no acute fracture or findings to explain her symptoms. Stable for discharge to home to continue symptom management HPI General Mode of arrival: ambulatory . Date/Time Provider Initiated Documentation: 10/25/22 16:17 . Limitations to Documentation: no limitations . Information obtained by: patient . HPI Narrative: Patient reports stepping into a hole while gardening on Wednesday has had increased pain to the plantar aspect of her right foot. Has been icing elevating and taking ibuprofen and acetaminophen without any improvement in her symptoms. Related Data Home Medications Medication Instructions Recorded Confirmed ibuprofen 800 mg tablet 800 mg PO TID PRN pain #90 tabs 10/16/21 10/25/22 albuterol sulfate 90 mcg/actuation 2 inh inhalation Q6H PRN shortness 03/11/22 10/25/22 aerosol inhaler of breath or wheezing #18 grams rosuvastatin 40 mg tablet 40 mg PO QHS #90 tabs 03/11/22 10/25/22 nicotine 21 mg/24 hr daily 1 patch transdermal DAILY #42 ea 07/29/22 10/25/22 transdermal patch nicotine 7 mg/24 hr daily 1 patch transdermal DAILY 2 weeks 07/29/22 10/22/22 transdermal patch #14 ea pantoprazole 40 mg tablet,delayed 40 mg PO DAILY #90 tabs 07/29/22 10/25/22 release (Protonix) clonazepam 1 mg tablet 1 mg PO TID #84 tabs 09/09/22 10/25/22 sulfamethoxazole 800 1 tab PO BID #6 tabs 10/22/22 10/25/22 mg-trimethoprim 160 mg tablet Previous Rx's Medication Instructions Recorded ibuprofen 800 mg tablet 800 mg PO TID PRN pain #90 tabs 10/16/21 albuterol sulfate 90 mcg/actuation 2 inh inhalation Q6H PRN shortness 03/11/22 aerosol inhaler of breath or wheezing #18 grams rosuvastatin 40 mg tablet 40 mg PO QHS #90 tabs 03/11/22 nicotine 21 mg/24 hr daily 1 patch transdermal DAILY #42 ea 07/29/22 transdermal patch nicotine 7 mg/24 hr daily 1 patch transdermal DAILY 2 weeks 07/29/22 transdermal patch #14 ea pantoprazole 40 mg tablet,delayed 40 mg PO DAILY #90 tabs 07/29/22 release (Protonix) clonazepam 1 mg tablet 1 mg PO TID #84 tabs 09/09/22 sulfamethoxazole 800 1 tab PO BID #6 tabs 10/22/22 mg-trimethoprim 160 mg tablet Allergies Allergy/AdvReac Type Severity Reaction Status Date / Time morphine Allergy Severe stops my Verified 10/25/22 16:13 heart fentanyl Allergy Intermediate Hives Verified 10/25/22 16:13 lamotrigine Allergy Intermediate Facial Verified 10/25/22 16:13 blistering meloxicam AdvReac Severe Nausea and Verified 10/25/22 16:13 vomiting carbamazepine AdvReac Intermediate Drowsiness Verified 10/25/22 16:13 and ataxia cyclobenzaprine HCl AdvReac Intermediate vomits Verified 10/25/22 16:13 [From Flexeril] hydromorphone HCl AdvReac Intermediate vomits Verified 10/25/22 16:13 [From Dilaudid] Penicillins AdvReac Intermediate vomits Verified 10/25/22 16:13 thiopental AdvReac Intermediate Verified 10/25/22 16:13 acetaminophen [From Tylenol] AdvReac stomach Verified 10/25/22 16:13 cramps melatonin AdvReac Headaches Verified 10/25/22 16:13 methocarbamol AdvReac Nausea, Verified 10/25/22 16:13 headache oxycodone [Oxycodone] AdvReac Nausea Verified 10/25/22 16:13 prednisone AdvReac Nausea Verified 10/25/22 16:13 General Stated Complaint: Orthopedic VENKAT: 4 Review of Systems All systems reviewed & are unremarkable except as noted in HPI and below PFSH All Active Problems (Updated 10/25/22 @ 17:26 by Molly Jones NP) Muscle strain of right foot (Acute) Bipolar affective disorder (Chronic) Generalized anxiety disorder with panic attacks (Chronic) Post traumatic stress disorder (PTSD) (Chronic) COPD (chronic obstructive pulmonary disease) (Chronic) LDCT annually, negative July 2020 GERD (gastroesophageal reflux disease) (Chronic) Osteoarthritis (Chronic) Hyperlipidemia (Chronic) Insomnia (Chronic) Cigarette smoker (Chronic) LDCT annually Chronic low back pain (Chronic) Medical History Prediabetes Surgical History History of esophagogastroduodenoscopy (EGD) (05/09/21) S/P appendectomy S/P left rotator cuff repair (06/03/15) S/P PRO-BSO (total abdominal hysterectomy and bilateral salpingo-oophorectomy) Family History Mother , at 71 from dementia Alzheimer disease Heart disease Hyperlipidemia Hypertension Father Myocardial infarction Heart disease Alcohol abuse Alcoholic liver disease Sister Crohn disease Sister Hyperlipidemia Sister Type 2 diabetes mellitus Sister No problems noted. Brother , 60s Myocardial infarction Type 2 diabetes mellitus Heart disease Brother Myocardial infarction Heart disease Alcohol abuse Brother No problems noted. Brother Alcohol abuse Dementia Parkinson disease Brother Alzheimer disease Crohn disease Brother Heart disease Lymphoma Hyperlipidemia Son , at 28 from Type 1 diabetes Type 1 diabetes mellitus Son No problems noted. Maternal Grandfather No problems noted. Maternal Grandmother Alzheimer disease Paternal Grandfather No problems noted. Paternal Grandmother Type 2 diabetes mellitus Social History Smoking/Tobacco Use Status: Current every day Tobacco Type: cigarettes Years smoked: 49 Tobacco: How many years used: 50 Quit status: considering quitting Second Hand Exposure: Yes Smoking risk assessment performed?: Yes Alcohol Intake: current Alcohol Intake frequency: holidays/special occasions only Alcohol type: hard liquor Drug use: Daily Substance use type: marijuana Household members: none Housing: house Communication Needs: None Do you need help understanding health information?: Never Pets and animals: Yes Pets and animals: bird(s) Sexually active: Yes Do you think of yourself as: straight/heterosexual Current gender identity: female How often do you talk on the phone with friends or family?: three or more times per week How often do you get together with friends or relatives?: twice per week How often do you attend spiritism or sikh services?: decline to answer Do you belong to any clubs or organized social groups?: no Panel score (0-1 are the most socially isolated patients): 1 Seatbelt use: always Helmet use: Yes Helmet use: always Drive intox or ride w/intox new car driver: No Do you feel safe at home: Yes Do you feel safe in your relationship?: Yes Female Reproductive History Menstrual Menopause type: surgical History History 9 Para 2 Hx # Term Pregnancies 2 Multiple births Hx # Pregnancies Ectopic pregnancies AB induced Hx Number of Living Children 1 AB spontaneous 7 Exam Const General: cooperative and comfortable Nutritional Appearance: average body habitus Orientation: alert, awake and oriented x3 HENMT Head: normal to inspection, normocephalic and atraumatic Mouth: oral mucosae normal Chest Chest: normal inspection of the chest Resp Effort & Inspection: normal respiratory effort Cardio Rate: regular rate Rhythm: other (Regular pedal pulse) Skin General skin exam: no rashes or lesions noted Neuro General: patient alert, patient awake, patient oriented x3 and no focal motor deficits Extrem General: no pedal edema Right lower extremity: foot Details: tenderness Location: of the plantar foot and of the mid foot, no edema, abrasion and ecchymosis Course Vital Signs Vital signs: Vital Signs Temperature 37.0 C 10/25/22 16:07 Pulse 81 10/25/22 16:07 Respiratory Rate 20 10/25/22 16:07 Blood Pressure 118/84 10/25/22 16:07 Pulse Oximetry 96 10/25/22 16:07 Temperature 37.0 C 10/25/22 16:07 Temperature Source Skin 10/25/22 16:07 Pulse 81 10/25/22 16:07 Respiratory Rate 20 10/25/22 16:07 Respiratory Effort Normal, Non-Labored 10/25/22 16:15 Blood Pressure 118/84 10/25/22 16:07 Blood Pressure Position Sitting 10/25/22 16:07 Pulse Oximetry 96 10/25/22 16:07 Oxygen Delivery Method Room Air 10/25/22 16:07 Oxygen Flow Rate 0 10/25/22 16:07 Pain Level 9 10/25/22 16:17 Lab/Test Results Lab/Test Results: Laboratory Tests Range/Units 10/25/22 16:59 Hgb Cancelled Hct Cancelled PAWSS Have you Been Recently Intoxicated or Drunk Within the Last 30 days?: No Have you Ever Experienced Previous Episodes of Alcohol Withdrawal?: No Have you ever Experienced Withdrawal Seizures?: No Have you ever Experienced Delirium Tremens(DT)s?: No Have you ever undergone Alcohol Rehabilitation Treatment (i.e, inpt ot outpatient treatment programs)?: No Have you ever Experienced Blackouts?: No Have you ever Combined Alcohol with other Downers within the last 90 days?: No Have you ever Combined Alcohol with any other Substance of Abuse during the last 90 days?: No Positive Blood Alcohol level on Presentation? [PCS.BAL]: No Evidence of Increased Autonomic Activity (i.e. HR>120, tremor, sweating, agitation, nausea)?: No Result: 0
[2022-10-25 17:39] VITALS: BP 114/78; PULSE 80; RESP 18; O2SAT 95
== END 2022-10-25 17:41 | disposition home or self-care (01) ==
PROVIDERS: Emergency Provider Nurse Practitioner Acute Care; PCP Nurse Practitioner Family
DX: M79.671 Pain in right foot; S96.911A Strain of unspecified muscle and tendon at ankle and foot level, right foot, initial encounter; X50.1XXA Overexertion from prolonged static or awkward postures, initial encounter; Y93.H2 Activity, gardening and landscaping
CPT/HCPCS: 99283; 73630; 85014; 85018

== ENCOUNTER → 2023-01-19 02:30 | Outpatient (CLI) | payer MEDICAID, SELFPAY ==
--- NOTE | 2023-01-19 07:15 | DI.US_ITS ---
Exam(s) US AXILLA LT EXAM: US AXILLA LT CLINICAL HISTORY: painful left armpit swelling, no overlying redness TECHNIQUE: Ultrasound left axilla performed using standard protocol. COMPARISON: No exams were available for comparison FINDINGS: No solid or cystic masses, hypoechoic foci, areas of abnormal shadowing, or areas of skin thickening. IMPRESSION: No sonographically suspicious finding. DATA REPOSITORY:
--- NOTE | 2023-01-19 07:15 | DI.MAMMO_ITS ---
Exam(s) MAMMO SCREENING EXAM: MAMMO SCREENING CLINICAL HISTORY: screening,Z12.39 TECHNIQUE: Bilateral full field digital CC and MLO mammographic images were obtained with 3D tomosyn thesis and utilizing computer aided detection (CAD). COMPARISON: Available for comparison. FINDINGS: Masses/Architectural Distortion: The nodule in the lower central left breast is unchanged. No suspic ious nodules or areas of architectural distortion are present. Microcalcifications: No suspicious pleomorphic-type are seen. Skin Thickening/Nipple Retraction: None. IMPRESSION: 1. No significant interval change with no specific features of malignancy noted. 2. Unless there is more urgent need, screening mammography is recommended, as per [employer] guidelines. BI-RADS Category 2 - Benign Findings Breast Density - Category B - Scattered areas of fibroglandular density Breast density category C or D implies that the patient has dense breast tissue. Dense breast tissue is very common and is not abnormal but dense breast tissue can make it harder to find cancer on a ma mmogram. Also, dense breast tissue may increase their breast cancer risk. This information about the result of the mammogram report was provided to the patient to raise their awareness. Use this report when you speak with the patient about their risks for breast cancer, which includes their family hist ory. At that time, you may recommend for more screening tests (Ultrasound or MRI) as they might be us eful based on their risk. A negative radiographic report should not delay biopsy if a dominant or clinically suspicious mass is present. Up to ten percent of cancers are not identified on mammography. A negative report may reinforce clinical impression. Adenosis and dense breasts may obscure an underlying neoplasm. False positive reports average 6 to 10%. Patient will receive a letter notifying them of these results.
== END ==
PROVIDERS: PCP Nurse Practitioner Family; Visit Provider Nurse Practitioner Family
DX: Z12.31 Encounter for screening mammogram for malignant neoplasm of breast; R22.32 Localized swelling, mass and lump, left upper limb
CPT/HCPCS: 76642; 77063; 77067

== ENCOUNTER 2023-02-03 08:42 | Emergency (ER) | payer MEDICAID, SELFPAY ==
--- NOTE | 2023-02-03 08:30 | DI.RAD_ITS ---
Exam(s) XR CHEST 2V PA LATERAL EXAM: XR CHEST 2V PA LATERAL CLINICAL HISTORY: chest pain TECHNIQUE: 2D digital imaging was performed. COMPARISON: CT CT CHEST W from 04/27/2022 FINDINGS: HEART: Normal size. Aorta: Not dilated. PULMONARY VASCULATURE: Normal. LUNGS: Hyperinflation. Emphysematous changes and mild fibrotic changes. No focal infiltrate. PLEURAL SPACE: No pleural effusion or pneumothorax. BONE:Unremarkable for age. Soft tissues: Unremarkable. IMPRESSION: No acute abnormality. DATA REPOSITORY: RADIATION DOSE DELIVERED:
--- NOTE | 2023-02-03 08:42 | W.ED.GENAD ---
Discharge Plan Disposition Patient Disposition: Home Condition: Improving Discharge Details Clinical Impression: Chest pain Primary Care Provider: Lorri Curry ED Provider: Norberto Jimenes Home Meds and New Rx's Prescriptions: No Action albuterol sulfate 90 mcg/actuation HFA aerosol inhaler 2 inh inhalation Q6H PRN (Reason: shortness of breath or wheezing) Qty: 18 4RF rosuvastatin 40 mg tablet 40 mg PO QHS Qty: 90 3RF pantoprazole [Protonix] 40 mg tablet,delayed release (DR/EC) 40 mg PO DAILY Qty: 90 3RF nicotine 21 mg/24 hr patch 24 hour 1 patch transdermal DAILY Qty: 42 0RF Rx Instructions: Apply 1 patch daily for 6 weeks nicotine 7 mg/24 hr patch 24 hour 1 patch transdermal DAILY 14 Days Qty: 14 6RF Rx Instructions: Apply 1 patch daily for 2 wks after 14mg patch ibuprofen 800 mg tablet 800 mg PO TID PRN (Reason: pain) Qty: 90 3RF clonazepam 1 mg tablet 1 mg PO TID Qty: 84 2RF Discharge Instructions Instructions: Chest Pain (ED) Additional Instructions: Please help with your primary care physician. Please return to the emergency department for any worsening symptoms Medical Decision Making 57-year-old female history of generalized anxiety disorder PTSD, presents with anterior chest pain nonexertional that began around 7 AM this morning, no respiratory distress, hemodynamically stable, lungs clear bilaterally, no peripheral edema, no history of thromboembolic disease or coronary disease. EMS EKG normal sinus rhythm without ischemic changes, will repeat EKG here in department. Will obtain basic labs chest x-ray, anxiolysis, patient loaded with aspirin in route. Consider anxiety versus panic attack versus ACS versus musculoskeletal chest discomfort versus GERD lower suspicion for PE or aortic pathology lower suspicion for pneumothorax. 11: 35 patient was comfortably chest pain-free, does not want to wait for a repeat troponin. Endorses that being here is making her anxious. HPI General Date/Time Provider Initiated Documentation: 02/03/23 08:46. HPI Narrative: 57-year-old female history of bipolar, PTSD, generalized anxiety, COPD presents with anterior chest pain that began around 7 AM this morning. Anterior nature nonradiating pressure-like in quality. No shortness of breath nausea vomiting diaphoresis or presyncope. Denies history of coronary artery disease or thromboembolic disease Related Data Home Medications Medication Instructions Recorded Confirmed ibuprofen 800 mg tablet 800 mg PO TID PRN pain #90 tabs 10/16/21 02/03/23 albuterol sulfate 90 mcg/actuation 2 inh inhalation Q6H PRN shortness 03/11/22 02/03/23 aerosol inhaler of breath or wheezing #18 grams rosuvastatin 40 mg tablet 40 mg PO QHS #90 tabs 03/11/22 02/03/23 nicotine 21 mg/24 hr daily 1 patch transdermal DAILY #42 ea 07/29/22 02/03/23 transdermal patch nicotine 7 mg/24 hr daily 1 patch transdermal DAILY 2 weeks 07/29/22 02/03/23 transdermal patch #14 ea pantoprazole 40 mg tablet,delayed 40 mg PO DAILY #90 tabs 07/29/22 02/03/23 release (Protonix) clonazepam 1 mg tablet 1 mg PO TID #84 tabs 12/09/22 02/03/23 Previous Rx's Medication Instructions Recorded ibuprofen 800 mg tablet 800 mg PO TID PRN pain #90 tabs 10/16/21 albuterol sulfate 90 mcg/actuation 2 inh inhalation Q6H PRN shortness 03/11/22 aerosol inhaler of breath or wheezing #18 grams rosuvastatin 40 mg tablet 40 mg PO QHS #90 tabs 03/11/22 nicotine 21 mg/24 hr daily 1 patch transdermal DAILY #42 ea 07/29/22 transdermal patch nicotine 7 mg/24 hr daily 1 patch transdermal DAILY 2 weeks 07/29/22 transdermal patch #14 ea pantoprazole 40 mg tablet,delayed 40 mg PO DAILY #90 tabs 07/29/22 release (Protonix) clonazepam 1 mg tablet 1 mg PO TID #84 tabs 12/09/22 Allergies Allergy/AdvReac Type Severity Reaction Status Date / Time morphine Allergy Severe stops my Verified 10/25/22 16:13 heart fentanyl Allergy Intermediate Hives Verified 10/25/22 16:13 lamotrigine Allergy Intermediate Facial Verified 10/25/22 16:13 blistering meloxicam AdvReac Severe Nausea and Verified 10/25/22 16:13 vomiting carbamazepine AdvReac Intermediate Drowsiness Verified 10/25/22 16:13 and ataxia cyclobenzaprine HCl AdvReac Intermediate vomits Verified 10/25/22 16:13 [From Flexeril] hydromorphone HCl AdvReac Intermediate vomits Verified 10/25/22 16:13 [From Dilaudid] Penicillins AdvReac Intermediate vomits Verified 10/25/22 16:13 thiopental AdvReac Intermediate Verified 10/25/22 16:13 acetaminophen [From Tylenol] AdvReac stomach Verified 10/25/22 16:13 cramps melatonin AdvReac Headaches Verified 10/25/22 16:13 methocarbamol AdvReac Nausea, Verified 10/25/22 16:13 headache oxycodone [Oxycodone] AdvReac Nausea Verified 10/25/22 16:13 prednisone AdvReac Nausea Verified 10/25/22 16:13 General VENKAT: 4 Review of Systems Narrative: Review of Systems Constitutional: negative Eyes: negative ENT: negative Cardiovascular: Chest pain Respiratory: negative Gastrointestinal: negative : negative Musculoskeletal: negative Skin: negative Neurologic: negative Psych: negative PFSH All Active Problems (Updated 02/03/23 @ 11:36 by Norberto Jimenes MD) Chest pain (Acute) Bipolar affective disorder (Chronic) Generalized anxiety disorder with panic attacks (Chronic) Post traumatic stress disorder (PTSD) (Chronic) COPD (chronic obstructive pulmonary disease) (Chronic) LDCT annually, negative July 2020 GERD (gastroesophageal reflux disease) (Chronic) Osteoarthritis (Chronic) Hyperlipidemia (Chronic) Insomnia (Chronic) Cigarette smoker (Chronic) LDCT annually Chronic low back pain (Chronic) Medical History Prediabetes Surgical History History of esophagogastroduodenoscopy (EGD) (05/09/21) S/P appendectomy S/P left rotator cuff repair (06/03/15) S/P PRO-BSO (total abdominal hysterectomy and bilateral salpingo-oophorectomy) Family History Mother , at 71 from dementia Alzheimer disease Heart disease Hyperlipidemia Hypertension Father Myocardial infarction Heart disease Alcohol abuse Alcoholic liver disease Sister Crohn disease Sister Hyperlipidemia Sister Type 2 diabetes mellitus Sister No problems noted. Brother , 60s Myocardial infarction Type 2 diabetes mellitus Heart disease Brother Myocardial infarction Heart disease Alcohol abuse Brother No problems noted. Brother Alcohol abuse Dementia Parkinson disease Brother Alzheimer disease Crohn disease Brother Heart disease Lymphoma Hyperlipidemia Son , at 28 from Type 1 diabetes Type 1 diabetes mellitus Son No problems noted. Maternal Grandfather No problems noted. Maternal Grandmother Alzheimer disease Paternal Grandfather No problems noted. Paternal Grandmother Type 2 diabetes mellitus Social History Smoking/Tobacco Use Status: Current every day Tobacco Type: cigarettes Years smoked: 49 Tobacco: How many years used: 50 Quit status: considering quitting Second Hand Exposure: Yes Smoking risk assessment performed?: Yes Alcohol Intake: current Alcohol Intake frequency: holidays/special occasions only Alcohol type: hard liquor Drug use: Daily Substance use type: marijuana Household members: none Housing: house Communication Needs: None Do you need help understanding health information?: Never Pets and animals: Yes Pets and animals: bird(s) Sexually active: Yes Do you think of yourself as: straight/heterosexual Current gender identity: female How often do you talk on the phone with friends or family?: three or more times per week How often do you get together with friends or relatives?: twice per week How often do you attend pentecostalism or jainism services?: decline to answer Do you belong to any clubs or organized social groups?: no Panel score (0-1 are the most socially isolated patients): 1 Seatbelt use: always Helmet use: Yes Helmet use: always Drive intox or ride w/intox armored car driver: No Do you feel safe at home: Yes Do you feel safe in your relationship?: Yes Female Reproductive History Menstrual Menopause type: surgical History History 9 Para 2 Hx # Term Pregnancies 2 Multiple births Hx # Pregnancies Ectopic pregnancies AB induced Hx Number of Living Children 1 AB spontaneous 7 Exam Narrative Exam Narrative: Physical Examination General: alert, awake, cooperative, appears anxious HEENT: normocephalic, atraumatic; PERRL, EOM intact, conjunctiva normal; no nasal discharge; moist mucous membranes, oral and pharyngeal mucosa normal, tolerating secretions Neck: supple, trachea midline; full ROM Chest: normal to inspection Respiratory: normal respiratory effort, speaking in full sentences, clear to auscultation, no wheezing, rales or rhonchi Cardiac: regular rate, regular rhythm, S1S2 intact, no murmurs rubs or gallops; equal radial pulses bilaterally GI: abdomen soft, non-tender, non-distended; no palpable mass or hepatosplenomegaly Skin: no lesions, rashes or trauma appreciated Neuro: AAOx3, normal speech, moving all extremities Extremities: No peripheral edema Psych: Appears anxious
--- NOTE | 2023-02-03 08:45 | RT.EKG_ITS ---
APPROVED REPORT Exam: Resting ECG Reason for Exam: chest pain Patient Location: E HR:67 bpm ECG Measurements Heart Rate 67 AXIS AL 177 P 64 QRSd 93 QRS 38 QT 403 T 38 QTc 427 Conclusion Sinus rhythm...normal P axis, V-rate 60- 99 sinus rhtyhm, normal axis, normal intervals, non ischemic
[2023-02-03 09:17] LABS: Abs Immature Grans 0.01 10^3/uL (0.0-0.06); Absolute Basophil Count 0.08 10^3/uL (0.0-0.2); Absolute Eosinophil Count 0.13 10^3/uL (0.0-0.7); Absolute Lymphocyte Count 2.66 10^3/uL (1.2-3.4); Absolute Monocyte Count 0.44 10^3/uL (0.1-0.8); Absolute Neutrophil Count 2.61 10^3/uL (1.2-6.7); Basophils % 1.3; Eosinophils % 2.2; HCT 42.6 % (36.0-46.0); HGB 14.4 g/dL (11.2-15.7); Immature Grans % 0.2; Lymphocytes % 44.9; MCH 30.1 pg (27.0-33.0); MCHC 33.8 % (32.0-36.0); MCV 89 fL (80-95); MPV 9.8 fL (8.0-11.0); Monocytes % 7.4; Platelet Count 254 10^3/uL (130-400); RBC 4.79 10^6/uL (3.93-5.22); RDW 13.3 % (11.7-14.6); RDW-SD 43.9 fL; WBC 5.93 10^3/uL (4.4-10.8)
[2023-02-03 09:30] LABS: PTT Activated 30.8 sec (23.6-32.8); Prothrombin Time 10.1 sec (9.1-11.1)
[2023-02-03] MEDS: LORazepam 2 MG/ML VIAL 0.5 MG IVP (09:30)
[2023-02-03] MEDS: Famotidine 20 MG/2 ML VIAL IVP (09:31)
[2023-02-03 09:36] LABS: ALT 23 U/L (14-59); AST 20 U/L (15-37); Albumin 3.7 g/dL (3.4-5.0); Alkaline Phosphatase 72 U/L (46-116); Anion Gap 10.8 mmol/L (3-11); BUN 18 mg/dL (7-18); Bilirubin, Total 0.3 mg/dL (0.2-1.0); CO2 25.2 mmol/L (21.0-32.0); CREATININE 0.7 mg/dL (0.55-1.02); Calcium 9.2 mg/dL (8.5-10.1); Chloride 108 mmol/L (98-107); Estimated GFR 100.19 (mL/min/1.73m2); Glucose 112 mg/dL (74-106); Potassium 4.3 mmol/L (3.5-5.1); Sodium 144 mmol/L (136-145); Total Protein 7.6 g/dL (6.4-8.2); Troponin I < 50 ng/L (<or=60)
[2023-02-03 10:00] VITALS: RESP 18
[2023-02-03 11:23] VITALS: BP 161/99; PULSE 75; O2SAT 99
== END 2023-02-03 11:58 | disposition home or self-care (01) ==
PROVIDERS: Emergency Provider Emergency Medicine; PCP Nurse Practitioner Family
DX: R07.9 Chest pain, unspecified (principal); F41.1 Generalized anxiety disorder; J44.9 Chronic obstructive pulmonary disease, unspecified; E78.5 Hyperlipidemia, unspecified; F17.210 Nicotine dependence, cigarettes, uncomplicated
CPT/HCPCS: 80053; 93005; 96374; 96375; 99283; 71046; 84484; 85025; 85610; 85730; 93010; J2060

== ENCOUNTER 2023-05-24 09:34 | Emergency (ER) | payer MEDICAID, SELFPAY ==
[2023-05-24] VITALS (34 sets, daily range): BP systolic 116–166; BP diastolic 91–112; PULSE 50–81; RESP 11–23; O2SAT 95–99
--- NOTE | 2023-05-24 09:15 | RT.EKG_ITS ---
APPROVED REPORT Exam: Resting ECG Reason for Exam: chest pain Patient Location: E HR:75 bpm ECG Measurements Heart Rate 75 AXIS WI 131 P 72 QRSd 95 QRS 53 QT 387 T 68 QTc 433 Conclusion Sinus rhythm...normal P axis, V-rate 60- 99
--- NOTE | 2023-05-24 09:39 | ED.GENADUL_ITS ---
Discharge Plan Disposition Patient Disposition: Home Condition: Stable Discharge Details Clinical Impression: Chest pain Primary Care Provider: Lorri Curry ED Provider: Albino Vences Home Meds and New Rx's Prescriptions: Continued albuterol sulfate 90 mcg/actuation HFA aerosol inhaler 2 inh inhalation Q6H PRN (Reason: shortness of breath or wheezing) Qty: 18 4RF rosuvastatin 40 mg tablet 40 mg PO QHS Qty: 90 3RF pantoprazole [Protonix] 40 mg tablet,delayed release (DR/EC) 40 mg PO DAILY Qty: 90 3RF clonazepam 1 mg tablet 1 mg PO TID Qty: 84 2RF ibuprofen 800 mg tablet 800 mg PO TID PRN (Reason: pain) Qty: 90 3RF Discharge Instructions Instructions: Chest Pain (ED) Additional Instructions: Her blood work and EKG did not show concerning findings Follow-up with your primary care provider within 1 week If you feel more ill, have severe worsening pain or difficulty breathing return to the emergency department for reevaluation HPI General Mode of arrival: ambulatory . Date/Time Provider Initiated Documentation: 05/24/23 09:39 . Limitations to Documentation: no limitations . Information obtained by: patient . History of Present Illness 57 year old F presents to the emergency department with the chief complaint of chest pain and anxiety, described as moderate, and is localized to the chest. Patient reports no radiation. Patient started experiencing this hour(s) (2) and it has been constant. No relieving factors improve symptom(s), No exacerbating factors reported . Patient notes denies cough, diaphoresis and fever/chills. Related Data Home Medications Medication Instructions Recorded Confirmed ibuprofen 800 mg tablet 800 mg PO TID PRN pain #90 tabs 10/16/21 05/24/23 albuterol sulfate 90 mcg/actuation 2 inh inhalation Q6H PRN shortness 03/11/22 05/24/23 aerosol inhaler of breath or wheezing #18 grams rosuvastatin 40 mg tablet 40 mg PO QHS #90 tabs 03/11/22 05/24/23 pantoprazole 40 mg tablet,delayed 40 mg PO DAILY #90 tabs 07/29/22 05/24/23 release (Protonix) clonazepam 1 mg tablet 1 mg PO TID #84 tabs 01/11/24 03/25/24 Previous Rx's Medication Instructions Recorded ibuprofen 800 mg tablet 800 mg PO TID PRN pain #90 tabs 10/16/21 albuterol sulfate 90 mcg/actuation 2 inh inhalation Q6H PRN shortness 03/11/22 aerosol inhaler of breath or wheezing #18 grams rosuvastatin 40 mg tablet 40 mg PO QHS #90 tabs 03/11/22 pantoprazole 40 mg tablet,delayed 40 mg PO DAILY #90 tabs 07/29/22 release (Protonix) clonazepam 1 mg tablet 1 mg PO TID #84 tabs 03/11/23 Allergies Allergy/AdvReac Type Severity Reaction Status Date / Time morphine Allergy Severe stops my Verified 05/24/23 09:52 heart fentanyl Allergy Intermediate Hives Verified 05/24/23 09:52 lamotrigine Allergy Intermediate Facial Verified 05/24/23 09:52 blistering meloxicam AdvReac Severe Nausea and Verified 05/24/23 09:52 vomiting nicotine [From Nicoderm CQ] AdvReac Severe Other (See Verified 05/24/23 09:52 Comment) carbamazepine AdvReac Intermediate Drowsiness Verified 05/24/23 09:52 and ataxia cyclobenzaprine HCl AdvReac Intermediate vomits Verified 05/24/23 09:52 [From Flexeril] hydromorphone HCl AdvReac Intermediate vomits Verified 05/24/23 09:52 [From Dilaudid] Penicillins AdvReac Intermediate vomits Verified 05/24/23 09:52 thiopental AdvReac Intermediate Other (See Verified 05/24/23 09:52 Comment) acetaminophen [From Tylenol] AdvReac stomach Verified 05/24/23 09:52 cramps melatonin AdvReac Headaches Verified 05/24/23 09:52 methocarbamol AdvReac Nausea, Verified 05/24/23 09:52 headache oxycodone [Oxycodone] AdvReac Nausea Verified 05/24/23 09:52 prednisone AdvReac Nausea Verified 05/24/23 09:52 General VENKAT: 3 Review of Systems All systems reviewed & are unremarkable except as noted in HPI and below Constitutional Constitutional: Denies chills, Denies fever(s) and Denies weakness Cardiovascular Cardiovascular: Reports chest pain and Denies dyspnea Respiratory Respiratory: Denies cough and Denies dyspnea Gastrointestinal Gastrointestinal: Denies abdominal pain, Denies nausea and Denies vomiting Genitourinary Genitourinary: Denies dysuria Musculoskeletal Musculoskeletal: Denies joint swelling Integumentary/Breasts Skin/Breast: Denies rash Neurologic Neurologic: Denies weakness Psychiatric Psychiatric: Denies depression Endocrine Endocrine: Denies cold intolerance and Denies heat intolerance Allergic/Immunologic Allergic/Immunologic: Denies urticaria Exam Const General: no acute distress Orientation: alert HENMT Head: normal to inspection Ears: external ears normal General nose exam: external nose normal Mouth: moist mucous membranes Eyes General: appearance normal, both eyes and all related structures Neck Neck: normal visual inspection Resp Effort & Inspection: normal respiratory effort and able to speak in complete sentences Auscultation: clear to auscultation bilaterally Cardio Rate: regular rate Heart Sounds: no murmurs GI Palpation: soft and nontender Skin General skin exam: no rashes or lesions noted Neuro General: patient alert and patient oriented x3 Extrem General: normal to inspection Psych Mental Status: mental status grossly normal Medical Decision Making D7-year-old female who has a history of anxiety and when she does get anxious gets chest pain, COPD, who comes in with EMS stating around 7:00 she started to feel anxious and having chest pain. Describes as a sharp anterior chest pain, was given nitro with EMS which she says did not help her symptoms, states it made her head feel weird. She states she took clonazepam which has helped her anxiety and her pain is better. She is alert and oriented x 4 speaking in full sentences in no distress, she has clear lungs, no JVD, no leg swelling or calf tenderness, stable vital signs, room air saturation is 98%. SPECT this is related to anxiety but will check a troponin, CBC, CMP, her lungs are clear and has no pleuritic pain so do not feel chest x-ray is indicated. She has no tearing back pain and equal peripheral pulses so doubt dissection, and she has no evidence of DVT, no tachycardia, no hypoxia so doubt PE. Labs including delta troponin unremarkable, patient pain-free and asymptomatic, she is stable for discharge, advised to follow-up with her primary care provider and return precautions given Differential Diagnosis Differential Diagnosis: Anxiety, chest wall pain, NSTEMI Medical Records Medical records reviewed: Yes I reviewed the patient's medical records. Lab Data Lab results reviewed: Yes I reviewed the patient's lab results. ECG Data Attestation: I personally reviewed and interpreted this ECG (s) as follows: Prior ECG tracings: available for review Interpretation: Sinus rhythm, rate of 75, SD 131, no STEMI Quality:SDOH Health Related Social Needs: No Data to Display PFSH All Active Problems (Updated 05/24/23 @ 12:23 by Albino Vences MD) Chest pain (Acute) Bipolar affective disorder (Chronic) Generalized anxiety disorder with panic attacks (Chronic) Post traumatic stress disorder (PTSD) (Chronic) COPD (chronic obstructive pulmonary disease) (Chronic) LDCT annually, negative July 2020 GERD (gastroesophageal reflux disease) (Chronic) Hiatal hernia (Chronic) Osteoarthritis (Chronic) Hyperlipidemia (Chronic) Insomnia (Chronic) Cigarette smoker (Chronic) LDCT annually Chronic low back pain (Chronic) Medical History Prediabetes Surgical History History of esophagogastroduodenoscopy (EGD) (05/09/21) S/P appendectomy S/P left rotator cuff repair (06/03/15) S/P PRO-BSO (total abdominal hysterectomy and bilateral salpingo-oophorectomy) Family History Mother , at 71 from dementia Alzheimer disease Heart disease Hyperlipidemia Hypertension Father Myocardial infarction Heart disease Alcohol abuse Alcoholic liver disease Sister Crohn disease Sister Hyperlipidemia Sister Type 2 diabetes mellitus Sister No problems noted. Brother , 60s Myocardial infarction Type 2 diabetes mellitus Heart disease Brother Myocardial infarction Heart disease Alcohol abuse Brother No problems noted. Brother Alcohol abuse Dementia Parkinson disease Brother Alzheimer disease Crohn disease Brother Heart disease Lymphoma Hyperlipidemia Son , at 28 from Type 1 diabetes Type 1 diabetes mellitus Son No problems noted. Maternal Grandfather No problems noted. Maternal Grandmother Alzheimer disease Paternal Grandfather No problems noted. Paternal Grandmother Type 2 diabetes mellitus Social History Smoking/Tobacco Use Status: Current every day Tobacco Type: cigarettes Years smoked: 49 Tobacco: How many years used: 50 Quit status: considering quitting Second Hand Exposure: Yes Smoking risk assessment performed?: Yes Alcohol Intake: current Alcohol Intake frequency: holidays/special occasions only Alcohol type: hard liquor Drug use: Daily Substance use type: marijuana Household members: none Housing: house Communication Needs: None Do you need help understanding health information?: Never Pets and animals: Yes Pets and animals: bird(s) Sexually active: Yes Do you think of yourself as: straight/heterosexual Current gender identity: female How often do you talk on the phone with friends or family?: three or more times per week How often do you get together with friends or relatives?: twice per week How often do you attend synagogue or yarsanism services?: decline to answer Do you belong to any clubs or organized social groups?: no Panel score (0-1 are the most socially isolated patients): 1 Seatbelt use: always Helmet use: Yes Helmet use: always Drive intox or ride w/intox tram driver: No Do you feel safe at home: Yes Do you feel safe in your relationship?: Yes Female Reproductive History Menstrual Menopause type: surgical History History 9 Para 2 Hx # Term Pregnancies 2 Multiple births Hx # Pregnancies Ectopic pregnancies AB induced Hx Number of Living Children 1 AB spontaneous 7
[2023-05-24 09:53] LABS: Abs Immature Grans 0.02 10^3/uL (0.0-0.06); Absolute Basophil Count 0.06 10^3/uL (0.0-0.2); Absolute Eosinophil Count 0.15 10^3/uL (0.0-0.7); Absolute Neutrophil Count 5.05 10^3/uL (1.2-6.7); Basophils % 0.7; Eosinophils % 1.9; HCT 42.9 % (36.0-46.0); HGB 14.3 g/dL (11.2-15.7); Immature Grans % 0.2; Lymphocytes % 27.2; MCH 30.6 pg (27.0-33.0); MCHC 33.3 % (32.0-36.0); MCV 92 fL (80-95); MPV 9.9 fL (8.0-11.0); Monocytes % 7.4; Neutrophils % 62.6; Platelet Count 280 10^3/uL (130-400); RBC 4.68 10^6/uL (3.93-5.22); RDW 13.8 % (11.7-14.6); RDW-SD 46.9 fL; WBC 8.08 10^3/uL (4.4-10.8)
[2023-05-24] MEDS: Ketorolac 15 MG/ML VIAL IVP (10:00)
[2023-05-24 10:08] LABS: PTT Activated 28.6 sec (23.6-32.8); Prothrombin Time 9.9 sec (9.1-11.1)
[2023-05-24 10:13] LABS: ALT 19 U/L (14-59); AST 12 U/L (15-37); Albumin 3.8 g/dL (3.4-5.0); Alkaline Phosphatase 70 U/L (46-116); Anion Gap 9.8 mmol/L (3-11); BUN 16 mg/dL (7-18); Bilirubin, Total 0.3 mg/dL (0.2-1.0); CO2 27.2 mmol/L (21.0-32.0); CREATININE 0.7 mg/dL (0.55-1.02); Calcium 9.1 mg/dL (8.5-10.1); Chloride 106 mmol/L (98-107); Estimated GFR 100.19 (mL/min/1.73m2); Glucose 92 mg/dL (74-106); Lipase 32 U/L (16-77); Magnesium 2.3 mg/dL (1.8-2.4); Potassium 3.8 mmol/L (3.5-5.1); Sodium 143 mmol/L (136-145); Total Protein 7.5 g/dL (6.4-8.2); Troponin I < 50 ng/L (< or =60)
[2023-05-24 13:25] LABS: Troponin I < 50 ng/L (< or =60)
== END 2023-05-24 13:38 | disposition home or self-care (01) ==
PROVIDERS: Emergency Provider Emergency Medicine; PCP Nurse Practitioner Family
DX: R06.02 Shortness of breath (principal); R07.9 Chest pain, unspecified; R41.9 Unspecified symptoms and signs involving cognitive functions and awareness; J44.9 Chronic obstructive pulmonary disease, unspecified; F17.210 Nicotine dependence, cigarettes, uncomplicated
CPT/HCPCS: 36415; 80053; 83690; 93005; 96374; 99284; 83735; 84484; 85025; 85610; 85730; 93010; J1885

== ENCOUNTER → 2023-06-23 04:34 | Outpatient (CLI) | payer MEDICAID, SELFPAY ==
--- NOTE | 2023-06-23 06:30 | DI.US_ITS ---
Exam(s) US ABDOMEN LIMITED EXAM: US ABDOMEN LIMITED CLINICAL HISTORY: RUQ pain,r10.11 TECHNIQUE: Ultrasound abdomen performed using standard protocol. COMPARISON: US US ABDOMEN from 03/14/2020 FINDINGS: PANCREAS: Normal where visualized. LIVER: Normal. Hepatopetal flow in the Portal Vein. The liver measures in 13.2 cm length. No evidence of a hepatic mass. GALLBLADDER: No evidence of cholelithiasis. No evidence of wall thickening. No pericholecystic fluid identified. BILIARY SYSTEM: Common bile duct measures < 7 mm. No intrahepatic biliary ductal dilation. KEARNS'S SIGN: Negative. Patient did report tenderness in right upper quadrant. RIGHT KIDNEY: Kidney is normal in size. No evidence of renal calculi. No evidence of hydronephrosis. No renal mass or cyst identified. ASCITES: None seen. ABDOMINAL AORTA AND IVC: Visualized portions normal caliber. IMPRESSION: No evidence of cholelithiasis or biliary ductal dilatation. DATA REPOSITORY:
--- NOTE | 2023-06-23 06:30 | DI.NM_ITS ---
Exam(s) NM HEPATOBILIARY CCK GRP EXAM: NM HEPATOBILIARY CCK GRP CLINICAL HISTORY: RUQ pain,? gallbladder function,R10.11. TECHNIQUE: Injected dose: 4.6 mCi Tc-99 mebrofenin Initial dynamic images: 60 minutes Post-Gallbladder fillin.8 mcg CCK intravenously according to protocol. Addition images: 20 minute dynamic during CCK administration. COMPARISON: US US ABDOMEN LIMITED from 06/23/2023 FINDINGS: Normal hepatic transit time. Prompt excretion into the small bowel. Prompt excretion into the gallbladder. The gallbladder ejection fraction is 88 percent which is with in normal limits. IMPRESSION: 1. Unremarkable exam within normal gallbladder ejection fraction. SNM guidelines: Gallbladder visualization should be present by 3 hours. Delayed [id number] balbuena sit beyond 60 min raises the suspicion for partial common bile duct (CBD) obstruction. Gallbladder ejection fraction <35% has a good correlation with acalculous disease (i.e., chronic acal culous cholecystitis, cystic duct syndrome, sphincter of Oddi disease).
== END ==
PROVIDERS: PCP Nurse Practitioner Family; Visit Provider Nurse Practitioner Family
DX: R10.11 Right upper quadrant pain (principal)
CPT/HCPCS: 78227; 76705

== ENCOUNTER 2023-09-29 20:26 | Emergency (ER) | payer MEDICAID, SELFPAY ==
[2023-09-29 20:29] VITALS: BP 136/107; PULSE 95; RESP 18; TEMP 36.4; O2SAT 95
[2023-09-29 21:07] LABS: Bilirubin Negative (Negative); Blood Trace-intact (Negative); Clarity Sl Cloudy (Clear); Glucose Negative (Negative); Ketones Negative (Negative); Leukocyte Esterase Small (Negative); Nitrite Negative (Negative); Urobilinogen 0.2 mg/dL (Up to 0.2)
[2023-09-29 21:24] LABS: Bacteria Rare HPF (Negative); C & S Indicated? Yes; Casts Negative LPF (Negative); Crystals Negative HPF (Negative); Epithelial Cells Rare HPF (Negative); Mucus Trace (Negative); RBC 0-2 HPF (0-2); WBC 20-50 HPF (0-5)
--- NOTE | 2023-09-29 21:26 | ED.GENADUL_ITS ---
Discharge Plan Disposition Patient Disposition: Home Condition: Good Discharge Details Clinical Impression: UTI (urinary tract infection) Primary Care Provider: Lorri Curry ED Provider: Suman Bahena Meds and New Rx's Prescriptions: New nitrofurantoin monohyd/m-cryst [Macrobid] 100 mg capsule 100 mg PO BID Qty: 8 0RF Rx Instructions: must administer with a meal/food phenazopyridine [Pyridium] 100 mg tablet 100 mg PO TID PRNQty: 4 0RF Continued cetirizine 10 mg tablet 10 mg PO DAILY PRN (Reason: allergy symptoms) Qty: 90 3RF rosuvastatin 40 mg tablet 40 mg PO QHS Qty: 90 3RF albuterol sulfate 90 mcg/actuation HFA aerosol inhaler 2 inh inhalation Q6H PRN (Reason: shortness of breath or wheezing) Qty: 18 4RF pantoprazole [Protonix] 40 mg tablet,delayed release (DR/EC) 40 mg PO DAILY Qty: 90 3RF ibuprofen 800 mg tablet 800 mg PO TID PRN (Reason: pain) Qty: 90 3RF clonazepam 1 mg tablet 1 mg PO TID Qty: 84 2RF Discharge Instructions Instructions: Urinary Tract Infection, Adult ED Additional Instructions: You were seen in the ED for urinary symptoms. You were found to have a urinary tract infection. You will be started on antibiotic and Pyridium. Your first 2 doses have been provided. Prescriptions to continue medications until completed have been sent to pharmacy. Follow-up with primary care next week if not improving. Return to ED for spiking fever, mental status change, back or flank pain, persistent vomiting, other concerns. Referrals: Lorri Curry NP [Primary Care Provider] - [facility] General Mode of arrival: ambulatory . Date/Time Provider Initiated Documentation: 09/29/23 21:03 . Limitations to Documentation: no limitations . Information obtained by: patient and RN notes reviewed . HPI Narrative: Patient presents to ED with urinary symptoms for the last 2 days. Denies any fever, vomiting, back pain. Has suprapubic pressure and constant feeling of urgency. Has pain while urinating. Denies hematuria. Has not had a UTI in some time but feels exactly the same as previous episodes. Related Data Home Medications ?Medication ?Instructions ?Recorded ?Confirmed albuterol sulfate 90 mcg/actuation 2 inh inhalation Q6H PRN shortness 05/31/23 09/29/23 aerosol inhaler of breath or wheezing #18 grams cetirizine 10 mg tablet 10 mg PO DAILY PRN allergy 05/31/23 09/29/23 symptoms #90 tabs ibuprofen 800 mg tablet 800 mg PO TID PRN pain #90 tabs 05/31/23 09/29/23 pantoprazole 40 mg tablet,delayed 40 mg PO DAILY #90 tabs 05/31/23 09/29/23 release (Protonix) rosuvastatin 40 mg tablet 40 mg PO QHS #90 tabs 05/31/23 09/29/23 clonazepam 1 mg tablet 1 mg PO TID #84 tabs 06/24/23 09/29/23 nitrofurantoin 100 mg PO BID #8 caps 09/29/23 monohydrate/macrocrystals 100 mg capsule (Macrobid) phenazopyridine 100 mg tablet 100 mg PO TID PRN #4 tabs 09/29/23 (Pyridium) Previous Rx's ?Medication ?Instructions ?Recorded albuterol sulfate 90 mcg/actuation 2 inh inhalation Q6H PRN shortness 05/31/23 aerosol inhaler of breath or wheezing #18 grams cetirizine 10 mg tablet 10 mg PO DAILY PRN allergy 05/31/23 symptoms #90 tabs ibuprofen 800 mg tablet 800 mg PO TID PRN pain #90 tabs 05/31/23 pantoprazole 40 mg tablet,delayed 40 mg PO DAILY #90 tabs 05/31/23 release (Protonix) rosuvastatin 40 mg tablet 40 mg PO QHS #90 tabs 05/31/23 clonazepam 1 mg tablet 1 mg PO TID #84 tabs 06/24/23 nitrofurantoin 100 mg PO BID #8 caps 09/29/23 monohydrate/macrocrystals 100 mg capsule (Macrobid) phenazopyridine 100 mg tablet 100 mg PO TID PRN #4 tabs 09/29/23 (Pyridium) Allergies Allergy/AdvReac Type Severity Reaction Status Date / Time morphine Allergy Severe stops my Verified 09/29/23 20:31 heart fentanyl Allergy Intermediate Hives Verified 09/29/23 20:31 lamotrigine Allergy Intermediate Facial Verified 09/29/23 20:31 blistering meloxicam AdvReac Severe Nausea and Verified 09/29/23 20:31 vomiting nicotine (From Nicoderm CQ) AdvReac Severe Other (See Verified 09/29/23 20:31 Comment) carbamazepine AdvReac Intermediate Drowsiness Verified 09/29/23 20:31 and ataxia cyclobenzaprine HCl (From AdvReac Intermediate vomits Verified 09/29/23 20:31 Flexeril) hydromorphone HCl (From AdvReac Intermediate vomits Verified 09/29/23 20:31 Dilaudid) Penicillins AdvReac Intermediate vomits Verified 09/29/23 20:31 thiopental AdvReac Intermediate Other (See Verified 09/29/23 20:31 Comment) acetaminophen (From Tylenol) AdvReac stomach Verified 09/29/23 20:31 cramps melatonin AdvReac Headaches Verified 09/29/23 20:31 methocarbamol AdvReac Nausea, Verified 09/29/23 20:31 headache oxycodone (Oxycodone) AdvReac Nausea Verified 09/29/23 20:31 prednisone AdvReac Nausea Verified 09/29/23 20:31 General Stated Complaint: Urinary VENKAT: 3 Review of Systems Narrative: Per HPI Exam Narrative Exam Narrative: Const: WDWN female in NAD. VS per triage. HEENT: NC/AT. Normal facial exam. Neck: Supple. Trachea midline. Lungs: Normal respiratory effort. GI: Soft/ND/NT. Back: No CVAT. Neuro: A+O x 3. Normal speech, mentation, gait. Cranial nerves II - XII grossly intact. No gross motor or sensory deficit. Course Vital Signs Vital signs: Vital Signs Temperature 97.5 F L 09/29/23 20:29 Pulse 95 H 09/29/23 20:29 Respiratory Rate 18 09/29/23 20:29 Blood Pressure 136/107 H 09/29/23 20:29 Pulse Oximetry 95 09/29/23 20:29 Temperature 97.5 F L 09/29/23 20:29 Temperature Source Temporal Artery Scan 09/29/23 20:29 Pulse 95 H 09/29/23 20:29 Respiratory Rate 18 09/29/23 20:29 Respiratory Effort Normal, Non-Labored 09/29/23 20:31 Blood Pressure 136/107 H 09/29/23 20:29 Blood Pressure Position Sitting 09/29/23 20:29 Pulse Oximetry 95 09/29/23 20:29 Oxygen Delivery Method Room Air 09/29/23 20:29 Oxygen Flow Rate 0 09/29/23 20:29 Pain Level 5 09/29/23 20:35 Lab/Test Results Lab/Test Results: 09/29/23 21:00 Urine - Reflex from Ua Urine Culture - Pending Laboratory Tests Range/Units 09/29/23 21:00 Urine Color (Yellow) Yellow Urine Clarity (Clear) Sl Cloudy Urine pH (5-8) 8.0 Ur Specific [place] (1.005-1.025) 1.020 Urine Protein (Neg-Trace) mg/dL Negative Urine Ketones (Negative) mg/dL Negative Urine Blood (Negative) Trace-intact H Urine Nitrite (Negative) Negative Urine Bilirubin (Negative) Negative Urine Urobilinogen (Up to 0.2) mg/dL 0.2 Ur Leukocyte Esterase (Negative) Small H Urine RBC (0-2) HPF 0-2 Urine WBC (0-5) HPF 20-50 H Ur Epithelial Cells (Negative) HPF Rare Urine Crystals (Negative) HPF Negative Urine Bacteria (Negative) HPF Rare Urine Casts (Negative) LPF Negative Urine Mucus (Negative) Trace Ur Culture Indicated? Yes Urine Glucose (Negative) mg/dL Negative Medical Decision Making Patient presenting to ED with urinary symptoms for last 2 days. Urinalysis is consistent with UTI with positive nitrites and white cells seen on micro. She will be started on Macrobid and is given Pyridium for her symptoms. Follow-up with primary care next week if not improving. Return precautions provided. Lab Data Lab results reviewed: Yes I reviewed the patient's lab results. Lab results narrative: See [facility] All Active Problems UTI (urinary tract infection) (Acute) Right upper quadrant pain (Chronic) Post traumatic stress disorder (PTSD) (Chronic) Hiatal hernia (Chronic) Osteoarthritis (Chronic) Insomnia (Chronic) Cigarette smoker (Chronic) LDCT annually Chronic low back pain (Chronic) Medical History Hyperlipidemia GERD (gastroesophageal reflux disease) COPD (chronic obstructive pulmonary disease) LDCT annually, negative July 2020 Generalized anxiety disorder with panic attacks Bipolar affective disorder Prediabetes Surgical History History of esophagogastroduodenoscopy (EGD) (05/09/21) S/P appendectomy S/P left rotator cuff repair (06/03/15) S/P PRO-BSO (total abdominal hysterectomy and bilateral salpingo-oophorectomy) Family History Mother , at 71 from dementia Alzheimer disease Heart disease Hyperlipidemia Hypertension Father Myocardial infarction Heart disease Alcohol abuse Alcoholic liver disease Sister Crohn disease Sister Hyperlipidemia Sister Type 2 diabetes mellitus Sister No problems noted. Brother , 60s Myocardial infarction Type 2 diabetes mellitus Heart disease Brother Myocardial infarction Heart disease Alcohol abuse Brother No problems noted. Brother Alcohol abuse Dementia Parkinson disease Brother Alzheimer disease Crohn disease Brother Heart disease Lymphoma Hyperlipidemia Son , at 28 from Type 1 diabetes Type 1 diabetes mellitus Son No problems noted. Maternal Grandfather No problems noted. Maternal Grandmother Alzheimer disease Paternal Grandfather No problems noted. Paternal Grandmother Type 2 diabetes mellitus Social History Smoking/Tobacco Use Status: Current every day Tobacco Type: cigarettes Years smoked: 49 Tobacco: How many years used: 50 Quit status: considering quitting Second Hand Exposure: Yes Smoking risk assessment performed?: Yes Alcohol Intake: current Alcohol Intake frequency: holidays/special occasions only Alcohol type: hard liquor Drug use: Daily Substance use type: marijuana Household members: none Housing: house Communication Needs: None Do you need help understanding health information?: Never Pets and animals: Yes Pets and animals: bird(s) Sexually active: Yes Do you think of yourself as: straight/heterosexual Current gender identity: female How often do you talk on the phone with friends or family?: three or more times per week How often do you get together with friends or relatives?: twice per week How often do you attend jainism or baptist services?: decline to answer Do you belong to any clubs or organized social groups?: no Panel score (0-1 are the most socially isolated patients): 1 Seatbelt use: always Helmet use: Yes Helmet use: always Drive intox or ride w/intox set key driver: No Do you feel safe at home: Yes Do you feel safe in your relationship?: Yes Female Reproductive History Menstrual Menopause type: surgical History History 9 Para 2 Hx # Term Pregnancies 2 Multiple births Hx # Pregnancies Ectopic pregnancies AB induced Hx Number of Living Children 1 AB spontaneous 7
[2023-09-29] MEDS: MacroBID 100 MG CAP, 2 CAPS/BTL PO (21:34)
[2023-09-29] MEDS: Phenazopyridine 100 MG TAB, 2 TABS/BTL PO (21:35)
== END 2023-09-29 21:45 | disposition home or self-care (01) ==
PROVIDERS: Emergency Provider Emergency Medicine; PCP Nurse Practitioner Family
DX: N39.0 Urinary tract infection, site not specified (principal); F17.210 Nicotine dependence, cigarettes, uncomplicated
CPT/HCPCS: 99283; 81003; 81015; 87086

== ENCOUNTER 2023-11-07 12:41 | Emergency (ER) | payer MEDICAID, SELFPAY ==
[2023-11-07 12:44] VITALS: BP 150/106; PULSE 87; RESP 16; TEMP 35.9; O2SAT 95
[2023-11-07] MEDS: Ketorolac 15 MG/ML VIAL IM (13:34)
--- NOTE | 2023-11-07 14:27 | DI.CT_ITS ---
Exam(s) CT FACIAL WO EXAM: CT FACIAL WO CLINICAL HISTORY: left jaw pain. TECHNIQUE: Imaging Protocol: Axial computed tomography images with coronal and sagittal reformatted images were created and reviewed COMPARISON: CT CT HEAD WO from 07/25/2022 FINDINGS: CT Face: Facial Bones: No definite fracture is noted in facial bones. The patient is edentulous. The nasal s eptum deviates to the left. The ostiomeatal complexes are patent. Sinuses and Mastoids: Unremarkable. Globes, extraocular muscles, optic nerves and retrobulbar fat: Normal. Upper aerodigestive tract: Normal. Mandible and bilateral temporomandibular joints: Mild degenerative changes are seen in the temporoma ndibular joints, left greater than right. Soft tissues: The right submandibular gland is not visualized. The left submandibular gland is unrem arkable as are the parotid glands. No suspicious soft tissue mass or abscess is identified. IMPRESSION: 1. Mild degenerative changes seen at the TMJs, left greater than right. 2. The visualized paranasal sinuses are clear. 3. The patient is edentulous. 4. No acute abnormality. RADIATION DOSE DELIVERED: 191.14mGy.cm Total DLP 191.14mGy.cm Total DLP DATA REPOSITORY: All CT scans at this facility are submitted to the National Radiology Data Registry (NRDR) Dose Index Registry (DIR) with the [employer] (A[employer]). RADIATION OPTIMIZATION: All CT scans at this facility use at least one of these dose optimization te chniques: automated exposure control; mA and/or kV adjustment per patient size (includes targeted exa ms where dose is matched to clinical indication); or iterative reconstruction.
--- NOTE | 2023-11-07 15:04 | W.ED.GENAD ---
Discharge Plan Disposition Patient Disposition: Home Condition: Stable Discharge Details Clinical Impression: Jaw pain Primary Care Provider: Lorri Curry ED Provider: Jazmine Moya Home Meds and New Rx's Prescriptions: Continued cetirizine 10 mg tablet 10 mg PO DAILY PRN (Reason: allergy symptoms) Qty: 90 3RF rosuvastatin 40 mg tablet 40 mg PO QHS Qty: 90 3RF albuterol sulfate 90 mcg/actuation HFA aerosol inhaler 2 inh inhalation Q6H PRN (Reason: shortness of breath or wheezing) Qty: 18 4RF pantoprazole [Protonix] 40 mg tablet,delayed release (DR/EC) 40 mg PO DAILY Qty: 90 3RF ibuprofen 800 mg tablet 800 mg PO TID PRN (Reason: pain) Qty: 90 3RF clonazepam 1 mg tablet 1 mg PO TID Qty: 84 2RF Discharge Instructions Additional Instructions: take ibuprofen as needed for pain soft foods and fluids only return earlier with new or worsening pain light massage to area of tenderness Referrals: Lorri Curry NP [Primary Care Provider] - HPI General Date/Time Provider Initiated Documentation: 11/07/23 12:53. HPI Narrative: This 57-year-old female presents with left TMJ pain. States she has had trouble in the jaw dislocation in the past but denies any specific trauma or injury. States her pain is exacerbated with opening her jaw. Denies any fever or chills. Able to swallow. Related Data Home Medications ?Medication ?Instructions ?Recorded ?Confirmed albuterol sulfate 90 mcg/actuation 2 inh inhalation Q6H PRN shortness 05/31/23 11/07/23 aerosol inhaler of breath or wheezing #18 grams cetirizine 10 mg tablet 10 mg PO DAILY PRN allergy 05/31/23 11/07/23 symptoms #90 tabs ibuprofen 800 mg tablet 800 mg PO TID PRN pain #90 tabs 05/31/23 11/07/23 pantoprazole 40 mg tablet,delayed 40 mg PO DAILY #90 tabs 05/31/23 11/07/23 release (Protonix) rosuvastatin 40 mg tablet 40 mg PO QHS #90 tabs 05/31/23 11/07/23 clonazepam 1 mg tablet 1 mg PO TID #84 tabs 10/25/23 11/07/23 Previous Rx's ?Medication ?Instructions ?Recorded albuterol sulfate 90 mcg/actuation 2 inh inhalation Q6H PRN shortness 05/31/23 aerosol inhaler of breath or wheezing #18 grams cetirizine 10 mg tablet 10 mg PO DAILY PRN allergy 05/31/23 symptoms #90 tabs ibuprofen 800 mg tablet 800 mg PO TID PRN pain #90 tabs 05/31/23 pantoprazole 40 mg tablet,delayed 40 mg PO DAILY #90 tabs 05/31/23 release (Protonix) rosuvastatin 40 mg tablet 40 mg PO QHS #90 tabs 05/31/23 clonazepam 1 mg tablet 1 mg PO TID #84 tabs 10/25/23 Allergies Allergy/AdvReac Type Severity Reaction Status Date / Time morphine Allergy Severe stops my Verified 11/07/23 12:49 heart fentanyl Allergy Intermediate Hives Verified 11/07/23 12:49 lamotrigine Allergy Intermediate Facial Verified 11/07/23 12:49 blistering meloxicam AdvReac Severe Nausea and Verified 11/07/23 12:49 vomiting nicotine (From Nicoderm CQ) AdvReac Severe Other (See Verified 11/07/23 12:49 Comment) carbamazepine AdvReac Intermediate Drowsiness Verified 11/07/23 12:49 and ataxia cyclobenzaprine HCl (From AdvReac Intermediate vomits Verified 11/07/23 12:49 Flexeril) hydromorphone HCl (From AdvReac Intermediate vomits Verified 11/07/23 12:49 Dilaudid) Penicillins AdvReac Intermediate vomits Verified 11/07/23 12:49 thiopental AdvReac Intermediate Other (See Verified 11/07/23 12:49 Comment) acetaminophen (From Tylenol) AdvReac stomach Verified 11/07/23 12:49 cramps melatonin AdvReac Headaches Verified 11/07/23 12:49 methocarbamol AdvReac Nausea, Verified 11/07/23 12:49 headache oxycodone (Oxycodone) AdvReac Nausea Verified 11/07/23 12:49 prednisone AdvReac Nausea Verified 11/07/23 12:49 General Stated Complaint: DentalOral VENKAT: 3 Exam Narrative Exam Narrative: 57-year-old female no acute distress, left TMJ tenderness, able to few range jaw. Oropharynx patent, uvula midline. No obvious TM involvement. Course Vital Signs Vital signs: Vital Signs Temperature 35.9 C L 11/07/23 12:44 Pulse 87 11/07/23 12:44 Respiratory Rate 16 11/07/23 12:44 Blood Pressure 150/106 H 11/07/23 12:44 Pulse Oximetry 95 11/07/23 12:44 Temperature 35.9 C L 11/07/23 12:44 Pulse 87 11/07/23 12:44 Respiratory Rate 16 11/07/23 12:44 Respiratory Effort Normal 11/07/23 12:49 Blood Pressure 150/106 H 11/07/23 12:44 Blood Pressure Position Sitting 11/07/23 12:44 Pulse Oximetry 95 11/07/23 12:44 Oxygen Delivery Method Room Air 11/07/23 12:44 Oxygen Flow Rate 0 11/07/23 12:44 Pain Level 10 11/07/23 13:34 Lab/Test Results Lab/Test Results: Laboratory Tests Range/Units 11/07/23 13:47 COVID-19 Source Cancelled SARS-CoV-2 (PCR) Cancelled Influenza Type A (PCR) Cancelled Influenza Type B (PCR) Cancelled RSV (PCR) Cancelled Medical Decision Making 57-year-old female with multiple allergies presents with left jaw pain, states she is unable to open or close her jaw although she is speaking to me and maintaining secretions. There was no specific trauma. Low suspicion clinically for dislocation. Patient has requested that we order imaging, I did order CT facial bones I do not see evidence of fracture or obvious dislocation. Patient is now able to open and close her jaw and range [id number]. She has declined Valium as she states it makes her hallucinate. She was agreeable to Toradol. Will discharge patient at this time with outpatient follow-up recommended patient is encouraged to have her blood pressure rechecked by her primary care physician in the outpatient setting denies any chest pain or shortness of breath. Quality:SDOH Health Related Social Needs: No Data to Display PFSH All Active Problems (Updated 11/07/23 @ 15:05 by SARAH Alexander) Jaw pain (Acute) Bipolar affective disorder (Chronic) Generalized anxiety disorder with panic attacks (Acute) Post traumatic stress disorder (PTSD) (Chronic) Prediabetes (Acute) Hyperlipidemia (Acute) GERD (gastroesophageal reflux disease) (Chronic) COPD (chronic obstructive pulmonary disease) (Chronic) Right upper quadrant pain (Chronic) Hiatal hernia (Chronic) Osteoarthritis (Chronic) Insomnia (Chronic) Cigarette smoker (Chronic) LDCT annually Chronic low back pain (Chronic) Medical History Hyperlipidemia GERD (gastroesophageal reflux disease) COPD (chronic obstructive pulmonary disease) LDCT annually, negative July 2020 Generalized anxiety disorder with panic attacks Bipolar affective disorder Prediabetes Surgical History History of esophagogastroduodenoscopy (EGD) (05/09/21) S/P appendectomy S/P left rotator cuff repair (06/03/15) S/P PRO-BSO (total abdominal hysterectomy and bilateral salpingo-oophorectomy) Family History Mother , at 71 from dementia Alzheimer disease Heart disease Hyperlipidemia Hypertension Father Myocardial infarction Heart disease Alcohol abuse Alcoholic liver disease Sister Crohn disease Sister Hyperlipidemia Sister Type 2 diabetes mellitus Sister No problems noted. Brother , 60s Myocardial infarction Type 2 diabetes mellitus Heart disease Brother Myocardial infarction Heart disease Alcohol abuse Brother No problems noted. Brother Alcohol abuse Dementia Parkinson disease Brother Alzheimer disease Crohn disease Brother Heart disease Lymphoma Hyperlipidemia Son , at 28 from Type 1 diabetes Type 1 diabetes mellitus Son No problems noted. Maternal Grandfather No problems noted. Maternal Grandmother Alzheimer disease Paternal Grandfather No problems noted. Paternal Grandmother Type 2 diabetes mellitus Social History Smoking/Tobacco Use Status: Current every day Tobacco Type: cigarettes Years smoked: 49 Tobacco: How many years used: 50 Quit status: considering quitting Second Hand Exposure: Yes Smoking risk assessment performed?: Yes Alcohol Intake: current Alcohol Intake frequency: holidays/special occasions only Alcohol type: hard liquor Drug use: Daily Substance use type: marijuana Household members: none Housing: house Communication Needs: None Do you need help understanding health information?: Never Pets and animals: Yes Pets and animals: bird(s) Sexually active: Yes Do you think of yourself as: straight/heterosexual Current gender identity: female How often do you talk on the phone with friends or family?: three or more times per week How often do you get together with friends or relatives?: twice per week How often do you attend jewish or jew services?: decline to answer Do you belong to any clubs or organized social groups?: no Panel score (0-1 are the most socially isolated patients): 1 Seatbelt use: always Helmet use: Yes Helmet use: always Drive intox or ride w/intox otr van cdl truck driver: No Do you feel safe at home: Yes Do you feel safe in your relationship?: Yes Female Reproductive History Menstrual Menopause type: surgical History History 9 Para 2 Hx # Term Pregnancies 2 Multiple births Hx # Pregnancies Ectopic pregnancies AB induced Hx Number of Living Children 1 AB spontaneous 7
== END 2023-11-07 15:20 | disposition home or self-care (01) ==
PROVIDERS: Emergency Provider Physician Assistant; PCP Nurse Practitioner Family
DX: R68.84 Jaw pain (principal); E78.5 Hyperlipidemia, unspecified; J44.9 Chronic obstructive pulmonary disease, unspecified; F17.210 Nicotine dependence, cigarettes, uncomplicated
CPT/HCPCS: 87637; 96372; 99284; 70486; J1885; J3360

== ENCOUNTER 2024-01-18 16:18 | Outpatient (REF) | payer MEDICAID, SELFPAY ==
[2024-01-18 21:39] LABS: Bilirubin Negative (Negative); Blood Small (Negative); Clarity Sl Cloudy (Clear); Glucose Negative (Negative); Ketones 15 mg/dL (Negative); Leukocyte Esterase Moderate (Negative); Nitrite Negative (Negative); Specific Gravity 1.025 (1.005-1.025); Urobilinogen 0.2 mg/dL (Up to 0.2); pH 6.5 (5-8)
[2024-01-18 21:52] LABS: Bacteria Rare HPF (Negative); C & S Indicated? No/Sq. Contamination; Crystals Negative HPF (Negative); Epithelial Cells Many HPF (Negative); Mucus Trace (Negative); WBC >50 HPF (0-5)
== END 2024-01-18 16:19 | disposition home or self-care (01) ==
LOC: LBN 16:18
PROVIDERS: PCP Nurse Practitioner Family; Visit Provider Nurse Practitioner Family
DX: R39.9 Unspecified symptoms and signs involving the genitourinary system (principal); N39.0 Urinary tract infection, site not specified; N12 Tubulo-interstitial nephritis, not specified as acute or chronic
CPT/HCPCS: 81003; 81015

== ENCOUNTER 2024-02-28 04:58 | Emergency (ER) | payer MEDICAID, SELFPAY ==
[2024-02-28] VITALS (64 sets, daily range): BP systolic 94–155; BP diastolic 59–98; PULSE 47–98; RESP 11–22; TEMP 35.1–36.4; O2SAT 92–99
--- NOTE | 2024-02-28 04:45 | RT.EKG_ITS ---
APPROVED REPORT Exam: Resting ECG Reason for Exam: chest pain Patient Location: E HR:86 bpm ECG Measurements Heart Rate 86 AXIS AR 132 P 85 QRSd 87 QRS 80 QT 393 T 72 QTc 470 Conclusion Sinus rhythm...normal P axis, V-rate 60- 99 Normal [place]/Interval Nonspecific ST-T changes w subtle downsloping of the inferior limb leads.
--- NOTE | 2024-02-28 04:48 | ED.GENADUL_ITS ---
Discharge Plan Disposition Condition: Improving Discharge Details Chief Complaint: Chest Pain Clinical Impression: Chest pain Primary Care Provider: Lorri Curry ED Provider: Suman Bahena and Fahad Rx's Prescriptions: No Action albuterol sulfate 90 mcg/actuation HFA aerosol inhaler 2 inh inhalation Q6H PRN (Reason: shortness of breath or wheezing) Qty: 18 4RF ibuprofen 100 mg/5 mL suspension 400 mg PO Q8H PRN (Reason: fever or pain) Qty: 473 0RF clonazepam 1 mg tablet 1 mg PO BID Qty: 56 2RF pantoprazole 40 mg tablet,delayed release (DR/EC) 40 mg PO DAILY Patient Comments: TAKE ONE TABLET BY MOUTH EVERY DAY rosuvastatin 40 mg tablet 40 mg PO DAILY Patient Comments: TAKE ONE TABLET BY MOUTH EVERY DAY AT BEDTIME HPI General Mode of arrival: EMS . Date/Time Provider Initiated Documentation: 02/28/24 05:06 . Limitations to Documentation: no limitations . Information obtained by: patient, EMS, RN notes reviewed and old records reviewed . HPI Narrative: Patient presents to ED by ambulance after waking up with a sharp stabbing pain in the left side of her chest which then became tightness with radiation toward the jaw. She had some nausea and some shortness of breath. Initially thought this might be a panic attack, but does not typically get chest pain with panic attacks. She did have a brief syncopal event when EMS tried to stand her up and pivot to the stretcher. She received aspirin as well as 1 nitroglycerin en route. She does feel that the nitroglycerin helped the chest pressure to some degree though she is still having it. She denies any recent illness. She was fine when she went to bed. She has cut back on smoking to about 4 cigarettes a day. She has no abdominal pain or back pain. Related Data Home Medications ?Medication ?Instructions ?Recorded ?Confirmed albuterol sulfate 90 mcg/actuation 2 inh inhalation Q6H PRN shortness 05/31/23 02/28/24 aerosol inhaler of breath or wheezing #18 grams ibuprofen 100 mg/5 mL oral 400 mg (20 mL) PO Q8H PRN fever or 11/19/23 02/28/24 suspension pain #473 mL clonazepam 1 mg tablet 1 mg PO BID #56 tabs 02/04/24 02/28/24 pantoprazole 40 mg tablet,delayed 40 mg PO DAILY 02/28/24 02/28/24 release rosuvastatin 40 mg tablet 40 mg PO DAILY 02/28/24 02/28/24 Previous Rx's ?Medication ?Instructions ?Recorded albuterol sulfate 90 mcg/actuation 2 inh inhalation Q6H PRN shortness 05/31/23 aerosol inhaler of breath or wheezing #18 grams ibuprofen 100 mg/5 mL oral 400 mg (20 mL) PO Q8H PRN fever or 11/19/23 suspension pain #473 mL clonazepam 1 mg tablet 1 mg PO BID #56 tabs 02/04/24 Allergies Allergy/AdvReac Type Severity Reaction Status Date / Time morphine Allergy Severe stops my Verified 02/28/24 05:07 heart lamotrigine Allergy Intermediate Facial Verified 02/28/24 05:07 blistering meloxicam AdvReac Severe Nausea and Verified 02/28/24 05:07 vomiting nicotine (From Nicoderm CQ) AdvReac Severe Other (See Verified 02/28/24 05:07 Comment) carbamazepine AdvReac Intermediate Drowsiness Verified 02/28/24 05:07 and ataxia cyclobenzaprine HCl (From AdvReac Intermediate vomits Verified 02/28/24 05:07 Flexeril) hydromorphone HCl (From AdvReac Intermediate vomits Verified 02/28/24 05:07 Dilaudid) Penicillins AdvReac Intermediate vomits Verified 02/28/24 05:07 thiopental AdvReac Intermediate Other (See Verified 02/28/24 05:07 Comment) acetaminophen (From Tylenol) AdvReac stomach Verified 02/28/24 05:07 cramps melatonin AdvReac Headaches Verified 02/28/24 05:07 methocarbamol AdvReac Nausea, Verified 02/28/24 05:07 headache oxycodone (Oxycodone) AdvReac Nausea Verified 02/28/24 05:07 prednisone AdvReac Nausea Verified 02/28/24 05:07 General VENKAT: 3 Review of Systems Narrative: Per HPI Exam Narrative Exam Narrative: Const: WDWN female in NAD. VS per triage. HEENT: NC/AT. Normal facial exam. Neck: Supple. Trachea midline. Lungs: Normal respiratory effort. Lungs are clear. Cor: RRR without murmur. Good radial pulses. GI: Soft/ND/NT. Neuro: Oriented x 3 but keeps her eyes closed. Normal speech, mentation, gait. Cranial nerves II - XII grossly intact. No gross motor or sensory deficit. Ext: No C/C/E. No calf tenderness. Medical Decision Making Patient presenting to ED by ambulance with chest pain, shortness of breath, nausea and a brief syncopal period upon standing for EMS. I reviewed the EKGs obtained from the field and see no acute changes. Her EKG here has very subtle downsloping to the inferior limb leads. There is no reciprocal change and there is no acute ST elevation. She does feel that the nitro may be helped. She has already received aspirin. Some questionable low blood pressures and with her brief syncope will give 500 mL of fluid. Continue nitro as needed if it does seem to continue to improve discomfort. Laboratory studies sent. Chest imaging per D-dimer results. Concern at this point for possible ACS. 06:30 - Patient's initial labs are reassuring. CBC is normal. Chemistries normal except for chloride of 109. Liver function normal. Initial troponin less than 4. D-dimer negative. Chest x-ray ordered. Second troponin pending. 7:00 - 2nd troponin remains flat. Chest x-ray per my read is negative. Patient reports that she feels much better and has no further symptoms. Suspect this may have been related to reflux and esophageal spasm. Troponins are less than 4 x 2. Will do a 3-hour troponin and if negative will plan discharge home. She is on a PPI which she is encouraged to continue. Medical Records Medical records reviewed: Yes I reviewed the patient's medical records. Medical records narrative: Primary care notes Imaging Data Radiologic Study: Attestation: I personally reviewed and interpreted this imaging study as follows: Imaging: X-Ray My impression: Chest x-ray with no acute cardiopulmonary pathology. Lab Data Lab results reviewed: Yes I reviewed the patient's lab results. Lab results narrative: See [facility] ECG Data Attestation: I personally reviewed and interpreted this ECG (s) as follows: Prior ECG tracings: available for review Interpretation: See EKG/MDM Quality:SDOH Health Related Social Needs: Health related social needs inadequate housing(Z59.1) Health related social needs details none, hiring thea moeller to fix her bathroom floor [facility] All Active Problems (Updated 02/28/24 @ 07:08 by Suman Bahena MD) Chest pain (Acute) Hiatal hernia (Chronic) Osteoarthritis (Chronic) Insomnia (Chronic) Cigarette smoker (Chronic) LDCT annually Chronic low back pain (Chronic) Medical History COPD (chronic obstructive pulmonary disease) GERD (gastroesophageal reflux disease) Post traumatic stress disorder (PTSD) Generalized anxiety disorder with panic attacks Hyperlipidemia Bipolar affective disorder Surgical History History of esophagogastroduodenoscopy (EGD) (05/09/21) S/P appendectomy S/P left rotator cuff repair (06/03/15) S/P PRO-BSO (total abdominal hysterectomy and bilateral salpingo-oophorectomy) Family History Mother , at 71 from dementia Alzheimer disease Heart disease Hyperlipidemia Hypertension Father Myocardial infarction Heart disease Alcohol abuse Alcoholic liver disease Sister Crohn disease Sister Hyperlipidemia Sister Type 2 diabetes mellitus Sister No problems noted. Brother , 60s Myocardial infarction Type 2 diabetes mellitus Heart disease Brother Myocardial infarction Heart disease Alcohol abuse Brother No problems noted. Brother Alcohol abuse Dementia Parkinson disease Brother Alzheimer disease Crohn disease Brother Heart disease Lymphoma Hyperlipidemia Son , at 28 from Type 1 diabetes Type 1 diabetes mellitus Son No problems noted. Maternal Grandfather No problems noted. Maternal Grandmother Alzheimer disease Paternal Grandfather No problems noted. Paternal Grandmother Type 2 diabetes mellitus Brother No problems noted. Brother No problems noted. Social History Smoking/Tobacco Use Status: Current every day Tobacco Type: cigarettes Years smoked: 50 Tobacco: How many years used: 50 Quit status: considering quitting Second Hand Exposure: Yes Smoking risk assessment performed?: Yes Alcohol Intake: current Alcohol Intake frequency: holidays/special occasions only Alcohol type: hard liquor Drug use: Daily Substance use type: marijuana Household members: none Housing: house Communication Needs: None Do you need help understanding health information?: Never Pets and animals: Yes Pets and animals: bird(s) Sexually active: Yes Do you think of yourself as: straight/heterosexual Current gender identity: female How often do you talk on the phone with friends or family?: three or more times per week How often do you get together with friends or relatives?: twice per week How often do you attend presybeterian or congregational services?: decline to answer Do you belong to any clubs or organized social groups?: no Panel score (0-1 are the most socially isolated patients): 1 Seatbelt use: always Helmet use: Yes Helmet use: always Drive intox or ride w/intox vibratory pile driver: No Do you feel safe at home: Yes Do you feel safe in your relationship?: Yes Female Reproductive History Menstrual Menopause type: surgical History History 9 Para 2 Hx # Term Pregnancies 2 Multiple births Hx # Pregnancies Ectopic pregnancies AB induced Hx Number of Living Children 1 AB spontaneous 7
[2024-02-28] MEDS: nitroGLYcerin 0.4 MG TAB SL (05:12)
[2024-02-28] MEDS: Normal Saline 500 ML IV (05:12)
[2024-02-28 05:13] LABS: Abs Immature Grans 0.03 10^3/uL (0.0-0.06); Absolute Basophil Count 0.07 10^3/uL (0.0-0.2); Absolute Eosinophil Count 0.14 10^3/uL (0.0-0.7); Absolute Lymphocyte Count 2.61 10^3/uL (1.2-3.4); Absolute Monocyte Count 0.59 10^3/uL (0.1-0.8); Absolute Neutrophil Count 6.37 10^3/uL (1.2-6.7); Basophils % 0.7 %; Eosinophils % 1.4 %; HGB 14.1 g/dL (11.2-15.7); Immature Grans % 0.3 %; Lymphocytes % 26.6 %; MCH 31.1 pg (27.0-33.0); MCHC 33.6 % (32.0-36.0); MCV 93 fL (80-95); MPV 9.6 fL (8.0-11.0); Platelet Count 255 10^3/uL (130-400); RBC 4.54 10^6/uL (3.93-5.22); RDW 13.8 % (11.7-14.6); RDW-SD 47.1 fL; WBC 9.81 10^3/uL (4.4-10.8)
[2024-02-28 05:32] LABS: ALT 17 U/L (14-59); AST 18 U/L (15-37); Albumin 3.5 g/dL (3.4-5.0); Alkaline Phosphatase 66 U/L (46-116); Anion Gap 10.5 mmol/L (3-11); BUN 13 mg/dL (7-18); Bilirubin, Total 0.33 mg/dL (0.2-1.0); CO2 24.5 mmol/L (21.0-32.0); CREATININE 0.7 mg/dL (0.55-1.02); Calcium 8.5 mg/dL (8.5-10.1); Chloride 109 mmol/L (98-107); Estimated GFR 99.57 (mL/min/1.73m2); Glucose 101 mg/dL (74-106); Magnesium 2.3 mg/dL (1.8-2.4); Potassium 4.1 mmol/L (3.5-5.1); Sodium 144 mmol/L (136-145); Total Protein 6.9 g/dL (6.4-8.2)
[2024-02-28 05:34] LABS: Troponin I < 4 ng/L (<or=51)
[2024-02-28 05:43] LABS: D-Dimer 294 ng/mlFEU (<500)
--- NOTE | 2024-02-28 05:45 | DI.RAD_ITS ---
Exam(s) XR CHEST 2V PA LATERAL EXAM: XR CHEST 2V PA LATERAL CLINICAL HISTORY: CP. TECHNIQUE: 2D digital imaging was performed. COMPARISON: CR XR CHEST 2V PA LATERAL from 02/03/2023 FINDINGS: 2 views: Heart size is normal. The mediastinum is not widened. Lungs are clear. No infiltrates nor pleural effusions. Bilateral hyperinflation again noted. Again noted is evidence of previous surgery in the left shoulder. IMPRESSION: No acute pulmonary findings.Bilateral hyperinflation again noted. DATA REPOSITORY: RADIATION DOSE DELIVERED:
[2024-02-28 06:41] LABS: Troponin I < 4 ng/L (<or=51)
[2024-02-28 08:32] LABS: Troponin I < 4 ng/L (<or=51)
--- NOTE | 2024-02-28 08:34 | DI.VRAD_ITS ---
PROCEDURE INFORMATION: Exam: XR Chest Exam date and time: 02/28/2024 6:59 AM Age: 58 years old Clinical indication: Pain; Other: Unspecified; Patient HX: Cp TECHNIQUE: Imaging protocol: Radiologic exam of the chest. Views: 2 views. COMPARISON: CR XR CHEST 2V PA LATERAL 02/03/2023 9:14 AM FINDINGS: Lungs: No consolidation. Pleural spaces: No sizable pleural effusion or pneumothorax. Heart/Mediastinum: No cardiomegaly. Bones/joints: Unremarkable. IMPRESSION: No acute intrathoracic findings. Dictated and Authenticated by: Gunjan Zapata MD. Ordering:CHARLES Will MD
--- NOTE | 2024-02-28 08:49 | ED.PROG_ITS ---
Date of service: 02/28/24 Time of Service: 08:50 Medical Decision Making Patient was signed out to me by my colleague Dr. Sinclair. Please refer to his HPI, physical exam, assessment and plan. Christophe signout we are awaiting third troponin. Patient was successfully ruled out after second troponin, however because of the patient's risk factors decision was made to get third troponin. Third troponin is returned normal. Patient remains chest pain-free. She feels well and would like to be discharged. Symptoms inconsistent with ACS. D-dimer normal, no evidence of PE. Chest x-ray unremarkable. Patient will be discharged home. Discussed red flags for which to return. I have extensively reviewed the treatment plan and discharge instructions with the patient. I have addressed all patient concerns at this time. The patient was made aware of what symptoms to monitor for that would warrant a return to the emergency department. Discussed the plan with the patient, they demonstrate verbal understanding and agreement with our assessment and plan at this time. The documentation in this chart was dictated using [employer] dictation software. Please excuse any dictation errors. FINDINGS: Lungs: No consolidation. Pleural spaces: No sizable pleural effusion or pneumothorax. Heart/Mediastinum: No cardiomegaly. Bones/joints: Unremarkable. IMPRESSION: No acute intrathoracic findings. Thank you for allowing us to participate in the care of your patient. Dictated and Authenticated by: Gunjan Zapata MD 02/28/2024 8:34 AM Eastern Time ([place] & [place]) Quality:SDOH Health Related Social Needs: Health related social needs inadequate housing(Z59.1) Health related social needs details none, hiring thea moeller to fix her bathroom floor Discharge Plan Disposition Patient Disposition: Home Condition: Improving Discharge Details Chief Complaint: Chest Pain Clinical Impression: Chest pain Primary Care Provider: Lorri Curry ED Provider: Brandon Posadas Home Meds and New Rx's Prescriptions: No Action albuterol sulfate 90 mcg/actuation HFA aerosol inhaler 2 inh inhalation Q6H PRN (Reason: shortness of breath or wheezing) Qty: 18 4RF ibuprofen 100 mg/5 mL suspension 400 mg PO Q8H PRN (Reason: fever or pain) Qty: 473 0RF clonazepam 1 mg tablet 1 mg PO BID Qty: 56 2RF pantoprazole 40 mg tablet,delayed release (DR/EC) 40 mg PO DAILY Patient Comments: TAKE ONE TABLET BY MOUTH EVERY DAY rosuvastatin 40 mg tablet 40 mg PO DAILY Patient Comments: TAKE ONE TABLET BY MOUTH EVERY DAY AT BEDTIME Discharge Instructions Instructions: Chest Pain, Adult ED Additional Instructions: At this time your workup is returned notably reassuring. There is no evidence of heart attack blood clot or other significant abnormality. If you notice any worsening of your symptoms, or any new symptoms such as vomiting, diarrhea, fever, chills, shortness of breath, chest pain, numbness, weakness, or fainting , please return immediately to the emergency department for reevaluation. Please follow up with your primary care provider as soon as possible for reassessment and reevaluation. As always, it was a pleasure participating in your medical care today. Referrals: Lorri Curry NP [Primary Care Provider] -
== END 2024-02-28 09:09 | disposition home or self-care (01) ==
PROVIDERS: Emergency Medicine; Emergency Provider Student in an Organized Health Care Education/Training Program; PCP Nurse Practitioner Family
DX: R07.9 Chest pain, unspecified (principal); R55 Syncope and collapse; J44.9 Chronic obstructive pulmonary disease, unspecified; K21.9 Gastro-esophageal reflux disease without esophagitis; E78.5 Hyperlipidemia, unspecified; F17.210 Nicotine dependence, cigarettes, uncomplicated
CPT/HCPCS: 00123; 36415; 80053; 93005; 96360; 99284; 71046; 83735; 84484; 85025; 85379; 93010

== ENCOUNTER 2024-04-20 01:00 | Outpatient (CLI) | payer MEDICAID, SELFPAY ==
--- NOTE | 2024-04-20 07:15 | DI.MAMMO_ITS ---
Exam(s) MAMMO SCREENING EXAM: MAMMO SCREENING CLINICAL HISTORY: screening,z12.39 TECHNIQUE: Bilateral full field digital CC and MLO mammographic images were obtained with 3D tomosyn thesis and utilizing computer aided detection (CAD). COMPARISON: Available for comparison. FINDINGS: Masses/Architectural Distortion: No suspicious nodules or areas of architectural distortion are prese nt. Microcalcifications: No suspicious pleomorphic-type are seen. Skin Thickening/Nipple Retraction: None. IMPRESSION: 1. No significant interval change with no specific features of malignancy noted. 2. Unless there is more urgent need, screening mammography is recommended, as per [employer] guidelines. BI-RADS Category 1 - Negative Breast Density - Category B - Scattered areas of fibroglandular density Breast density category C or D implies that the patient has dense breast tissue. Dense breast tissue is very common and is not abnormal but dense breast tissue can make it harder to find cancer on a ma mmogram. Also, dense breast tissue may increase their breast cancer risk. This information about the result of the mammogram report was provided to the patient to raise their awareness. Use this report when you speak with the patient about their risks for breast cancer, which includes their family hist ory. At that time, you may recommend for more screening tests (Ultrasound or MRI) as they might be us eful based on their risk. A negative radiographic report should not delay biopsy if a dominant or clinically suspicious mass is present. Up to ten percent of cancers are not identified on mammography. A negative report may reinforce clinical impression. Adenosis and dense breasts may obscure an underlying neoplasm. False positive reports average 6 to 10%. Patient will receive a letter notifying them of these results.
--- NOTE | 2024-04-20 14:03 | DI.CTLCSR_ITS ---
Exam(s) CT CHEST LUNG CANCER SCREEN EXAM: CT CHEST LUNG CANCER SCREEN CLINICAL HISTORY: Screening for lung cancer,current smoker,f17.210. TECHNIQUE: Imaging Protocol: Low Dose Technique CONTRAST MATERIAL: None COMPARISON: CT CT CHEST W from 04/27/2022 FINDINGS: CHEST: LUNGS: COPD emphysematous changes are again noted throughout both lung valdovinos.. Unchanged benign-gonzalo earing increased markings are again noted in the lingular segment of the left lung an in the lateral segment of the right middle lobe. No new left lung findings. In the right lower lobe there is a sma ll subpleural nodular infiltrate measuring 5 mm in the lateral basal segment of the right lower lobe. More evident than previous. There are no pleural effusions. MEDIASTINUM: There is no obvious hilar nor mediastinal adenopathy. CARDIAC: Heart size is normal. There is no pericardial effusion.Caliber of the thoracic aorta is wit hin normal limits. OTHER: No adrenal masses. Spleen size normal. OSSEOUS: No significant osseous lesions.No fractures. Small Schmorl's node invagination noted in the superior endplate of T5, unchanged. IMPRESSION: 1. Compared to prior CT scan of 2 years ago (04/27/2022) there are benign-appearing increased marking s in the right middle lobe and lingular segment of the left lung which are unchanged. There is a sma ll 5 mm nodular density now evident in the inferior aspect of the lateral basal segment of the right lower lobe which was not evident on the prior study. Six-month follow-up CT scan recommended 2. No intrathoracic adenopathy. No pleural effusions 3. Lung RADS Cat 3 - Probably Benign: Probably benign finding(s) - short term follow-up in 6 months s uggested; include nodules with a low likelihood of becoming a clinically active cancer. Lung-RADS 1.0 CATEGORIES: Category 0 - Prior chest CT exam(s) being located for comparison. Category 1 - Annual screening in 12 months. No nodules or definitely benign nodules. Category 2 - Annual screening in 12 months. Benign appearance. Nodules with low likelihood of becomin g active cancer. Category 3 - 6-month follow-up. Probably benign. Short-term follow-up suggested. Nodules with low lik elihood of becoming active cancer. Category 4A - 3-month follow-up and CT/PET if >8 mm in size. Suspicious finding. Findings which requi re additional testing. Category 4B - Findings which require additional testing and tissue sampling. Category 4X - Category 3 or 4 nodules with additional features or imaging findings that increases the suspicion of malignancy. Modifier S- Potentially clinically significant findings (non lung cancer) RADIATION DOSE DELIVERED: 22.19mGy.cm Total DLP DATA REPOSITORY: All CT scans at this facility are submitted to the National Radiology Data Registry (NRDR) Dose Index Registry (DIR) with the [employer] (ACR). RADIATION OPTIMIZATION: All CT scans at this facility use at least one of these dose optimization te chniques: automated exposure control; mA and/or kV adjustment per patient size (includes targeted exa ms where dose is matched to clinical indication); or iterative reconstruction.
== END 2024-04-20 01:20 ==
LOC: DI 01:00
PROVIDERS: PCP Nurse Practitioner Family; Visit Provider Nurse Practitioner Family
DX: Z12.31 Encounter for screening mammogram for malignant neoplasm of breast (principal); F17.210 Nicotine dependence, cigarettes, uncomplicated; Z12.2 Encounter for screening for malignant neoplasm of respiratory organs; R91.8 Other nonspecific abnormal finding of lung field; R92.313 Mammographic fatty tissue density, bilateral breasts
CPT/HCPCS: 71271; 77063; 77067

== ENCOUNTER 2024-05-21 00:45 | Emergency (ER) | payer MEDICAID, SELFPAY ==
[2024-05-21 00:47] VITALS: BP 158/97; PULSE 71; RESP 16; TEMP 35.5; O2SAT 99
--- NOTE | 2024-05-21 00:47 | ED.GENADUL_ITS ---
Discharge Plan Disposition Patient Disposition: Home Discharge Details Clinical Impression: UTI (urinary tract infection) Primary Care Provider: Lorri Curry ED Provider: Suman Bahena Meds and New Rx's Prescriptions: New nitrofurantoin monohyd/m-cryst [Macrobid] 100 mg capsule 100 mg PO BID Qty: 9 0RF Rx Instructions: must administer with a meal/food phenazopyridine [Pyridium] 100 mg tablet 100 mg PO QPC Qty: 5 0RF Continued albuterol sulfate 90 mcg/actuation HFA aerosol inhaler 2 inh inhalation Q6H PRN (Reason: shortness of breath or wheezing) Qty: 18 4RF ibuprofen 100 mg/5 mL suspension 400 mg PO Q8H PRN (Reason: fever or pain) Qty: 473 0RF clonazepam 1 mg tablet 1 mg PO TID Qty: 84 2RF pantoprazole 40 mg tablet,delayed release (DR/EC) 40 mg PO DAILY Patient Comments: TAKE ONE TABLET BY MOUTH EVERY DAY rosuvastatin 40 mg tablet 40 mg PO DAILY Patient Comments: TAKE ONE TABLET BY MOUTH EVERY DAY AT BEDTIME Discharge Instructions Instructions: Urinary Tract Infection, Adult ED Additional Instructions: You were seen in the emergency department for urinary symptoms and found to have a urinary tract infection. 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 There is also a prescription for Pyridium which should help with your urinary symptoms. Follow- up with primary care if no improvement in symptoms after completing antibiotics. Return to the ED for any back or flank pain, persistent vomiting, worsening abdominal pain, persistent/spiking fevers, other concerns. Referrals: Lorri Curry NP [Primary Care Provider] - [facility] General Mode of arrival: ambulatory . Date/Time Provider Initiated Documentation: 05/21/24 00:47 . Limitations to Documentation: no limitations . Information obtained by: patient and RN notes reviewed . HPI Narrative: Patient presents to ED with complaint of dysuria, urgency, inability to completely empty onset this evening. Has history of UTIs. Denies fever, vomiting, back pain. Has suprapubic discomfort. Related Data Home Medications ?Medication ?Instructions ?Recorded ?Confirmed albuterol sulfate 90 mcg/actuation 2 inh inhalation Q6H PRN shortness 05/31/23 05/21/24 aerosol inhaler of breath or wheezing #18 grams ibuprofen 100 mg/5 mL oral 400 mg (20 mL) PO Q8H PRN fever or 11/19/23 05/21/24 suspension pain #473 mL pantoprazole 40 mg tablet,delayed 40 mg PO DAILY 02/28/24 05/21/24 release rosuvastatin 40 mg tablet 40 mg PO DAILY 02/28/24 05/21/24 clonazepam 1 mg tablet 1 mg PO TID #84 tabs 05/19/24 05/21/24 nitrofurantoin 100 mg PO BID #9 caps 05/21/24 monohydrate/macrocrystals 100 mg capsule (Macrobid) phenazopyridine 100 mg tablet 100 mg PO QPC #5 tabs 05/21/24 (Pyridium) Previous Rx's ?Medication ?Instructions ?Recorded albuterol sulfate 90 mcg/actuation 2 inh inhalation Q6H PRN shortness 05/31/23 aerosol inhaler of breath or wheezing #18 grams ibuprofen 100 mg/5 mL oral 400 mg (20 mL) PO Q8H PRN fever or 11/19/23 suspension pain #473 mL clonazepam 1 mg tablet 1 mg PO TID #84 tabs 05/19/24 nitrofurantoin 100 mg PO BID #9 caps 05/21/24 monohydrate/macrocrystals 100 mg capsule (Macrobid) phenazopyridine 100 mg tablet 100 mg PO QPC #5 tabs 05/21/24 (Pyridium) Allergies Allergy/AdvReac Type Severity Reaction Status Date / Time morphine Allergy Severe stops my Verified 05/21/24 00:52 heart lamotrigine Allergy Intermediate Facial Verified 05/21/24 00:52 blistering meloxicam AdvReac Severe Nausea and Verified 05/21/24 00:52 vomiting nicotine (From Nicoderm CQ) AdvReac Severe Other (See Verified 05/21/24 00:52 Comment) carbamazepine AdvReac Intermediate Drowsiness Verified 05/21/24 00:52 and ataxia cyclobenzaprine HCl (From AdvReac Intermediate vomits Verified 05/21/24 00:52 Flexeril) hydromorphone HCl (From AdvReac Intermediate vomits Verified 05/21/24 00:52 Dilaudid) Penicillins AdvReac Intermediate vomits Verified 05/21/24 00:52 thiopental AdvReac Intermediate Other (See Verified 05/21/24 00:52 Comment) acetaminophen (From Tylenol) AdvReac stomach Verified 05/21/24 00:52 cramps melatonin AdvReac Headaches Verified 05/21/24 00:52 methocarbamol AdvReac Nausea, Verified 05/21/24 00:52 headache oxycodone (Oxycodone) AdvReac Nausea Verified 05/21/24 00:52 prednisone AdvReac Nausea Verified 05/21/24 00:52 General VENKAT: 2 Exam Narrative Exam Narrative: Const: WDWN female in NAD. VS per triage. HEENT: NC/AT. Normal facial exam. Neck: Supple. Trachea midline. Lungs: Normal respiratory effort. GI: Soft/ND/NT. Back: No CVAT Neuro: A+O x 3. Normal speech, mentation, gait. Cranial nerves II - XII grossly intact. No gross motor or sensory deficit. Medical Decision Making Patient presenting to ED with urinary symptoms onset this evening, history of UTIs. Unable to urinate on arrival but feels the urge. Will obtain bladder scan to be sure that she is emptying, urinalysis when able, Pyridium for discomfort. She is afebrile has no back or flank pain or systemic symptoms. Bladder scan shows essentially empty bladder. Urinalysis with microscopic that shows greater than 50 white cells. She will be started on Macrobid, first dose given here. Prescription for Macrobid and Pyridium sent to pharmacy. Follow-up with primary care next week if not improving. Return precautions provided. Lab Data Lab results reviewed: Yes I reviewed the patient's lab results. PFSH All Active Problems (Updated 05/21/24 @ 01:38 by Suman Bahena MD) UTI (urinary tract infection) (Acute) Pulmonary nodule (Acute) Post traumatic stress disorder (PTSD) (Chronic) Hiatal hernia (Chronic) Osteoarthritis (Chronic) Insomnia (Chronic) Cigarette smoker (Chronic) LDCT annually Chronic low back pain (Chronic) Medical History GERD (gastroesophageal reflux disease) COPD (chronic obstructive pulmonary disease) Generalized anxiety disorder with panic attacks Hyperlipidemia Bipolar affective disorder Surgical History History of esophagogastroduodenoscopy (EGD) (05/09/21) S/P appendectomy S/P left rotator cuff repair (06/03/15) S/P PRO-BSO (total abdominal hysterectomy and bilateral salpingo-oophorectomy) Family History Mother , at 71 from dementia Alzheimer disease Heart disease Hyperlipidemia Hypertension Father Myocardial infarction Heart disease Alcohol abuse Alcoholic liver disease Sister Crohn disease Sister Hyperlipidemia Sister Type 2 diabetes mellitus Sister No problems noted. Brother , 60s Myocardial infarction Type 2 diabetes mellitus Heart disease Brother Myocardial infarction Heart disease Alcohol abuse Brother No problems noted. Brother Alcohol abuse Dementia Parkinson disease Brother Alzheimer disease Crohn disease Brother Heart disease Lymphoma Hyperlipidemia Son , at 28 from Type 1 diabetes Type 1 diabetes mellitus Son No problems noted. Maternal Grandfather No problems noted. Maternal Grandmother Alzheimer disease Paternal Grandfather No problems noted. Paternal Grandmother Type 2 diabetes mellitus Brother No problems noted. Brother No problems noted. Social History Smoking/Tobacco Use Status: Current every day Tobacco Type: cigarettes Years smoked: 50 Tobacco: How many years used: 50 Quit status: considering quitting Second Hand Exposure: Yes Smoking risk assessment performed?: Yes Alcohol Intake: current Alcohol Intake frequency: holidays/special occasions only Alcohol type: hard liquor Drug use: Daily Substance use type: marijuana Household members: none Housing: house Communication Needs: None Do you need help understanding health information?: Never Pets and animals: Yes Pets and animals: bird(s) Sexually active: Yes Do you think of yourself as: straight/heterosexual Current gender identity: female How often do you talk on the phone with friends or family?: three or more times per week How often do you get together with friends or relatives?: twice per week How often do you attend spiritism or caodaism services?: decline to answer Do you belong to any clubs or organized social groups?: no Panel score (0-1 are the most socially isolated patients): 1 Seatbelt use: always Helmet use: Yes Helmet use: always Drive intox or ride w/intox auto haulaway driver: No Do you feel safe at home: Yes Do you feel safe in your relationship?: Yes Female Reproductive History Menstrual Menopause type: surgical History History 9 Para 2 Hx # Term Pregnancies 2 Multiple births Hx # Pregnancies Ectopic pregnancies AB induced Hx Number of Living Children 1 AB spontaneous 7
[2024-05-21 00:54] VITALS: BP 158/97; PULSE 71; RESP 16; TEMP 35.5; O2SAT 99
[2024-05-21] MEDS: Phenazopyridine 100 MG TAB PO (01:01)
[2024-05-21 01:17] LABS: Bilirubin Negative (Negative); Blood Trace-intact (Negative); Clarity Clear (Clear); Glucose Negative (Negative); Ketones Negative (Negative); Leukocyte Esterase Trace (Negative); Nitrite Negative (Negative); Specific Gravity >= 1.030 (1.005-1.025); Urobilinogen 0.2 mg/dL (Up to 0.2)
[2024-05-21 01:20] LABS: Epithelial Cells Rare HPF (Negative); WBC >50 HPF (0-5)
[2024-05-21 01:21] LABS: Bacteria Few HPF (Negative); C & S Indicated? Yes; Casts Negative LPF (Negative); Crystals Negative HPF (Negative); Mucus Negative (Negative)
[2024-05-21] MEDS: MacroBID 100 MG CAP PO (01:46)
== END 2024-05-21 01:49 | disposition home or self-care (01) ==
PROVIDERS: Emergency Provider Emergency Medicine; PCP Nurse Practitioner Family
DX: N39.0 Urinary tract infection, site not specified (principal); R30.0 Dysuria; F17.210 Nicotine dependence, cigarettes, uncomplicated
CPT/HCPCS: 51798; 99283; 81003; 81015; 87086

== ENCOUNTER 2024-05-27 09:21 | Emergency (ER) | payer MEDICAID, SELFPAY ==
[2024-05-27] VITALS (16 sets, daily range): BP systolic 103–130; BP diastolic 74–98; PULSE 60–100; RESP 10–18; TEMP 36.6; O2SAT 94–98
--- NOTE | 2024-05-27 09:15 | RT.EKG_ITS ---
APPROVED REPORT Exam: Resting ECG Reason for Exam: chest pain Patient Location: E HR:96 bpm ECG Measurements Heart Rate 96 AXIS OH 142 P 79 QRSd 88 QRS 78 QT 346 T 82 QTc 437 Conclusion Sinus rhythm 96 normal axis no stemi
[2024-05-27] MEDS: ACETAMINOPHEN 1,000 MG/100 ML BAG 400 MG IVPB (09:44)
[2024-05-27 09:52] LABS: Abs Immature Grans 0.02 10^3/uL (0.0-0.06); Absolute Basophil Count 0.08 10^3/uL (0.0-0.2); Absolute Eosinophil Count 0.45 10^3/uL (0.0-0.7); Absolute Lymphocyte Count 2.49 10^3/uL (1.2-3.4); Absolute Monocyte Count 0.46 10^3/uL (0.1-0.8); Absolute Neutrophil Count 4.03 10^3/uL (1.2-6.7); Basophils % 1.1 %; HCT 42.6 % (36.0-46.0); HGB 14.4 g/dL (11.2-15.7); Immature Grans % 0.3 %; Lymphocytes % 33.1 %; MCH 30.6 pg (27.0-33.0); MCHC 33.8 % (32.0-36.0); MCV 91 fL (80-95); Monocytes % 6.1 %; Neutrophils % 53.4 %; Platelet Count 285 10^3/uL (130-400); RDW-SD 43.1 fL; WBC 7.53 10^3/uL (4.4-10.8)
[2024-05-27] MEDS: Ondansetron 4 MG/2 ML VIAL IVP (10:02)
[2024-05-27 10:12] LABS: ALT 21 U/L (14-59); AST 13 U/L (15-37); Albumin 3.7 g/dL (3.4-5.0); Alkaline Phosphatase 73 U/L (46-116); Anion Gap 12.8 mmol/L (3-11); BUN 14 mg/dL (7-18); Bilirubin, Total 0.2 mg/dL (0.2-1.0); CO2 25.2 mmol/L (21.0-32.0); CREATININE 0.8 mg/dL (0.55-1.02); Calcium 9.1 mg/dL (8.5-10.1); Chloride 106 mmol/L (98-107); Estimated GFR 84.82 (mL/min/1.73m2); Glucose 124 mg/dL (74-106); Lipase 28 U/L (<78); Magnesium 2.1 mg/dL (1.8-2.4); Potassium 4.1 mmol/L (3.5-5.1); Sodium 144 mmol/L (136-145); Total Protein 7.5 g/dL (6.4-8.2); Troponin I 7 ng/L (<or=51)
--- NOTE | 2024-05-27 10:15 | DI.RAD_ITS ---
Exam(s) XR CHEST 2V PA LATERAL EXAM: XR CHEST 2V PA LATERAL CLINICAL HISTORY: chest pain. TECHNIQUE: 2D digital imaging was performed. COMPARISON: CR,XR XR CHEST 2V PA LATERAL from 02/28/2024 FINDINGS: 2 views: Heart size is normal. The mediastinum is not widened. Bilateral hyperinflation again noted. No obvious confluent infiltrates No pleural effusions. No fractures. IMPRESSION: No acute pulmonary findings.Bilateral hyperinflation again noted. DATA REPOSITORY: RADIATION DOSE DELIVERED:
[2024-05-27 10:19] LABS: D-Dimer 382 ng/mlFEU (<500)
--- NOTE | 2024-05-27 10:45 | ED.GENADUL_ITS ---
Discharge Plan Disposition Patient Disposition: Home Condition: Stable Discharge Details Clinical Impression: Chest pain of uncertain etiology Primary Care Provider: Lorri Curry ED Provider: Brandon Garcia Home Meds and New Rx's Prescriptions: Continued albuterol sulfate 90 mcg/actuation HFA aerosol inhaler 2 inh inhalation Q6H PRN (Reason: shortness of breath or wheezing) Qty: 18 4RF ibuprofen 100 mg/5 mL suspension 400 mg PO Q8H PRN (Reason: fever or pain) Qty: 473 0RF clonazepam 1 mg tablet 1 mg PO TID Qty: 84 2RF pantoprazole 40 mg tablet,delayed release (DR/EC) 40 mg PO DAILY Patient Comments: TAKE ONE TABLET BY MOUTH EVERY DAY rosuvastatin 40 mg tablet 40 mg PO DAILY Patient Comments: TAKE ONE TABLET BY MOUTH EVERY DAY AT BEDTIME nitrofurantoin monohyd/m-cryst [Macrobid] 100 mg capsule 100 mg PO BID Qty: 9 0RF Rx Instructions: must administer with a meal/food phenazopyridine [Pyridium] 100 mg tablet 100 mg PO QPC Qty: 5 0RF Discharge Instructions Instructions: Chest Pain, Adult ED Additional Instructions: You were seen in the emergency department for your chest pain of uncertain etiology, your cardiac workup is negative, there is no acute abnormality save for evidence of COPD on your chest x-ray, this could be musculoskeletal chest pain, please take your NSAIDs at home as needed for pain, please return for any worsening despite treatment, shortness of breath especially with near syncope or fever or severe abdominal pain or any other emergent concerns. Please follow- up with your regular doctor with a referral to cardiology in the next 3 months for in-depth cardiac workup. Referrals: Lorri Curry NP [Primary Care Provider] - Discharge Data Discharge Date/Time-TO BE ENTERED AT DEPARTURE: 05/27/24 12:21 HPI General Date/Time Provider Initiated Documentation: 05/27/24 09:27 . HPI Narrative: 58 year-old female presents to ED today by EMS with a chief complaint of chest pain with shortness of breath in left lower axillary ribs with onset around 0700 this morning. Quality described as sharp stabbing chest pain, no radiation to syncope, nausea, vomiting, cough, abdominal pain, endorses some lightheadedness. Severity is described as severe. Palliating factors include nothing specific attempted. Provoking factors include nothing specific. Events leading up to the incident/Associated Symptoms: denies cardiac history, endorses regular tobacco use. Patient not anticoagulated. Related Data Home Medications ?Medication ?Instructions ?Recorded ?Confirmed albuterol sulfate 90 mcg/actuation 2 inh inhalation Q6H PRN shortness 05/31/23 05/29/24 aerosol inhaler of breath or wheezing #18 grams ibuprofen 100 mg/5 mL oral 400 mg (20 mL) PO Q8H PRN fever or 11/19/23 05/29/24 suspension pain #473 mL pantoprazole 40 mg tablet,delayed 40 mg PO DAILY 02/28/24 05/29/24 release rosuvastatin 40 mg tablet 40 mg PO DAILY 02/28/24 05/29/24 clonazepam 1 mg tablet 1 mg PO TID #84 tabs 05/19/24 05/29/24 nitrofurantoin 100 mg PO BID #9 caps 05/21/24 05/29/24 monohydrate/macrocrystals 100 mg capsule (Macrobid) phenazopyridine 100 mg tablet 100 mg PO QPC #5 tabs 05/21/24 05/29/24 (Pyridium) Previous Rx's ?Medication ?Instructions ?Recorded albuterol sulfate 90 mcg/actuation 2 inh inhalation Q6H PRN shortness 05/31/23 aerosol inhaler of breath or wheezing #18 grams ibuprofen 100 mg/5 mL oral 400 mg (20 mL) PO Q8H PRN fever or 11/19/23 suspension pain #473 mL clonazepam 1 mg tablet 1 mg PO TID #84 tabs 05/19/24 nitrofurantoin 100 mg PO BID #9 caps 05/21/24 monohydrate/macrocrystals 100 mg capsule (Macrobid) phenazopyridine 100 mg tablet 100 mg PO QPC #5 tabs 05/21/24 (Pyridium) Allergies Allergy/AdvReac Type Severity Reaction Status Date / Time morphine Allergy Severe stops my Verified 05/27/24 09:37 heart lamotrigine Allergy Intermediate Facial Verified 05/27/24 09:37 blistering meloxicam AdvReac Severe Nausea and Verified 05/27/24 09:37 vomiting nicotine (From Nicoderm CQ) AdvReac Severe Other (See Verified 05/27/24 09:37 Comment) carbamazepine AdvReac Intermediate Drowsiness Verified 05/27/24 09:37 and ataxia cyclobenzaprine HCl (From AdvReac Intermediate vomits Verified 05/27/24 09:37 Flexeril) hydromorphone HCl (From AdvReac Intermediate vomits Verified 05/27/24 09:37 Dilaudid) Penicillins AdvReac Intermediate vomits Verified 05/27/24 09:37 thiopental AdvReac Intermediate Other (See Verified 05/27/24 09:37 Comment) acetaminophen (From Tylenol) AdvReac stomach Verified 05/27/24 09:37 cramps melatonin AdvReac Headaches Verified 05/27/24 09:37 methocarbamol AdvReac Nausea, Verified 05/27/24 09:37 headache oxycodone (Oxycodone) AdvReac Nausea Verified 05/27/24 09:37 prednisone AdvReac Nausea Verified 05/27/24 09:37 General Stated Complaint: Chest Pain VENKAT: 3 Review of Systems All systems reviewed & are unremarkable except as noted in HPI and below Exam Narrative Exam Narrative: GENERAL APPEARANCE: Well-nourished, non-toxic, awake and alert, atraumatic, no acute distress. SKIN: Warm, pink, dry, intact, without rashes/lesions/ulcerations. HEAD: Normocephalic, atraumatic, normal hair distribution for gender/age. EYES: Normal conjunctiva, no exudates on lids/lashes. ENT: Nares patent, no circumoral cyanosis, no facial swelling NECK: Supple, trachea midline, painless cervical ROM. LUNGS/CHEST: Lungs CTA bilaterally, non-labored respirations, normal A/P diameter, symmetrical expansion, no chest wall deformity, L lower axillary rib tenderness without crepitus HEART (CV/PV): Regular rate and rhythm without murmur, no peripheral edema, no JVD. ABDOMEN: Soft, non-distended, no guarding, no tenderness. MSK: Normal ROM, no swelling/deformity to bilateral UEs or LEs, moving all extremities without weakness, no cyanosis, spine midline without tenderness, normal curvature. NEURO: Mental Status AAOx4 - alert to person, place, time, events No facial droop, no forehead involvement. Motor: No focal weakness - strength 5/5 in bilateral UEs and LEs, proximal and distal, symmetric. Sensory: sensation intact to light touch globally. Gait normal: patient ambulated without ataxia into ED room. PSYCH: euthymic, cooperative, pleasant, appropriate speech Course Vital Signs Vital signs: Vital Signs Pulse 99 H 05/27/24 09:22 Respiratory Rate 16 05/27/24 09:22 Blood Pressure 106/91 H 05/27/24 09:22 Pulse Oximetry 95 05/27/24 09:22 Pulse 72 05/27/24 10:16 Pulse 75 05/27/24 10:16 Respiratory Rate 15 05/27/24 10:16 Respiratory Effort Short of Breath 05/27/24 09:38 Respiratory Depth Normal 05/27/24 09:38 Respiratory Pattern Normal 05/27/24 09:38 Blood Pressure 114/77 05/27/24 10:16 Blood Pressure Mean 90 05/27/24 10:16 Blood Pressure Position Sitting 05/27/24 09:22 Pulse Oximetry 95 05/27/24 10:16 Oxygen Delivery Method Room Air 05/27/24 09:22 Oxygen Flow Rate 0 05/27/24 09:22 Lab/Test Results Lab/Test Results: Laboratory Tests Range/Units 05/27/24 05/27/24 09:29 09:30 WBC (4.4-10.8) 10^3/uL 7.53 RBC (3.93-5.22) 10^6/uL 4.70 Hgb (11.2-15.7) g/dL 14.4 Hct (36.0-46.0) % 42.6 MCV (80-95) fL 91 MCH (27.0-33.0) pg 30.6 MCHC (32.0-36.0) % 33.8 RDW (11.7-14.6) % 13.0 Plt Count (130-400) 10^3/uL 285 MPV (8.0-11.0) fL 10.0 Immature Gran % % 0.3 Neutrophils % % 53.4 Lymphocytes % % 33.1 Monocytes % % 6.1 Eosinophils % % 6.0 Basophils % % 1.1 Nucleated RBC % (0.0-0.3) % 0.0 Absolute Neutrophils (1.2-6.7) 10^3/uL 4.03 Absolute Lymphocytes (1.2-3.4) 10^3/uL 2.49 Absolute Monocytes (0.1-0.8) 10^3/uL 0.46 Absolute Eosinophils (0.0-0.7) 10^3/uL 0.45 Absolute Basophils (0.0-0.2) 10^3/uL 0.08 D-Dimer (<500) ng/mlFEU 382 Sodium (136-145) mmol/L 144 Potassium (3.5-5.1) mmol/L 4.1 Chloride (98-107) mmol/L 106 Carbon Dioxide (21.0-32.0) mmol/L 25.2 Anion Gap (3-11) mmol/L 12.8 H BUN (7-18) mg/dL 14 Creatinine (0.55-1.02) mg/dL 0.8 Est GFR (CKD-EPI 2020) (mL/min/1.73m2) 84.82 Glucose (74-106) mg/dL 124 H Calcium (8.5-10.1) mg/dL 9.1 Magnesium Cancelled 2.1 Total Bilirubin (0.2-1.0) mg/dL 0.2 AST (15-37) U/L 13 L ALT (14-59) U/L 21 Alkaline Phosphatase (46-116) U/L 73 Troponin I (<or=51) ng/L 7 Total Protein (6.4-8.2) g/dL 7.5 Albumin (3.4-5.0) g/dL 3.7 Lipase (<78) U/L 28 Medical Decision Making This dictation utilizes [id number] dictation software and may contain unedited grammatical errors. 58 year-old female presents to ED today by EMS with a chief complaint of chest pain with shortness of breath in left lower axillary ribs with onset around 0700 this morning. Quality described as sharp stabbing chest pain, no radiation to syncope, nausea, vomiting, cough, abdominal pain, endorses some lightheadedness. Severity is described as severe. Palliating factors include nothing specific attempted. Provoking factors include nothing specific. Events leading up to the incident/Associated Symptoms: denies cardiac history, endorses regular tobacco use. Patients' medical history: UTI, pulmonary nodule, PTSD, cigarette smoker, chronic low back pain, COPD, hyperlipidemia. Family and social history: IV tobacco use, denies IVDU, no recent travel or sick contact. Pertinent exam findings / vital signs include lungs CTA, benign cardiac exam, pleuritic left axillary lower rib pain, nontender abdomen, nontoxic and afebrile. Differential / pathologies of concern include ACS, PE, costochondritis, pleurisy, unlikely aneurysmal pathology. Diagnostic studies of: -CBC, CMP, D-dimer, serial troponins, magnesium, lipase, chest x-ray, EKG. -CBC shows no acute abnormalities -D-dimer negative -CMP shows no actionable abnormality -Magnesium within normal limits -Serial troponins negative -Lipase negative -Chest x-ray shows no acute pathology -EKG shows normal sinus rhythm without signs of ischemia, normal intervals, normal axis, no T wave abnormalities Interventions of: -1 g IV Tylenol, patient endorsed nausea after this she was given 4 mg IV Zofran. ED Course/Assessment/Plan: 58-year-old female with significant smoking history of COPD presents with chest pain and shortness of breath onset this morning with left pruritic chest pain, D-dimer is negative do not feel this is PE pathology, ACS workup is negative, heart score is low risk recommend outpatient follow-up, likely cause of pain as costochondritis, patient has significant allergies to many pain meds, stress strict return criteria for any failure to improve, try applying heat and ice to the area, topical diclofenac. Findings not consistent with pulmonary embolism, aortic pathology, ACS, pneumonia, pneumothorax. Disposition of chest pain of uncertain etiology. Patient verbalized understanding of the plan and return to ED criteria and engaged in shared decision making. Medical Records Medical records reviewed: Yes I reviewed the patient's medical records. Imaging Data Radiologic Study: Attestation: I personally reviewed and interpreted this imaging study as follows: Imaging: X-Ray Radiologist's impression: Exam: XR Chest Exam date and time: 05/27/2024 10:44 AM Age: 58 years old Clinical indication: Pain; Chest pressure TECHNIQUE: Imaging protocol: Radiologic exam of the chest. Views: 2 views. COMPARISON: CT CHEST LUNG CANCER SCREEN 04/20/2024 1:48 PM FINDINGS: Lungs: The lungs are hyperinflated. There are emphysematous changes in both upper lobes. No acute infiltrates identified. Pleural spaces: No effusions or pneumothoraces. Heart/Mediastinum: The heart is elongated. It is not enlarged. The superior mediastinum is unremarkable. Bones/joints: No acute bony change of the thoracic spine or ribs. IMPRESSION: 1. Hyperinflation of the lungs without current acute cardiopulmonary disease. Dictated and Authenticated by: Nuno Campbell MD. Lab Data Lab results reviewed: Yes I reviewed the patient's lab results. Labs: Laboratory Tests Range/Units 05/27/24 05/27/24 05/27/24 09:29 09:30 10:25 WBC (4.4-10.8) 10^3/uL 7.53 RBC (3.93-5.22) 10^6/uL 4.70 Hgb (11.2-15.7) g/dL 14.4 Hct (36.0-46.0) % 42.6 MCV (80-95) fL 91 MCH (27.0-33.0) pg 30.6 MCHC (32.0-36.0) % 33.8 RDW (11.7-14.6) % 13.0 Plt Count (130-400) 10^3/uL 285 MPV (8.0-11.0) fL 10.0 Immature Gran % % 0.3 Neutrophils % % 53.4 Lymphocytes % % 33.1 Monocytes % % 6.1 Eosinophils % % 6.0 Basophils % % 1.1 Nucleated RBC % (0.0-0.3) % 0.0 Absolute Neutrophils (1.2-6.7) 10^3/uL 4.03 Absolute Lymphocytes (1.2-3.4) 10^3/uL 2.49 Absolute Monocytes (0.1-0.8) 10^3/uL 0.46 Absolute Eosinophils (0.0-0.7) 10^3/uL 0.45 Absolute Basophils (0.0-0.2) 10^3/uL 0.08 D-Dimer (<500) ng/mlFEU 382 Sodium (136-145) mmol/L 144 Potassium (3.5-5.1) mmol/L 4.1 Chloride (98-107) mmol/L 106 Carbon Dioxide (21.0-32.0) mmol/L 25.2 Anion Gap (3-11) mmol/L 12.8 H BUN (7-18) mg/dL 14 Creatinine (0.55-1.02) mg/dL 0.8 Est GFR (CKD-EPI 2020) (mL/min/1.73m2) 84.82 Glucose (74-106) mg/dL 124 H Calcium (8.5-10.1) mg/dL 9.1 Magnesium Cancelled 2.1 Total Bilirubin (0.2-1.0) mg/dL 0.2 AST (15-37) U/L 13 L ALT (14-59) U/L 21 Alkaline Phosphatase (46-116) U/L 73 Troponin I (<or=51) ng/L 7 5 Total Protein (6.4-8.2) g/dL 7.5 Albumin (3.4-5.0) g/dL 3.7 Lipase (<78) U/L 28 Range/Units 05/27/24 12:29 WBC (4.4-10.8) 10^3/uL RBC (3.93-5.22) 10^6/uL Hgb (11.2-15.7) g/dL Hct (36.0-46.0) % MCV (80-95) fL MCH (27.0-33.0) pg MCHC (32.0-36.0) % RDW (11.7-14.6) % Plt Count (130-400) 10^3/uL MPV (8.0-11.0) fL Immature Gran % % Neutrophils % % Lymphocytes % % Monocytes % % Eosinophils % % Basophils % % Nucleated RBC % (0.0-0.3) % Absolute Neutrophils (1.2-6.7) 10^3/uL Absolute Lymphocytes (1.2-3.4) 10^3/uL Absolute Monocytes (0.1-0.8) 10^3/uL Absolute Eosinophils (0.0-0.7) 10^3/uL Absolute Basophils (0.0-0.2) 10^3/uL D-Dimer (<500) ng/mlFEU Sodium (136-145) mmol/L Potassium (3.5-5.1) mmol/L Chloride (98-107) mmol/L Carbon Dioxide (21.0-32.0) mmol/L Anion Gap (3-11) mmol/L BUN (7-18) mg/dL Creatinine (0.55-1.02) mg/dL Est GFR (CKD-EPI 2020) (mL/min/1.73m2) Glucose (74-106) mg/dL Calcium (8.5-10.1) mg/dL Magnesium Total Bilirubin (0.2-1.0) mg/dL AST (15-37) U/L ALT (14-59) U/L Alkaline Phosphatase (46-116) U/L Troponin I (<or=51) ng/L Cancelled Total Protein (6.4-8.2) g/dL Albumin (3.4-5.0) g/dL Lipase (<78) U/L Quality:[facility] Health Related Social Needs: Health related social needs details none, hiring thea moeller to fix her bathroom floor PFSH All Active Problems (Updated 05/27/24 @ 12:03 by SARAH Ojeda) Chest pain of uncertain etiology (Acute) UTI (urinary tract infection) (Acute) Pulmonary nodule (Acute) Post traumatic stress disorder (PTSD) (Chronic) Hiatal hernia (Chronic) Osteoarthritis (Chronic) Insomnia (Chronic) Cigarette smoker (Chronic) LDCT annually Chronic low back pain (Chronic) Medical History GERD (gastroesophageal reflux disease) COPD (chronic obstructive pulmonary disease) Generalized anxiety disorder with panic attacks Hyperlipidemia Bipolar affective disorder Surgical History History of esophagogastroduodenoscopy (EGD) (05/09/21) S/P appendectomy S/P left rotator cuff repair (06/03/15) S/P PRO-BSO (total abdominal hysterectomy and bilateral salpingo-oophorectomy) Family History Mother , at 71 from dementia Alzheimer disease Heart disease Hyperlipidemia Hypertension Father Myocardial infarction Heart disease Alcohol abuse Alcoholic liver disease Sister Crohn disease Sister Hyperlipidemia Sister Type 2 diabetes mellitus Sister No problems noted. Brother , 60s Myocardial infarction Type 2 diabetes mellitus Heart disease Brother Myocardial infarction Heart disease Alcohol abuse Brother No problems noted. Brother Alcohol abuse Dementia Parkinson disease Brother Alzheimer disease Crohn disease Brother Heart disease Lymphoma Hyperlipidemia Son , at 28 from Type 1 diabetes Type 1 diabetes mellitus Son No problems noted. Maternal Grandfather No problems noted. Maternal Grandmother Alzheimer disease Paternal Grandfather No problems noted. Paternal Grandmother Type 2 diabetes mellitus Brother No problems noted. Brother No problems noted. Social History Smoking/Tobacco Use Status: Current every day Tobacco Type: cigarettes Years sm oked: 50 Tobacco: How many years used: 50 Quit status: considering quitting Second Hand Exposure: Yes Smoking risk assessment performed?: Yes Alcohol Intake: current Alcohol Intake frequency: holidays/special occasions o nly Alcohol type: hard liquor Drug use: Daily Substance use type: marijuana Household members: none Housing: house Communication Needs: None Do you need help understanding health information?: Never Pets and animals: Yes Pets and animals: bird(s) Sexually active: Yes Do you think of yourself as: straight/heterosexual Current gender identity: female How often do you talk on the phone with friends or family?: three or more times per week How often do you get together with friends or relatives?: twice per week How often do you attend sabianism or pentecostal services?: decline to answer Do you belong to any clubs or organized social groups?: no Panel score (0-1 are the most socially isolated patients): 1 Seatbelt use: always Helmet use: Yes Helmet use: always Drive intox or ride w/intox sprinkler driver: No Do you feel safe at home: Yes Do you feel safe in your relationship?: Yes Female Reproductive History Menstrual Menopause type: surgical History History 9 Para 2 Hx # Term Pregnancies 2 Multiple births Hx # Pregnancies Ectopic pregnancies AB induced Hx Number of Living Children 1 AB spontaneous 7
[2024-05-27 10:52] LABS: Troponin I 5 ng/L (<or=51)
--- NOTE | 2024-05-27 11:53 | DI.VRAD_ITS ---
PROCEDURE INFORMATION: Exam: XR Chest Exam date and time: 05/27/2024 10:44 AM Age: 58 years old Clinical indication: Pain; Chest pressure TECHNIQUE: Imaging protocol: Radiologic exam of the chest. Views: 2 views. COMPARISON: CT CHEST LUNG CANCER SCREEN 04/20/2024 1:48 PM FINDINGS: Lungs: The lungs are hyperinflated. There are emphysematous changes in both upper lobes. No acute infiltrates identified. Pleural spaces: No effusions or pneumothoraces. Heart/Mediastinum: The heart is elongated. It is not enlarged. The superior mediastinum is unremarkable. Bones/joints: No acute bony change of the thoracic spine or ribs. IMPRESSION: 1. Hyperinflation of the lungs without current acute cardiopulmonary disease. Dictated and Authenticated by: Nuno Campbell MD. Orderin Radha Taylor MD
== END 2024-05-27 12:21 | disposition home or self-care (01) ==
PROVIDERS: Emergency Provider Physician Assistant; PCP Nurse Practitioner Family
DX: R07.9 Chest pain, unspecified (principal); R06.02 Shortness of breath; J44.9 Chronic obstructive pulmonary disease, unspecified; F41.9 Anxiety disorder, unspecified; E78.5 Hyperlipidemia, unspecified; F17.210 Nicotine dependence, cigarettes, uncomplicated
CPT/HCPCS: 80053; 83690; 93005; 96365; 96375; 99285; 71046; 83735; 84484; 85025; 85379; 93010; J0131; J2405

== ENCOUNTER 2024-09-13 04:59 | Emergency (ER) | payer MEDICAID, SELFPAY ==
[2024-09-13] VITALS (20 sets, daily range): BP systolic 107–168; BP diastolic 69–108; PULSE 58–81; RESP 11–29; TEMP 36.8; O2SAT 93–96
--- NOTE | 2024-09-13 05:00 | RT.EKG_ITS ---
APPROVED REPORT Exam: Resting ECG Reason for Exam: chest pain Patient Location: E HR:71 bpm ECG Measurements Heart Rate 71 AXIS [place] 148 P 70 QRSd 89 QRS 45 QT 390 T 9 QTc 426 Conclusion Sinus rhythm...normal P axis, V-rate 60- 99 Normal [place]/Interval Nonspecific ST-T changes There are no significant changes compared to prior EKG performed on 02/28/2024 at 04:59.
--- NOTE | 2024-09-13 05:05 | W.ED.GENAD ---
Discharge Plan Disposition Patient Disposition: Home Condition: Good Discharge Details Clinical Impression: Atypical chest pain Primary Care Provider: Lorri Curry ED Provider: Suman Bahena Meds and New Rx's Prescriptions: Continued albuterol sulfate 90 mcg/actuation HFA aerosol inhaler 2 inh inhalation Q6H PRN (Reason: shortness of breath or wheezing) Qty: 18 4RF clonazepam 1 mg tablet 1 mg PO TID Qty: 84 2RF pantoprazole 40 mg tablet,delayed release (DR/EC) 40 mg PO DAILY Patient Comments: TAKE ONE TABLET BY MOUTH EVERY DAY rosuvastatin 40 mg tablet 40 mg PO DAILY Patient Comments: TAKE ONE TABLET BY MOUTH EVERY DAY AT BEDTIME Discharge Instructions Instructions: Chest Pain, Adult ED Additional Instructions: You were seen for episode of chest pain described as sharp and stabbing. Your exam, EKG, chest x-ray, laboratory studies are all reassuring. Your pain improved with ketorolac which is similar to ibuprofen. You may take ibuprofen or acetaminophen for recurrent pain. You should follow-up with primary care in the next week. Return to ED for new or worsening pain, shortness of breath, syncope, neurologic change, other concerns. Referrals: Lorri Curry, [employer] [Primary Care Provider, Medicine] HPI General Mode of arrival: ambulatory. Date/Time Provider Initiated Documentation: 09/13/24 05:01. Limitations to Documentation: no limitations. Information obtained by: patient, RN notes reviewed and old records reviewed. HPI Narrative: Patient presents to ED with complaint of left-sided stabbing chest pain radiating to the back and shoulder. Patient was fine when she went to bed last night. Woke up around 3 AM with pain. Reports that pain is actually better when she takes a deep breath. Does not really feel short of breath. Has some mild nausea but no vomiting. Denies any type of belly pain. Denies any fever or cough. Has had presentations to ED with similar type pains in the past. Did take clonazepam before coming in. No previous history of clots or cardiac disease but does have risk factors for cardiac disease including smoking and hyperlipidemia. Related Data Home Medications ?Medication ?Instructions ?Recorded ?Confirmed albuterol sulfate 90 mcg/actuation 2 inh inhalation Q6H PRN shortness 05/31/23 09/13/24 aerosol inhaler of breath or wheezing #18 grams pantoprazole 40 mg tablet,delayed 40 mg PO DAILY 02/28/24 09/13/24 release rosuvastatin 40 mg tablet 40 mg PO DAILY 02/28/24 09/13/24 clonazepam 1 mg tablet 1 mg PO TID #84 tabs 08/31/24 09/13/24 Previous Rx's ?Medication ?Instructions ?Recorded albuterol sulfate 90 mcg/actuation 2 inh inhalation Q6H PRN shortness 05/31/23 aerosol inhaler of breath or wheezing #18 grams clonazepam 1 mg tablet 1 mg PO TID #84 tabs 08/31/24 Allergies Allergy/AdvReac Type Severity Reaction Status Date / Time morphine Allergy Severe stops my Verified 09/13/24 05:10 heart lamotrigine Allergy Intermediate Facial Verified 09/13/24 05:10 blistering meloxicam AdvReac Severe Nausea and Verified 09/13/24 05:10 vomiting nicotine (From Nicoderm CQ) AdvReac Severe Other (See Verified 09/13/24 05:10 Comment) carbamazepine AdvReac Intermediate Drowsiness Verified 09/13/24 05:10 and ataxia cyclobenzaprine HCl (From AdvReac Intermediate vomits Verified 09/13/24 05:10 Flexeril) hydromorphone HCl (From AdvReac Intermediate vomits Verified 09/13/24 05:10 Dilaudid) Penicillins AdvReac Intermediate vomits Verified 09/13/24 05:10 thiopental AdvReac Intermediate Other (See Verified 09/13/24 05:10 Comment) acetaminophen (From Tylenol) AdvReac stomach Verified 09/13/24 05:10 cramps melatonin AdvReac Headaches Verified 09/13/24 05:10 methocarbamol AdvReac Nausea, Verified 09/13/24 05:10 headache oxycodone (Oxycodone) AdvReac Nausea Verified 09/13/24 05:10 prednisone AdvReac Nausea Verified 09/13/24 05:10 General VENKAT: 3 Exam Narrative Exam Narrative: Const: Thin female in NAD. VS per triage. HEENT: NC/AT. Normal facial exam. Neck: Supple. Trachea midline. Lungs: Normal respiratory effort. Lungs are clear. No chest wall tenderness. Cor: RRR without murmur. Good radial pulses. GI: Soft/ND/NT. Neuro: A+O x 3. Normal speech, mentation, gait. Cranial nerves II - XII grossly intact. No gross motor or sensory deficit. Ext: No C/C/E. No calf tenderness. Medical Decision Making Patient presenting to ED with onset of sharp stabbing left-sided pain radiating to back and shoulder. Pain actually improved with deep breaths. Has nausea but no vomiting. Denies abdominal pain. Denies fever, cough, shortness of breath. Her EKG is sinus rhythm with nonspecific ST changes and unchanged from previous per my read. Presentation not really consistent with ACS. Will obtain delta troponin to evaluate for possibility. Pain is not really pleuritic but would probably be more consistent with PE. She has no risk factors for PE so will obtain D-dimer. Chest imaging will be based upon D-dimer result. She has breath sounds bilaterally with normal oxygenation. Will treat with ketorolac and ondansetron. 06:15 - Patient's initial labs look good. CBC completely normal. Chemistries, kidney function, liver function good. D-dimer negative. Initial troponin normal. Two-view chest x-ray ordered and second troponin drawn. 06:45 - Patient's pain is much improved with the ketorolac. Chest x-ray per my read with no acute cardiopulmonary process. Repeat troponin flat. Plan discharge home and follow-up with primary care. Return precautions provided. Medical Records Medical records reviewed: Yes I reviewed the patient's medical records. Imaging Data Radiologic Study: Attestation: I personally reviewed and interpreted this imaging study as follows: Imaging: X-Ray My impression: see [facility] Lab Data Lab results reviewed: Yes I reviewed the patient's lab results. Lab results narrative: see [facility] ECG Data Attestation: I personally reviewed and interpreted this ECG (s) as follows: Prior ECG tracings: available for review Interpretation: see [facility] All Active Problems (Updated 09/13/24 @ 06:48 by Suman Bahena MD) Atypical chest pain (Acute) Pulmonary nodule (Acute) Post traumatic stress disorder (PTSD) (Chronic) Hiatal hernia (Chronic) Osteoarthritis (Chronic) Insomnia (Chronic) Cigarette smoker (Chronic) LDCT annually Chronic low back pain (Chronic) Medical History GERD (gastroesophageal reflux disease) COPD (chronic obstructive pulmonary disease) Generalized anxiety disorder with panic attacks Hyperlipidemia Bipolar affective disorder Surgical History History of esophagogastroduodenoscopy (EGD) (05/09/21) S/P appendectomy S/P left rotator cuff repair (06/03/15) S/P PRO-BSO (total abdominal hysterectomy and bilateral salpingo-oophorectomy) Family History Mother , at 71 from dementia Alzheimer disease Heart disease Hyperlipidemia Hypertension Father Myocardial infarction Heart disease Alcohol abuse Alcoholic liver disease Sister Crohn disease Sister Hyperlipidemia Sister Type 2 diabetes mellitus Sister No problems noted. Brother , 60s Myocardial infarction Type 2 diabetes mellitus Heart disease Brother Myocardial infarction Heart disease Alcohol abuse Brother No problems noted. Brother Alcohol abuse Dementia Parkinson disease Brother Alzheimer disease Crohn disease Brother Heart disease Lymphoma Hyperlipidemia Son , at 28 from Type 1 diabetes Type 1 diabetes mellitus Son No problems noted. Maternal Grandfather No problems noted. Maternal Grandmother Alzheimer disease Paternal Grandfather No problems noted. Paternal Grandmother Type 2 diabetes mellitus Brother No problems noted. Brother No problems noted. Social History Smoking/Tobacco Use Status: Current every day Tobacco Type: cigarettes Years smoked: 50 Tobacco: How many years used: 50 Quit status: considering quitting Second Hand Exposure: Yes Smoking risk assessment performed?: Yes Alcohol Intake: current Alcohol Intake frequency: holidays/special occasions only Alcohol type: hard liquor Drug use: Daily Substance use type: marijuana Household members: none Housing: house Communication Needs: None Do you need help understanding health information?: Never Pets and animals: Yes Pets and animals: bird(s) Sexually active: Yes Do you think of yourself as: straight/heterosexual Current gender identity: female How often do you talk on the phone with friends or family?: three or more times per week How often do you get together with friends or relatives?: twice per week How often do you attend congregation or jain services?: decline to answer Do you belong to any clubs or organized social groups?: no Panel score (0-1 are the most socially isolated patients): 1 Seatbelt use: always Helmet use: Yes Helmet use: always 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
[2024-09-13 05:33] LABS: Abs Immature Grans 0.01 10^3/uL (0.0-0.06); HCT 43.1 % (36.0-46.0); HGB 14.4 g/dL (11.2-15.7); Immature Grans % 0.1 %; MCH 30.3 pg (27.0-33.0); MCHC 33.4 % (32.0-36.0); MCV 91 fL (80-95); MPV 10.0 fL (8.0-11.0); Platelet Count 273 10^3/uL (130-400); RBC 4.75 10^6/uL (3.93-5.22); RDW 13.5 % (11.7-14.6); RDW-SD 45.1 fL; WBC 7.87 10^3/uL (4.4-10.8)
[2024-09-13] MEDS: Ketorolac 15 MG/ML VIAL IVP (05:41)
[2024-09-13] MEDS: Ondansetron 4 MG/2 ML VIAL IVP (05:42)
[2024-09-13 05:56] LABS: ALT 22 U/L (14-59); AST 14 U/L (15-37); Albumin 3.8 g/dL (3.4-5.0); Alkaline Phosphatase 72 U/L (46-116); Anion Gap 9.8 mmol/L (3-11); BUN 17 mg/dL (7-18); Bilirubin, Total 0.2 mg/dL (0.2-1.0); CO2 28.2 mmol/L (21.0-32.0); Calcium 9.1 mg/dL (8.5-10.1); Chloride 107 mmol/L (98-107); Estimated GFR 107.98 (mL/min/1.73m2); Glucose 113 mg/dL (74-106); Magnesium 2.3 mg/dL (1.8-2.4); Potassium 3.6 mmol/L (3.5-5.1); Sodium 145 mmol/L (136-145); Total Protein 7.4 g/dL (6.4-8.2); Troponin I < 4 ng/L (<or=51)
--- NOTE | 2024-09-13 06:00 | DI.RAD_ITS ---
Exam(s) XR CHEST 2V PA LATERAL EXAM: XR CHEST 2V PA LATERAL CLINICAL HISTORY: CP TECHNIQUE: 2D digital imaging was performed of the chest. Two images were obtained. PA and lateral views were obtained. COMPARISON: CR,XR XR CHEST 2V PA LATERAL from 02/28/2024 CR,XR XR CHEST 2V PA LATERAL from 05/27/2024 FINDINGS: MEDIASTINUM: Normal. HEART: Normal. PULMONARY VASCULATURE: Normal. LUNGS: The lungs are hyperinflated with hyper lucency in the upper lobes consistent with COPD. No focal infiltrates are present. PLEURAL SPACE: No pleural effusion or pneumothorax. BONE:Within normal limits for the patient's age. OTHER FINDINGS:Normal. IMPRESSION: No acute pulmonary findings. DATA REPOSITORY: RADIATION DOSE DELIVERED:
[2024-09-13 06:01] LABS: D-Dimer 296 ng/mlFEU (<500)
[2024-09-13 06:39] LABS: Troponin I 4 ng/L (<or=51)
--- NOTE | 2024-09-13 07:59 | DI.[facility]_ITS ---
PROCEDURE INFORMATION: Exam: XR Chest Exam date and time: 09/13/2024 6:30 AM Age: 58 years old Clinical indication: Other: Cp; Chest pain TECHNIQUE: Imaging protocol: Radiologic exam of the chest. Views: 2 views. COMPARISON: CR XR CHEST 2V PA LATERAL 05/27/2024 10:44 AM FINDINGS: Lungs: Hyperinflated lungs. Pleural spaces: No large pleural effusion seen. Heart/Mediastinum: No cardiomegaly. Bones/joints: No acute abnormality. IMPRESSION: No acute findings to explain reported symptoms. Dictated and Authenticated by: Umu Byrnes MD. Orderin Josef Will MD
== END 2024-09-13 07:18 | disposition home or self-care (01) ==
PROVIDERS: Emergency Provider Emergency Medicine; PCP Nurse Practitioner Family
DX: R07.89 Other chest pain (principal); E78.5 Hyperlipidemia, unspecified; J44.9 Chronic obstructive pulmonary disease, unspecified
CPT/HCPCS: 36415; 80053; 93005; 99285; 71046; 83735; 84484; 85025; 85379; 93010; 99284; J1885; J2405

== ENCOUNTER 2024-11-15 11:33 | Emergency (ER) | payer MEDICAID, SELFPAY ==
[2024-11-15 11:50] VITALS: BP 156/94; PULSE 75; RESP 16; TEMP 36.6; O2SAT 95
[2024-11-15 11:53] VITALS: BP 156/94; PULSE 75; RESP 16; TEMP 36.6; O2SAT 95
== END 2024-11-15 12:35 | disposition left against medical advice (07) ==
PROVIDERS: Emergency Provider Student in an Organized Health Care Education/Training Program; PCP Nurse Practitioner Family
DX: Z53.21 Procedure and treatment not carried out due to patient leaving prior to being seen by health care provider (principal)

== ENCOUNTER 2024-11-28 17:31 | Emergency (ER) | payer MEDICAID, SELFPAY ==
--- NOTE | 2024-11-28 17:30 | RT.EKG_ITS ---
APPROVED REPORT Exam: Resting ECG Reason for Exam: Chest Pain Patient Location: E HR:83 bpm ECG Measurements Heart Rate 83 AXIS IA 150 P 56 QRSd 89 QRS 58 QT 374 T -8 QTc 441 Conclusion Sinus rhythm...normal P axis, V-rate 60- 99 Normal [place] Nonspecific ST-T changes There are no significant changes compared to prior EKG performed on 09/13/2024 at 05:07.
[2024-11-28 17:34] VITALS: BP 151/97; PULSE 81; RESP 18; TEMP 36.6; O2SAT 93
--- NOTE | 2024-11-28 18:15 | DI.CT_ITS ---
Exam(s) CT CHEST PE CTA EXAM: CT CHEST PE CTA CLINICAL HISTORY: pleuritic L side CP. TECHNIQUE: Imaging Protocol: Axial CT angiography was performed with multi- slice acquisition and multi-planar reconstructions as well as axial, coronal and sagittal MIP reconstructions. Computer aided detection (CAD) was utilized. CONTRAST MATERIAL: Intravenous: Omnipaque 350 Contrast volume:60 ml COMPARISON: CT CT CHEST W from 04/27/[address] CHEST LUNG CANCER SCREEN from 04/20/2024 CR,XR XR CHEST 2V PA LATERAL from 09/13/2024 FINDINGS: Pulmonary Arteries: No evidence of filling defect to suggest pulmonary emboli. Mediastinum and Jordana: No dominant adenopathy or fluid collection. Pulmonary parenchyma: Lungs are expiratory which limits evaluation. There are no focal area of consolidation. Severe emphysematous changes, greater in the upper lobes. Stable 5 millimeter density at the right lateral lung base. Pleura: No effusion or pneumothorax. Heart: The heart is not dilated. No coronary artery calcifications are seen. Aorta: Thoracic aorta non-dilated. No dissection. Upper abdomen: No acute findings. Bones: Unremarkable for age. Tubes, Catheters, and Lines: None Soft tissues: Unremarkable. IMPRESSION: No evidence of pulmonary embolism. Expiratory changes in the lungs. No evidence of pneumonia. The preliminary [facility] report was reviewed. RADIATION DOSE DELIVERED: 48.52mGy.cm Total DLP DATA REPOSITORY: All CT scans at this facility are submitted to the National Radiology Data Registry (NRDR) Dose Index Registry (DIR) with the [employer] ([employer]). RADIATION OPTIMIZATION: All CT scans at this facility use at least one of these dose optimization techniques: automated exposure control; mA and/or kV adjustment per patient size (includes targeted exams where dose is matched to clinical indication); or iterative reconstruction.
[2024-11-28] MEDS: Aspirin 81 MG CHEW 324 MG CH (18:40)
--- NOTE | 2024-11-28 18:54 | ED.GENADUL_ITS ---
Discharge Plan Disposition Patient Disposition: Home Condition: Stable Discharge Details Clinical Impression: Chest pain of uncertain etiology, Bilateral pulmonary infiltrates Primary Care Provider: Lorri Curry ED Provider: Brandon Garcia Home Meds and New Rx's Prescriptions: New doxycycline hyclate 100 mg capsule 100 mg PO BID 7 Days Qty: 14 0RF azithromycin 250 mg tablet See Rx Instructions .ROUTE .COMPLEX Qty: 6 0RF Rx Instructions: For 250 mg dose pack: take 500 mg today (day 1), then 250 mg for 4 days (days 2-5) Continued albuterol sulfate 90 mcg/actuation HFA aerosol inhaler 2 inh inhalation Q6H PRN (Reason: shortness of breath or wheezing) Qty: 18 4RF baclofen 5 mg tablet 5 mg PO TID PRN (Reason: muscle spasm) Qty: 60 0RF ibuprofen 800 mg tablet 800 mg PO TID PRN (Reason: pain) Qty: 60 0RF clonazepam 1 mg tablet 1 mg PO TID Qty: 84 2RF Discharge Instructions Instructions: Pneumonia in adults, Azithromycin (Systemic), Doxycycline, Lorazepam, Chest Pain, Adult ED Additional Instructions: You were seen in the emergency department for chest pain of uncertain cause, your cardiac workup is negative, you have some bilateral pulmonary infiltrates that is reasonable to treat as a pneumonia with a quick trial of antibiotics due to your ongoing chronic lung disease, you also may have an element of costochondritis or inflammation of the muscles or spasm between the ribs or longstanding fibrotic changes due to long-term smoking of the lungs causing pleurisy. Please return for any severe acute worsening, we placed a lidocaine patch on your rib cage, you can take Tylenol as needed for pain as well as ibuprofen, I did give you an ativan to take home to take before bed for muscle relaxation, shredder picker your antibiotics at the pharmacy [place] from the hospital tomorrow, return for any emergent concerns. Referrals: Lorri Curry NP [Primary Care Provider, Medicine] Discharge Data Discharge Date/Time-TO BE ENTERED AT DEPARTURE: 11/28/24 21:41 HPI General Date/Time Provider Initiated Documentation: 11/28/24 17:48 . HPI Narrative: 59 year-old female presents to ED today by POV/ambulating with a chief complaint of L sided chest pain- onset 1130 am with some shortness of breath and lightheadedness. Quality described as sharp L sided chest pain, no radiation to nausea/vomiting, syncope, sweating with pain, fever, endorses chronic cough. Severity is described as severe. Palliating factors include nothing specific attempted. Provoking factors include nothing specific. Events leading up to the incident/Associated Symptoms: Patient has longstanding COPD, hiatal hernia, chronic low back pain and TMJ syndrome. Patient not anticoagulated. Related Data Home Medications ?Medication ?Instructions ?Recorded ?Confirmed albuterol sulfate 90 mcg/actuation 2 inh inhalation Q6 H PRN shortness 05/31/23 11/29/24 aerosol inhaler of breath or wheezing #18 gr ams baclofen 5 mg tablet 5 mg PO TID PRN muscle spasm #60 11/17/24 11/29/24 tabs ibuprofen 800 mg tablet 800 mg PO TID PRN pain #60 t abs 11/17/24 11/29/24 clonazepam 1 mg tablet 1 mg PO TID #84 tabs 5 11/29/24 azithromycin 250 mg tablet See Rx Instructions PO .COM PLEX #6 11/28/24 11/29/24 tabs doxycycline hyclate 100 mg capsule 100 mg PO BID 7 day s #14 caps 11/28/24 11/29/24 Previous Rx's ?Medication ?Instructions ?Recorded albuterol sulfate 90 mcg/actuation 2 inh inhalation Q6 H PRN shortness 05/31/23 aerosol inhaler of breath or wheezing #18 gr ams baclofen 5 mg tablet 5 mg PO TID PRN muscle spasm #60 11/17/24 tabs ibuprofen 800 mg tablet 800 mg PO TID PRN pain #60 t abs 11/17/24 clonazepam 1 mg tablet 1 mg PO TID #84 tabs 5 azithromycin 250 mg tablet See Rx Instructions PO .COM PLEX #6 11/28/24 tabs doxycycline hyclate 100 mg capsule 100 mg PO BID 7 day s #14 caps 11/28/24 Allergies Allergy/AdvReac Type Severity Reaction Status Date / Time morphine Allergy Severe stops my Verified 11/28/24 17:39 heart lamotrigine Allergy Intermediate Facial Verified 11/28/24 17:39 blistering meloxicam AdvReac Severe Nausea and Verified 11/28/24 17:39 vomiting nicotine (From Nicoderm CQ) AdvReac Severe Other (See Verified 11/28/24 17:39 Comment) carbamazepine AdvReac Intermediate Drowsiness Verified 11/28/24 17:39 and ataxia cyclobenzaprine HCl (From AdvReac Intermediate vomits Verified 11/28/24 17:39 Flexeril) hydromorphone HCl (From AdvReac Intermediate vomits Verified 11/17/24 10:02 Dilaudid) Penicillins AdvReac Intermediate vomits Verified 11/28/24 17:39 thiopental AdvReac Intermediate Other (See Verified 11/28/24 17:39 Comment) acetaminophen (From Tylenol) AdvReac stomach Verified 11/28/24 17:39 cramps melatonin AdvReac Headaches Verified 11/28/24 17:39 methocarbamol AdvReac Nausea, Verified 11/28/24 17:39 headache oxycodone (Oxycodone) AdvReac Nausea Verified 11/28/24 17:39 prednisone AdvReac Nausea Verified 11/28/24 17:39 General Stated Complaint: Chest Pain VENKAT: 3 Review of Systems All systems reviewed & are unremarkable except as noted in HPI and below Exam Narrative Exam Narrative: GENERAL APPEARANCE: cachectic, non-toxic, awake and alert, atraumatic, mild acute distress. SKIN: Warm, pink, dry, intact, without rashes/lesions/ulcerations. HEAD: Normocephalic, atraumatic, normal hair distribution for gender/age. EYES: Normal conjunctiva, no exudates on lids/lashes. ENT: Nares patent, no circumoral cyanosis, no facial swelling NECK: Supple, trachea midline, painless cervical ROM. LUNGS/CHEST: Lungs - mild expiratory wheeze diffusely, non-labored respirations, normal A/P diameter, symmetrical expansion, no chest wall deformity, L sided rib tenderness without crepitus HEART (CV/PV): Regular rate and rhythm without murmur, no peripheral edema, no JVD. ABDOMEN: Soft, non-distended, no guarding, no tenderness. MSK: Normal ROM, no swelling/deformity to bilateral UEs or LEs, moving all extremities without weakness, no cyanosis, spine midline without tenderness, normal curvature. NEURO: Mental Status AAOx4 - alert to person, place, time, events No facial droop, no forehead involvement. Motor: No focal weakness - strength 5/5 in bilateral UEs and LEs, proximal and distal, symmetric. Sensory: sensation intact to light touch globally. Gait normal: patient ambulated without ataxia into ED room. PSYCH: euthymic, cooperative, pleasant, appropriate speech Course Vital Signs Vital signs: Vital Signs Temperature 36.6 C 11/28/24 17:34 Pulse 81 11/28/24 17:34 Respiratory Rate 18 11/28/24 17:34 Blood Pressure 151/97 H 11/28/24 17:34 Pulse Oximetry 93 11/28/24 17:34 Temperature 36.6 C 11/28/24 17:34 Temperature Source Tympanic 11/28/24 17:34 Pulse 81 11/28/24 17:34 Respiratory Rate 18 11/28/24 17:34 Blood Pressure 151/97 H 11/28/24 17:34 Pulse Oximetry 93 11/28/24 17:34 Pain Level 6 11/28/24 17:34 Medical Decision Making This dictation utilizes [id number] dictation software and may contain unedited grammatical errors. 59 year-old female presents to ED today by POV/ambulating with a chief complaint of L sided chest pain- onset 1130 am with some shortness of breath and lightheadedness. Quality described as sharp L sided chest pain, no radiation to nausea/vomiting, syncope, sweating with pain, fever, endorses chronic cough. Severity is described as severe. Palliating factors include nothing specific attempted. Provoking factors include nothing specific. Events leading up to the incident/Associated Symptoms: Patient has longstanding COPD, hiatal hernia, chronic low back pain and TMJ syndrome. Social history of heavy tobacco use daily eats normal diet. Pertinent exam findings / vital signs include left-sided chest tenderness without crepitus, benign cardiopulmonary exam with mild expiratory wheezing consistent with COPD, thin and cachectic, benign abdomen. Differential / pathologies of concern include ACS, PE, pneumonia, not hypoxic respiratory failure, costochondritis, pleurisy. Diagnostic studies of: - CBC, CMP, serial troponin, lipase, UA, EKG, CTA chest PE study. - CBC for some reason did not come through results - CMP shows no actionable abnormality - Serial troponins negative - BNP negative - Lipase negative - UA is benign - CTA chest PE study shows no pulmonary embolism shows diffuse interstitial bilateral infiltrates, infectious infiltrates not ruled out no evidence on other laboratory studies to suggest cardiogenic infiltrates - EKG shows sinus rhythm at 83 bpm with P waves followed by narrow complex QRS, normal axis, poor R wave progression, no ST changes of ischemia, normal QT QTc Interventions of: -ASA 324 mg, 0.5 mg Ativan to go for muscle relaxation, 100 mg p.o. doxycycline, Rx for azithromycin and doxycycline. -HEART Score LOW- reasonable for PCP f/u ED Course/Assessment/Plan: 59-year-old female without cardiac history presents with left-sided pleuritic chest pain, negative for PE, serial troponins negative with reliable onset, BNP is negative, EKG without any ischemic changes, has bilateral pulmonary infiltrat es likely infectious, no evidence for respiratory failure, counseled on dual antibiotic therapy, she likely has some element of costochondritis with this as well and was given 1 Ativan to go, strict return criteria for any chest pain on exertion, respiratory distress or other emergent concerns. Findings not consistent with hypoxic respiratory failure, PE, ACS, CHF. Disposition of Chest Pain of Uncertain Etiology, Bilateral Pulmonary Infiltrates. Patient verbalized understanding of the plan and return to ED criteria and engaged in shared decision making. Medical Records Medical records reviewed: Yes I reviewed the patient's medical records. Imaging Data Radiologic Study: Attestation: I personally reviewed and interpreted this imaging study as follows: Imaging: CT Scan Radiologist's impression: Exam: CTA Chest With Contrast Exam date and time: 11/28/2024 7:20 PM Age: 59 years old Clinical indication: Pain; Left-sided; Pleuritic L side cp TECHNIQUE: Imaging protocol: Computed tomographic angiography of the chest with contrast. Exam focused on the arteries. 3D rendering (Not supervised by radiologist): MIP and/or 3D reconstructed images were created by the technologist. Radiation optimization: All CT scans at this facility use at least one of these dose optimization techniques: automated exposure control; mA and/or kV adjustment per patient size (includes targeted exams where dose is matched to clinical indication); or iterative reconstruction. Contrast material: OMNIPAQUE 350; Contrast volume: 60 ml; Contrast route: INTRAVENOUS (IV); COMPARISON: CT CHEST PE CTA 20/11/2021 14:37 FINDINGS: Pulmonary arteries: The pulmonary arteries are normal in caliber. No evidence of acute pulmonary embolism. Aorta: The aorta is normal without evidence of aneurysmal dilatation, dissection or occlusive disease. Lungs: Severe centrilobular emphysematous changes are present. There are diffuse interstitial infiltrates present. This may represent cardiogenic versus noncardiogenic edema. An acute inflammatory process and/or infectious process/pneumonia are not excluded. There is no evidence of focal pulmonary consolidation. No evidence of pulmonary parenchymal inflammatory changes. There is no evidence of pulmonary masses. Pleural spaces: There is no evidence of pneumothorax. There are no pleural effusions present. There is no evidence of pneumothorax. There are no pleural effusions present. Heart: There is mild left ventricular hypertrophy present. The cardiac structures are normal. The right ventricular to left ventricular ratio is normal measuring approximately 1.0. Lymph nodes: There is no evidence of lymphadenopathy. Bones/joints: The spine, sternum, ribs, and pectoral girdles show no evidence of acute abnormality. Soft tissues: There are no soft tissue masses or fluid collections. The upper abdominal viscera are unremarkable. Other findings: The mediastinal structures are normal. IMPRESSION: 1. There are diffuse interstitial infiltrates present. This may represent cardiogenic versus noncardiogenic edema. An acute inflammatory process and/or infectious process/pneumonia are not excluded. 2. Moderate to severe centrilobular emphysema. 3. There is heterogeneous attenuation of the pulmonary parenchyma, consistent with air trapping from underlying small airways disease. 4. No evidence of acute pulmonary embolism. Dictated and Authenticated by: Grover Vora MD. Lab Data Lab results reviewed: Yes I reviewed the patient's lab results. Labs: Laboratory Tests Range/Units 11/28/24 11/28/24 11/28/24 18:45 19:05 19:50 Sodium (136-145) mmol/L 142 Potassium (3.5-5.1) mmol/L 4.0 Chloride (98-107) mmol/L 107 Carbon Dioxide (21.0-32.0) mmol/L 27.5 Anion Gap (3-11) mmol/L 7.5 BUN (7-18) mg/dL 18 Creatinine (0.55-1.02) mg/dL 0.6 Est GFR (CKD-EPI 2020) (mL/min/1.73m2) 102.69 Glucose (74-106) mg/dL 108 H Calcium (8.5-10.1) mg/dL 8.8 Magnesium (1.8-2.4) mg/dL 2.4 Total Bilirubin (0.2-1.0) mg/dL 0.2 AST (15-37) U/L 14 L ALT (14-59) U/L 20 Alkaline Phosphatase (46-116) U/L 67 Troponin I (<or=51) ng/L 5 4 NT-Pro-B Natriuret Pep (<300) pg/mL 34 Total Protein (6.4-8.2) g/dL 7.3 Albumin (3.4-5.0) g/dL 3.8 Lipase (<78) U/L 30 Urine Color (Yellow) Yellow Urine Clarity (Clear) Clear Urine pH (5-8) 7.0 Ur Specific [place] (1.005-1.025) 1.015 Urine Protein (Neg-Trace) mg/dL Negative Urine Ketones (Negative) mg/dL Negative Urine Blood (Negative) Negative Urine Nitrite (Negative) Negative Urine Bilirubin (Negative) Negative Urine Urobilinogen (Up to 0.2) mg/dL 0.2 Ur Leukocyte Esterase (Negative) Negative Urine Glucose (Negative) mg/dL Negative Quality:SDOH Health Related Social Needs: Health related social needs details none, hiring thea moeller to fix her bathroom floor PFSH All Active Problems (Updated 11/28/24 @ 21:11 by SARAH Ojeda) Bilateral pulmonary infiltrates (Acute) Chest pain of uncertain etiology (Acute) Bipolar affective disorder (Chronic) Generalized anxiety disorder with panic attacks (Chronic) COPD (chronic obstructive pulmonary disease) (Chronic) Pulmonary nodule (Chronic) Post traumatic stress disorder (PTSD) (Chronic) Hiatal hernia (Chronic) Osteoarthritis (Chronic) Insomnia (Chronic) Cigarette smoker (Chronic) LDCT annually Chronic low back pain (Chronic) TMJ syndrome (Chronic) Medical History (Updated 11/28/24 @ 21:11 by SARAH Ojeda) Hyperlipidemia GERD (gastroesophageal reflux disease) Surgical History History of esophagogastroduodenoscopy (EGD) (05/09/21) S/P appendectomy S/P left rotator cuff repair (06/03/15) S/P PRO-BSO (total abdominal hysterectomy and bilateral salpingo-oophorectomy) Family History Mother , at 71 from dementia Alzheimer disease Heart disease Hyperlipidemia Hypertension Father Myocardial infarction Heart disease Alcohol abuse Alcoholic liver disease Sister Crohn disease Sister Hyperlipidemia Sister Type 2 diabetes mellitus Sister No problems noted. Brother , 60s Myocardial infarction Type 2 diabetes mellitus Heart disease Brother Myocardial infarction Heart disease Alcohol abuse Brother No problems noted. Brother Alcohol abuse Dementia Parkinson disease Brother Alzheimer disease Crohn disease Brother Heart disease Lymphoma Hyperlipidemia Son , at 28 from Type 1 diabetes Type 1 diabetes mellitus Son No problems noted. Maternal Grandfather No problems noted. Maternal Grandmother Alzheimer disease Paternal Grandfather No problems noted. Paternal Grandmother Type 2 diabetes mellitus Brother No problems noted. Brother No problems noted. Social History Smoking/Tobacco Use Status: Current every day Tobacco Type: cigarettes Years smoked: 50 Tobacco: How many years used: 50 Quit status: considering quitting Second Hand Exposure: Yes Smoking risk assessment performed?: Yes Alcohol Intake: current Alcohol Intake frequency: holidays/special occasions only Alcohol type: hard liquor Drug use: Daily Substance use type: marijuana Household members: none Housing: house Communication Needs: None Do you need help understanding health information?: Never Pets and animals: Yes Pets and animals: bird(s) Sexually active: Yes Do you think of yourself as: straight/heterosexual Current gender identity: female How often do you talk on the phone with friends or family?: three or more times per week How often do you get together with friends or relatives?: twice per week How often do you attend christian or yarsanism services?: decline to answer Do you belong to any clubs or organized social groups?: no Panel score (0-1 are the most socially isolated patients): 1 Seatbelt use: always Helmet use: Yes Helmet use: always Drive intox or ride w/intox motorcycle delivery driver: No Do you feel safe at home: Yes Do you feel safe in your relationship?: Yes Female Reproductive History Menstrual Menopause type: surgical History History 9 Para 2 Hx # Term Pregnancies 2 Multiple births Hx # Pregnancies Ectopic pregnancies AB induced Hx Number of Living Children 1 AB spontaneous 7
[2024-11-28 19:02] VITALS: RESP 18
[2024-11-28 19:14] LABS: ALT 20 U/L (14-59); AST 14 U/L (15-37); Albumin 3.8 g/dL (3.4-5.0); Alkaline Phosphatase 67 U/L (46-116); Anion Gap 7.5 mmol/L (3-11); BUN 18 mg/dL (7-18); Bilirubin, Total 0.2 mg/dL (0.2-1.0); CO2 27.5 mmol/L (21.0-32.0); Calcium 8.8 mg/dL (8.5-10.1); Chloride 107 mmol/L (98-107); Estimated GFR 102.69 (mL/min/1.73m2); Glucose 108 mg/dL (74-106); Magnesium 2.4 mg/dL (1.8-2.4); Potassium 4.0 mmol/L (3.5-5.1); Sodium 142 mmol/L (136-145); Total Protein 7.3 g/dL (6.4-8.2); Troponin I 5 ng/L (<or=51)
[2024-11-28 19:20] LABS: Glucose Negative (Negative)
[2024-11-28] MEDS: Omnipaque 350 MG/ML 100 ML BTL IJ (19:20)
[2024-11-28] MEDS: Normal Saline Flush 10 ML SYR IVP (19:21)
[2024-11-28] MEDS: Normal Saline - Diluent 50 ML VIAL IJ (19:21)
[2024-11-28 19:32] LABS: Lipase 30 U/L (<78); NT-proBNP 34 pg/mL (<300)
[2024-11-28 20:28] LABS: Troponin I 4 ng/L (<or=51)
--- NOTE | 2024-11-28 20:40 | DI.VRAD_ITS ---
PROCEDURE INFORMATION: Exam: CTA Chest With Contrast Exam date and time: 11/28/2024 7:20 PM Age: 59 years old Clinical indication: Pain; Left-sided; Pleuritic L side cp TECHNIQUE: Imaging protocol: Computed tomographic angiography of the chest with contrast. Exam focused on the arteries. 3D rendering (Not supervised by radiologist): MIP and/or 3D reconstructed images were created by the technologist. Radiation optimization: All CT scans at this facility use at least one of these dose optimization techniques: automated exposure control; mA and/or kV adjustment per patient size (includes targeted exams where dose is matched to clinical indication); or iterative reconstruction. Contrast material: OMNIPAQUE 350; Contrast volume: 60 ml; Contrast route: INTRAVENOUS (IV); COMPARISON: CT CHEST PE CTA 20/11/2021 14:37 FINDINGS: Pulmonary arteries: The pulmonary arteries are normal in caliber. No evidence of acute pulmonary embolism. Aorta: The aorta is normal without evidence of aneurysmal dilatation, dissection or occlusive disease. Lungs: Severe centrilobular emphysematous changes are present. There are diffuse interstitial infiltrates present. This may represent cardiogenic versus noncardiogenic edema. An acute inflammatory process and/or infectious process/pneumonia are not excluded. There is no evidence of focal pulmonary consolidation. No evidence of pulmonary parenchymal inflammatory changes. There is no evidence of pulmonary masses. Pleural spaces: There is no evidence of pneumothorax. There are no pleural effusions present. There is no evidence of pneumothorax. There are no pleural effusions present. Heart: There is mild left ventricular hypertrophy present. The cardiac structures are normal. The right ventricular to left ventricular ratio is normal measuring approximately 1.0. Lymph nodes: There is no evidence of lymphadenopathy. Bones/joints: The spine, sternum, ribs, and pectoral girdles show no evidence of acute abnormality. Soft tissues: There are no soft tissue masses or fluid collections. The upper abdominal viscera are unremarkable. Other findings: The mediastinal structures are normal. IMPRESSION: 1. There are diffuse interstitial infiltrates present. This may represent cardiogenic versus noncardiogenic edema. An acute inflammatory process and/or infectious process/pneumonia are not excluded. 2. Moderate to severe centrilobular emphysema. 3. There is heterogeneous attenuation of the pulmonary parenchyma, consistent with air trapping from underlying small airways disease. 4. No evidence of acute pulmonary embolism. Dictated and Authenticated by: Grover Vora MD. Orderin Radha Taylor MD
[2024-11-28] MEDS: Doxycycline Hyclate 100 MG CAP PO (21:33)
[2024-11-28] MEDS: LORazepam 0.5 MG TAB PO (21:33)
[2024-11-28 21:40] VITALS: BP 134/76; PULSE 72; RESP 18; TEMP 36.5; O2SAT 99
--- NOTE | 2024-11-29 16:14 | ED.FU.B_ITS ---
Date of service: 11/29/24 Time of Service: 16:14 Follow Up Plan: This patient contacted the emergency department with questions about her antibiotics. Unfortunately, the ED provider note was not available for review at the time that I answered this patient's call. It appears that she was diagnosed with new bilateral pulmonary infiltrates, and is being treated as pneumonia given her history of COPD. It appears that the patient has an allergy to penicillins, was prescribed azithromycin and doxycycline, presumed dual coverage due to pulmonary disease and allergies limiting use of beta-lactam's. The patient was able to parts picker her antibiotics, states that she will take all of her medications as prescribed, even if she starts to feel better, and was counseled on completing the entire course. She was counseled to follow-up with her primary care provider for reassessment, and had an opportunity to have all questions answered to her satisfaction. Trisha Riley MD
== END 2024-11-28 21:41 | disposition home or self-care (01) ==
PROVIDERS: Emergency Provider Physician Assistant; PCP Nurse Practitioner Family
DX: R07.9 Chest pain, unspecified (principal); R91.8 Other nonspecific abnormal finding of lung field
CPT/HCPCS: 99284; 36415; 71275; 80053; 83690; 93005; 99285; 81003; 83735; 83880; 84484; 93010; J3490

== ENCOUNTER 2025-02-10 17:00 | Emergency (ER) | payer MEDICAID, SELFPAY ==
[2025-02-10 17:07] VITALS: BP 176/106; PULSE 90; RESP 20; TEMP 36.4
[2025-02-10 17:09] VITALS: BP 176/106; PULSE 90; RESP 20; TEMP 36.4
--- NOTE | 2025-02-10 17:10 | W.ED.GENAD ---
Discharge Plan Disposition Patient Disposition: Home Condition: Stable Discharge Details Clinical Impression: Urinary tract infection Primary Care Provider: Lorri Curry ED Provider: Brandon Garcia Home Meds and New Rx's Prescriptions: New cefpodoxime 200 mg tablet 200 mg PO BID 10 Days Qty: 20 0RF Rx Instructions: must administer with a meal/food Continued albuterol sulfate 90 mcg/actuation HFA aerosol inhaler 2 inh inhalation Q6H PRN (Reason: shortness of breath or wheezing) Qty: 18 4RF baclofen 5 mg tablet 5 mg PO TID PRN (Reason: muscle spasm) Qty: 60 0RF ibuprofen 800 mg tablet 800 mg PO TID PRN (Reason: pain) Qty: 60 0RF clonazepam 1 mg tablet 1 mg PO TID Qty: 84 2RF azithromycin 250 mg tablet See Rx Instructions .ROUTE .COMPLEX Qty: 6 0RF Rx Instructions: For 250 mg dose pack: take 500 mg today (day 1), then 250 mg for 4 days (days 2-5) Discharge Instructions Instructions: High Potassium Diet, Cefpodoxime, Urinary Tract Infection, Adult ED Additional Instructions: You were seen in the emergency department for your UTI symptoms, your CT is negative for any kidney stone or obstruction or fluid buildup around your kidneys, your urine has bacteria and I am starting you on a antibiotic called cefpodoxime, we did give you IV antibiotics tonight so start your prescription tomorrow, purchase [id number] AZO for symptomatic relief and stay well-hydrated, your potassium was just below normal, try to eat a high potassium diet for the next few days and return for any emergent concerns. Stand Alone Forms: Portal Information Referrals: Lorri Curry NP [Primary Care Provider, Medicine] [facility] General Date/Time Provider Initiated Documentation: 02/10/25 17:10. HPI Narrative: 59 year-old female presents to ED today by POV/ambulating with a chief complaint of dysuria, UTI symptoms, lower pelvic pain with onset over the past few days. Quality described as burning with urination, cloudy urine, poor intake of hydration is cited as her source of UTIs this time of year, no radiation to flank pain, fever, nausea or vomiting, chest pain, shortness of breath, black or bloody stools, constipation or diarrhea. Severity is described as moderate. Palliating factors include nothing specific attempted. Provoking factors include nothing specific. Events leading up to the incident/Associated Symptoms: Patient denies history of renal stones but does endorse feeling pressure in the area, like something is blocking her urine. Patient not anticoagulated. Related Data Home Medications ?Medication ?Instructions ?Recorded ?Confirmed albuterol sulfate 90 mcg/actuation 2 inh inhalation Q6H PRN shortness 05/31/23 02/10/25 aerosol inhaler of breath or wheezing #18 grams baclofen 5 mg tablet 5 mg PO TID PRN muscle spasm #60 11/17/24 02/10/25 tabs ibuprofen 800 mg tablet 800 mg PO TID PRN pain #60 tabs 11/17/24 02/10/25 clonazepam 1 mg tablet 1 mg PO TID #84 tabs 11/24/24 02/10/25 azithromycin 250 mg tablet See Rx Instructions PO .COMPLEX #6 11/28/24 02/10/25 tabs cefpodoxime 200 mg tablet 200 mg PO BID 10 days #20 tabs 02/10/25 Previous Rx's ?Medication ?Instructions ?Recorded albuterol sulfate 90 mcg/actuation 2 inh inhalation Q6H PRN shortness 05/31/23 aerosol inhaler of breath or wheezing #18 grams baclofen 5 mg tablet 5 mg PO TID PRN muscle spasm #60 11/17/24 tabs ibuprofen 800 mg tablet 800 mg PO TID PRN pain #60 tabs 11/17/24 clonazepam 1 mg tablet 1 mg PO TID #84 tabs 11/24/24 azithromycin 250 mg tablet See Rx Instructions PO .COMPLEX #6 11/28/24 tabs cefpodoxime 200 mg tablet 200 mg PO BID 10 days #20 tabs 02/10/25 Allergies Allergy/AdvReac Type Severity Reaction Status Date / Time morphine Allergy Severe stops my Verified 11/28/24 17:39 heart lamotrigine Allergy Intermediate Facial Verified 11/28/24 17:39 blistering meloxicam AdvReac Severe Nausea and Verified 11/28/24 17:39 vomiting nicotine (From Nicoderm CQ) AdvReac Severe Other (See Verified 11/28/24 17:39 Comment) carbamazepine AdvReac Intermediate Drowsiness Verified 11/28/24 17:39 and ataxia cyclobenzaprine HCl (From AdvReac Intermediate vomits Verified 11/28/24 17:39 Flexeril) hydromorphone HCl (From AdvReac Intermediate vomits Verified 11/17/24 10:02 Dilaudid) Penicillins AdvReac Intermediate vomits Verified 11/28/24 17:39 thiopental AdvReac Intermediate Other (See Verified 11/28/24 17:39 Comment) acetaminophen (From Tylenol) AdvReac stomach Verified 11/28/24 17:39 cramps melatonin AdvReac Headaches Verified 11/28/24 17:39 methocarbamol AdvReac Nausea, Verified 11/28/24 17:39 headache oxycodone (Oxycodone) AdvReac Nausea Verified 11/28/24 17:39 prednisone AdvReac Nausea Verified 11/28/24 17:39 General Stated Complaint: Urinary VENKAT: 3 Review of Systems All systems reviewed & are unremarkable except as noted in HPI and below Exam Narrative Exam Narrative: GENERAL APPEARANCE: Well-nourished, non-toxic, awake and alert, atraumatic, no acute distress. SKIN: Warm, pink, dry, intact, without rashes/lesions/ulcerations. HEAD: Normocephalic, atraumatic, normal hair distribution for gender/age. EYES: Normal conjunctiva, no exudates on lids/lashes. ENT: Nares patent, no circumoral cyanosis, no facial swelling NECK: Supple, trachea midline, painless cervical ROM. LUNGS/CHEST: Lungs CTA bilaterally-no rhonchi/rales/wheeze diffusely, non-labored respirations, normal A/P diameter, symmetrical expansion, no chest wall deformity HEART (CV/PV): Regular rate and rhythm without murmur, no peripheral edema, no JVD. ABDOMEN: Soft, non-distended, no guarding, suprapubic distention and tenderness less so on the right lower quadrant, mild right CVA tenderness without significant pain endorsed MSK: Normal ROM, no swelling/deformity to bilateral UEs or LEs, moving all extremities without weakness, no cyanosis, spine midline without tenderness, normal curvature. NEURO: Mental Status AAOx4 - alert to person, place, time, events No facial droop, no forehead involvement. Motor: No focal weakness - strength 5/5 in bilateral UEs and LEs, proximal and distal, symmetric. Sensory: sensation intact to light touch globally. Gait normal: patient ambulated without ataxia into ED room. PSYCH: euthymic, cooperative, pleasant, appropriate speech Course Vital Signs Vital signs: Vital Signs Temperature 36.4 C 02/10/25 17:07 Pulse 90 02/10/25 17:07 Respiratory Rate 20 02/10/25 17:07 Blood Pressure 176/106 H 02/10/25 17:07 Temperature 36.4 C 02/10/25 17:09 Pulse 90 02/10/25 17:09 Respiratory Rate 20 02/10/25 17:09 Blood Pressure 176/106 H 02/10/25 17:09 Blood Pressure Position Sitting 02/10/25 17:09 Medical Decision Making This dictation utilizes [id number] dictation software and may contain unedited grammatical errors. 59 year-old female presents to ED today by POV/ambulating with a chief complaint of dysuria, UTI symptoms, lower pelvic pain with onset over the past few days. Quality described as burning with urination, cloudy urine, poor intake of hydration is cited as her source of UTIs this time of year, no radiation to flank pain, fever, nausea or vomiting, chest pain, shortness of breath, black or bloody stools, constipation or diarrhea. Severity is described as moderate. Palliating factors include nothing specific attempted. Provoking factors include nothing specific. Events leading up to the incident/Associated Symptoms: Patient denies history of renal stones but does endorse feeling pressure in the area, like something is blocking her urine. Patients' medical history: Hyperlipidemia, GERD, status post PRO-BSO, COPD. Family and social history: Noncontributory. Pertinent exam findings / vital signs include mild right CVA tenderness without chandelier sign, right lower quadrant/suprapubic tenderness without rigidity or distention, negative Perkins sign, no upper abdominal tenderness, nontoxic and afebrile, benign cardiopulmonary exam. Differential / pathologies of concern include renal stone, obstructive uropathy, UTI, pyelonephritis, not appendicitis as patient has history of appendectomy, patient has history of nephrectomy. Diagnostic studies of: - CBC, CMP, UA, CT renal colic. - CBC is completely benign - CMP is benign with only mild low potassium advised dietary increase - UTI on UA, CT renal study shows no acute pathology Interventions of: - 1 L IVF NS, 2 g IV ceftriaxone, 40 mill equivalents p.o. potassium, Rx for cefpodoxime. ED Course/Assessment/Plan: 59-year-old female presents with UTI symptoms for a few days, has history of UTIs, renal stone study shows no obstructive uropathy or kidney stone, labs are reassuring for no signs of systemic infection and her kidney functions normal, we did provide IV antibiotics here while awaiting results and started her on a prescription of cefpodoxime, advised dietary increase in potassium intake and provided some IV fluids for hydration recommend [id number] Azo. Findings not consistent with obstructive uropathy, sepsis, COTY. Disposition of urinary tract infection. Patient verbalized understanding of the plan and return to ED criteria and engaged in shared decision making. Medical Records Medical records reviewed: Yes I reviewed the patient's medical records. Imaging Data Radiologic Study: Attestation: I personally reviewed and interpreted this imaging study as follows: Imaging: CT Scan Radiologist's impression: Exam: CT Abdomen And Pelvis Without Contrast Exam date and time: 02/10/2025 5:37 PM Age: 59 years old Clinical indication: Abdominal pain; Flank; Other: Upper and lower pain TECHNIQUE: Imaging protocol: Computed tomography of the abdomen and pelvis without contrast. COMPARISON: CT ABDOMEN PELVIS W 04/11/2021 11:29 PM FINDINGS: Lungs: COPD noted at the lung bases. Liver: Normal. No mass. Gallbladder and biliary ducts: Normal. No calcified stones. No ductal dilation. Pancreas: Normal. No ductal dilation. Spleen: Normal. No splenomegaly. Adrenal glands: Normal. No mass. Kidneys and ureters: Normal. No hydronephrosis. Stomach and bowel: Unremarkable. No obstruction. No mucosal thickening. Appendix: No evidence of appendicitis. Intraperitoneal space: Unremarkable. No free air. No significant fluid collection. Vasculature: Moderate atherosclerotic change noted in the vasculature with mild aortic ectasia. Lymph nodes: Unremarkable. No enlarged lymph nodes. Urinary bladder: The bladder is not well distended. Reproductive: Status post hysterectomy. Bones/joints: Unremarkable. No acute fracture. Soft tissues: Unremarkable. IMPRESSION: No acute abnormality seen to account for symptoms. Dictated and Authenticated by: Jenae Soni MD. Lab Data Lab results reviewed: Yes I reviewed the patient's lab results. Labs: 02/10/25 17:14 Urine - Reflex from Ua Urine Culture - Pending Laboratory Tests Range/Units 02/10/25 02/10/25 17:14 17:29 WBC (4.4-10.8) 10^3/uL 8.05 RBC (3.93-5.22) 10^6/uL 4.67 Hgb (11.2-15.7) g/dL 14.2 Hct (36.0-46.0) % 41.9 MCV (80-95) fL 90 MCH (27.0-33.0) pg 30.4 MCHC (32.0-36.0) % 33.9 RDW (11.7-14.6) % 13.0 Plt Count (130-400) 10^3/uL 253 MPV (8.0-11.0) fL 9.7 Immature Gran % % 0.1 Neutrophils % % 57.0 Lymphocytes % % 34.4 Monocytes % % 6.3 Eosinophils % % 1.5 Basophils % % 0.7 Nucleated RBC % (0.0-0.3) % 0.0 Absolute Neutrophils (1.2-6.7) 10^3/uL 4.58 Absolute Lymphocytes (1.2-3.4) 10^3/uL 2.77 Absolute Monocytes (0.1-0.8) 10^3/uL 0.51 Absolute Eosinophils (0.0-0.7) 10^3/uL 0.12 Absolute Basophils (0.0-0.2) 10^3/uL 0.06 Sodium (136-145) mmol/L 144 Potassium (3.5-5.1) mmol/L 3.4 L Chloride (98-107) mmol/L 110 H Carbon Dioxide (20.0-31.0) mmol/L 26.1 Anion Gap (3-11) mmol/L 7.9 BUN (9-23) mg/dL 17 Creatinine (0.55-1.02) mg/dL 0.76 Est GFR (CKD-EPI 2020) (mL/min/1.73m2) 77.56 Glucose (74-106) mg/dL 132 H Calcium (8.3-10.6) mg/dL 9.1 Total Bilirubin (0.2-1.2) mg/dL 0.5 AST (<34) U/L 20 ALT (10-49) U/L 16 Alkaline Phosphatase (46-116) U/L 70 Total Protein (5.7-8.2) g/dL 7.7 Albumin (3.2-5.0) g/dL 4.7 Urine Color (Yellow) Yellow Urine Clarity (Clear) Cloudy Urine pH (5-8) 5.5 Ur Specific [place] (1.005-1.025) >= 1.030 H Urine Protein (Neg-Trace) mg/dL 100 H Urine Ketones (Negative) mg/dL Trace H Urine Blood (Negative) Large H Urine Nitrite (Negative) Negative Urine Bilirubin (Negative) Small H Urine Urobilinogen (Up to 0.2) mg/dL 0.2 Ur Leukocyte Esterase (Negative) Moderate H Urine RBC (0-2) HPF 20-50 H Urine WBC (0-5) HPF >50 H Ur Epithelial Cells (Negative) HPF Few Urine Crystals (Negative) HPF Negative Urine Bacteria (Negative) HPF Negative Urine Mucus (Negative) Moderate Ur Culture Indicated? Yes Urine Glucose (Negative) mg/dL Negative Quality:SDOH Health Related Social Needs: Health related social needs details none, hiring someone to fix her bathroom floor PFSH All Active Problems (Updated 02/10/25 @ 18:25 by SARAH Ojeda) Urinary tract infection (Acute) Emphysema of lung (Acute) Bipolar affective disorder (Chronic) Generalized anxiety disorder with panic attacks (Chronic) COPD (chronic obstructive pulmonary disease) (Chronic) Pulmonary nodule (Chronic) Post traumatic stress disorder (PTSD) (Chronic) Hiatal hernia (Chronic) Osteoarthritis (Chronic) Insomnia (Chronic) Cigarette smoker (Chronic) LDCT annually Chronic low back pain (Chronic) TMJ syndrome (Chronic) Medical History (Updated 02/10/25 @ 18:25 by SARAH Ojeda) Hyperlipidemia GERD (gastroesophageal reflux disease) Surgical History History of esophagogastroduodenoscopy (EGD) (05/09/21) S/P appendectomy S/P left rotator cuff repair (06/03/15) S/P PRO-BSO (total abdominal hysterectomy and bilateral salpingo-oophorectomy) Family History Mother , at 71 from dementia Alzheimer disease Heart disease Hyperlipidemia Hypertension Father Myocardial infarction Heart disease Alcohol abuse Alcoholic liver disease Sister Crohn disease Sister Hyperlipidemia Sister Type 2 diabetes mellitus Sister No problems noted. Brother , 60s Myocardial infarction Type 2 diabetes mellitus Heart disease Brother Myocardial infarction Heart disease Alcohol abuse Brother No problems noted. Brother Alcohol abuse Dementia Parkinson disease Brother Alzheimer disease Crohn disease Brother Heart disease Lymphoma Hyperlipidemia Son , at 28 from Type 1 diabetes Type 1 diabetes mellitus Son No problems noted. Maternal Grandfather No problems noted. Maternal Grandmother Alzheimer disease Paternal Grandfather No problems noted. Paternal Grandmother Type 2 diabetes mellitus Brother No problems noted. Brother No problems noted. Social History Smoking/Tobacco Use Status: Current every day Tobacco Type: cigarettes Years smoked: 50 Tobacco: How many years used: 50 Quit status: considering quitting Second Hand Exposure: Yes Smoking risk assessment performed?: Yes Alcohol Intake: current Alcohol Intake frequency: holidays/special occasions only Alcohol type: hard liquor Drug use: Daily Substance use type: marijuana Household members: none Housing: house Communication Needs: None Do you need help understanding health information?: Never Pets and animals: Yes Pets and animals: bird(s) Sexually active: Yes Do you think of yourself as: straight/heterosexual Current gender identity: female How often do you talk on the phone with friends or family?: three or more times per week How often do you get together with friends or relatives?: twice per week How often do you attend methodist or church services?: decline to answer Do you belong to any clubs or organized social groups?: no Panel score (0-1 are the most socially isolated patients): 1 Seatbelt use: always Helmet use: Yes Helmet use: always Drive intox or ride w/intox [employer] company driver: No Do you feel safe at home: Yes Do you feel safe in your relationship?: Yes Female Reproductive History Menstrual Menopause type: surgical History History 9 Para 2 Hx # Term Pregnancies 2 Multiple births Hx # Pregnancies Ectopic pregnancies AB induced Hx Number of Living Children 1 AB spontaneous 7
--- NOTE | 2025-02-10 17:15 | DI.CT_ITS ---
Exam(s) CT RENAL COLIC WO EXAM: CT RENAL COLIC WO CLINICAL HISTORY: dysuria, R flank pain. TECHNIQUE: Imaging Protocol: Axial computed tomography images with coronal and sagittal reformatted images were created and reviewed. Oral: no COMPARISON: CT CT CHEST PE CTA from 11/20/[address] CHEST LUNG CANCER SCREEN from 04/20/[address] CHEST PE CTA from 11/28/2024 FINDINGS: Lung Bases: No acute findings. Emphysematous changes. Stable nodule at the right costophrenic angle. Liver: Normal density. No suspicious mass. Gallbladder and biliary tract: No radiodense calculus or biliary dilation. Pancreas: Normal density. No abnormal calcifications or inflammatory process. Spleen: Normal. Kidneys: Normal size, contour and axis. No radiodense stones. No obstructive uropathy. No suspicious masses seen. Adrenal glands: No masses seen. Lymph nodes: Within normal limits. Vasculature: Abdominal aorta non-dilated. Moderate atherosclerotic changes. Soft tissues: Unremarkable. Bladder: Not well distended. No wall thickening. No mass or calculi. Bowel: No obstruction or bowel wall thickening. Peritoneal cavity: No ascites. No focal collection. No mesenteric inflammatory response. Reproductive organs: Hysterectomy. Bones: Unremarkable for age. IMPRESSION: No acute abnormality in the abdomen or pelvis. No evidence of urinary tract calculi or hydronephrosis. The preliminary [facility] report was reviewed. RADIATION DOSE DELIVERED: Total DLP DATA REPOSITORY: All CT scans at this facility are submitted to the National Radiology Data Registry (NRDR) Dose Index Registry (DIR) with the [employer] (ACR). RADIATION OPTIMIZATION: All CT scans at this facility use at least one of these dose optimization techniques: automated exposure control; mA and/or kV adjustment per patient size (includes targeted exams where dose is matched to clinical indication); or iterative reconstruction.
[2025-02-10 17:31] VITALS: BP 153/93; PULSE 74
[2025-02-10 17:35] LABS: Abs Immature Grans 0.01 10^3/uL (0.0-0.06); HCT 41.9 % (36.0-46.0); HGB 14.2 g/dL (11.2-15.7); Immature Grans % 0.1 %; MCH 30.4 pg (27.0-33.0); MCHC 33.9 % (32.0-36.0); MCV 90 fL (80-95); MPV 9.7 fL (8.0-11.0); Platelet Count 253 10^3/uL (130-400); RBC 4.67 10^6/uL (3.93-5.22); RDW 13.0 % (11.7-14.6); RDW-SD 42.9 fL; WBC 8.05 10^3/uL (4.4-10.8)
[2025-02-10 17:40] LABS: Glucose Negative (Negative)
[2025-02-10 17:46] LABS: C & S Indicated? Yes; RBC 20-50 HPF (0-2); WBC >50 HPF (0-5)
[2025-02-10 17:48] VITALS: PULSE 82; O2SAT 98
[2025-02-10 17:50] VITALS: PULSE 79; O2SAT 96
[2025-02-10] MEDS: cefTRIAXone 2 GM/50 ML BAG IVPB (17:55)
[2025-02-10] MEDS: Normal Saline 1,000 ML 1000 ML IV (17:56)
[2025-02-10 18:06] LABS: ALT 16 U/L (10-49); AST 20 U/L (<34); Albumin 4.7 g/dL (3.2-5.0); Alkaline Phosphatase 70 U/L (46-116); Anion Gap 7.9 mmol/L (3-11); BUN 17 mg/dL (9-23); Bilirubin, Total 0.5 mg/dL (0.2-1.2); CO2 26.1 mmol/L (20.0-31.0); Calcium 9.1 mg/dL (8.3-10.6); Chloride 110 mmol/L (98-107); Glucose 132 mg/dL (74-106); Potassium 3.4 mmol/L (3.5-5.1); Sodium 144 mmol/L (136-145); Total Protein 7.7 g/dL (5.7-8.2)
--- NOTE | 2025-02-10 18:07 | DI.[facility]_ITS ---
PROCEDURE INFORMATION: Exam: CT Abdomen And Pelvis Without Contrast Exam date and time: 02/10/2025 5:37 PM Age: 59 years old Clinical indication: Abdominal pain; Flank; Other: Upper and lower pain TECHNIQUE: Imaging protocol: Computed tomography of the abdomen and pelvis without contrast. COMPARISON: CT ABDOMEN PELVIS W 04/11/2021 11:29 PM FINDINGS: Lungs: COPD noted at the lung bases. Liver: Normal. No mass. Gallbladder and biliary ducts: Normal. No calcified stones. No ductal dilation. Pancreas: Normal. No ductal dilation. Spleen: Normal. No splenomegaly. Adrenal glands: Normal. No mass. Kidneys and ureters: Normal. No hydronephrosis. Stomach and bowel: Unremarkable. No obstruction. No mucosal thickening. Appendix: No evidence of appendicitis. Intraperitoneal space: Unremarkable. No free air. No significant fluid collection. Vasculature: Moderate atherosclerotic change noted in the vasculature with mild aortic ectasia. Lymph nodes: Unremarkable. No enlarged lymph nodes. Urinary bladder: The bladder is not well distended. Reproductive: Status post hysterectomy. Bones/joints: Unremarkable. No acute fracture. Soft tissues: Unremarkable. IMPRESSION: No acute abnormality seen to account for symptoms. Dictated and Authenticated by: Jenae Soni MD. Orderin Radha Taylor MD
[2025-02-10] MEDS: Potassium Chloride 20 MEQ TABCR 40 MEQ PO (18:31)
[2025-02-10 18:33] VITALS: PULSE 80; O2SAT 100
== END 2025-02-10 18:28 | disposition home or self-care (01) ==
PROVIDERS: Emergency Provider Physician Assistant; PCP Nurse Practitioner Family
DX: N39.0 Urinary tract infection, site not specified (principal)
CPT/HCPCS: 99284 ×2; 80053; 96365; 74176; 81003; 81015; 85025; 87086; J0696